=== PATIENT | female | born 1975 | race Caucasian/White ===

== ENCOUNTER 2017-05-01 07:56 | Outpatient (CLI) | payer BC ==
[2017-05-01 11:02] LABS: #Eosinphils 0.3 thou/uL (0.0-0.7); #Lymphocytes 2.2 thou/uL (1.20-3.40); #Monocytes 0.6 thou/uL (0.11-0.59); #Neutrophils 6.4 thou/uL (1.40-6.50); %Basophils 0.4 % (0.0-1.0); %Eosinophils 3.4 % (0.0-10.0); %Lymphocytes 23.2 % (21.0-51.0); %Monocytes 6.5 % (0.0-10.0); Hematocrit 43.4 % (36.0-47.0); Mean Platelet Volume 8.6 fL (7.4-10.4); Red Blood Cell (RBC) Count 4.72 mill/uL (4.20-5.40); White Blood Cell (WBC) Count 9.6 thou/uL (4.8-10.8)
[2017-05-01 11:21] LABS: ALT (SGPT) 20 U/L (8-55); AST (SGOT) 15 U/L (5-34); Alkaline Phosphatase 75 U/L (40-150); Anion Gap 9 mmol/L (10-20); BUN (Urea Nitrogen) 24 mg/dL (7.0-18.7); Bilirubin, Total 0.5 mg/dL (0.2-1.2); Calc. Creatinine Clearance 0 mL/min (70-130); Calcium 9.8 mg/dL (7.8-10.44); Carbon Dioxide 28 mmol/L (22-29); Chloride 103 mmol/L (98-107); Estimated GFR-MDRD 55; Globulin 3.5 g/dL (2.4-3.5); Protein, Total 7.6 g/dL (6.0-8.3)
== END 2017-05-01 07:57 | disposition home or self-care (01) ==
LOC: LABBT 07:56
PROVIDERS: ATTEND Surgery
DX: Z01.818 Encounter for other preprocedural examination (principal); N61.1 Abscess of the breast and nipple; Z88.1 Allergy status to other antibiotic agents; Z88.0 Allergy status to penicillin; Z88.8 Allergy status to other drugs, medicaments and biological substances
CPT/HCPCS: 80053; 85025; 93005; 93010

== ENCOUNTER 2017-05-02 07:38 | Day surgery (SDC) | payer BC ==
[2017-05-01 08:37] VITALS: BMI 79.9
[2017-05-02] MEDS ORDERED: Levofloxacin 500 mg/D5W 100 ml Premix Bag ONE (08:31)
[2017-05-02] MEDS ORDERED: Midazolam HCl 2 mg/2 ml Vial ONE (09:00)
[2017-05-02] MEDS ORDERED: Fentanyl 100 MCG/2 ML VIAL ONE ×2 (09:00→11:13)
[2017-05-02] MEDS ORDERED: Bupivacaine/Epinephrine 0.25% 30 ML VIAL ONE (09:06)
--- NOTE | 2017-05-02 10:46 | ULT ---
LEFT BREAST ULTRASOUND GUIDED NEEDLE LOCALIZATION: History: Chronic abscess and infection. Patient is status post left breast biopsy. Comparison: 08-21-16 FINDINGS: Successful needle localization of an area of architectural distortion in the left retroareolar region . A 5 cm Williams needle and wire were deployed. Technique: Consent obtained to perform an ultrasound guided left breast needle localization. Left breast was michelle luated. Breast was prepped and draped in sterile fashion. 1% Lidocaine buffered with sodium bicarbona te used for local anesthesia. A 5 Hebrew Williams needle was advanced into the area of architectural distortion. Wire was deployed. Wi re and needle were secured to the patient. Patient tolerated the procedure well. No immediate or post procedure complication. IMPRESSION: Successful ultrasound guided left breast needle localization. POS: [facility]
--- NOTE | 2017-05-02 10:50 | OP ---
PREOPERATIVE DIAGNOSIS: Recurrent left breast abscess. SURGEON: Marco Guardado M.D. PROCEDURE PERFORMED: Left needle-localization breast biopsy. INDICATIONS: This is a 42-year-old female, who has recurrent episodes of a draining sinus and inflam mation of the left breast. I could not feel anything, but on ultrasound, they showed an area that lo oked like the source. FINDINGS: I did not see any purulent fluid. The entire area was completely excised around the needl e. PROCEDURE IN DETAIL: After informed consent was obtained, the patient was taken to the operating beckie m and given general endotracheal anesthesia. She was placed in the supine position. Her chest was p repped and draped in the usual fashion. She had undergone ultrasound-guided needle-localization. A periumbilical subareolar incision was performed to include the sinus tract where it had been draining , it was closed at this time, and a core of breast tissue was excised around the needle. This was ma rked with the needle lateral, the skin anterior, and black superior, sent to pathology for further an alysis. Hemostasis was achieved with electrocautery. The wound thoroughly irrigated with saline. B ecause there was no active infection, elected to go ahead and close. Subcutaneous reapproximated wit h interrupted 3-0 Vicryl and skin closed with interrupted 4-0 Rapide. Steri-Strips applied. Sterile bandage applied. The patient tolerated the procedure well and transferred to recovery in good condi tion. Sponge and needle count verified correct x2.
[2017-05-02] MEDS ORDERED: Ondansetron HCl/PF 4 MG/2 ML Vial ONE (17:52)
[2017-05-02] MEDS ORDERED: Glycopyrrolate 0.2 MG/ML 5 ML SYRINGE ONE (17:52)
[2017-05-02] MEDS ORDERED: Dexamethasone 20 MG/5 ML VIAL ONE (17:52)
[2017-05-02] MEDS ORDERED: diphenhydrAMINE 50 MG/ML VIAL ONE (17:52)
[2017-05-02] MEDS ORDERED: ePHEDrine/0.9% NaCl/PF SYRINGE 50 mg/10 ml ONE (17:52)
[2017-05-02] MEDS ORDERED: Metoclopramide HCl 10 MG/2 ML VIAL ONE (17:52)
[2017-05-02] MEDS ORDERED: Propofol 200 MG/20 ML VIAL ONE (17:52)
[2017-05-02] MEDS ORDERED: Ketorolac Tromethamine 30 MG/ML VIAL ONE (17:52)
[2017-05-02] MEDS ORDERED: Lidocaine 1% PF 5 ML VIAL ONE (17:52)
== END 2017-05-02 12:20 | disposition home or self-care (01) ==
LOC: SDC 07:38
PROVIDERS: ATTEND Surgery
PROC: 0HBU3ZX Excision of Left Breast, Percutaneous Approach, Diagnostic (ICD-10-PCS; principal; 2017-05-02)
DX: N61.1 Abscess of the breast and nipple (principal); N60.32 Fibrosclerosis of left breast; E66.01 Morbid (severe) obesity due to excess calories; I11.0 Hypertensive heart disease with heart failure; I50.9 Heart failure, unspecified; E78.5 Hyperlipidemia, unspecified; D64.9 Anemia, unspecified; J45.909 Unspecified asthma, uncomplicated; M17.0 Bilateral primary osteoarthritis of knee; E55.9 Vitamin D deficiency, unspecified; I48.91 Unspecified atrial fibrillation; Z68.45 Body mass index [BMI] 70 or greater, adult; Z79.01 Long term (current) use of anticoagulants; Z79.82 Long term (current) use of aspirin; Z79.899 Other long term (current) drug therapy; Z88.1 Allergy status to other antibiotic agents; Z88.0 Allergy status to penicillin; Z88.2 Allergy status to sulfonamides; Z88.8 Allergy status to other drugs, medicaments and biological substances; Z97.5 Presence of (intrauterine) contraceptive device; Z98.890 Other specified postprocedural states
CPT/HCPCS: 19285; 88307; 96374; J0131; J1100; J1200; J1885; J1956; J2001; J2250; J2405; J2704; J2765; J3010

== ENCOUNTER 2017-12-26 16:30 | Inpatient (IN) | payer BC ==
[2018-01-24] MEDS ORDERED: Bupivacaine/Epinephrine 0.25% 30 ML VIAL ONE ×2 (06:41)
[2018-01-24] MEDS ORDERED: Fentanyl 100 MCG/2 ML VIAL ONE (07:26)
[2018-01-24] MEDS ORDERED: Midazolam HCl 2 mg/2 ml Vial ONE (07:26)
[2018-01-24] MEDS ORDERED: HYDROmorphone 2 MG/ML VIAL ONE (07:26)
[2018-01-24] MEDS ORDERED: Heparin 5,000 UNITS/ML VIAL ONE (08:10)
[2018-01-24] MEDS ORDERED: Meperidine HCl/PF 25 MG/ML VIAL SLOW IVP PRN (08:25)
[2018-01-24] MEDS ORDERED: Naloxone HCl 0.4 mg/ml Vial IV PRN (08:25)
[2018-01-24] MEDS ORDERED: diphenhydrAMINE 25 MG CAP PO PRN (08:25)
[2018-01-24] MEDS ORDERED: diphenhydrAMINE 50 MG/ML VIAL IVP PRN ×2 (08:25→10:48)
[2018-01-24] MEDS ORDERED: HYDROmorphone 2 MG/ML VIAL SLOW IVP PRN (08:25)
[2018-01-24] MEDS ORDERED: HYDROmorphone 10 mg/100 ml CADD IVPB PRN (08:25)
[2018-01-24] MEDS ORDERED: Promethazine HCl 25 MG/ML VIAL IM PRN ×3 (08:25→10:48)
[2018-01-24] MEDS ORDERED: diphenhydrAMINE 50 MG/ML VIAL IM PRN (08:25)
[2018-01-24] MEDS ORDERED: Promethazine HCl 25 MG/ML VIAL SLOW IVP PRN (08:25)
[2018-01-24] MEDS ORDERED: Zolpidem Tartrate 5 MG TAB PO PRN (08:25)
[2018-01-24] MEDS ORDERED: Ondansetron HCl/PF 4 MG/2 ML Vial IVP PRN ×3 (08:25→10:48)
[2018-01-24] MEDS ORDERED: Communication Order-Pharmacy FS SCH (08:30)
[2018-01-24] MEDS ORDERED: Dextrose 50% Abboject 50 ML SYRINGE SLOW IVP PRN (10:48)
[2018-01-24] MEDS ORDERED: Dextrose 5% in Water 1,000 ML IV PRN (10:48)
[2018-01-24] MEDS ORDERED: hydrALAZINE 20 MG/ML VIAL SLOW IVP PRN (10:48)
[2018-01-24] MEDS: Acetaminophen 1,000 MG in Premix Bag 1 BAG IVPB SCH ×3 (12:35→23:37)
[2018-01-24] MEDS: Ketorolac Tromethamine 30 MG/ML VIAL IVP SCH ×3 (13:51→23:37)
[2018-01-24] MEDS: D5 1/2 NS w/20 mEq KCL 1,000 ML IV SCH ×2 (14:32→23:06)
[2018-01-24] MEDS: Prevnar 13-Val Conj/PF 0.5 ML SYRINGE IM ONE (14:33)
[2018-01-24] MEDS ORDERED: Glycopyrrolate 0.2 MG/ML 5 ML SYRINGE ONE (14:37)
[2018-01-24] MEDS ORDERED: Ketorolac Tromethamine 30 MG/ML VIAL ONE (14:37)
[2018-01-24] MEDS ORDERED: Lidocaine 1% PF 5 ML VIAL ONE (14:37)
[2018-01-24] MEDS ORDERED: PROPOFOL 200 MG/20 ML VIAL ONE (14:37)
[2018-01-24] MEDS ORDERED: Dexamethasone 20 MG/5 ML VIAL ONE (14:37)
[2018-01-24] MEDS ORDERED: PHENYLEPHRINE-NS 100 MCG/ML 10 ML SYRINGE ONE (14:37)
[2018-01-24] MEDS ORDERED: Ondansetron HCl/PF 4 MG/2 ML Vial ONE (14:37)
[2018-01-24 14:44] LABS: Band 37 % (5-11); Hemoglobin 13.5 g/dL (12.0-16.0); MDiff Complete? YES; Mean Corpuscular HGB CONC 34.3 g/dL (32.0-36.0); Mean Corpuscular Hemoglobin 31.2 pg (27.0-31.0); Mean Platelet Volume 9.6 fL (7.4-10.4); Neutrophil 54 % (42-75); Platelet Count 231 thou/uL (130-400); RBC Distribution Width 15.6 % (11.5-14.5); Red Blood Cell (RBC) Count 4.31 mill/uL (4.20-5.40)
[2018-01-24 14:45] LABS: Anisocytosis SLIGHT = 6-15 cells (100X) (0-5/hpf); Lymphocytes 6 % (21-51); Monocytes 3 % (0-10); PLT Morphology Comment Appears Adequate
[2018-01-24] MEDS: Sodium Chloride 0.9% 1,000 ML IV SCH ×2 (18:18→21:09)
[2018-01-24] MEDS ORDERED: Sodium Chloride 0.9% 1,000 ML IV SCH (18:45)
[2018-01-24 19:06] LABS: Hemoglobin 11.4 g/dL (12.0-16.0)
[2018-01-24] MEDS: Vancomycin HCl 1.75 GM in Sodium Chloride 0.9% 500 ML IVPB SCH (21:02)
[2018-01-25 06:09] LABS: Anion Gap 15 mmol/L (10-20); BUN (Urea Nitrogen) 35 mg/dL (7.0-18.7); Calc. Creatinine Clearance 99 mL/min (70-130); Calcium 8.4 mg/dL (7.8-10.44); Carbon Dioxide 18 mmol/L (22-29); Chloride 108 mmol/L (98-107); Estimated GFR-MDRD 21; Glucose 146 mg/dL (70-105); Potassium 5.1 mmol/L (3.5-5.1); Sodium 136 mmol/L (136-145)
[2018-01-25] MEDS ORDERED: Sodium Chloride 0.9% 500 ML IVPB SCH (06:45)
[2018-01-25 06:58] LABS: Mean Corpuscular HGB CONC 33.4 g/dL (32.0-36.0); Mean Corpuscular Hemoglobin 30.7 pg (27.0-31.0); Mean Corpuscular Volume 91.8 fL (78.0-98.0); Mean Platelet Volume 10.3 fL (7.4-10.4); Platelet Count 199 thou/uL (130-400); RBC Distribution Width 15.6 % (11.5-14.5); Red Blood Cell (RBC) Count 3.24 mill/uL (4.20-5.40); White Blood Cell (WBC) Count 15.6 thou/uL (4.8-10.8)
[2018-01-25 07:03] LABS: Band 31 % (5-11); Lymphocytes 7 % (21-51); MDiff Complete? YES; Monocytes 3 % (0-10); Neutrophil 59 % (42-75)
[2018-01-25] MEDS ORDERED: Amiodarone HCl 450 MG, Admixture Fee 1 EACH in Dextrose 5% in Water 250 ML IVPB SCH (07:15)
[2018-01-25] MEDS ORDERED: Amiodarone HCl 150 MG, Admixture Fee 1 EACH in Dextrose 5% in Water 100 ML IVPB SCH (07:15)
[2018-01-25] MEDS: Acetaminophen 1,000 MG in Premix Bag 1 BAG IVPB SCH ×3 (07:32→11:26)
[2018-01-25] MEDS: Ketorolac Tromethamine 30 MG/ML VIAL IVP SCH ×3 (07:32→11:24)
[2018-01-25] MEDS: D5 1/2 NS w/20 mEq KCL 1,000 ML IV SCH ×5 (07:35→20:48)
[2018-01-25] MEDS: Pantoprazole 40 MG VIAL IVP SCH (08:10)
[2018-01-25] MEDS: Morphine 4 MG/ML VIAL SLOW IVP PRN ×4 (08:12→21:13)
[2018-01-25] MEDS: Enoxaparin Sodium 40 MG/0.4 ML SYRINGE SC SCH (08:16)
[2018-01-25] MEDS: Vancomycin HCl 1.75 GM in Sodium Chloride 0.9% 500 ML IVPB SCH ×2 (09:46→21:06)
--- NOTE | 2018-01-25 10:21 | PDOC.PULCN ---
Addendum entered and electronically signed by Marco Mcdowell DO 01/25/18 10:33: Addend to correct plan: Acute blood loss anemia - pt has 2U PRBC crossed and typed however has not required transfusion thus far. Most recent Hb is 10.0. Recheck at 1600 - Currently pt is not short of breath or tachycardic, suggestive of no current internal bleed. 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 Following recovery in the PACU pt has significant hypotension and a period of an afib with rvr resulting in being bolused amiodarone. Since moving to the ICU, BP has been low, but stable without pressure support. Pt has remained rate controlled. She has a known hx of afib Pulmonology Consult: ROS - Review of Systems All systems: reviewed and no additional remarkable complaints except as stated ( complains of incisional pain and shoulder/nack pain) Constitutional: negative: fever, chills Cardiovascular: negative: chest pain, palpitations, light headedness Respiratory: negative: chest tightness, short of breath, wheezing Pulmonology Consult: [facility] Source: patient Past Medical History: Morbid obesity, afib - Social History Smoking Status: negative: Current every day smoker Alcohol Use: negative: none Drug Use History: negative: none Living Situation: independent Pulmonology Consult: Meds - Medications MAR Reviewed: Yes Medications: Current Medications Hydrocodone Bitart/Acetaminophen (Hydrocodone-Apap 7.5-325/15) 15 ml PO Q4H PRN PRN Reason: Moderate Pain (4-6) Albuterol/Ipratropium (Duoneb) 3 ml NEB Q4H PRN PRN Reason: Wheezing Dextrose/Water (Dextrose 50%) 25 gm SLOW IVP PRN PRN PRN Reason: Hypoglycemia Diphenhydramine HCl (Benadryl) 25 mg IVP Q3H PRN PRN Reason: Itching Diphenhydramine HCl (Benadryl) 25 mg PO Q3H PRN PRN Reason: Itching Diphenhydramine HCl (Benadryl) 25 mg IM Q3H PRN PRN Reason: Itching Diphenhydramine HCl (Benadryl) 25 mg IVP Q6H PRN PRN Reason: Itching & Insomnia Enoxaparin Sodium (Lovenox) 40 mg SC 0900 [facility] Last Admin: 01/25/18 08:16 Dose: 40 mg Glucagon (Glucagon) 1 mg IM PRN PRN PRN Reason: Hypoglycemia Hydralazine HCl (Apresoline) 10 mg SLOW IVP Q4H PRN PRN Reason: SBP > 170 or DBP > 100 Acetaminophen 1,000 mg/ Device 100 mls @ 400 mls/hr IVPB Q6HR [facility] Stop: 01/25/18 12:01 Last Admin: 01/25/18 07:34 Dose: 100 mls Potassium Chloride/Dextrose/Sod Cl (D5 1/2 Ns W/20 Meq Kcl) 1,000 mls @ 125 mls /hr IV .Q8H [facility] Last Admin: 01/25/18 07:41 Dose: Not Given Dextrose/Water (D5w) 1,000 mls @ 0 mls/hr IV .Q0M PRN PRN Reason: Hypoglycemia Vancomycin HCl 1.75 gm/ Sodium (Chloride) 500 mls @ 250 mls/hr IVPB Q12HR [facility] Last Admin: 01/25/18 09:46 Dose: 500 mls Amiodarone HCl 450 mg/Miscellaneous Medication 1 each/ Dextrose/Water 259 mls @ 0 mls/hr IVPB INF [facility]; Protocol Last Admin: 01/25/18 07:35 Dose: 259 mls Ketorolac Tromethamine (Toradol) 15 mg IVP Q6HR [facility] Stop: 01/25/18 12:01 Last Admin: 01/25/18 08:10 Dose: 15 mg Morphine Sulfate (Morphine) 2 mg SLOW IVP Q2H PRN PRN Reason: Moderate Pain (4-6), if NPO Last Admin: 01/24/18 21:01 Dose: 2 mg Morphine Sulfate (Morphine) 4 mg SLOW IVP Q2H PRN PRN Reason: Severe Pain (7-10) Last Admin: 01/25/18 09:56 Dose: 4 mg Naloxone HCl (Narcan) 0.2 mg IV Q5MIN PRN PRN Reason: Opiate Reversal Ondansetron HCl (Zofran) 4 mg IVP Q8H PRN PRN Reason: Nausea/Vomiting Pantoprazole Sodium (Protonix) 40 mg IVP DAILY [facility] Last Admin: 01/25/18 08:10 Dose: 40 mg Promethazine HCl (Phenergan) 12.5 mg IM Q2H PRN PRN Reason: Nausea/Vomiting Sodium Chloride (Flush - Normal Saline) 10 ml IVF PRN PRN PRN Reason: Saline Flush Last Admin: 01/25/18 08:13 Dose: 10 ml Zolpidem Tartrate (Ambien) 5 mg PO HSPRN PRN PRN Reason: Insomnia - Allergies Allergies/Adverse Reactions: Allergies Allergy/AdvReac Type Severity Reaction Status Date / Time ciprofloxacin [From Cipro] Allergy Verified 01/21/18 15:38 clindamycin Allergy Rash Verified 01/21/18 15:38 levofloxacin [From Levaquin] Allergy Verified 01/21/18 15:38 lorcaserin [From Belviq] Allergy Nausea Verified 01/21/18 15:38 nitrofurantoin Allergy Hives Verified 01/21/18 15:38 [From Macrobid] Penicillins Allergy Verified 01/21/18 15:38 raspberry Allergy Verified 01/21/18 15:38 sulfamethoxazole Allergy Rash Verified 01/21/18 15:38 [From Bactrim] trimethoprim [From Bactrim] Allergy Rash Verified 01/21/18 15:38 Pulmonology Consult: PE - Physical Exam Constitutional: NAD HEENT: PERRLA, moist MMs Neck: full ROM Cardiovascular: RRR, no significant murmur Respiratory: clear to auscultation anteriorly Gastrointestinal: soft, positive bowel sounds Deviation from normal: TTP in all quadrants Musculoskeletal: no edema Neurological: non-focal, normal sensation, moves all 4 limbs Psychiatric: normal affect, A&O x 3 Skin: no rash Pulmonology Consult: Results - Labs Result Diagrams: 01/25/18 05:23 01/25/18 05:23 Pulmonology Consult: A/P - Problem (1) Acute blood loss anemia Current Visit: Yes Code(s): D62 - ACUTE POSTHEMORRHAGIC ANEMIA Status: Acute (2) Hypotension Current Visit: Yes Status: Acute (3) Afib Current Visit: Yes Code(s): I48.91 - UNSPECIFIED ATRIAL FIBRILLATION Status : Acute (4) Asplenia Current Visit: Yes Code(s): Q89.01 - ASPLENIA (CONGENITAL) Status: Acute (5) Morbid obesity Current Visit: Yes Code(s): E66.01 - MORBID (SEVERE) OBESITY DUE TO EXCESS CALORIES Status: Acute - Time Time: 50% of the time was spent in coordination of care (as documented) at patient's floor/unit and/or counseling patient. Time with Patient: greater than 50 minutes - Plan Plan: Acute blood loss anemia - s/p 2 U PRBC. Recheck 6 hours post transfusion - Pt is currently not feeling SOB. She is not tachycardic. Low concern for continued bleed at this point Hypotension secondary to blood loss - IVF and blood transfusion as above - currently stable, does not need pressure support at this time. Asplenia - pt will need prevnar, pneumovax, and meningococcal vaccination - monitor for signs of infection Afib - currently rate controlled, monitor on tele <Pk Pickett - Last Filed: 01/25/18 12:37> Pulmonology Consult: HPI - History of Present Illness HPI: YELITZA RADFORD [place] is a 42 year-old F Pulmonology Consult: Meds - Medications Medications: Current Medications Hydrocodone Bitart/Acetaminophen (Hydrocodone-Apap 7.5-325/15) 15 ml PO Q4H PRN PRN Reason: Moderate Pain (4-6) Albuterol/Ipratropium (Duoneb) 3 ml NEB Q4H PRN PRN Reason: Wheezing Dextrose/Water (Dextrose 50%) 25 gm SLOW IVP PRN PRN PRN Reason: Hypoglycemia Diphenhydramine HCl (Benadryl) 25 mg IVP Q3H PRN PRN Reason: Itching Diphenhydramine HCl (Benadryl) 25 mg PO Q3H PRN PRN Reason: Itching Diphenhydramine HCl (Benadryl) 25 mg IM Q3H PRN PRN Reason: Itching Diphenhydramine HCl (Benadryl) 25 mg IVP Q6H PRN PRN Reason: Itching & Insomnia Enoxaparin Sodium (Lovenox) 40 mg SC 0900 [facility] Last Admin: 01/25/18 08:16 Dose: 40 mg Glucagon (Glucagon) 1 mg IM PRN PRN PRN Reason: Hypoglycemia Hydralazine HCl (Apresoline) 10 mg SLOW IVP Q4H PRN PRN Reason: SBP > 170 or DBP > 100 Potassium Chloride/Dextrose/Sod Cl (D5 1/2 Ns W/20 Meq Kcl) 1,000 mls @ 125 mls /hr IV .Q8H [facility] Last Admin: 01/25/18 10:59 Dose: Not Given Dextrose/Water (D5w) 1,000 mls @ 0 mls/hr IV .Q0M PRN PRN Reason: Hypoglycemia Vancomycin HCl 1.75 gm/ Sodium (Chloride) 500 mls @ 250 mls/hr IVPB Q12HR [facility] Last Admin: 01/25/18 09:46 Dose: 500 mls Amiodarone HCl 450 mg/Miscellaneous Medication 1 each/ Dextrose/Water 259 mls @ 0 mls/hr IVPB INF [facility]; Protocol Last Admin: 01/25/18 07:35 Dose: 259 mls Morphine Sulfate (Morphine) 2 mg SLOW IVP Q2H PRN PRN Reason: Moderate Pain (4-6), if NPO Last Admin: 01/24/18 21:01 Dose: 2 mg Morphine Sulfate (Morphine) 4 mg SLOW IVP Q2H PRN PRN Reason: Severe Pain (7-10) Last Admin: 01/25/18 09:56 Dose: 4 mg Naloxone HCl (Narcan) 0.2 mg IV Q5MIN PRN PRN Reason: Opiate Reversal Ondansetron HCl (Zofran) 4 mg IVP Q8H PRN PRN Reason: Nausea/Vomiting Pantoprazole Sodium (Protonix) 40 mg IVP DAILY [facility] Last Admin: 01/25/18 08:10 Dose: 40 mg Promethazine HCl (Phenergan) 12.5 mg IM Q2H PRN PRN Reason: Nausea/Vomiting Sodium Chloride (Flush - Normal Saline) 10 ml IVF PRN PRN PRN Reason: Saline Flush Last Admin: 01/25/18 08:13 Dose: 10 ml Zolpidem Tartrate (Ambien) 5 mg PO HSPRN PRN PRN Reason: Insomnia Pulmonology Consult: Results - Labs Result Diagrams: 01/25/18 12:02 01/25/18 05:23 Pulmonology Consult: A/P - Time Time: 50% of the time was spent in coordination of care (as documented) at patient's floor/unit and/or counseling patient. Attending Addendum - Attending Addendum Date/Time: 01/25/18 1232 I personally evaluated the patient and discussed the management with Dr. Mcdowell. I agree with the History, Examination, Assessment and Plan documented above with any addition or exceptions noted below. 70 minutes have been devoted to this patient in various activities. I personally reviewed all imaging studies and laboratory data noted within this document. For fifty percent of this time, I was interacting with the patient at the bedside or coordinating care with the care team. For the remainder of the time I was immediately available to the patient in the hospital unit.
[2018-01-25] MEDS ORDERED: Sodium Chloride 0.9% 1,000 ML IV SCH (11:00)
[2018-01-25 12:11] LABS: Hemoglobin 8.4 g/dL (12.0-16.0)
[2018-01-25] MEDS ORDERED: Diltiazem 125 MG in Sodium Chloride 0.9% 100 ML IVPB SCH (12:45)
--- NOTE | 2018-01-25 12:54 | CON ---
DATE OF CONSULTATION: 01/25/2018 REASON FOR CONSULTATION: Chronic atrial fibrillation. HISTORY OF PRESENT ILLNESS: Ms. Larson is a very pleasant 42-year-old woman who has been seen and e valuated by Dr. Renae at [facility]. She recently was seen for a gastric sleeve surgery. She had an inadvertent splenic artery laceration, subsequent splenectomy. She is found to be in atrial fibrillation with RVR. She was transferred to the ICU for close observa tion. She is currently asymptomatic. From a cardiovascular standpoint, she gives a history of having congestive heart failure several year s ago. She also gives a history of chronic atrial fibrillation on anticoagulation therapy, which has subsequently been stopped. No chest pain, pressure, shortness of breath or associated symptoms. He r heart rate is currently controlled. She is currently on IV amiodarone. PAST MEDICAL HISTORY: Previous breast biopsy, morbid obesity, CHF, likely diastolic failure, hyperli pidemia, recurrent mastitis, asthma, arthritis, osteoarthritis, hernia repair, breast biopsy. FAMILY HISTORY: Positive for CAD. SOCIAL HISTORY: No current tobacco or alcohol use. ALLERGIES: BACTRIM, PENICILLIN, CLINDAMYCIN, CEPHALEXIN, MACROBID, CIPRO, KEFLEX, and RASPBERRIES. REVIEW OF SYSTEMS: Ten point review of systems is reviewed as above, otherwise negative. PHYSICAL EXAMINATION: VITAL SIGNS: Blood pressure 99/58, pulse 80, respirations 20. GENERAL: Patient is a pleasant female who is in no acute distress. The patient appears her stated ag e. She is morbidly obese. NEUROLOGIC: The patient is alert and oriented times 3 with no focal neurologic deficits. HEENT: Sclerae without icterus. Mouth has moist mucous membranes with normal pallor. NECK: No JVD. Carotid upstroke brisk. No bruits bilaterally. LUNGS: Clear to auscultation with unlabored respirations. BACK: No scoliosis or kyphosis. CARDIAC: Irregularly irregular. ABDOMEN: Soft, nontender, nondistended. No peritoneal signs present. No hepatosplenomegaly. No abn ormal striae. EXTREMITIES: 2+ femoral and 2+ dorsalis pedis pulses. No cyanosis, clubbing, or edema. SKIN: No gross abnormalities. PERTINENT LABS: White blood cell count 15, hemoglobin 8.4 down from 10.0, platelet count 199, creati nine 2.52. IMPRESSION: Chronic atrial fibrillation. RECOMMENDATIONS: Ms. Larson likely had increased heart rate due to recent surgery and recent splene ctomy. She has a decrease in her hemoglobin, but appears to be stable. She is currently asymptomati c. She is currently on amiodarone. Given that she has chronic fibrillation would likely change to I V Cardizem at 5 mg per hour with no bolus. We will also give 0.5. digoxin for better rate control. At this point, she is not taking p.o. We will supplement with p.o. Cardizem once she is taking p.o. We will review her echo.
[2018-01-25] MEDS ORDERED: Digoxin 0.5 MG/2 ML AMP SLOW IVP SCH (13:15)
--- NOTE | 2018-01-25 13:46 | EKG ---
Test Reason : Blood Pressure : / mmHG Vent. Rate : 103 BPM Atrial Rate : 468 BPM P-R Int : 000 ms QRS Dur : 096 ms QT Int : 354 ms P-R-T Axes : 000 047 056 degrees QTc Int : 463 ms Atrial fibrillation with rapid ventricular response Abnormal ECG When compared with ECG of 21-JAN-2018 16:23, Vent. rate has increased BY 39 BPM Questionable change in QRS duration Minimal criteria for Anterior infarct are no longer Present Confirmed by PAULINO ZAMORA ([id number]) on 01/25/2018 1:46:09 PM Referred By: SANDY Confirmed By:PAULINO ZAMORA
[2018-01-25] MEDS: Sodium Chloride 0.9% 1,000 ML IV SCH (14:54)
[2018-01-25 16:05] LABS: Hemoglobin 9.1 g/dL (12.0-16.0); Mean Corpuscular Volume 91.2 fL (78.0-98.0); Mean Platelet Volume 10.3 fL (7.4-10.4); Platelet Count 169 thou/uL (130-400); RBC Distribution Width 15.7 % (11.5-14.5); Red Blood Cell (RBC) Count 2.94 mill/uL (4.20-5.40); White Blood Cell (WBC) Count 19.9 thou/uL (4.8-10.8)
--- NOTE | 2018-01-25 18:58 | OP ---
DATE OF PROCEDURE: 01/25/2018 SERVICE: Pulmonary and Critical Care. PROCEDURE: Right-sided radial arterial catheter placement. CONSENT: The risks and benefits of the procedure were explained to the patient. All questions were answered and alternative options explained. STAFF PHYSICIAN: Pk Pickett M.D. MEDICATIONS USED: None. INDICATION: Need for accurate blood pressure monitoring. DESCRIPTION OF PROCEDURE: Time out was performed by the procedure team and patient. The patient was positively identified using name and date of . The procedure site was marked. Vital sign danuta toring was accomplished by noninvasive hemodynamic monitoring, pulse oximetry, and telemetry. With the patient in the supine position, the right wrist was placed in the extended position and radi al arterial pulse was palpated. The skin was prepped and draped in usual sterile fashion. The radia l artery was cannulated under direct palpation on the second attempt with return of bright red, pulsa tile blood. The arterial catheter was inserted without difficulty and generously secured with Tegade rm and tape. The catheter was attached to the monitor and appropriate arterial waveform was noted. A sterile dressing was applied and procedure was terminated. ESTIMATED BLOOD LOSS: 2 mL. COMPLICATIONS: None.
[2018-01-26] MEDS: D5 1/2 NS w/20 mEq KCL 1,000 ML IV SCH (02:30)
[2018-01-26] MEDS: Morphine 4 MG/ML VIAL SLOW IVP PRN ×2 (04:31→08:31)
[2018-01-26] MEDS: Hydrocodone-Acetamin 15 ML UDCUP PO PRN ×4 (08:13→20:29)
[2018-01-26] MEDS: Enoxaparin Sodium 40 MG/0.4 ML SYRINGE SC SCH (08:18)
[2018-01-26] MEDS: Pantoprazole 40 MG VIAL IVP SCH (08:20)
[2018-01-26] MEDS: Vancomycin HCl 1.75 GM in Sodium Chloride 0.9% 500 ML IVPB SCH (08:27)
--- NOTE | 2018-01-26 09:01 | PDOC.CTH ---
Cardiology Progress Note - Subjective Pt with CP noted from air post op. HR currently controlled on no meds. ACT has been held secondary to recent bleed. - Objective Vital Signs Temp 01/26/18 04:00 98.6 F 01/26/18 00:00 98.0 F Weight 502 lb 10.463 oz 01/25/18 01/26/18 01/27/18 06:59 06:59 06:59 Intake Total 1600 6176 Output Total 878 Balance 1600 5298 - Physical Examination General/Neuro: alert & oriented x3, NAD Neck: carotid US brisk, no JVD present Lungs: CTA, unlabored respirations Heart: other: (IRR) Abdomen: no HSM, NT/ND Extremities: + femoral B - Labs Result Diagrams: 01/26/18 09:02 01/26/18 09:02 - Assessment/Plan Chronic afib Recent splenic laceration s/p splenectomy Continue IV CCB unitl taking po No need for further digoxin at this time post op care Await ACT recommendations from surgery. Pt at risk of CVA (low) but also at risk of rebleed.
[2018-01-26 09:13] LABS: #Eosinphils 0.1 thou/uL (0.0-0.7); #Lymphocytes 1.8 thou/uL (1.20-3.40); #Monocytes 2.3 thou/uL (0.11-0.59); #Neutrophils 15.7 thou/uL (1.40-6.50); %Basophils 0.2 % (0.0-1.0); %Eosinophils 0.3 % (0.0-10.0); %Lymphocytes 9.1 % (21.0-51.0); %Monocytes 11.4 % (0.0-10.0); Mean Corpuscular HGB CONC 34.1 g/dL (32.0-36.0); Mean Corpuscular Hemoglobin 31.4 pg (27.0-31.0); Mean Corpuscular Volume 92.1 fL (78.0-98.0); Mean Platelet Volume 10.5 fL (7.4-10.4); Platelet Count 172 thou/uL (130-400); RBC Distribution Width 15.7 % (11.5-14.5); Red Blood Cell (RBC) Count 2.54 mill/uL (4.20-5.40); White Blood Cell (WBC) Count 19.9 thou/uL (4.8-10.8)
[2018-01-26 09:35] LABS: ALT (SGPT) 54 U/L (8-55); AST (SGOT) 26 U/L (5-34); Albumin 3.1 g/dL (3.5-5.0); Alkaline Phosphatase 56 U/L (40-150); Anion Gap 12 mmol/L (10-20); BUN (Urea Nitrogen) 35 mg/dL (7.0-18.7); Bilirubin, Direct 0.1 mg/dL (0.1-0.3); Bilirubin, Total 0.3 mg/dL (0.2-1.2); Calc. Creatinine Clearance 129 mL/min (70-130); Calcium 8.1 mg/dL (7.8-10.44); Carbon Dioxide 17 mmol/L (22-29); Chloride 112 mmol/L (98-107); Estimated GFR-MDRD 27; Glucose 122 mg/dL (70-105); Protein, Total 5.2 g/dL (6.0-8.3); Sodium 136 mmol/L (136-145)
[2018-01-26] MEDS: Dextrose 5 %-0.45 % NaCl 1,000 ML IV SCH ×2 (10:00→20:30)
--- NOTE | 2018-01-26 11:00 | PRG ---
DATE OF SERVICE: 01/26/2018 SERVICE: Pulmonary Medicine. INTERVAL HISTORY: The patient has complaints of chest discomfort in the upper areas, and in the bila teral scapula, consistent with her recent surgery. She denies any current nausea, vomiting, or diarr hea. She does not have any shortness of breath, lightheadedness, or dizziness Otherwise, urine outp ut overnight has improved. Her blood pressures have also stabilized to touch. PHYSICAL EXAMINATION: VITAL SIGNS: Afebrile, pulse 95, blood pressure 85/54, respirations 19, saturation 100% on 2 liters nasal cannula. GENERAL: The patient is awake, alert, in no apparent distress. LUNGS: Decent air entry. I do not appreciate a prolonged expiratory phase. HEART: Normal rate, regular. ABDOMEN: Soft, nontender, nondistended. Bowel sounds are positive. MUSCULOSKELETAL: No cyanosis or clubbing. No pitting in the bilateral lower extremities. NEUROLOGIC: Grossly nonfocal. LABORATORY DATA: WBC 19.9, hemoglobin 8.0, platelets 172,000. Creatinine 2.01 and downtrending. BU N 35. Chloride 112, sodium is stable at 136. Potassium is 5.0. Liver function studies are, otherwi se, unremarkable. ASSESSMENT: 1. Acute hypoxic respiratory failure. 2. Acute blood loss anemia. 3. Acute kidney injury, resolving. 4. Atrial fibrillation, permanent. 5. Status post Lap-Band surgery, postoperative day #2. DISCUSSION AND PLAN: We are going to keep the patient in the ICU for an additional 24 hours. I will repeat a hemoglobin at 1500 this evening. Urine output is currently excellent. We will continue wa tching this. It appears that the arterial line and the blood pressure cuff correlate very nicely. I am going to leave the arterial line in for another 24 hours, however. There are currently no signs of infectious symptoms.
--- NOTE | 2018-01-26 11:48 | RAD ---
SINGLE VIEW CHEST: Date: 01/26/18 COMPARISON: 01/21/18. HISTORY: Left-sided chest pain. FINDINGS: Single view of the chest shows a cardiomediastinal silhouette which is upper limits of normal in size . There is no evidence of consolidation, mass, or pleural effusion. Evaluation is limited secondary t o the patient's large body habitus. IMPRESSION: No evidence of acute cardiopulmonary disease. POS: [facility]
[2018-01-26 14:54] LABS: Hemoglobin 7.6 g/dL (12.0-16.0)
--- NOTE | 2018-01-26 17:22 | PRG ---
DATE OF SERVICE: 01/26/2018 SUBJECTIVE: The patient is reporting that her pain is about a 7/10. She mainly complains of pain in the left chest and under her breast and up to the shoulder. It is worse with movement. No nausea o r vomiting. She is tolerating ice chips and sips of liquids well. She denies dyspnea. She is havin g no nausea. PHYSICAL EXAMINATION: VITAL SIGNS: Temperature is 98.6, pulse is 95, blood pressure 102/50. GENERAL: She is awake and alert. There is no jaundice. LUNGS: Clear. HEART: Irregularly irregular. ABDOMEN: Obese, soft. The incisions look good. There is no evidence of infection. Urine output is 878. She did receive 1 unit of packed cells. She still has a Banks in place. LABORATORY DATA: Her white count is 19.9, H and H of 9.1 and 26.8, platelet count of 169,000. We ar e waiting for the electrolytes. ASSESSMENT: Atrial fibrillation with rapid ventricular response, hypotension due to hypovolemia. PLAN: Continue IV fluids. We will check a chest x-ray. We will allow her to have some sips of joe r liquids, try and move her as best we can and control pain.
[2018-01-26] MEDS ORDERED: VANCOMYCIN IVPB PRN (20:24)
[2018-01-26 20:33] LABS: Hemoglobin 7.6 g/dL (12.0-16.0)
[2018-01-26 20:56] LABS: Vancomycin, Trough 40.1 ug/mL
[2018-01-27 02:39] LABS: #Basophils 0.1 thou/uL (0.0-0.2); #Eosinphils 0.2 thou/uL (0.0-0.7); #Lymphocytes 1.9 thou/uL (1.20-3.40); #Monocytes 2.4 thou/uL (0.11-0.59); #Neutrophils 12.7 thou/uL (1.40-6.50); %Basophils 0.3 % (0.0-1.0); %Eosinophils 1.4 % (0.0-10.0); %Lymphocytes 10.8 % (21.0-51.0); %Neutrophils 73.5 % (42.0-75.0); Hemoglobin 7.4 g/dL (12.0-16.0); Mean Corpuscular HGB CONC 34.3 g/dL (32.0-36.0); Mean Corpuscular Hemoglobin 31.5 pg (27.0-31.0); Mean Corpuscular Volume 91.9 fL (78.0-98.0); Platelet Count 187 thou/uL (130-400); RBC Distribution Width 15.6 % (11.5-14.5); Red Blood Cell (RBC) Count 2.34 mill/uL (4.20-5.40); White Blood Cell (WBC) Count 17.3 thou/uL (4.8-10.8)
[2018-01-27] MEDS: Hydrocodone-Acetamin 15 ML UDCUP PO PRN ×3 (03:26→19:06)
[2018-01-27 03:34] LABS: Anion Gap 11 mmol/L (10-20); BUN (Urea Nitrogen) 24 mg/dL (7.0-18.7); Calc. Creatinine Clearance 194 mL/min (70-130); Calcium 8.3 mg/dL (7.8-10.44); Carbon Dioxide 18 mmol/L (22-29); Chloride 113 mmol/L (98-107); Estimated GFR-MDRD 43; Glucose 105 mg/dL (70-105); Potassium 4.3 mmol/L (3.5-5.1); Sodium 138 mmol/L (136-145)
[2018-01-27] MEDS: Dextrose 5 %-0.45 % NaCl 1,000 ML IV SCH ×3 (06:03→23:01)
--- NOTE | 2018-01-27 09:46 | PRG ---
DATE OF SERVICE: 01/27/2018 SERVICE: Pulmonary Medicine. INTERVAL HISTORY: The subcu air is improving a little bit. She continues to have chest and side dis comfort, which is respirophasic in nature. There were no overnight events. She denies any current f jh or chills. She is not having any lightheadedness, nausea, vomiting. She is tolerating some li quids. PHYSICAL EXAMINATION: VITAL SIGNS: Afebrile, pulse 83, blood pressure 119/69, respirations 23, and saturation 100% on 2 li ters nasal cannula. GENERAL: The patient is awake, alert, in no apparent distress. LUNGS: Excellent air entry. There is no prolonged expiratory phase. There is no wheezing, rhonchi, or crackles present. HEART: Normal rate, regular. ABDOMEN: Soft, nontender, nondistended. Bowel sounds are positive. MUSCULOSKELETAL: No cyanosis or clubbing. No pitting in the bilateral lower extremities. NEUROLOGIC: Grossly nonfocal. LABORATORY DATA: WBC 17.3, hemoglobin 7.4, platelets 187,000. Creatinine 1.33 and down trending, BU N 24. Basic metabolic profile is otherwise unremarkable. Random vancomycin is 40. ASSESSMENT: 1. Acute blood loss anemia, stabilizing. 2. Acute hypoxic respiratory failure, improving. 3. Acute kidney injury, resolving. 4. Atrial fibrillation, permanent. 5. Status post lap band surgery, postop day #3. DISCUSSION AND PLAN: We will repeat a hemoglobin around noon. If her hemoglobin remains stable, we can transition her to the floor if surgery is so inclined. We will start working on mobilization toesthela ay. We will see if we can help resolve some of the subcu air bike putting her on a nonrebreather for a brief period of time. Dr. Guardado is suggesting that most of her discomfort is associated with havi ng to take down the peritoneum in order to remove the spleen. As such, her postop pain is within the expected limits.
--- NOTE | 2018-01-27 10:23 | PRG ---
DATE OF SERVICE: 01/27/2018 SUBJECTIVE: The patient is still complaining of left shoulder pain. It is minimally improved. She is having no dyspnea. She has remained alert and awake. Her urine output has started to come back u p. She is tolerating bariatric clear liquids well. PHYSICAL EXAMINATION: VITAL SIGNS: Her heart rate is 82, blood pressure 118/62, 100% saturated. GENERAL: She is awake and alert. LUNGS: Clear. HEART: Regular rate and rhythm. EXTREMITIES: The incisions are healing well. There is no evidence of infection. GENITOURINARY: Her urine output has been 2000. LABORATORY DATA: Her creatinine is down to 1.3. Electrolytes are otherwise okay. Her white count i s down to 17.3, H&H is 7.4 and 21.5, platelet count of 187. X-RAY FINDINGS: Chest x-ray shows no evidence of acute cardiopulmonary disease. ASSESSMENT: Anemia, it looks like her hemoglobin is stabilizing. She started to mobilize some fluid . PLAN: Bariatric full liquids, physical therapy. We will continue to monitor her hemoglobin. If 24 more hours remains stable, we will consider anticoagulation.
[2018-01-27] MEDS: Enoxaparin Sodium 40 MG/0.4 ML SYRINGE SC SCH (10:45)
[2018-01-27] MEDS: Morphine 4 MG/ML VIAL SLOW IVP PRN ×3 (10:45→22:21)
[2018-01-27] MEDS: Pantoprazole 40 MG VIAL IVP SCH (10:56)
--- NOTE | 2018-01-27 12:04 | PDOC.CTH ---
Cardiology Progress Note - Subjective Looks and feels a little better today. CP improved. HR stable - Objective Vital Signs Temp Pulse Resp Pulse Ox 01/27/18 08:04 100 01/27/18 08:00 98.6 F 81 19 100 01/27/18 07:00 98.6 F 01/27/18 04:00 98.9 F Weight 502 lb 10.463 oz 01/26/18 01/27/18 01/28/18 06:59 06:59 06:59 Intake Total 6176 4250 240 Output Total 878 2000 0 Balance 5298 2250 240 - Physical Examination General/Neuro: alert & oriented x3, NAD Neck: no JVD present Lungs: CTA, unlabored respirations Heart: other: (irr) Abdomen: no HSM, NT/ND, soft Extremities: + edema B - Labs Result Diagrams: 01/27/18 13:00 01/27/18 03:20 - Assessment/Plan Chronic afib Recent splenic laceration s/p splenectomy HR stable Hold ACT given continued anemia. Will leave at disposition of surgery on when it can be restarted.
[2018-01-27 13:17] LABS: Hemoglobin 7.1 g/dL (12.0-16.0)
[2018-01-27] MEDS ORDERED: predniSONE 20 MG TAB PO SCH (17:30)
[2018-01-28] MEDS: Hydrocodone-Acetamin 15 ML UDCUP PO PRN ×3 (01:10→20:10)
[2018-01-28 05:45] LABS: Anion Gap 10 mmol/L (10-20); BUN (Urea Nitrogen) 16 mg/dL (7.0-18.7); Calc. Creatinine Clearance 235 mL/min (70-130); Calcium 8.8 mg/dL (7.8-10.44); Carbon Dioxide 20 mmol/L (22-29); Chloride 111 mmol/L (98-107); Estimated GFR-MDRD 54; Glucose 127 mg/dL (70-105); Potassium 4.7 mmol/L (3.5-5.1); Sodium 136 mmol/L (136-145)
[2018-01-28 06:12] LABS: Band 16 % (5-11); Hemoglobin 7.7 g/dL (12.0-16.0); Lymphocytes 3 % (21-51); MDiff Complete? YES; Mean Corpuscular HGB CONC 33.1 g/dL (32.0-36.0); Mean Corpuscular Hemoglobin 30.6 pg (27.0-31.0); Mean Corpuscular Volume 92.4 fL (78.0-98.0); Mean Platelet Volume 9.6 fL (7.4-10.4); Monocytes 5 % (0-10); Neutrophil 76 % (42-75); Nucleated RBC 1 % (0); Platelet Count 249 thou/uL (130-400); Red Blood Cell (RBC) Count 2.52 mill/uL (4.20-5.40); White Blood Cell (WBC) Count 18.9 thou/uL (4.8-10.8)
[2018-01-28] MEDS: Enoxaparin Sodium 40 MG/0.4 ML SYRINGE SC SCH (08:11)
[2018-01-28] MEDS: Pantoprazole 40 MG VIAL IVP SCH (08:11)
[2018-01-28] MEDS: Morphine 4 MG/ML VIAL SLOW IVP PRN ×2 (10:47→16:11)
--- NOTE | 2018-01-28 10:49 | PRG ---
DATE OF SERVICE: 01/28/2018 SUBJECTIVE: The patient is feeling better today, less pain. She does complain of a headache. She d enies any dyspnea. She is tolerating full liquids well. She is passing gas. PHYSICAL EXAMINATION: VITAL SIGNS: Her heart rate is 71, blood pressure 135/81, afebrile. She is 95% sat on room air. GE NERAL: She looks much better, much more comfortable. ABDOMEN: Soft, nondistended. The incisions are healing well. No evidence of infection. GENITOURINARY: Her urine output is 2300 mL. She did receive 1 unit of red cells. LABORATORY DATA: Her white count is 18.9, H&H is 7.7 and 23. Her hematocrit went from 20.7-23.3. E lectrolytes: Chloride at 111, CO2 of 20, which is better from yesterday. Creatinine is 1.1 with a B UN of 16. Her glucose is 127. ASSESSMENT: Still required some blood. PLAN: Probably start anticoagulation tomorrow, more physical therapy, out of bed in the chair.
--- NOTE | 2018-01-28 15:26 | PRG ---
DATE OF SERVICE: 01/28/2018 SERVICE: Pulmonary Medicine. INTERVAL HISTORY: The patient is breathing well today. She is actually sitting on the side of the b ed. She continues to have persistent abdominal discomfort, particularly with movement, and deep oscar thing. Otherwise, there has been no interval change to her condition. PHYSICAL EXAMINATION: VITAL SIGNS: Afebrile with a T-max overnight of 100.9, pulse 74, blood pressure 123/65, respirations 21, saturation 96% on room air. GENERAL: The patient is awake and alert, in no apparent distress. LUNGS: Decent air entry. There is no prolonged expiratory phase. HEART: Normal rate, regular. ABDOMEN: Soft, nontender, nondistended. Bowel sounds are positive. MUSCULOSKELETAL: No cyanosis or clubbing. There is no pitting in the bilateral lower extremities. NEUROLOGIC: Grossly nonfocal. LABORATORY DATA: WBC 18.9, hemoglobin 7.7 with a less than appropriate rise in hemoglobin with 1 uni t of blood, platelets 249,000. Band count has increased to 16%. Creatinine 1.10. Basic metabolic p rofile is, otherwise, unremarkable. ASSESSMENT: 1. Acute blood loss anemia. 2. Acute hypoxic respiratory failure, resolved. 3. Acute kidney injury, resolving. 4. Atrial fibrillation, permanent. 5. Status post Lap-Band surgery, postoperative day #4. DISCUSSION AND PLAN: Once again, we will repeat hemoglobin and hematocrit at roughly 1500 this after noon. We will continue our mobilization efforts. If she has increasing signs of sepsis, hardin culture will be performed. Empiric antibiotics will be considered. Pulmonary Critical Care will continue t o follow along and she will remain in this location.
[2018-01-28 16:04] LABS: Hemoglobin 8.2 g/dL (12.0-16.0)
[2018-01-28] MEDS: Sodium Chloride 0.45% 1,000 ML IV SCH (16:17)
--- NOTE | 2018-01-28 23:31 | PDOC.CTH ---
Cardiology Progress Note - Subjective No complaints today. Seen at 1430 today. Plan for resuming OAC possibly tomorrow. - Objective Vital Signs Temp Pulse Resp Pulse Ox 01/28/18 20:00 98.9 F 76 15 97 01/28/18 16:00 98.7 F 01/28/18 12:00 98.7 F Admit Weight 502 lb 10.463 oz Weight 502 lb 10.463 oz 01/27/18 01/28/18 01/29/18 06:59 06:59 06:59 Intake Total 4250 2515 792 Output Total 1999 2295 725 Balance 2250 220 67 - Physical Examination General/Neuro: alert & oriented x3 Lungs: CTA Heart: other: (IRR) Abdomen: NT/ND, soft Extremities: + edema B - Telemetry Telemetry Rhythm: IRR - Labs Result Diagrams: 01/28/18 15:45 01/28/18 05:10 - Assessment/Plan 1. Chronic AF 2. Splenic lac s/p splenectomy 3. Morbid Obesity 4. Anemia Doing well. Rate-controlled. Resume NOAC as per GS.
[2018-01-29] MEDS: Morphine 4 MG/ML VIAL SLOW IVP PRN ×2 (00:06→08:34)
[2018-01-29] MEDS: Hydrocodone-Acetamin 15 ML UDCUP PO PRN ×5 (03:06→20:18)
[2018-01-29 05:44] LABS: Anion Gap 12 mmol/L (10-20); BUN (Urea Nitrogen) 18 mg/dL (7.0-18.7); Calc. Creatinine Clearance 233 mL/min (70-130); Calcium 8.7 mg/dL (7.8-10.44); Carbon Dioxide 20 mmol/L (22-29); Chloride 110 mmol/L (98-107); Estimated GFR-MDRD 53; Glucose 95 mg/dL (70-105); Potassium 4.3 mmol/L (3.5-5.1); Sodium 138 mmol/L (136-145)
[2018-01-29 06:57] LABS: Band 9 % (5-11); Eosinophils 1 % (0-10); Lymphocytes 15 % (21-51); MDiff Complete? YES; Mean Corpuscular HGB CONC 33.7 g/dL (32.0-36.0); Mean Corpuscular Hemoglobin 31.4 pg (27.0-31.0); Mean Corpuscular Volume 93.2 fL (78.0-98.0); Mean Platelet Volume 8.9 fL (7.4-10.4); Monocytes 15 % (0-10); Neutrophil 60 % (42-75); Platelet Count 348 thou/uL (130-400); RBC Distribution Width 15.4 % (11.5-14.5); Red Blood Cell (RBC) Count 2.55 mill/uL (4.20-5.40); White Blood Cell (WBC) Count 17.5 thou/uL (4.8-10.8)
--- NOTE | 2018-01-29 08:08 | PDOC.CTH ---
Cardiology Progress Note - Subjective No complaints today. Startede mlovenox 40mg BID - Objective Vital Signs Temp Pulse Resp Pulse Ox 01/29/18 07:51 97.2 F L 76 18 96 01/29/18 07:18 76 01/29/18 07:00 97.2 F L 01/29/18 04:00 98.9 F 01/29/18 00:00 98.9 F Admit Weight 502 lb 10.463 oz Weight 502 lb 10.463 oz 01/28/18 01/29/18 01/30/18 06:59 06:59 06:59 Intake Total 2515 1323 250 Output Total 2295 1305 120 Balance 220 18 130 - Physical Examination General/Neuro: alert & oriented x3, NAD Neck: no JVD present Lungs: CTA, unlabored respirations Heart: other: (irr) Extremities: + femoral B - Labs Result Diagrams: 01/29/18 05:12 01/29/18 05:12 - Assessment/Plan afib s/p gastric sleeve splenic artery laceration s/p splenectomy CV status stable No new recommendations Restart eliquis at previous home dose when ok with general surgery Please reconsult if questions arise pt to fu with Dr. Portillo at
[2018-01-29] MEDS: Pantoprazole 40 MG VIAL IVP SCH (08:27)
[2018-01-29] MEDS: Sodium Chloride 0.45% 1,000 ML IV SCH (08:27)
[2018-01-29] MEDS ORDERED: Enoxaparin Sodium 40 MG/0.4 ML SYRINGE SC SCH (09:00)
[2018-01-29 10:15] VITALS: BMI 84.6
[2018-01-29] MEDS ORDERED: Meningococcal Vaccine 0.5ML VIAL (MENACTRA) IM ONE (11:58)
[2018-01-29] MEDS ORDERED: Haemoph B Posysac Conj-Meng 0.5 ML VIAL IM ONE (11:58)
--- NOTE | 2018-01-29 12:59 | PRG ---
DATE OF SERVICE: 01/29/2018 The patient is doing much better today. She is still having pain on the left side, but it is improvi ng. She is tolerating full liquids well. She is moving around a lot better. She has good urine out put. OBJECTIVE: VITAL SIGNS: She is afebrile, pulse is 75, blood pressure 162/82. Urine output is 1665. LABORATORY DATA: White count 17, H&H 8 and 23, platelet count of 348. Electrolytes are good. Creat inine is 1.1. ASSESSMENT: Doing well. PLAN: We will restart her Eliquis, give her Pneumovax, Meningovax and H. flu vaccine. We will disco ntinue the Banks. We are going to transfer her to the surgical floor.
[2018-01-29] MEDS: Prevnar 13-Val Conj/PF 0.5 ML SYRINGE IM ONE (13:54)
--- NOTE | 2018-01-29 16:55 | PRG ---
DATE OF SERVICE: 01/29/2018 SERVICE: Pulmonary Medicine. INTERVAL HISTORY: The patient is doing fine from a respiratory standpoint. Denies any chest pain. She is breathing okay. She is continuing to have discomfort whenever she takes deep breath or coughs . She is tolerating p.o. There were no events overnight like nausea or fever. PHYSICAL EXAMINATION: VITAL SIGNS: Afebrile. Pulse 91, blood pressure 144/80, respirations 21, saturation 95% on 2 liters nasal cannula. GENERAL: The patient is awake and alert, in no apparent distress. LUNGS: Decent air entry. There is no prolonged expiratory phase. Dependent crackles are minimal. HEART: Normal rate, regular. ABDOMEN: Soft. There is mild tenderness to palpation. No rebound or guarding is appreciated. MUSCULOSKELETAL: No cyanosis or clubbing. There is no pitting in the bilateral lower extremities. NEUROLOGIC: Grossly nonfocal. LABORATORY DATA: Hemoglobin has gone from 7.7 to 8.2 to 8.0. WBC 17.5, platelets 348,000. Band cou nts have decreased to 9%. Chloride 110, bicarb 20. Creatinine 1.11, has improved. Basic metabolic profile is otherwise unremarkable. ASSESSMENT: 1. Acute blood loss anemia. 2. Acute hypoxic respiratory failure, resolving. 3. Acute kidney injury, resolving. 4. Atrial fibrillation, permanent. 5. Status post lap band surgery, postop day 5. DISCUSSION AND PLAN: From my perspective, the patient is stable for transition to the floor. Puljaimee paige Critical Care will continue to follow along for the time being. I will continue to follow along to see if signs of systemic inflammatory response develop. If they do, empiric antibiotics will be p rovided.
[2018-01-29] MEDS: Apixaban 5 MG TAB PO SCH (20:18)
[2018-01-30] MEDS: Hydrocodone-Acetamin 15 ML UDCUP PO PRN ×6 (00:39→20:32)
[2018-01-30] MEDS: Sodium Chloride 0.45% 1,000 ML IV SCH (04:15)
[2018-01-30 05:26] LABS: Anion Gap 11 mmol/L (10-20); BUN (Urea Nitrogen) 13 mg/dL (7.0-18.7); Calc. Creatinine Clearance 287 mL/min (70-130); Calcium 8.7 mg/dL (7.8-10.44); Carbon Dioxide 21 mmol/L (22-29); Chloride 109 mmol/L (98-107); Estimated GFR-MDRD 67; Glucose 90 mg/dL (70-105); Potassium 4.1 mmol/L (3.5-5.1); Sodium 137 mmol/L (136-145)
[2018-01-30 05:57] LABS: Band 4 % (5-11); Eosinophils 6 % (0-10); Hemoglobin 8.4 g/dL (12.0-16.0); Lymphocytes 20 % (21-51); MDiff Complete? YES; Mean Corpuscular HGB CONC 32.6 g/dL (32.0-36.0); Mean Corpuscular Hemoglobin 30.8 pg (27.0-31.0); Mean Corpuscular Volume 94.5 fL (78.0-98.0); Mean Platelet Volume 8.4 fL (7.4-10.4); Monocytes 20 % (0-10); Neutrophil 50 % (42-75); Nucleated RBC 20 % (0); PLT Morphology Comment Appears Increased; Platelet Count 443 thou/uL (130-400); Polychromasia SLIGHT = 2-3 cells (100X) (0-2/hpf); RBC Distribution Width 15.5 % (11.5-14.5); Red Blood Cell (RBC) Count 2.74 mill/uL (4.20-5.40); White Blood Cell (WBC) Count 13.3 thou/uL (4.8-10.8)
[2018-01-30] MEDS: Pantoprazole 40 MG VIAL IVP SCH (08:34)
[2018-01-30] MEDS: Apixaban 5 MG TAB PO SCH ×2 (08:34→20:35)
[2018-01-30] MEDS ORDERED: Milk Of Magnesia 30 ML UDCUP PO PRN (08:55)
--- NOTE | 2018-01-30 09:12 | PRG ---
DATE OF SERVICE: 01/30/2018 HISTORY OF PRESENT ILLNESS: Ms. Larson today is complaining of worsening pain on the left side. Sh steph has been coughing a lot, which has made it worse. She has not passed gas since yesterday. No naus ea or vomiting. PHYSICAL EXAMINATION: VITAL SIGNS: Temperature is 98.6, pulse 83, blood pressure 119/82. She still has a Banks in she pu t out 1630. LABORATORY DATA: Her white count is 13, H&H 8.4 and 25, platelet count 443. Her CO2 is up to 21. E lectrolytes look good. Creatinine is 0.9, BUN of 13. IMPRESSION: Increased pain, probably due to the splenectomy and denuding of the diaphragm. PLAN: She is too large for the CT scan, the max is 450, so we will do a barium swallow just to make sure that there is no obvious leak.
[2018-01-30] MEDS: Morphine 4 MG/ML VIAL SLOW IVP PRN (11:46)
--- NOTE | 2018-01-30 12:16 | RAD ---
LIMITED BARIUM SWALLOW: HISTORY: Status post bariatric surgery. Postop day one week. Pain. COMPARISON: None. TECHNIQUE: The patient was administered a total of 60 mL of Gastrografin orally. Portable images were obtained. FINDINGS: Initial image demonstrates contrast opacifying the thoracic esophagus. Subsequent images demonstrate contrast in the residual gastric lumen. No obvious leak or extravasation. Imaging of the epigastri c region is performed at the end of the exam. Contrast is difficult to appreciate. IMPRESSION: No obvious leak or extravasation. Examination is markedly limited by technique and body habitus. POS: [facility]
[2018-01-30] MEDS ORDERED: GASTROGRAFIN 30 ML BOT ONE (12:55)
--- NOTE | 2018-01-30 17:24 | PRG ---
DATE OF SERVICE: 01/30/2018 SERVICE: Pulmonary Medicine. INTERVAL HISTORY: The patient is doing fine from a respiratory standpoint. She is breathing comfortably. She is on a little bit less pain today. She does not know wear her pain on her forehead any longer, but does still complain of fairly significant discomfort. Otherwise, there were no events overnight. There are no fevers or chills. She is coughing up a little bit of sputum. That being said, it seems to be settling down over the past 2 days. PHYSICAL EXAMINATION: VITAL SIGNS: Afebrile, pulse 83, blood pressure 119/82, respirations 18, saturation 97% on 2 liters nasal cannula. GENERAL: The patient is awake, alert, no apparent distress. LUNGS: Excellent air entry. There are some rhonchi present. They clear with cough. There is no prolonged expiratory phase or wheezing appreciated. HEART: Normal rate, regular. ABDOMEN: Soft, nontender, nondistended. Bowel sounds are positive. MUSCULOSKELETAL: No cyanosis or clubbing. There is no pitting in the bilateral lower extremities. NEUROLOGIC: Grossly nonfocal. LABORATORY DATA: WBC 13.3, hemoglobin 8.4 and up trending, platelets of 443, 000. Basic metabolic profile is essentially unremarkable with creatinine that is stable at 0.9. IMAGING DATA: Barium swallow demonstrates no obvious leak or extravasation. ASSESSMENT: 1. Acute blood loss anemia, stable. 2. Acute hypoxic respiratory failure, resolved. 3. Acute kidney injury, resolved. 4. Atrial fibrillation, permanent. 5. Status post lap band surgery, postop day #6. DISCUSSION AND PLAN: The patient is doing really quite well at this time. She has no further requirements for inpatient Pulmonary or critical care opinion, and I will sign off. She may be evolving a small acute bronchitis. If her sputum production gets worse, she may be well served by a 5-day course of low dose steroids and Levaquin. Please call with additional questions or concerns develop. TIERA
[2018-01-31] MEDS: Hydrocodone-Acetamin 15 ML UDCUP PO PRN ×4 (00:37→20:28)
[2018-01-31] MEDS: Sodium Chloride 0.45% 1,000 ML IV SCH ×2 (03:32→23:22)
[2018-01-31 05:32] LABS: Hemoglobin 8.8 g/dL (12.0-16.0)
[2018-01-31] MEDS: Apixaban 5 MG TAB PO SCH ×2 (08:43→20:28)
[2018-01-31] MEDS: Pantoprazole 40 MG VIAL IVP SCH (08:43)
[2018-01-31] MEDS: Morphine 10 MG/0.5 ML ORAL SYRINGE SL PRN ×2 (10:28→17:35)
--- NOTE | 2018-01-31 10:39 | PRG ---
DATE OF SERVICE: 01/31/2018 HISTORY OF PRESENT ILLNESS: The patient reports that her swallowing is better. The left side pain i s better, but she has now developed right flank pain that is pretty severe. She also complains of le ft breast pain that occurred when they were moving her yesterday. She is tolerating liquids well. S he had a bowel movement. No nausea or vomiting. She had a barium swallow yesterday that was not a g reat study due to her body habitus, but they did not see any evidence of leak or extravasation. PHYSICAL EXAMINATION: VITAL SIGNS: Her temperature is 98.2, pulse of 90, blood pressure 104/68. GENERAL: She is awake and alert. She does look uncomfortable. HEENT: Unremarkable. BREAST: I do not see any lesions. No erythema, no nodules, nothing cause the pain in her left breas t. On the right flank, there is evidence of previous injection sites for Lovenox, but I do not feel a definite hematoma. The trocar sites look fine. LABORATORY DATA: Hemoglobin and hematocrit is 8.8 and 27.5. ASSESSMENT: She may be having pain from like a hematoma from the Lovenox injections. I do not have a clear reason. PLAN: They tried ice, it did not work, we will try heat. I am going to try some morphine sublingual to see if that helps more with her pain. We were still aiming towards getting her to rehabilitation . Again, she is voiding well and her bowels are working.
[2018-01-31] MEDS: Ketorolac Tromethamine 30 MG/ML VIAL IVP SCH ×2 (17:39→23:17)
[2018-02-01 04:06] LABS: Hemoglobin 9.2 g/dL (12.0-16.0)
[2018-02-01] MEDS: Ketorolac Tromethamine 30 MG/ML VIAL IVP SCH ×3 (06:32→17:15)
[2018-02-01] MEDS: Pantoprazole 40 MG VIAL IVP SCH (09:03)
[2018-02-01] MEDS: Hydrocodone-Acetamin 15 ML UDCUP PO PRN ×2 (09:03→17:14)
[2018-02-01] MEDS: Apixaban 5 MG TAB PO SCH (09:03)
--- NOTE | 2018-02-01 13:27 | PRG ---
DATE OF SERVICE: 02/01/2018 The patient says she feels better today. Pain is improved, possibly from the Toradol. She is tolera ting liquids. Bowels are working, urinating well. PHYSICAL EXAMINATION: VITAL SIGNS: Temperature 97.9, pulse 77, blood pressure is 119/80. GENERAL: She is awake and alert. She is sitting upright in the bed. ABDOMEN: Her abdomen is soft. The incisions are healing well. 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 LABORATORY DATA: Her H&H is 9.2 and 28.4. ASSESSMENT: Doing well. PLAN: Awaiting rehab placement.
[2018-02-01] MEDS: Sodium Chloride 0.45% 1,000 ML IV SCH (18:30)
[2018-02-01 19:51] VITALS: BP 109/72; TEMP 98.2
== END 2018-02-01 20:16 | DRG 619 ==
LOC: SURG A 01-24 05:57 → T4-A 01-24 11:44 → SURG A 01-24 11:52 → CCU 01-25 06:37 → SJJU 01-29 16:19
PROVIDERS: ADMIT Surgery; ATTEND Surgery
PROC: 0DB64Z3 Excision of Stomach, Percutaneous Endoscopic Approach, Vertical (ICD-10-PCS; 2018-01-24)
PROC: 07TP4ZZ Resection of Spleen, Percutaneous Endoscopic Approach (ICD-10-PCS; 2018-01-24)
PROC: 03HY32Z Insertion of Monitoring Device into Upper Artery, Percutaneous Approach (ICD-10-PCS; principal; 2018-01-25)
PROC: 30233N1 Transfusion of Nonautologous Red Blood Cells into Peripheral Vein, Percutaneous Approach (ICD-10-PCS; 2018-01-27)
DX: E66.01 Morbid (severe) obesity due to excess calories (principal); J95.821 Acute postprocedural respiratory failure; I97.51 Accidental puncture and laceration of a circulatory system organ or structure during a circulatory system procedure; D62 Acute posthemorrhagic anemia; N17.9 Acute kidney failure, unspecified; I48.2 Chronic atrial fibrillation; Z71.3 Dietary counseling and surveillance; Y65.8 Other specified misadventures during surgical and medical care; Y92.234 Operating room of hospital as the place of occurrence of the external cause; I95.81 Postprocedural hypotension; Z90.81 Acquired absence of spleen; Z88.1 Allergy status to other antibiotic agents; Z88.0 Allergy status to penicillin; Z88.2 Allergy status to sulfonamides; Z88.8 Allergy status to other drugs, medicaments and biological substances; I10 Essential (primary) hypertension; J45.909 Unspecified asthma, uncomplicated; E78.5 Hyperlipidemia, unspecified; E55.9 Vitamin D deficiency, unspecified; E86.1 Hypovolemia; Z98.84 Bariatric surgery status; Z68.45 Body mass index [BMI] 70 or greater, adult
CPT/HCPCS: 36415; 36430; 71045; 74220; 80048; 80076; 80202; 85014; 85018; 85025; 86850; 86900; 86901; 88305; 88307; 88312; 90471; 90647; 90670; 90733; 93005; 93010; 94640; C9113; G0009; G8978-GP-CL; G8979-GP-CJ; J0131; J0282; J1100; J1160; J1170; J1644; J1650; J1885; J2001; J2250; J2270; J2405; J2704; J3010; J3370; J7050; J7070; J7506; J7620; P9016

== ENCOUNTER 2018-01-21 15:04 | Outpatient (CLI) | payer BC ==
[2018-01-21 17:20] LABS: #Eosinphils 0.3 thou/uL (0.0-0.7); #Lymphocytes 2.8 thou/uL (1.20-3.40); #Monocytes 0.8 thou/uL (0.11-0.59); #Neutrophils 5.9 thou/uL (1.40-6.50); %Basophils 0.4 % (0.0-1.0); %Eosinophils 3.2 % (0.0-10.0); %Monocytes 7.9 % (0.0-10.0); %Neutrophils 60.6 % (42.0-75.0); Hemoglobin 14.4 g/dL (12.0-16.0); Mean Corpuscular HGB CONC 34.1 g/dL (32.0-36.0); Mean Corpuscular Hemoglobin 30.6 pg (27.0-31.0); Mean Corpuscular Volume 89.8 fL (78.0-98.0); Mean Platelet Volume 9.9 fL (7.4-10.4); Platelet Count 221 thou/uL (130-400); RBC Distribution Width 15.7 % (11.5-14.5); Red Blood Cell (RBC) Count 4.71 mill/uL (4.20-5.40); White Blood Cell (WBC) Count 9.8 thou/uL (4.8-10.8)
--- NOTE | 2018-01-21 17:25 | RAD ---
PA AND LATERAL VIEWS CHEST: 01/21/18 HISTORY: Preoperative evaluation. FINDINGS: The heart size is normal. The lungs are expanded without focal areas of consolidation, pneumothorace s, or pleural effusions. There are degenerative changes of the spine. IMPRESSION: No acute process. POS: [facility]
[2018-01-21 17:45] LABS: Hemoglobin A1c 4.8 % (4.0-6.0)
[2018-01-21 17:48] LABS: ALT (SGPT) 24 U/L (8-55); AST (SGOT) 17 U/L (5-34); Albumin 4.6 g/dL (3.5-5.0); Alkaline Phosphatase 85 U/L (40-150); Anion Gap 14 mmol/L (10-20); BUN (Urea Nitrogen) 33 mg/dL (7.0-18.7); Bilirubin, Direct 0.2 mg/dL (0.1-0.3); Bilirubin, Total 0.7 mg/dL (0.2-1.2); Calc. Creatinine Clearance 0 mL/min (70-130); Calcium 10.3 mg/dL (7.8-10.44); Carbon Dioxide 23 mmol/L (22-29); Chloride 103 mmol/L (98-107); Estimated GFR-MDRD 44; Globulin 3.1 g/dL (2.4-3.5); Glucose 87 mg/dL (70-105); Potassium 4.1 mmol/L (3.5-5.1); Protein, Total 7.7 g/dL (6.0-8.3); Sodium 136 mmol/L (136-145)
== END 2018-01-21 15:05 | disposition home or self-care (01) ==
LOC: LABBT 15:04
PROVIDERS: ATTEND Surgery
DX: Z01.818 Encounter for other preprocedural examination (principal); E66.01 Morbid (severe) obesity due to excess calories
CPT/HCPCS: 71046; 80053; 80076; 83036; 85025; 93005; 93010

== ENCOUNTER 2018-02-04 16:25 | Inpatient (IN) | payer BC ==
[2018-02-04] MEDS ORDERED: Sodium Chloride 0.9% 1,000 ML IV SCH (18:00)
[2018-02-04] MEDS ORDERED: Sodium Chloride 0.9% 500 ML IV SCH (18:45)
[2018-02-04] MEDS ORDERED: Bisacodyl 5 MG TAB PO PRN (18:48)
[2018-02-04] MEDS ORDERED: Acetaminophen 650 MG Suppository PR PRN (18:48)
[2018-02-04] MEDS ORDERED: CCU Electrolyte Replacement 1 EACH IVPB SCH (18:48)
[2018-02-04] MEDS ORDERED: Milk Of Magnesia 30 ML UDCUP PO PRN (18:48)
[2018-02-04] MEDS ORDERED: Lacri-Lube Opth Oint 3.5 GM TUBE EA EYE PRN (18:48)
[2018-02-04] MEDS ORDERED: Mag-Al 1200 mg/1200 mg/30 ML UDCUP PO PRN (18:48)
[2018-02-04] MEDS ORDERED: Ondansetron HCl/PF 4 MG/2 ML Vial IVP PRN (18:48)
--- NOTE | 2018-02-04 18:52 | RAD ---
CHEST ONE VIEW: HISTORY: Chest pain. COMPARISON: 02/04/2018 FINDINGS: The cardiac silhouette is magnified and enlarged. The pulmonary vasculature is at the upper limits o f normal. The mediastinum is midline. No lobar consolidation or evidence of free subdiaphragmatic g as. IMPRESSION: Cardiomegaly, stable. POS: [facility]
--- NOTE | 2018-02-04 18:53 | RAD ---
ABDOMEN ONE VIEW: HISTORY: Abdominal pain. FINDINGS: The exam is very limited due to patient body habitus and positioning. There is gaseous distention of the colon. Small bowel gas pattern is nonspecific. Left abdomen and pelvis are incompletely imaged . IMPRESSION: Gaseous distention of the colon. Nonspecific pattern. POS: [facility]
[2018-02-04] MEDS ORDERED: Potassium Chloride 40 MEQ in Premix Bag 1 BAG IVPB PRN (19:18)
[2018-02-04] MEDS ORDERED: Magnesium 2 GM/NS 0.9% 100 ML 2 GM in Premix Bag 1 BAG IVPB PRN (19:18)
[2018-02-04] MEDS ORDERED: Potassium Phosphate 15 MMOL in Sodium Chloride 0.9% 250 ML 250 ML IV PRN (19:18)
[2018-02-04] MEDS ORDERED: CCU ELECTROLYTE REPLACEMENT PROTOCOL FS PRN (19:18)
[2018-02-04] MEDS ORDERED: Potassium Phosphate 12 MMOL in Sodium Chloride 0.9% 250 ML 250 ML IV PRN (19:18)
[2018-02-04] MEDS ORDERED: Potassium Phosphate 9 MMOL in Sodium Chloride 0.9% 100 ML IVPB PRN (19:18)
[2018-02-04] MEDS ORDERED: Potassium Chloride 40 MEQ in Sodium Chloride 0.9% 250 ML 250 ML IVPB PRN (19:18)
[2018-02-04] MEDS ORDERED: Magnesium Oxide 400 MG TAB PO PRN ×2 (19:18)
[2018-02-04] MEDS ORDERED: Potassium Chloride 20 MEQ TAB PO PRN (19:18)
[2018-02-04 19:25] LABS: Anisocytosis SLIGHT = 6-15 cells (100X) (0-5/hpf); Band 34 % (5-11); Hemoglobin 8.4 g/dL (12.0-16.0); Lymphocytes 6 % (21-51); MDiff Complete? YES; Mean Corpuscular HGB CONC 31.1 g/dL (32.0-36.0); Mean Corpuscular Volume 96.3 fL (78.0-98.0); Mean Platelet Volume 7.2 fL (7.4-10.4); Metamyelocyte 1 % (0-0); Monocytes 6 % (0-10); Neutrophil 53 % (42-75); Nucleated RBC 3 % (0); PLT Morphology Comment Appears Decreased; Platelet Count 652 thou/uL (130-400); Polychromasia MODERATE = 3-4 cells (100X) (0-2/hpf); RBC Distribution Width 15.5 % (11.5-14.5); Red Blood Cell (RBC) Count 2.81 mill/uL (4.20-5.40); Target Cells SLIGHT = 2-5 cells (100X) (0-1/hpf); Tear Drops SLIGHT = 2-5 cells (100X) (0-1/hpf); White Blood Cell (WBC) Count 32.3 thou/uL (4.8-10.8)
[2018-02-04 19:28] LABS: Lactic Acid 0.7 mmol/L (0.5-2.2)
[2018-02-04 19:34] LABS: ALT (SGPT) 56 U/L (8-55); AST (SGOT) 39 U/L (5-34); Albumin 2.7 g/dL (3.5-5.0); Alkaline Phosphatase 178 U/L (40-150); Anion Gap 19 mmol/L (10-20); BUN (Urea Nitrogen) 40 mg/dL (7.0-18.7); Bilirubin, Total 1.5 mg/dL (0.2-1.2); Calc. Creatinine Clearance 56 mL/min (70-130); Calcium 8.1 mg/dL (7.8-10.44); Carbon Dioxide 15 mmol/L (22-29); Chloride 106 mmol/L (98-107); Estimated GFR-MDRD 11; Globulin 2.5 g/dL (2.4-3.5); Glucose 100 mg/dL (70-105); Potassium 4.7 mmol/L (3.5-5.1); Protein, Total 5.2 g/dL (6.0-8.3); Sodium 135 mmol/L (136-145)
[2018-02-04 19:36] LABS: CKMB 1.2 ng/mL (0-6.6)
[2018-02-04 19:48] LABS: Troponin I Less than 0.010 ng/mL (< 0.028)
--- NOTE | 2018-02-04 20:02 | RAD ---
CHEST ONE VIEW: HISTORY: Central line placement. COMPARISON: Earlier exam on the same date. FINDINGS: The tip of a right internal jugular central venous catheter overlies the superior vena cava. No evidence of pneumothorax. Cardiomegaly and other findings are stable. POS: [facility]
[2018-02-04 20:06] LABS: INR-International Normal Ratio 2.8; Prothrombin Time 29.2 SEC (12.0-14.7)
[2018-02-04 20:07] LABS: PTT 49.4 SEC (22.9-36.1)
[2018-02-04] MEDS: Micafungin 100 MG in Sodium Chloride 0.9% 100 ML IVPB SCH (20:25)
[2018-02-04] MEDS: Sodium Chloride 0.9% 1,000 ML IV SCH ×3 (20:26→20:27)
--- NOTE | 2018-02-04 20:34 | CON ---
DATE OF CONSULTATION: 02/04/2018 PRIMARY CARE PHYSICIAN: Troy Garrett MD CHIEF COMPLAINT: Hypotension and possible sepsis. REQUESTING PHYSICIAN: Dr. Guardado. HISTORY OF PRESENT ILLNESS: Ms. Larson is a 42-year-old female with past medical history of chronic atrial fibrillation, possible congestive heart failure, history of dyslipidemia, recurrent mastitis as well as morbid obesity, status post gastric sleeve operation by Dr. Guardado on 01/24/2018 presented to the hospital as a direct admit for rehabilitation and was admitted under Dr. Guardado. Internal Medi cine team is called to consult as the patient is quite unstable with hypotension and tachycardia. Th ere is concern for sepsis. Electronic medical records have been reviewed extensively. The patient was admitted to our facility on 01/24/[address] Guardado and underwent a gastric sleeve operation. Her postop course was complicated by hypotension as well as rapid ventricular rate with atrial fibrillation requiring ICU transfer. She did have some drop in her hemoglobin, which recovere d spontaneously. During that operation, she had splenic artery requiring splenectomy. She was seen by Pulmonary Critical Care, Dr. Pickett as well as Cardiology, Dr. Higgins. She was eventually sta bilized and was discharged to rehab on 02/01/[address] Guardado. She did have barium swallow done nagi or to discharge, which was negative for any leak or extravasation. Since prior to the discharge, the patient reports that she had worsening abdominal pain which never really got better. Today in the rehabilitation apparently she was having worsening abdominal pains, Dr. Guardado was consul vicki and he requested that the patient be admitted. Shortly after presentation, she was noticed to be hypotensive and tachycardic, so I was called for immediate Internal Medicine consultation. At the time of my evaluation, the patient's blood pressure is systolic in the 80s over diastolic in t he 40s even with a recheck. At my request, she has been given 500 mL bolus without improvement and t hen another 500 mL bolus. It was discussed with Dr. Guardado at bedside and the decision was made to mo ve the patient to critical care unit and possibly start on IV pressors and get a central line in for stabilization. The patient continues to complain of significant abdominal pain. Her blood work was reviewed by myself that was done earlier this morning, possibly at the rehab facility. Her hemoglobi n seem to have dropped from 9.2 on 02/01/2018 to 7.9 earlier this morning. She also has significant jump in her WBC count 232,000 from 13,000 on 01/30/2018. She also has thrombocytosis and bandemia. Most significant is her jump in the BUN and creatinine. Her creatinine has went up from 0.91 to 3.81 with a recheck creatinine of 4.40. Thankfully, her potassium is normal at 4.7 and cardiac enzymes, lactic acid are unremarkable. I have discussed this with Dr. Guardado at bedside who agrees with the plan to transfer her to the [facility]. I have contacted Dr. Morgan and left a message for him to please see the patient as we ll and Dr. Reynolds and has also talked to Dr. Morgan as well. I have also discussed the case with on-critical access hospital team otr truck driver, Dr. Stock. PAST MEDICAL HISTORY: 1. Chronic atrial fibrillation. Please note that the patient was restarted Eliquis that she takes f or her chronic atrial prior to her discharge. She follows up with Dr. Renae over at [facility]. 2. History of morbid obesity, status post gastric sleeve as above. 3. History of unspecified congestive heart failure. 4. Dyslipidemia. 5. History of recurrent mastitis. 6. Asthma. 7. Arthritis. PAST SURGICAL HISTORY: 1. History of breast biopsy. 2. Hernia repair. 3. Gastric sleeve operation. FAMILY HISTORY: Positive for coronary artery disease. SOCIAL HISTORY: She is and lives with her . No history of drug, tobacco or alcohol a buse. ALLERGIES: BACTRIM, PENICILLIN, CLINDAMYCIN, CEPHALEXIN, MACROBID, CIPROFLOXACIN, KEFLEX and RASPBER JENNY. HOME MEDICATIONS: Not updated as yet. REVIEW OF SYSTEMS: A 12-point review of systems was done and is negative except for those mentioned in the history and physical. The patient's main complaint at this time is significant abdominal pain . LABORATORY DATA: CBC shows WBC 32.3, hemoglobin 8.4, hematocrit 27.1, platelet count of 652, 34% ban ds. Serum chemistries show sodium 135, bicarbonate 15, BUN 40, creatinine 4.40. Potassium is normal at 4.7, total bilirubin 1.5, AST 39, ALT 56, alkaline phosphatase 178. Cardiac enzymes normal. Lac tic acid 0.7. Chest x-ray by my review shows cardiomegaly and mild pulmonary vascular congestion. K UB is negative for any free air by my review. PHYSICAL EXAMINATION: VITAL SIGNS: At the time of examination. Temperature 98.7, pulse of 101, respirations 20, saturatin g 98% on 3 liters nasal cannula, blood pressure 89/42 with a repeat blood pressure of 88/49. GENERAL: The patient is somnolent, but easily arousable. She is awake, alert, oriented x3 when woke n up. She is complaining of significant abdominal pain and appears uncomfortable when woken up. Hus band is at bedside. HEENT: She appears significantly pale, otherwise mucous membrane is somewhat dry. No oropharyngeal exudate or erythema. Head is normocephalic, atraumatic. NECK: Supple without any lymphadenopathy, JVD or bruit. CHEST: Clear to auscultation without any wheezing, rales or rhonchi. Rhythm is regular. ABDOMEN: Morbidly obese. She does have some bruises where she has gotten Lovenox in the past, but n o obvious bruising or hematoma. Her surgical wounds seem to be healing very well. She is soft and l argely nontender on gentle palpation. EXTREMITIES: Obese without any cyanosis, clubbing, or edema. NEUROLOGIC: Nonfocal. SKIN: Free of any rashes or bruises. PSYCHIATRIC: Normal affect. IMPRESSION AND PLAN: 1. Hypotension. Suspect hypovolemic versus septic shock in a recent patient with splenectomy and ga stric sleeve operation. A stat KUB and chest x-ray was ordered by myself, which did not show any acu te changes. Unfortunately, the patient's obesity hamper any CT scan of her belly to identify any ble ed. I will defer this to the primary team, Dr. Guardado. As of now, I will transfer her to critical ca re unit and continue the IV fluids with careful monitoring of fluid status and start her on pressors as needed to keep map above 65. We will consult Pulmonary Critical Care Medicine as above. Blood cu lture and urine cultures as well as repeat labs were ordered by myself and her hemoglobin actually is 8.4 on the repeat labs, but other than that is pretty much the same as that was done earlier this mo rning. 2. Acute renal insufficiency. This is likely a combination of hypotensive renal injury as well as r ecent use of Toradol and antibiotics. I will consult Nephrology and continue the patient on IV fluid s and avoid any nephrotoxic medications for now. We will recheck labs on a daily basis. 3. Leukocytosis. The patient was reported to have a low grade fever at the rehab facility and I carlee pect sepsis. We will cover her for any intra-abdominal infection with meropenem and add vancomycin f or MRSA coverage with renally dosed daily dosing. IV fluids as above. We will follow the results of the UA, blood culture and urine culture. She will be in the CCU. 4. Recent gastric sleeve operation management per primary team. 5. Elevated liver enzymes. This is likely secondary to shock liver from hypotension. We will repea t labs in the morning. 6. Morbid obesity, status post gastric sleeve operation. 7. Deep venous thrombosis and gastrointestinal prophylaxis. We would use sequential compression dev ices for now and avoid any heparin or Lovenox given the possibility that she might be having some ble eding. 8. Supportive care and add p.r.n. medications. DISPOSITION: Ms. Larson was seen for acute hypotension, likely sepsis versus acute blood loss. Int [facility] Medicine team will continue to follow. Thank you for letting us participate in the care of this patient. The patient is currently criticall y ill.
[2018-02-04] MEDS ORDERED: Vancomycin HCl 500 MG in Sodium Chloride 0.9% 100 ML IVPB SCH (20:45)
[2018-02-04 20:54] LABS: Bilirubin Moderate (Negative); Blood, Urine Small (Negative); Clarity TURBID (Clear); Glucose, Urine (Dipstick) Negative (Negative); Leukocyte Large (Negative); Nitrite Positive (Negative); Protein, Urine (Dipstick) 30 mg/dL (Neg-Trace); Specific Gravity, Urine 1.023 (1.002-1.036)
[2018-02-04 20:55] LABS: Bacteria/HPF 2+ HPF (None Seen); Squamous Epithelial 0-3 HPF (0-3)
[2018-02-04 20:57] LABS: Pathc Cast-AUWi Flag 7.85 (0-2.49)
[2018-02-04] MEDS ORDERED: Sodium Bicarb 50 MEQ/50 ML Abboject 8.4% SYRINGE IVP SCH (21:00)
[2018-02-04] MEDS ORDERED: Vancomycin HCl 1 GM in Premix Bag 1 BAG IVPB SCH (21:00)
[2018-02-04] MEDS ORDERED: Famotidine/PF 20 mg/2ml Vial SLOW IVP SCH ×2 (21:00)
[2018-02-04 21:07] LABS: RBC/HPF 0-3 HPF (0-3)
[2018-02-04 21:08] LABS: Hyaline Casts/LPF 4-6 HYALINE CAST LPF (0-3 Hyaline)
[2018-02-04] MEDS: Morphine 4 MG/ML VIAL SLOW IVP PRN (21:17)
[2018-02-04] MEDS: Norepinephrine 8 MG/0.9% NS 250 ML IVPB PRN (21:51)
[2018-02-04] MEDS: MEROPENEM 1 GM/50 ML 1 GM in Premix Bag 1 BAG IVPB SCH (21:52)
[2018-02-04] MEDS ORDERED: MEROPENEM 1 GM/50 ML 1 GM in Premix Bag 1 BAG IVPB SCH (22:00)
--- NOTE | 2018-02-04 22:22 | DIS ---
DISCHARGE DIAGNOSES: Extreme morbid obesity, splenic vein injury. PROCEDURES DURING ADMISSION: Laparoscopic sleeve gastrectomy. HOSPITAL COURSE: The patient was admitted, given IV fluids, IV antibiotics, taken to the operating r oom where she underwent sleeve gastrectomy. Due to her size and anatomy distortion during the sleeve portion. The splenic vein was injured. This required removal of the spleen during the surgery. Po stoperatively, she was observed in the Intensive Care Unit. She was not very ambulatory. She had at rial fibrillation. Cardiology and Pulmonary was consulted. She did well. She was transferred to e floor. She needs further physical therapy, so she is being transferred to the rehabilitation on he r usual medications with hydrocodone, Zofran. She will follow up with me in 2 weeks.
--- NOTE | 2018-02-05 00:16 | HP ---
CHIEF COMPLAINT: Abdominal pain. HISTORY OF PRESENT ILLNESS: The patient is a 42-year-old female, who underwent a laparoscopic sleeve gastrectomy on 01/24/2018. This was complicated by an injury to the splenic vein, necessitating a s plenectomy at the time of surgery. Postoperatively, she was observed in the Intensive Care Unit, and eventually, transferred to the floor and was transferred to rehab on Sunday. Over the weekend, she has had progressive abdominal pain, has left upper quadrant pain, as well as right-sided pain. She d enies nausea or vomiting. She has been tolerating liquids well. She has not had any fever. PAST MEDICAL HISTORY: Significant for extreme morbid obesity, hypertension, congestive heart failure , hyperlipidemia, asthma, degenerative joint disease, and atrial fibrillation. PAST SURGICAL HISTORY: She had a hernia repair in 1972, bilateral breast biopsies, I and D of breast , and the recent sleeve gastrectomy. MEDICATIONS: Include albuterol, meropenem, vancomycin, as well as she has been on Eliquis. ALLERGIES: She has allergies to BACTRIM, PENICILLIN, CLEOCIN, CEPHALEXIN, BELVIQ, CIPRO. SOCIAL HISTORY: She is . No tobacco or alcohol. FAMILY HISTORY: Noncontributory. PHYSICAL EXAMINATION: VITAL SIGNS: Her last weight was 486 with a body mass index of 81, but she has not been weighed in s . Her blood pressure is 88/40, pulse 105, temperature 98.8. GENERAL: She is awake, alert, lying still. HEENT: Otherwise, unremarkable. LUNGS: Clear. HEART: Regular rate and rhythm. ABDOMEN: Super morbidly obese. She is diffusely tender. The incisions are without evidence of eryt gabriella. There is no drainage. EXTREMITIES: There are no hernias. LABORATORY DATA AND X-RAY FINDINGS: She had a barium swallow on 01/30/2018 that was fine. Chest x-r ay today shows clear lung greene. No obvious infiltrates or free air. Abdominal x-ray just shows a nonspecific bowel gas pattern. Her white count is 32.8. Her H and H is 7.9 and 25. Her platelet co unt is 612. She has 34% bands. Electrolytes show an elevated glucose at 117. Her creatinine is 3.8 , BUN of 36. Her CO2 is 16. ASSESSMENT: Septic picture. PLAN: Move to ICU, fluid resuscitation, central line, may require laparoscopy too as a diagnostic me asure, as her weight exceeds the limit of the CT scanner.
--- NOTE | 2018-02-05 01:22 | CON ---
DATE OF CONSULTATION: 02/04/2018 Ms. Larson is a female who has undergone a complicated gastric sleeve procedure recently. She was readmitted with abdominal discomfort. She has an elevated white count. Dr. Guardado is contemplating a laparoscopy versus CT scanning, but her weight is such that she may not fill in the CAT scanner. BMI is over 80. I was asked to see her when she was moved into the Critical Care Unit. PAST MEDICAL HISTORY: 1. Remarkable for atrial fibrillation, off anticoagulants for surgery, but back on them afterwards. 2. History of blood loss anemia. 3. Lipid disorder. 4. History of mastitis. 5. 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 6. History of a lipid disorder. 7. Reported history of asthma. 8. History of breast biopsy. 9. History of a herniorrhaphy. FAMILY HISTORY: Positive for vascular disease. She is . SOCIAL HISTORY: She is a nonsmoker, nondrinker, nondrug user. REVIEW OF SYSTEMS: Remarkable only for abdominal pain, especially when she takes a deep breath. PHYSICAL EXAMINATION: VITAL SIGNS: Her blood pressure was 115 systolic when I was in the room. Heart rate was 101. She is afebrile, respiratory rate was 20, oximetry is 98 on 3 liters. HEENT: Pupils reactive. Sclerae is anicteric. NECK: Supple. LUNGS: Clear. HEART: Regular rhythm. ABDOMEN: Soft and mildly tender. EXTREMITIES: Without clubbing, cyanosis. She has stasis changes of her lower extremities as expected. LABORATORY DATA: White count is 32.3, hemoglobin 8.4, platelets 652,000. Sodium 135, potassium 4.7, chloride 106, bicarbonate 15, BUN 40, creatinine 4.4. Liver enzymes are mildly elevated. Dr. Guardado informed me that she had a massive liver. She has significant fatty infiltration of her liver. IMPRESSION: Rule out abdominal sepsis versus intravascular volume depletion. Her p.o. intake since her surgery has been quite poor. She will be aggressively hydrated. She will be given pressors if needed, meropenem and micafungin will be started and she will proceed with further workup once her volume resuscitation has led to stability. [facility] INSANERadha
[2018-02-05] MEDS: Sodium Chloride 0.9% 1,000 ML IV SCH ×3 (02:24→18:03)
[2018-02-05] MEDS ORDERED: Vancomycin HCl 1 GM in Premix Bag 1 BAG IVPB SCH (02:30)
[2018-02-05] MEDS: Morphine 4 MG/ML VIAL SLOW IVP PRN (03:37)
[2018-02-05 05:47] LABS: Hemoglobin 8.2 g/dL (12.0-16.0); Mean Corpuscular Hemoglobin 27.9 pg (27.0-31.0); Mean Corpuscular Volume 96.3 fL (78.0-98.0); Mean Platelet Volume 7.4 fL (7.4-10.4); Platelet Count 689 thou/uL (130-400); RBC Distribution Width 15.5 % (11.5-14.5); Red Blood Cell (RBC) Count 2.93 mill/uL (4.20-5.40); White Blood Cell (WBC) Count 27.6 thou/uL (4.8-10.8)
[2018-02-05 05:48] LABS: Band 42 % (5-11); Eosinophils 2 % (0-10); Hypochromia SLIGHT = 6-15 cells (100X) (0-5/hpf); Lymphocytes 2 % (21-51); MDiff Complete? YES; Metamyelocyte 1 % (0-0); Monocytes 6 % (0-10); Neutrophil 46 % (42-75); Nucleated RBC 3 % (0); PLT Morphology Comment Appears Increased
[2018-02-05 05:50] LABS: ALT (SGPT) 46 U/L (8-55); AST (SGOT) 25 U/L (5-34); Albumin 2.5 g/dL (3.5-5.0); Alkaline Phosphatase 149 U/L (40-150); Anion Gap 15 mmol/L (10-20); BUN (Urea Nitrogen) 43 mg/dL (7.0-18.7); Bilirubin, Total 1.2 mg/dL (0.2-1.2); Calc. Creatinine Clearance 66 mL/min (70-130); Calcium 8.7 mg/dL (7.8-10.44); Carbon Dioxide 17 mmol/L (22-29); Chloride 107 mmol/L (98-107); Estimated GFR-MDRD 12; Globulin 3.5 g/dL (2.4-3.5); Glucose 98 mg/dL (70-105); Potassium 4.4 mmol/L (3.5-5.1); Sodium 135 mmol/L (136-145)
[2018-02-05 06:30] LABS: Band 37 % (5-11); Hemoglobin 8.3 g/dL (12.0-16.0); MDiff Complete? YES; Mean Corpuscular HGB CONC 29.2 g/dL (32.0-36.0); Mean Corpuscular Hemoglobin 28.2 pg (27.0-31.0); Mean Corpuscular Volume 96.4 fL (78.0-98.0); Mean Platelet Volume 7.3 fL (7.4-10.4); Metamyelocyte 1 % (0-0); Monocytes 10 % (0-10); Neutrophil 52 % (42-75); Nucleated RBC 5 % (0); PLT Morphology Comment Appears Increased; Platelet Count 699 thou/uL (130-400); RBC Distribution Width 15.4 % (11.5-14.5); Red Blood Cell (RBC) Count 2.93 mill/uL (4.20-5.40); White Blood Cell (WBC) Count 26.7 thou/uL (4.8-10.8)
[2018-02-05] MEDS ORDERED: Sodium Chloride 0.9% 1,000 ML IV SCH ×2 (07:30→10:45)
[2018-02-05] MEDS ORDERED: Fentanyl 100 MCG/2 ML VIAL ONE (07:48)
[2018-02-05] MEDS ORDERED: HYDROmorphone 2 MG/ML VIAL ONE (07:48)
[2018-02-05] MEDS ORDERED: Bupivacaine HCl 0.5%/Epinephrine 1:200,000/PF 30 ml Vial ONE (08:05)
[2018-02-05] MEDS ORDERED: Norepinephrine 8 MG/0.9% NS 0 ML ONE (08:16)
[2018-02-05] MEDS ORDERED: Heparin 1,000 UNITS/ML VIAL ONE (09:00)
[2018-02-05] MEDS ORDERED: Midazolam HCl 5 mg/5 ml Vial ONE (09:33)
[2018-02-05] MEDS: MEROPENEM 1 GM/50 ML 1 GM in Premix Bag 1 BAG IVPB SCH ×3 (10:12→21:45)
[2018-02-05] MEDS ORDERED: Succinylcholine Chloride 20 MG/ML 10 ml SYRINGE FS ONE (10:36)
[2018-02-05] MEDS ORDERED: PHENYLEPHRINE-NS 100 MCG/ML 10 ML SYRINGE ONE (10:36)
[2018-02-05] MEDS ORDERED: Ventilator Sedation Protocol 1 EACH FS ONE (10:38)
[2018-02-05] MEDS ORDERED: Fentanyl BOLUS 250 ML IVPB PRN (10:40)
[2018-02-05] MEDS ORDERED: Propofol BOLUS 1,000 MG/100 ML VIAL IV PRN (10:40)
--- NOTE | 2018-02-05 10:49 | CON ---
DATE OF CONSULTATION: 02/04/2018 at 2200 p.m. REASON FOR CONSULTATION: Anuria. HISTORY OF PRESENT ILLNESS: This is a very pleasant 42-year-old female who was admitted for hypotens ion and sepsis. The patient has a history of mastitis as well as congestive heart failure and atrial fibrillation. The patient's baseline creatinine was less than 1 on 01/30/2018, which increased to 3 .8 on 02/04/2018 in the morning and in the evening, increased to 4.4. The patient had low blood pres sure. PAST MEDICAL AND SURGICAL HISTORY: Chronic atrial fibrillation, morbid obesity, congestive heart [place] lure, hyperlipidemia, mastitis, asthma, breast biopsies, gastric sleeve, hernia repair. FAMILY HISTORY: Negative for end-stage renal disease. SOCIAL AND ECONOMIC HISTORY: No alcohol or drug use. ALLERGIES: Reviewed. HOME MEDICATIONS: List reviewed. REVIEW OF SYSTEMS: A 15-point review of systems was performed and negative except positives noted ab ove. GENERAL: Weakness-. HEAD: Headache-. NECK: No swelling or lumps. NOSE: No epistaxis or discharge. EYES: No diplopia or pain. RESPIRATORY: Dyspnea-. CARDIOVASCULAR: Chest pain-. GASTROINTESTINAL: Nausea-. /SOCIAL WORKER P[employer]IATIVE CARE: Hematuria-. MUSCULOSKELETAL: No joint pain. NEUROPSYCHIATIC SYSTEMS: No suicidal ideation. No ideation. SKIN: Denies any rash or ulcer. CONSTITUTIONAL: No fever or chills. PHYSICAL EXAMINATION: GENERAL: Patient is resting. VITAL SIGNS: Afebrile, pulse 101, breathing at 16, blood pressure 88/49. GENERAL APPEARANCE AND MENTAL STATUS: Fair. HEAD/NECK: Normocephalic. Atraumatic. EYES: EOMI. No deformity. EARS: Clear. No ulcers. NOSE: Intact. No lesions. MOUTH: Clear. No discharge. THROAT: Clear. No exudate. LUNGS: Clear. No crackles. CARDIAC: S1, S2. No rub. ABDOMEN: Benign. BS+. GENITALIA/RECTUM: Banks absent. BACK/EXTREMITIES: Edema 0+ Ulcer-. NEUROLOGICAL: Alert and motor intact. SKIN: Rash- Bruise- LYMPHATICS: Edema- Ulcer-. LABORATORY DATA: Creatinine is 4.4, potassium 4.7, bicarbonate 15. ASSESSMENT AND RECOMMENDATIONS: 1. Acute kidney injury with chronic kidney disease due to sepsis and hypotension. Continue aggressi ve hydration as doing. 2. Hypotension. Agree with plan. 3. Metabolic acidosis, can replace bicarbonate. Management per primary team. 4. Hyponatremia, stable. 5. Medications based on glomerular filtration rate are appropriate. No indication for dialysis.
[2018-02-05] MEDS ORDERED: Propofol 1,000 MG/100 ML VIAL IV ONE (11:05)
[2018-02-05 11:06] LABS: Mean Corpuscular HGB CONC 31.7 g/dL (32.0-36.0); Mean Corpuscular Hemoglobin 30.3 pg (27.0-31.0); Mean Corpuscular Volume 95.7 fL (78.0-98.0); Mean Platelet Volume 7.2 fL (7.4-10.4); Platelet Count 661 thou/uL (130-400); RBC Distribution Width 15.8 % (11.5-14.5)
[2018-02-05 11:14] LABS: CO2 Tension 61.9 mmHg (35.0-45.0); O2 Tension (PaO2) 85.9 mmHg (80.0-100.0); pH, Arterial 7.09 (7.35-7.45)
[2018-02-05 11:15] LABS: Actual Bicarbonate (HCO3a) 18.5 mEq/L (22-28); Base Excess (BEa) -11.4 mEq/L (-2.0 to +3.0); Carboxyhemoglobin (COHb) 1.3 gm% (0.0-3.0); Hemoglobin (Hb) 11.2 g/dL (12.0-16.0)
[2018-02-05 11:16] LABS: ALV-art Gradient 549.725 (0-20); Calcium, Ionized 1.1 mmol/L (1.12-1.30); Puncture Site A-LINE
[2018-02-05] MEDS ORDERED: Amiodarone HCl 150 MG, Admixture Fee 1 EACH in Dextrose 5% in Water 100 ML IVPB SCH (11:30)
[2018-02-05 11:49] LABS: Band 38 % (5-11); Lymphocytes 6 % (21-51); MDiff Complete? YES; Metamyelocyte 2 % (0-0); Monocytes 7 % (0-10); Neutrophil 47 % (42-75); Nucleated RBC 9 % (0); PLT Morphology Comment Appears Increased; Polychromasia MODERATE = 3-4 cells (100X) (0-2/hpf)
[2018-02-05] MEDS: Amiodarone HCl 450 MG, Admixture Fee 1 EACH in Dextrose 5% in Water 250 ML IVPB SCH ×3 (12:06→20:19)
--- NOTE | 2018-02-05 12:10 | PRG ---
DATE OF SERVICE: 02/05/2018 SUBJECTIVE: This is a 42-year-old female being seen for acute kidney disease. The patient denies any nausea, vomiting, or chest pain. The patient is resting. OBJECTIVE: VITAL SIGNS: Afebrile, pulse 80, breathing 16, blood pressure 90/60. GENERAL APPEARANCE AND MENTAL STATUS: Fair. HEAD/NECK: Normocephalic. Atraumatic. EYES: EOMI. No deformity. EARS: Clear. No ulcers. NOSE: Intact. No lesions. MOUTH: Clear. No discharge. THROAT: Clear. No exudate. LUNGS: Clear. No crackles. CARDIAC: S1, S2. No rub. ABDOMEN: Benign. BS+. GENITALIA/RECTUM: Banks absent. BACK/EXTREMITIES: Edema 0+ Ulcer- NEUROLOGICAL: Alert and motor intact. SKIN: Rash- Bruise- LABORATORY DATA: Show creatinine 3.9. ASSESSMENT AND RECOMMENDATION: 1. Chronic kidney disease stage 5 with acute kidney injury, stable. No indication for dialysis. 2. Hypertension, stable. 3. Anemia, stable. 4. Medication based on glomerular filtration rate are appropriate. 5. Sepsis management per primary team. MTDD
--- NOTE | 2018-02-05 12:15 | OP ---
DATE OF PROCEDURE: 03/08/2018 PREOPERATIVE DIAGNOSIS: Sepsis. SURGEON: Marco Guardado M.D. PROCEDURE: Diagnostic laparoscopy with drainage of left subphrenic abscess. INDICATIONS: This is a 42-year-old female, extreme morbid obese, who had had a sleeve about 2 weeks ago complicated by postoperative hemorrhage and a splenectomy who started having increasing white blo od cell count and hypotension. Unable to scan due to size. FINDINGS: Large left subphrenic abscess containing over 1500 mL of dark red foul smelling fluid. PROCEDURE IN DETAIL: After informed consent was obtained, the patient was taken to the operating beckie m. She was given general endotracheal anesthesia. She was placed in the supine position. The abdom en was prepped and draped in usual fashion. Local anesthesia infiltrated subcutaneously and deep and a 12 mm incision was performed just to the left of the midline mid abdomen. Veress needle inserted. Drop test performed. Pneumoperitoneum was created to a volume of 2 liters of carbon dioxide. A bl adeless 12 mm trocar inserted. Pneumoperitoneum was created to a pressure of 15 mmHg. The patient p laced in the reverse Trendelenburg position. Two other 5-mm ports were placed. An inflammatory area was found in the left upper quadrant. This was retracted and was able to get into it, contained eugene lly dark blood. This was sent for culture. Approximately 1500 mL of this fluid removed, very foul s melling. The area was irrigated and irrigation fluid removed. She has also been complaining on the right lower quadrant, so in the pelvis there was some fluid as well as in the right lower quadrant, b ut not as much. This was all irrigated. Two drains were placed, one on the left that went up into t he pocket and 1 on the right that went down into the pelvis and along the right gutter. Hemostasis w as assured. Trocars and retractors removed. The skin closed with interrupted 4-0 Rapide. Steri-Str ips applied. Sterile bandage applied. The patient tolerated the procedure well and was transferred to ICU in serious condition.
--- NOTE | 2018-02-05 13:00 | PQF ---
DATE: 02-05-18 ATTN: DR. MARK ANTHONY RENO Please exercise your independent, professional judgment in responding to the clarification form. Clinical indicators are provided on the bottom of this form for your review Please check appropriate box(s) to clarify if the following diagnosis has been ruled in or ruled out: SEPSIS [ ] Ruled in diagnosis [X ] Continue to treat [ ] Resolved [ ] Ruled out diagnosis [ ] Other diagnosis [ ] Unable to determine In addition, please specify: Present on Admission (POA): [ X] Yes [ ] No [ ] Unable to determine For continuity of documentation, please document condition throughout progress notes and discharge summary. Thank You. CLINICAL INDICATORS - SIGNS / SYMPTOMS / LABS H&P: SEPTIC PICTURE H&P: PT UNDERWENT A LAPAROSCOPIC SLEEVE GASTRECTOMY ON 01-24-18. THIS WAS COMPLICATED BY AN INJURY TO THE SPLENIC VEIN, NECESSITATING A SPLENECTOMY AT THE TIME OF SURGERY CONSULT NOTE DR. RENO 02-04-18: SUSPECT SEPSIS, SUSPECT HYPOVOLEMIC VS SEPTIC SHOCK, LIKELY SEPSIS VS ACUTE BLOOD LOSS CONSULT NOTE DR. WAYNE 02-05-18: TUCKER WITH CKD DUE TO SEPSIS AND HYPOTENSION WBC: 02-04-18: 32.3 02-05-18: 27.6, 26.7, 23.0 BANDS: 02-04-18: 34% 02-05-18: 42%, 37%, 38% BP: 02-04-18: 89/42 02-04-18: 88/49 02-05-18: 74/40, 84/41 TEMP: 02-05-18: 99.4, 02-05-18: 99.5 PULSE: 02-04-18: 101, 108 02-05-18: 107, 120, 142 RISK FACTORS: H&P:SEPTIC PICTURE H&P: PT UNDERWENT A LAPAROSCOPIC SLEEVE GASTRECTOMY ON 01-24-18. THIS WAS COMPLICATED BY AN INJURY TO THE SPLENIC VEIN , NECESSITATING A SPLENECTOMY AT THE TIME OF SURGERY, HX OF EXTREME MORBID OBESITY, HTN, CHF, HYPERLIPIDEMIA, A FIB, DJD AND ASTHMA TREATMENTS: MAR: IVF NS, MICAFUNGIN, MEROPENEM, VANCOMYCIN (This form is maintained as a part of the permanent medical record) 2014 [employer]. All Rights Reserved TAMAR [email or web address] Office: [phone] [facility]IDE HOSPITALRadha
[2018-02-05 13:09] LABS: Anion Gap 17 mmol/L (10-20); BUN (Urea Nitrogen) 45 mg/dL (7.0-18.7); Calc. Creatinine Clearance 70 mL/min (70-130); Calcium 8.4 mg/dL (7.8-10.44); Carbon Dioxide 13 mmol/L (22-29); Chloride 109 mmol/L (98-107); Estimated GFR-MDRD 13; Glucose 133 mg/dL (70-105); Potassium 5.1 mmol/L (3.5-5.1); Sodium 134 mmol/L (136-145)
--- NOTE | 2018-02-05 13:15 | PQF ---
DATE: 02-05-18 ATTN: DR. MARK ANTHONY RENO Please exercise your independent, professional judgment in responding to the clarification form. Clinical indicators are provided on the bottom of this form for your review Please check appropriate box(s): [X ] UTI [ ] Contaminated urine specimen without UTI [ ] Other diagnosis [ ] Unable to determine In addition, please specify: Present on Admission (POA): [ X ] Yes [ ] No [ ] Unable to determine For continuity of documentation, please document condition throughout progress notes and discharge summary. Thank You. CLINICAL INDICATORS - SIGNS / SYMPTOMS / LABS URINE: 02-04-18: URINE PROTEIN: 30 H URINE KETONES: TRACE H URINE BLOOD: SMALL H URINE NITRITE: POSITIVE H UR LEUKOCYTE ESTERASE: LARGE H URINE WBC: GREATER THAN 50- TNTC H URINE BACTERIA: 2+ H HYALINE CASTS: 4-6 HYALINE CAST H RISK FACTORS: H&P: S/P LAPAROSCOPIC SLEEVE GASTRECTOMY ON 01-24-2018. THIS WAS COMPLICATED BY AN INJURY TO THE SPLENIC VEIN, NECESSITATING A SPLENECTOMY AT THE TIME OF SURGERY, HX OF EXTREME MORBID OBESITY, HTN, CHF, HYPERLIPIDEMIA, ASTHMA, DJD, A FIBRILLATION TREATMENT: MAR: IVF NS, MEROPENEM, VANCOMYCIN (This form is maintained as a part of the permanent medical record) 2014 [employer]. All Rights Reserved TAMAR [email or web address] Office: [phone] TIERA
[2018-02-05] MEDS: Norepinephrine 8 MG/0.9% NS 250 ML IVPB PRN ×3 (13:19→23:11)
[2018-02-05] MEDS: Lorazepam 2 MG/ML VIAL SLOW IVP PRN (13:19)
--- NOTE | 2018-02-05 13:47 | OP ---
ADDENDUM good backflow of venous blood. J-wire threaded easily. The skin was incised with an 11 blade. Dilator used to pre-flush, triple lumen catheter inserted over the wire. The wire was removed. Ea ch of the ports were aspirated. Good backflow of venous blood, . The catheter was sutured in p lace with 3-0 silk suture. Sterile bandage applied. Chest x-ray was fine. Patient tolerated the pr ocedure well.
--- NOTE | 2018-02-05 13:47 | OP ---
PREOPERATIVE DIAGNOSIS: Sepsis. SURGEON: Marco Guardado MD PROCEDURE PERFORMED: Central line placement. INDICATIONS: The patient is a 42-year-old female who was status post sleeve who now is having increa sing abdominal pain, leukocytosis, hypertension, needs control access finding, unable to get good madonna kflow of venous blood subclavian, wound up putting it in her right internal jugular vein. FINDINGS: Attempted a subclavian at first, but only got very, very slow trickle of blood, had to mov e to the neck with good backflow of venous blood. J-wire threaded easily. PROCEDURE: After informed consent was obtained, the patient was placed in the Trendelenburg position . Her neck and chest were prepped and draped in usual fashion. Local anesthesia was placed subcutan eously. An attempt made in the right subclavian approach with little trickle of venous blood, howeve r, good backflow of venous blood. J-wire threaded easily. The skin was incised with an 11 bl jayesh. Dilator used to pre-flush, triple lumen catheter inserted over the wire. The wire was removed. Each of the ports were aspirated. Good backflow of venous blood, . The catheter was sutured in place with 3-0 silk suture. Sterile bandage applied. Chest x-ray was fine. Patient tolerated th e procedure well.
[2018-02-05] MEDS ORDERED: Lactated Ringer's 1,000 ML IV SCH (14:00)
[2018-02-05] MEDS: Hydrocortisone Sod Succ/PF 100 mg/2 ml Vial IVP SCH ×2 (14:02→20:18)
[2018-02-05] MEDS: Vasopressin 40 UNIT, Admixture Fee 1 EACH in Sodium Chloride 0.9% 100 ML IV SCH ×2 (14:09→21:52)
--- NOTE | 2018-02-05 14:18 | PDOC.PN ---
- Subjective Encounter Start Date: 02/05/18 Encounter Start Time: 14:16 Subjective: Taken to OR this am & found to have large subphrenic Abscess -: currently intubated post -op in CCU -: received FFP & PRBC today - Objective MAR Reviewed: Yes Vital Signs & Weight: Vital Signs (12 hours) Temp Pulse Resp BP Pulse Ox 02/05/18 13:58 89 95/58 L 02/05/18 12:09 142 H 20 99 02/05/18 11:00 99.5 F 02/05/18 10:49 120 H 153/77 H 02/05/18 08:00 98.9 F 107 H 19 02/05/18 07:00 98.9 F 02/05/18 06:33 98 18 99 02/05/18 04:00 99.4 F 02/05/18 03:23 100 Weight Admit Weight 506 lb Weight 506 lb 6.429 oz Most Recent Monitor Data Heart Rate from ECG 80 NIBP 95/58 NIBP BP-Mean 76 Respiration from ECG 18 SpO2 98 I&O: 02/04/18 02/05/18 02/06/18 06:59 06:59 06:59 Intake Total 3369 386.8 Output Total 250 230 Balance 3119 156.8 Result Diagrams: 02/05/18 10:50 02/05/18 12:26 Additional Labs: Microbiology 02/04/18 18:50 Venous blood - Right Hand Blood Culture - Preliminary Specimen has been received and culture in progress. No Growth to date. 02/04/18 18:33 Venous blood - Right Arm Blood Culture - Preliminary Specimen has been received and culture in progress. No Growth to date. Laboratory Tests 01/30/18 02/04/18 02/04/18 04:20 05:15 18:50 Creatinine 0.91 3.81 H 4.40 H Total Bilirubin 1.5 H AST 39 H ALT 56 H Alkaline Phosphatase 178 H CK-MB (CK-2) Troponin I B-Natriuretic Peptide TSH 3rd Generation Urine Bacteria 02/04/18 02/04/18 02/04/18 18:50 18:50 20:16 Creatinine Total Bilirubin AST ALT Alkaline Phosphatase CK-MB (CK-2) 1.2 Troponin I Less than 0.010 B-Natriuretic Peptide 317.3 H TSH 3rd Generation Urine Bacteria 2+ H 02/05/18 02/05/18 05:10 05:10 Creatinine 3.97 H Total Bilirubin 1.2 AST 25 ALT 46 Alkaline Phosphatase 149 CK-MB (CK-2) Troponin I B-Natriuretic Peptide TSH 3rd Generation 2.4011 Urine Bacteria EKG Reviewed by me: Yes (Tachycardia on monitor) Phys Exam - Physical Examination intubated ETT Neck: no JVD Respiratory: no wheezing, no rales Cardiovascular: RRR, no significant murmur Gastrointestinal: soft post-op Musculoskeletal: pulses present sedated Dx/Plan (1) Septic shock Code(s): A41.9 - SEPSIS, UNSPECIFIED ORGANISM; R65.21 - SEVERE SEPSIS WITH SEPTIC SHOCK Status: Acute (2) TUCKER (acute kidney injury) Code(s): N17.9 - ACUTE KIDNEY FAILURE, UNSPECIFIED Status: Acute (3) UTI (urinary tract infection) Status: Acute (4) Subphrenic abscess Code(s): K65.1 - PERITONEAL ABSCESS Status: Acute (5) Sepsis Code(s): A41.9 - SEPSIS, UNSPECIFIED ORGANISM Status: Acute (6) Chronic atrial fibrillation Code(s): I48.2 - CHRONIC ATRIAL FIBRILLATION Status: Chronic (7) Acute blood loss anemia Code(s): D62 - ACUTE POSTHEMORRHAGIC ANEMIA Status: Acute Comment: s/p FFP & PRBC.anticoagulation on hold (8) Asplenia Code(s): Q89.01 - ASPLENIA (CONGENITAL) Status: Acute Comment: Splenectomy post gastric sleeve Sx due to [place] of Splenic artery (9) Hypotension Status: Acute Comment: Likley septic shock with or without hypovolemic shock. (10) Morbid obesity Code(s): E66.01 - MORBID (SEVERE) OBESITY DUE TO EXCESS CALORIES Status: Chronic - Plan continue antibiotics, respiratory therapy, DVT proph w/SCDs remians critically ill but stable. -: cont ABx. s/p abscess evacuation.follow Cx results.cont broad spectrum cove -: Renal Fx stable.nazialey hypotensive injust -: LFt normailzed-nazialey shock liver -: cont IVF. Levophed prn. * . Monitor HR as h/o a-fib. AC on hold in immediate post op period. am labs IM team will follow. Review of Systems - Review of Systems Other: can not be obatined due to intubated state - Medications/Allergies Allergies/Adverse Reactions: Allergies Allergy/AdvReac Type Severity Reaction Status Date / Time ciprofloxacin [From Cipro] Allergy Verified 01/21/18 15:38 clindamycin Allergy Rash Verified 01/21/18 15:38 levofloxacin [From Levaquin] Allergy Verified 01/21/18 15:38 lorcaserin [From Belviq] Allergy Nausea Verified 01/21/18 15:38 nitrofurantoin Allergy Hives Verified 01/21/18 15:38 [From Macrobid] Penicillins Allergy Verified 01/21/18 15:38 raspberry Allergy Verified 01/21/18 15:38 sulfamethoxazole Allergy Rash Verified 01/21/18 15:38 [From Bactrim] trimethoprim [From Bactrim] Allergy Rash Verified 01/21/18 15:38 Medications: Current Medications Acetaminophen (Tylenol Elixir) 650 mg PO Q6H PRN PRN Reason: Fever > 101 or Mild Pain Acetaminophen (Tylenol) 650 mg TN Q6H PRN PRN Reason: Fever > 101 or Mild Pain Al Hydroxide/Mg Hydroxide (Maalox) 30 ml PO Q8H PRN PRN Reason: Indigestion Albuterol/Ipratropium (Duoneb) 3 ml NEB G9IL-OD PRN PRN Reason: SOB &/or Wheezing Albuterol/Ipratropium (Duoneb) 3 ml NEB V6TI-IN COUNT INCLUDES THE [facility] Last Admin: 02/05/18 12:09 Dose: 3 ml Bisacodyl (Dulcolax) 10 mg PO DAILYPRN PRN PRN Reason: Constipation Hydrocortisone Sodium Succinate (Solu-Cortef) 50 mg IVP 0200,0800,1400,2000 COUNT INCLUDES THE [facility] Last Admin: 02/05/18 14:02 Dose: 50 mg Sodium Chloride (Normal Saline 0.9%) 1,000 mls @ 125 mls/hr IV .Q8H COUNT INCLUDES THE [facility] Last Admin: 02/05/18 11:40 Dose: 1,000 mls Norepinephrine Bitartrate (Levophed) 250 mls @ 0 mls/hr IVPB INF PRN; Protocol PRN Reason: MAP>65 Last Admin: 02/05/18 13:19 Dose: 250 mls Micafungin Sodium 100 mg/ (Sodium Chloride) 100 mls @ 100 mls/hr IVPB Q24HR COUNT INCLUDES THE [facility] Last Admin: 02/04/18 20:25 Dose: 100 mls Meropenem 1 gm/ Device 50 mls @ 100 mls/hr IVPB 1000,2200 DINORA Last Admin: 02/05/18 11:41 Dose: 50 mls Vancomycin HCl 1.25 gm/ Sodium (Chloride) 250 mls @ 166.667 mls/hr IVPB Q24HR IDNORA Sodium Chloride (Normal Saline 0.9%) 1,000 mls @ 0 mls/hr IV .Q0M DINORA Fentanyl Citrate 2,000 mcg/ (Sodium Chloride) 100 mls @ 0 mls/hr IV INF DINORA; Protocol Stop: 03/07/18 10:40 Fentanyl Citrate (Fentanyl Bolus) 250 mls @ 0 mls/hr IVPB PRN PRN PRN Reason: Breakthrough pain/agitation Stop: 03/07/18 10:40 Amiodarone HCl 450 mg/Miscellaneous Medication 1 each/ Dextrose/Water 259 mls @ 0 mls/hr IVPB INF DINORA; Protocol Last Admin: 02/05/18 12:07 Dose: 259 mls Vasopressin 40 unit/Miscellaneous Medication 1 each/ Sodium Chloride 102 mls @ 0 mls/hr IV INF DINORA; Protocol Last Admin: 02/05/18 14:09 Dose: 102 mls Lactated Ringer's (Lactated Ringer's) 1,000 mls @ 0 mls/hr IV .Q0M DINORA Stop: 02/05/18 15:00 Last Admin: 02/05/18 14:00 Dose: 1,000 mls Lorazepam (Ativan) 2 mg SLOW IVP Q1H PRN PRN Reason: Breakthrough agitation Stop: 03/07/18 10:40 Last Admin: 02/05/18 13:19 Dose: 2 mg Magnesium Hydroxide (Milk Of Magnesium) 30 ml PO Q8H PRN PRN Reason: Constipation Mineral Oil/White Petrolatum (Lacri-Lube Ointment) 0 gm EA EYE PRN PRN PRN Reason: Dry Eyes Morphine Sulfate (Morphine) 2 mg SLOW IVP Q1H PRN PRN Reason: BREAKTHROUGH PAIN/AGITATION Stop: 03/07/18 10:40 Last Admin: 02/05/18 12:52 Dose: 2 mg Ondansetron HCl (Zofran) 4 mg IVP Q6H PRN PRN Reason: Nausea/Vomiting Pantoprazole Sodium (Protonix) 40 mg IVP 2100 DINORA Propofol (Diprivan) 1,000 mg IV INF PRN; Protocol PRN Reason: TO ACHIEVE GOAL RASS Stop: 03/07/18 10:40 Propofol (Diprivan Bolus) 20 mg IV Q5MIN PRN PRN Reason: BREAKTHROUGH AGITATION Stop: 03/07/18 10:40 Sodium Chloride (Flush - Normal Saline) 10 ml IVF Q12HR DINORA Last Admin: 02/05/18 09:17 Dose: Not Given Sodium Chloride (Flush - Normal Saline) 10 ml IVF PRN PRN PRN Reason: Saline Flush
[2018-02-05] MEDS: Sodium Bicarbonate 150 MEQ in Dextrose 5% in Water 1,000 ML IV SCH (20:18)
[2018-02-05] MEDS: Micafungin 100 MG in Sodium Chloride 0.9% 100 ML IVPB SCH (20:19)
[2018-02-05] MEDS: Pantoprazole 40 MG VIAL IVP SCH (20:19)
[2018-02-05] MEDS: metroNIDAZOLE 500 MG in Premix Bag 1 BAG IVPB SCH (21:46)
[2018-02-05] MEDS: Propofol 1,000 MG/100 ML VIAL IV PRN (21:52)
[2018-02-06 00:55] LABS: Vancomycin, Trough 9.8 ug/mL
[2018-02-06] MEDS ORDERED: Vancomycin HCl 1.25 GM in Sodium Chloride 0.9% 250 ML 250 ML IVPB SCH (02:00)
[2018-02-06] MEDS: Hydrocortisone Sod Succ/PF 100 mg/2 ml Vial IVP SCH ×4 (02:45→20:34)
[2018-02-06] MEDS: Sodium Chloride 0.9% 1,000 ML IV SCH (03:03)
[2018-02-06] MEDS: Sodium Bicarbonate 150 MEQ in Dextrose 5% in Water 1,000 ML IV SCH ×2 (04:57→14:22)
[2018-02-06] MEDS: Propofol 1,000 MG/100 ML VIAL IV PRN ×3 (04:58→23:36)
[2018-02-06] MEDS: metroNIDAZOLE 500 MG in Premix Bag 1 BAG IVPB SCH (05:00)
[2018-02-06 05:27] LABS: Band 24 % (5-11); Hemoglobin 9.9 g/dL (12.0-16.0); Hypochromia SLIGHT = 6-15 cells (100X) (0-5/hpf); Lymphocytes 3 % (21-51); MDiff Complete? YES; Mean Corpuscular HGB CONC 32.3 g/dL (32.0-36.0); Mean Corpuscular Hemoglobin 30.5 pg (27.0-31.0); Mean Corpuscular Volume 94.4 fL (78.0-98.0); Mean Platelet Volume 7.9 fL (7.4-10.4); Monocytes 2 % (0-10); Neutrophil 71 % (42-75); Nucleated RBC 3 % (0); PLT Morphology Comment Appears Increased; Platelet Count 636 thou/uL (130-400); RBC Distribution Width 15.9 % (11.5-14.5); Red Blood Cell (RBC) Count 3.24 mill/uL (4.20-5.40); White Blood Cell (WBC) Count 22.6 thou/uL (4.8-10.8)
[2018-02-06 05:36] LABS: ALT (SGPT) 36 U/L (8-55); AST (SGOT) 38 U/L (5-34); Albumin 2.3 g/dL (3.5-5.0); Alkaline Phosphatase 130 U/L (40-150); Anion Gap 16 mmol/L (10-20); BUN (Urea Nitrogen) 47 mg/dL (7.0-18.7); Bilirubin, Total 2.1 mg/dL (0.2-1.2); Calc. Creatinine Clearance 86 mL/min (70-130); Calcium 8.4 mg/dL (7.8-10.44); Carbon Dioxide 16 mmol/L (22-29); Chloride 109 mmol/L (98-107); Estimated GFR-MDRD 17; Globulin 3.6 g/dL (2.4-3.5); Glucose 182 mg/dL (70-105); Potassium 4.8 mmol/L (3.5-5.1); Protein, Total 5.9 g/dL (6.0-8.3); Sodium 136 mmol/L (136-145)
[2018-02-06] MEDS: Norepinephrine 8 MG/0.9% NS 250 ML IVPB PRN (05:38)
--- NOTE | 2018-02-06 07:16 | PRG ---
DATE F SERVICE: 02/06/2018 SUBJECTIVE: This is a 42-year-old female being seen for acute kidney injury. The patient is intubat ed. PHYSICAL EXAMINATION: GENERAL: Patient is resting. VITAL SIGNS: Afebrile, pulse 69, breathing at 16, blood pressure 112/60. OBJECTIVE: See above. Awake, alert, in no acute distress. GENERAL APPEARANCE AND MENTAL STATUS: Fair. HEAD/NECK: Normocephalic. Atraumatic. EYES: EOMI. No deformity. EARS: Clear. No ulcers. NOSE: Intact. No lesions. MOUTH: Clear. No discharge. THROAT: Clear. No exudate. LUNGS: Clear. No crackles. CARDIAC: S1, S2. No rub. ABDOMEN: Benign. BS+. GENITALIA/RECTUM: Banks absent. BACK/EXTREMITIES: Edema 0+ Ulcer- NEUROLOGICAL: Alert and motor intact. SKIN: Rash- Bruise- LYMPHATICS: Edema- Ulcer- LABORATORY: Hemoglobin 9.9, sodium 135, potassium 4.8, bicarbonate 16, creatinine 3.0. ASSESSMENT AND RECOMMENDATIONS: 1. Acute kidney injury, improved. 2. Hypertension, stable. 3. Sepsis, management per primary team. 4. Metabolic acidosis. Continue bicarbonate replacement. 5. Hyperkalemia, improved. No indication for dialysis. Overall, prognosis is extremely poor.
[2018-02-06 07:40] LABS: Base Excess (BEa) -9.4 mEq/L (-2.0 to +3.0); CO2 Tension 33.2 mmHg (35.0-45.0); Calcium, Ionized 1.1 mmol/L (1.12-1.30); Carboxyhemoglobin (COHb) 0.5 gm% (0.0-3.0); Hemoglobin (Hb) 9.1 g/dL (12.0-16.0); O2 Tension (PaO2) 88.7 mmHg (80.0-100.0); Potassium - ABG Lab 4.2 mmol/L (3.70-5.30)
[2018-02-06 07:41] LABS: Puncture Site ALINE
[2018-02-06] MEDS: MEROPENEM 1 GM/50 ML 1 GM in Premix Bag 1 BAG IVPB SCH ×2 (09:48→21:55)
[2018-02-06] MEDS: fentaNYL Citrate/PF 2,000 MCG in Sodium Chloride 0.9% 60 ML IV SCH (10:43)
[2018-02-06] MEDS: Lorazepam 2 MG/ML VIAL SLOW IVP PRN (12:15)
[2018-02-06] MEDS: Amiodarone HCl 450 MG, Admixture Fee 1 EACH in Dextrose 5% in Water 250 ML IVPB SCH (12:32)
[2018-02-06 12:49] LABS: INR-International Normal Ratio 1.9; PTT 41.5 SEC (22.9-36.1); Prothrombin Time 22.1 SEC (12.0-14.7)
[2018-02-06 13:02] LABS: ALT (SGPT) 31 U/L (8-55); AST (SGOT) 28 U/L (5-34); Albumin 2.2 g/dL (3.5-5.0); Alkaline Phosphatase 112 U/L (40-150); Anion Gap 14 mmol/L (10-20); BUN (Urea Nitrogen) 47 mg/dL (7.0-18.7); Bilirubin, Total 1.9 mg/dL (0.2-1.2); Calc. Creatinine Clearance 99 mL/min (70-130); Calcium 8.3 mg/dL (7.8-10.44); Carbon Dioxide 19 mmol/L (22-29); Chloride 107 mmol/L (98-107); Cholesterol 82 mg/dl (< 200 Desired); Estimated GFR-MDRD 19; Globulin 3.1 g/dL (2.4-3.5); Glucose 168 mg/dL (70-105); HDL Cholesterol Less than 8 mg/dL (>60 Neg Risk); Magnesium 1.5 mg/dL (1.6-2.6); Phosphorus 4.7 mg/dL (2.3-4.7); Potassium 4.3 mmol/L (3.5-5.1); Protein, Total 5.3 g/dL (6.0-8.3); Sodium 136 mmol/L (136-145); Triglycerides 162 mg/dL (Less than 150)
--- NOTE | 2018-02-06 13:07 | PRG ---
DATE OF SERVICE: 02/05/2018 SERVICE: Pulmonary Medicine. INTERVAL HISTORY: After her operation, she returned hemodynamically stable, but then started develop ing increasing instability. She got multiple liters of fluid, we initiated stress dose of steroids, Levophed, and vasopressin. Ultimately, she stabilized. She cannot provide any additional elements o f the history because of global encephalopathy. Otherwise, there have been no significant events ove rnight other than her surgical procedure. LABORATORY DATA: WBC 23.0, hemoglobin 10.0, platelets 661,000. INR 1.6, pH 7.09, pCO2 62 and pO2 85 . Creatinine 3.72, BUN 4.5, chloride 109, sodium 134. Basic metabolic profile is otherwise unremark able. TSH and liver function studies were unremarkable. Nitrites are positive. White blood cells a re significant in the urine. Urine culture is growing E. coli which is pansensitive, subdiaphragmati c abscess is growing gram negative rods. Blood cultures remain negative to date. ASSESSMENT: 1. Acute hypoxic and hypercapnic respiratory failure. 2. Morbid obesity. 3. Gross peritonitis, status post diagnostic laparoscopy. 4. Septic shock. 5. Acute kidney injury. DISCUSSION AND PLAN: As previously noted, we put her on two separate pressors, increase her ventilat or support, put her on stress doses of steroids. Multiple liters of fluid were bolused. This seemed to temporize her for the time being. Supportive measures will be continued. We added an antifungal coverage. Gram negative coverage and anaerobic coverage will be continued. Pulmonary or Critical C are will continue to follow along. CRITICAL CARE TIME: 30 minutes.
--- NOTE | 2018-02-06 13:17 | PRG ---
DATE OF SERVICE: 02/06/2018 SERVICE: Pulmonary Medicine. INTERVAL HISTORY: The patient is doing outstanding from a respiratory standpoint. Her oxygen requirements improved dramatically. Pressors have been weaned down overnight including Levophed and vasopressin. She is now on very small doses of both of those things. Her breathing is less erratic and her acidosis is clearing. Otherwise, nursing reports no overnight events. PHYSICAL EXAMINATION: VITAL SIGNS: Afebrile, pulse 84, blood pressure 105/57, respirations 18, saturation 93% on 40% FIO2 and PEEP of 5. GENERAL: The patient is intubated and sedated. HEENT: Normocephalic, atraumatic. Sclerae are white. Conjunctivae are pink. Oral mucosa is moist without lesions. LUNGS: Decent air entry. There is no prolonged expiratory phase, wheezing, rhonchi or crackles at this time. That being said, body habitus precludes accurate evaluation. HEART: Normal rate, regular. ABDOMEN: Soft, nontender, nondistended. Bowel sounds are positive. MUSCULOSKELETAL: No cyanosis or clubbing. There is diffuse 1 to 2+ pitting throughout. GENITOURINARY: Banks catheter in place. NEUROLOGIC: Grossly nonfocal. LABORATORY DATA: WBC 22.6. Band count is actually clearing very nicely to 24% . Hemoglobin 9.9 and stable, platelets 363,000, gently down trending. PH 7.30 , pCO2 of 33, pO2 88. Bicarbonate is 16 and improving, chloride 109 and stable , creatinine 3.02. Urine culture is growing pansensitive E. coli. Gram negative rods are growing in the subdiaphragmatic abscess. ASSESSMENT: 1. Acute hypoxic and hypercapnic respiratory failure. 2. Morbid obesity. 3. Septic shock, secondary to gross peritonitis. 4. Acute kidney injury, improving. DISCUSSION AND PLAN: The patient is doing absolutely wonderful. We are going to put her on a sedation holiday. If she looks fantastic, we will do a CPAP trial, but I would like to give her one more day to clear the inflammatory profile. Multiple adjustments have been made to the ventilator. We will repeat laboratories first thing in the morning. Hopefully, in 24 hours, she will be in a place where we can consider extubation. Critical care time: 30 minutes. [facility]
[2018-02-06 13:19] LABS: Anisocytosis SLIGHT = 6-15 cells (100X) (0-5/hpf); Band 51 % (5-11); Hemoglobin 8.8 g/dL (12.0-16.0); Hypochromia SLIGHT = 6-15 cells (100X) (0-5/hpf); Lymphocytes 2 % (21-51); MDiff Complete? YES; Mean Corpuscular HGB CONC 32.2 g/dL (32.0-36.0); Mean Corpuscular Hemoglobin 30.5 pg (27.0-31.0); Mean Corpuscular Volume 94.6 fL (78.0-98.0); Mean Platelet Volume 7.4 fL (7.4-10.4); Monocytes 2 % (0-10); Neutrophil 45 % (42-75); Nucleated RBC 2 % (0); PLT Morphology Comment Appears Increased; Platelet Count 631 thou/uL (130-400); RBC Distribution Width 15.8 % (11.5-14.5); Red Blood Cell (RBC) Count 2.89 mill/uL (4.20-5.40); White Blood Cell (WBC) Count 22.7 thou/uL (4.8-10.8)
--- NOTE | 2018-02-06 15:03 | PDOC.PN ---
- Subjective Encounter Start Date: 02/06/18 Encounter Start Time: 15:01 Subjective: clinically better. remains intubated and sedated -: Off of pressors.care discussed w at bedside -: RN reports that pt responds to via IPad - Objective MAR Reviewed: Yes Vital Signs & Weight: Vital Signs (12 hours) Temp Pulse Resp BP Pulse Ox 02/06/18 14:41 76 102/46 L 02/06/18 14:00 18 02/06/18 13:53 17 02/06/18 13:04 80 104/47 L 02/06/18 13:01 82 18 96 02/06/18 12:00 98.7 F 20 02/06/18 10:16 77 124/66 02/06/18 10:00 20 02/06/18 09:53 19 02/06/18 08:00 98.8 F 59 L 28 H 100 02/06/18 07:00 98.8 F 02/06/18 06:39 69 112/60 02/06/18 06:37 72 23 H 99 02/06/18 06:00 24 H 02/06/18 04:00 23 H Weight Admit Weight 506 lb Weight 514 lb 15.997 oz Most Recent Monitor Data Heart Rate from ECG 75 NIBP 96/53 NIBP BP-Mean 63 Respiration from ECG 15 SpO2 96 I&O: 02/05/18 02/06/18 02/07/18 06:59 06:59 06:59 Intake Total 3369 5924.2 1276.1 Output Total 250 1130 580 Balance 3119 4794.2 696.1 Result Diagrams: 02/06/18 12:20 02/06/18 12:20 Additional Labs: Microbiology 02/05/18 09:50 Subdiaphragmatic - Abscess Bacterial Culture - Preliminary 02/05/18 09:50 Subdiaphragmatic - Abscess Gram Negative Bernard 02/04/18 20:16 Urine voided Urine Culture - Preliminary Escherichia coli 02/04/18 18:50 Venous blood - Right Hand Blood Culture - Preliminary Specimen has been received and culture in progress. No Growth to date. 02/04/18 18:33 Venous blood - Right Arm Blood Culture - Preliminary Specimen has been received and culture in progress. No Growth to date. Laboratory Tests 02/06/18 12:20 Triglycerides 162 H Phys Exam - Physical Examination Constitutional: NAD HEENT: moist MMs ETT Neck: no nodes, no JVD, supple, full ROM Respiratory: no wheezing, no rales, no rhonchi, clear to auscultation bilateral Cardiovascular: no significant murmur, irregular Gastrointestinal: soft, non-tender Musculoskeletal: no edema, pulses present sedated Deviation from normal: sedated Skin: no rash Dx/Plan (1) Septic shock Code(s): A41.9 - SEPSIS, UNSPECIFIED ORGANISM; R65.21 - SEVERE SEPSIS WITH SEPTIC SHOCK Status: Acute Comment: Due to UTI & subdiaphragmatic abscess/ peritonitis (2) TUCKER (acute kidney injury) Code(s): N17.9 - ACUTE KIDNEY FAILURE, UNSPECIFIED Status: Acute (3) UTI (urinary tract infection) Status: Acute Comment: E.Coli (4) Subphrenic abscess Code(s): K65.1 - PERITONEAL ABSCESS Status: Acute (5) Sepsis Code(s): A41.9 - SEPSIS, UNSPECIFIED ORGANISM Status: Acute (6) Chronic atrial fibrillation Code(s): I48.2 - CHRONIC ATRIAL FIBRILLATION Status: Chronic Comment: with RVR.On amiodarone drip (7) Acute blood loss anemia Code(s): D62 - ACUTE POSTHEMORRHAGIC ANEMIA Status: Acute Comment: s/p FFP & PRBC.anticoagulation on hold.H/H stable/monitor (8) Asplenia Code(s): Q89.01 - ASPLENIA (CONGENITAL) Status: Acute Comment: Splenectomy post gastric sleeve Sx due to [place] of Splenic artery (9) Hypotension Status: Resolved Comment: Likley septic shock with or without hypovolemic shock. (10) Morbid obesity Code(s): E66.01 - MORBID (SEVERE) OBESITY DUE TO EXCESS CALORIES Status: Chronic - Plan plan discussed w/ family, continue antibiotics, respiratory therapy, DVT proph w /SCDs Cont vent support.PCM following -: Hemodynamically better.cont IVF.off of pressors -: cont empiric ABx. follow Cx results. -: Eliquis on hold d/t intra-abd bleed. monitor neurlogically for stroke -: am labs. renal Fx improving. * . Review of Systems - Medications/Allergies Allergies/Adverse Reactions: Allergies Allergy/AdvReac Type Severity Reaction Status Date / Time ciprofloxacin [From Cipro] Allergy Verified 01/21/18 15:38 clindamycin Allergy Rash Verified 01/21/18 15:38 levofloxacin [From Levaquin] Allergy Verified 01/21/18 15:38 lorcaserin [From Belviq] Allergy Nausea Verified 01/21/18 15:38 nitrofurantoin Allergy Hives Verified 01/21/18 15:38 [From Macrobid] Penicillins Allergy Verified 01/21/18 15:38 raspberry Allergy Verified 01/21/18 15:38 sulfamethoxazole Allergy Rash Verified 01/21/18 15:38 [From Bactrim] trimethoprim [From Bactrim] Allergy Rash Verified 01/21/18 15:38 Medications: Current Medications Acetaminophen (Tylenol Elixir) 650 mg PO Q6H PRN PRN Reason: Fever > 101 or Mild Pain Acetaminophen (Tylenol) 650 mg ID Q6H PRN PRN Reason: Fever > 101 or Mild Pain Al Hydroxide/Mg Hydroxide (Maalox) 30 ml PO Q8H PRN PRN Reason: Indigestion Albuterol/Ipratropium (Duoneb) 3 ml NEB [id number] PRN PRN Reason: SOB &/or Wheezing Albuterol/Ipratropium (Duoneb) 3 ml NEB [id number] [facility] Last Admin: 02/06/18 13:01 Dose: 3 ml Bisacodyl (Dulcolax) 10 mg PO DAILYPRN PRN PRN Reason: Constipation Hydrocortisone Sodium Succinate (Solu-Cortef) 50 mg IVP 0200,0800,1400,2000 [facility] Last Admin: 02/06/18 13:22 Dose: 50 mg Norepinephrine Bitartrate (Levophed) 250 mls @ 0 mls/hr IVPB INF PRN; Protocol PRN Reason: MAP>65 Last Admin: 02/06/18 05:38 Dose: 250 mls Micafungin Sodium 100 mg/ (Sodium Chloride) 100 mls @ 100 mls/hr IVPB Q24HR [facility] Last Admin: 02/05/18 20:19 Dose: 100 mls Meropenem 1 gm/ Device 50 mls @ 100 mls/hr IVPB 1000,2200 [facility] Last Admin: 02/06/18 09:48 Dose: 50 mls Sodium Chloride (Normal Saline 0.9%) 1,000 mls @ 0 mls/hr IV .Q0M [facility] Fentanyl Citrate 2,000 mcg/ (Sodium Chloride) 100 mls @ 0 mls/hr IV INF [facility]; Protocol Stop: 03/07/18 10:40 Last Admin: 02/06/18 10:43 Dose: 100 mls Fentanyl Citrate (Fentanyl Bolus) 250 mls @ 0 mls/hr IVPB PRN PRN PRN Reason: Breakthrough pain/agitation Stop: 03/07/18 10:40 Amiodarone HCl 450 mg/Miscellaneous Medication 1 each/ Dextrose/Water 259 mls @ 0 mls/hr IVPB INF [facility]; Protocol Last Admin: 02/06/18 12:32 Dose: 259 mls Vasopressin 40 unit/Miscellaneous Medication 1 each/ Sodium Chloride 102 mls @ 0 mls/hr IV INF [facility]; Protocol Last Admin: 02/05/18 21:52 Dose: 102 mls Multivitamins 10 ml/ Chromium/Copper/Manganese/Seleni/Zn 5 ml/ Amino Acids/ Electrolytes/Fat Emulsion Intravenous 2,265 mls @ 94.375 mls/hr IV 2200 [facility] Sodium Bicarbonate 150 meq/ (Dextrose/Water) 1,150 mls @ 75 mls/hr IV .[id number] [facility] Last Admin: 02/06/18 14:22 Dose: 1,150 mls Magnesium Hydroxide (Milk Of Magnesium) 30 ml PO Q8H PRN PRN Reason: Constipation Mineral Oil/White Petrolatum (Lacri-Lube Ointment) 0 gm EA EYE PRN PRN PRN Reason: Dry Eyes Ondansetron HCl (Zofran) 4 mg IVP Q6H PRN PRN Reason: Nausea/Vomiting Last Admin: 02/05/18 15:56 Dose: 4 mg Pantoprazole Sodium (Protonix) 40 mg IVP 2100 [facility] Last Admin: 02/05/18 20:19 Dose: 40 mg Propofol (Diprivan) 1,000 mg IV INF PRN; Protocol PRN Reason: TO ACHIEVE GOAL RASS Stop: 03/07/18 10:40 Last Admin: 02/06/18 13:22 Dose: 1,000 mg Propofol (Diprivan Bolus) 20 mg IV Q5MIN PRN PRN Reason: BREAKTHROUGH AGITATION Stop: 03/07/18 10:40 Sodium Chloride (Flush - Normal Saline) 10 ml IVF Q12HR [facility] Last Admin: 02/06/18 07:56 Dose: Not Given Sodium Chloride (Flush - Normal Saline) 10 ml IVF PRN PRN PRN Reason: Saline Flush
[2018-02-06] MEDS ORDERED: Activase 2 MG VIAL CATH SCH (16:14)
[2018-02-06] MEDS ORDERED: Sterile Water 10 ML VIAL IVP SCH (16:14)
[2018-02-06] MEDS: Micafungin 100 MG in Sodium Chloride 0.9% 100 ML IVPB SCH (20:34)
[2018-02-06] MEDS: Pantoprazole 40 MG VIAL IVP SCH (20:34)
[2018-02-06] MEDS: Multivitamins, Adult 10 ML, Multitrace-5 5 ML in D15W-AA 5% with Lytes 2,000 ML, Fat Em... IV SCH (21:54)
[2018-02-06] MEDS ORDERED: MULTIVITAMINS IV SCH (22:00)
[2018-02-06] MEDS ORDERED: MULTITRACE IV SCH (22:00)
[2018-02-06] MEDS ORDERED: [UNRECOGNIZED DRUG - OTHER] IV SCH (22:00)
[2018-02-06] MEDS ORDERED: LYTES IV SCH (22:00)
[2018-02-07] MEDS: Hydrocortisone Sod Succ/PF 100 mg/2 ml Vial IVP SCH ×2 (02:03→08:13)
[2018-02-07] MEDS: Sodium Bicarbonate 150 MEQ in Dextrose 5% in Water 1,000 ML IV SCH (04:14)
[2018-02-07] MEDS: Amiodarone HCl 450 MG, Admixture Fee 1 EACH in Dextrose 5% in Water 250 ML IVPB SCH ×2 (04:14→20:02)
[2018-02-07 04:38] LABS: Band 40 % (5-11); Eosinophils 1 % (0-10); Hemoglobin 8.2 g/dL (12.0-16.0); Lymphocytes 7 % (21-51); MDiff Complete? YES; Mean Corpuscular HGB CONC 32.3 g/dL (32.0-36.0); Mean Corpuscular Hemoglobin 30.4 pg (27.0-31.0); Mean Platelet Volume 7.5 fL (7.4-10.4); Monocytes 4 % (0-10); Neutrophil 48 % (42-75); Nucleated RBC 5 % (0); Platelet Count 639 thou/uL (130-400); RBC Distribution Width 15.7 % (11.5-14.5); White Blood Cell (WBC) Count 23.6 thou/uL (4.8-10.8)
[2018-02-07 05:30] LABS: ALT (SGPT) 25 U/L (8-55); AST (SGOT) 27 U/L (5-34); Albumin 2.2 g/dL (3.5-5.0); Alkaline Phosphatase 111 U/L (40-150); Anion Gap 8 mmol/L (10-20); BUN (Urea Nitrogen) 47 mg/dL (7.0-18.7); Calc. Creatinine Clearance 133 mL/min (70-130); Calcium 8.4 mg/dL (7.8-10.44); Carbon Dioxide 24 mmol/L (22-29); Chloride 107 mmol/L (98-107); Estimated GFR-MDRD 26; Globulin 3.2 g/dL (2.4-3.5); Glucose 184 mg/dL (70-105); Magnesium 1.8 mg/dL (1.6-2.6); Phosphorus 3.9 mg/dL (2.3-4.7); Protein, Total 5.4 g/dL (6.0-8.3); Sodium 135 mmol/L (136-145)
[2018-02-07] MEDS: Propofol 1,000 MG/100 ML VIAL IV PRN ×2 (06:53→14:38)
[2018-02-07] MEDS: fentaNYL Citrate/PF 2,000 MCG in Sodium Chloride 0.9% 60 ML IV SCH (07:18)
[2018-02-07] MEDS ORDERED: Furosemide 40 MG/4 ML VIAL SLOW IVP SCH ×2 (09:30→16:00)
--- NOTE | 2018-02-07 09:49 | PRG ---
DATE OF SERVICE: 02/07/2018 SERVICE: Pulmonary Medicine INTERVAL HISTORY: The patient is actually making a very robust recovery. Urine output has improved dramatically. She denies any current shortness of breath or chest discomfort. She is anxious. We m inimized sedation and she is wide awake and appropriate. She is answering questions, but really tryi ng to speak. She is getting agitated, so we are going to provide her with a touch more sedation. Ot herwise, there has been no interval change to her condition. Nursing reports no overnight events. S he has been weaned off both the Levophed and the vasopressin. PHYSICAL EXAMINATION: VITAL SIGNS: Afebrile, pulse 69, blood pressure 152/78, respirations 25, saturation 95% on 37% FiO2 and a PEEP of 5. HEENT: Normocephalic, atraumatic. Sclerae are white, conjunctivae pink. Oral mucosa is moist witho ut lesions. LUNGS: Excellent air entry. Crackles are present. No prolonged expiratory phase or wheezing apprec iated. HEART: Normal rate, regular. ABDOMEN: Soft, nontender, nondistended. Bowel sounds are positive. MUSCULOSKELETAL: No cyanosis or clubbing. There is diffuse 1-2+ pitting throughout. GENITOURINARY: Banks catheter in place. NEUROLOGIC: Grossly nonfocal. LABORATORY DATA: WBC 23.6, hemoglobin 8.2, platelets 639,000. Band count is improved to 40%. INR 1 .9. Creatinine 2.07 and beautifully improving, basic metabolic profile is otherwise unremarkable/sta ble. Bicarbonate is actually improved to 24. Urinalysis has positive. white blood cells. Culture is growing E. coli which is pansensitive. Subdiaphragmatic abscess is also growing E. coli. ASSESSMENT: 1. Acute hypoxic respiratory failure. 2. Septic shock secondary to subdiaphragmatic abscess and/or urinary tract infection. 3. Acute kidney injury, improving. 4. Acute blood loss anemia, stable. 5. Morbid obesity. DISCUSSION AND PLAN: We will continue to minimize sedation as tolerated by the patient. I will disc ontinue her bicarbonate drip and start a couple of doses of Lasix to see if we can reclaim the 10 lit ers of fluid that she has accumulated over the last 3 days. Once I have control of her volume status , we are going to be doing intermittent spontaneous breathing trials. When she meets criteria, extub ation will be performed. She will remain in the ICU for the next 24 hours at a minimum. CRITICAL CARE TIME: 30 minutes.
[2018-02-07] MEDS: MEROPENEM 1 GM/50 ML 1 GM in Premix Bag 1 BAG IVPB SCH ×2 (10:09→23:10)
--- NOTE | 2018-02-07 10:32 | PRG ---
DATE OF SERVICE: 02/07/2018 SUBJECTIVE: Patient is more awake today, still on the ventilator. States her pain is a little jerzy r. PHYSICAL EXAMINATION: VITAL SIGNS: Blood pressure is 152/78, pulse is 69, temperature 97.8. She is intubated. Incisions look okay. Drain output on the right 300, on the left 160. Urine output 1565. LABORATORY DATA: Her white count 23.6, hemoglobin and hematocrit 8.2 and 25, platelet count 639. He r CO2 is up to 24. Her sodium is 135. Creatinine is 2.07, glucose 184. She is on TPN. Per critical care, they would like to continue the diuresis prior to extubation, so t sergioy are going to be giving her some Lasix. We will continue IV antibiotics. Cultures are growing E. coli. We are still waiting on the anaerobes, so continue the antibiotics.
--- NOTE | 2018-02-07 15:30 | PDOC.PN ---
- Subjective Encounter Start Date: 02/07/18 Encounter Start Time: 15:28 Subjective: remains intubated but awake when off of sedation -: no acute events. - Objective MAR Reviewed: Yes Vital Signs & Weight: Vital Signs (12 hours) Temp Pulse Resp BP Pulse Ox 02/07/18 14:20 72 162/88 H 02/07/18 14:00 14 02/07/18 13:14 61 153/84 H 02/07/18 13:11 60 17 99 02/07/18 12:00 98.9 F 14 02/07/18 11:04 54 L 139/70 02/07/18 10:00 18 02/07/18 08:00 97.8 F 69 18 02/07/18 07:00 97.8 F 02/07/18 06:29 70 135/70 02/07/18 06:27 60 16 95 02/07/18 06:00 14 02/07/18 04:00 98.3 F 15 Weight Admit Weight 506 lb Weight 533 lb 11.826 oz Most Recent Monitor Data Heart Rate from ECG 68 NIBP 167/96 NIBP BP-Mean 119 Respiration from ECG 17 SpO2 94 I&O: 02/06/18 02/07/18 02/08/18 06:59 06:59 06:59 Intake Total 5924.2 3826.1 293 Output Total 1130 5 2070 Balance 4794.2 1801.1 -1777 Result Diagrams: 02/07/18 04:10 02/07/18 04:10 Additional Labs: Accuchecks 02/07/18 12:05 POC Glucose 157 H Microbiology 02/04/18 20:16 Urine voided Urine Culture - Final Escherichia coli 02/05/18 09:50 Subdiaphragmatic - Abscess Bacterial Culture - Preliminary 02/05/18 09:50 Subdiaphragmatic - Abscess Escherichia coli 02/04/18 18:50 Venous blood - Right Hand Blood Culture - Preliminary NO GROWTH AT 48 HOURS 02/04/18 18:33 Venous blood - Right Arm Blood Culture - Preliminary NO GROWTH AT 48 HOURS Laboratory Tests 02/04/18 02/05/18 02/05/18 18:50 05:10 12:26 Creatinine 4.40 H 3.97 H 3.72 H 02/06/18 02/06/18 02/07/18 04:52 12:20 04:10 Creatinine 3.02 H 2.67 H 2.07 H Phys Exam - Physical Examination Constitutional: NAD (ETT) HEENT: moist MMs, sclera anicteric, oral pharynx no lesions ETT Neck: no nodes, no JVD Respiratory: no wheezing, no rales, no rhonchi, clear to auscultation bilateral Cardiovascular: no significant murmur, irregular Gastrointestinal: soft, non-tender, no distention, positive bowel sounds Musculoskeletal: pulses present, edema present Neurological: moves all 4 limbs Skin: no rash Dx/Plan (1) Septic shock Code(s): A41.9 - SEPSIS, UNSPECIFIED ORGANISM; R65.21 - SEVERE SEPSIS WITH SEPTIC SHOCK Status: Acute Comment: Due to UTI & subdiaphragmatic abscess/ peritonitis (2) TUCKER (acute kidney injury) Code(s): N17.9 - ACUTE KIDNEY FAILURE, UNSPECIFIED Status: Acute (3) UTI (urinary tract infection) Status: Acute Comment: E.Coli (4) Subphrenic abscess Code(s): K65.1 - PERITONEAL ABSCESS Status: Acute (5) Sepsis Code(s): A41.9 - SEPSIS, UNSPECIFIED ORGANISM Status: Acute (6) Chronic atrial fibrillation Code(s): I48.2 - CHRONIC ATRIAL FIBRILLATION Status: Chronic Comment: with RVR.On amiodarone drip (7) Acute blood loss anemia Code(s): D62 - ACUTE POSTHEMORRHAGIC ANEMIA Status: Acute Comment: s/p FFP & PRBC.anticoagulation on hold.H/H stable/monitor (8) Asplenia Code(s): Q89.01 - ASPLENIA (CONGENITAL) Status: Acute Comment: Splenectomy post gastric sleeve Sx due to [place] of Splenic artery (9) Hypotension Status: Resolved Comment: Likley septic shock with or without hypovolemic shock. (10) Morbid obesity Code(s): E66.01 - MORBID (SEVERE) OBESITY DUE TO EXCESS CALORIES Status: Chronic - Plan continue antibiotics, PT/OT, respiratory therapy, DVT proph w/SCDs cont ABx .follow final Cx. E.coli in urine & abscess Cx so far -: Vent support -: Lasix for diureis. -: renal Fx much improved. -: BP improved .off of pressors.am labs.will follow * . Review of Systems - Review of Systems Other: can not be obtained due to Sedation/intubation - Medications/Allergies Allergies/Adverse Reactions: Allergies Allergy/AdvReac Type Severity Reaction Status Date / Time ciprofloxacin [From Cipro] Allergy Verified 01/21/18 15:38 clindamycin Allergy Rash Verified 01/21/18 15:38 levofloxacin [From Levaquin] Allergy Verified 01/21/18 15:38 lorcaserin [From Belviq] Allergy Nausea Verified 01/21/18 15:38 nitrofurantoin Allergy Hives Verified 01/21/18 15:38 [From Macrobid] Penicillins Allergy Verified 01/21/18 15:38 raspberry Allergy Verified 01/21/18 15:38 sulfamethoxazole Allergy Rash Verified 01/21/18 15:38 [From Bactrim] trimethoprim [From Bactrim] Allergy Rash Verified 01/21/18 15:38 Medications: Current Medications Acetaminophen (Tylenol Elixir) 650 mg PO Q6H PRN PRN Reason: Fever > 101 or Mild Pain Acetaminophen (Tylenol) 650 mg NC Q6H PRN PRN Reason: Fever > 101 or Mild Pain Al Hydroxide/Mg Hydroxide (Maalox) 30 ml PO Q8H PRN PRN Reason: Indigestion Albuterol/Ipratropium (Duoneb) 3 ml NEB [id number] PRN PRN Reason: SOB &/or Wheezing Albuterol/Ipratropium (Duoneb) 3 ml NEB [id number] [facility] Last Admin: 02/07/18 13:11 Dose: 3 ml Bisacodyl (Dulcolax) 10 mg PO DAILYPRN PRN PRN Reason: Constipation Furosemide (Lasix) 40 mg SLOW IVP 0600 [facility] Furosemide (Lasix) 40 mg SLOW IVP 1600 [facility] Stop: 02/07/18 18:00 Hydralazine HCl (Apresoline) 20 mg SLOW IVP Q1H PRN PRN Reason: SBP>180 Norepinephrine Bitartrate (Levophed) 250 mls @ 0 mls/hr IVPB INF PRN; Protocol PRN Reason: MAP>65 Last Admin: 02/06/18 05:38 Dose: 250 mls Micafungin Sodium 100 mg/ (Sodium Chloride) 100 mls @ 100 mls/hr IVPB Q24HR [facility] Last Admin: 02/06/18 20:34 Dose: 100 mls Meropenem 1 gm/ Device 50 mls @ 100 mls/hr IVPB 1000,2200 [facility] Last Admin: 02/07/18 10:09 Dose: 50 mls Fentanyl Citrate 2,000 mcg/ (Sodium Chloride) 100 mls @ 0 mls/hr IV INF [facility]; Protocol Stop: 03/07/18 10:40 Last Admin: 02/07/18 07:18 Dose: 100 mls Fentanyl Citrate (Fentanyl Bolus) 250 mls @ 0 mls/hr IVPB PRN PRN PRN Reason: Breakthrough pain/agitation Stop: 03/07/18 10:40 Amiodarone HCl 450 mg/Miscellaneous Medication 1 each/ Dextrose/Water 259 mls @ 0 mls/hr IVPB INF [facility]; Protocol Last Admin: 02/07/18 04:14 Dose: 259 mls Multivitamins 10 ml/ Chromium/Copper/Manganese/Seleni/Zn 5 ml/ Amino Acids/ Electrolytes/Fat Emulsion Intravenous 2,265 mls @ 94.375 mls/hr IV 2200 [facility] Last Admin: 02/06/18 21:54 Dose: 2,265 mls Magnesium Hydroxide (Milk Of Magnesium) 30 ml PO Q8H PRN PRN Reason: Constipation Mineral Oil/White Petrolatum (Lacri-Lube Ointment) 0 gm EA EYE PRN PRN PRN Reason: Dry Eyes Ondansetron HCl (Zofran) 4 mg IVP Q6H PRN PRN Reason: Nausea/Vomiting Last Admin: 02/05/18 15:56 Dose: 4 mg Pantoprazole Sodium (Protonix) 40 mg IVP 2100 [facility] Last Admin: 02/06/18 20:34 Dose: 40 mg Propofol (Diprivan) 1,000 mg IV INF PRN; Protocol PRN Reason: TO ACHIEVE GOAL RASS Stop: 03/07/18 10:40 Last Admin: 02/07/18 14:38 Dose: 1,000 mg Propofol (Diprivan Bolus) 20 mg IV Q5MIN PRN PRN Reason: BREAKTHROUGH AGITATION Stop: 03/07/18 10:40 Sodium Chloride (Flush - Normal Saline) 10 ml IVF Q12HR [facility] Last Admin: 02/07/18 08:12 Dose: Not Given Sodium Chloride (Flush - Normal Saline) 10 ml IVF PRN PRN PRN Reason: Saline Flush Sodium Chloride (Flush - Normal Saline) 10 ml IVF PRN PRN PRN Reason: Saline Flush
[2018-02-07] MEDS: hydrALAZINE 20 MG/ML VIAL SLOW IVP PRN (19:45)
[2018-02-07] MEDS: Pantoprazole 40 MG VIAL IVP SCH (20:02)
--- NOTE | 2018-02-07 22:52 | PRG ---
DATE OF SERVICE: 02/07/2018 SUBJECTIVE: This 42-year-old female is being seen for acute kidney injury. The patient remains intu bated. PHYSICAL EXAMINATION: GENERAL: The patient is resting. VITAL SIGNS: Afebrile, pulse 67, breathing at 16, blood pressure 116/86. GENERAL APPEARANCE AND MENTAL STATUS: Fair. HEAD/NECK: Normocephalic. Atraumatic. EYES: EOMI. No deformity. EARS: Clear. No ulcers. NOSE: Intact. No lesions. MOUTH: Clear. No discharge. THROAT: Clear. No exudate. LUNGS: Clear. No crackles. CARDIAC: S1, S2. No rub. ABDOMEN: Benign. BS+. GENITALIA/RECTUM: Banks absent. BACK/EXTREMITIES: Edema 0+. Ulcer-. NEUROLOGICAL: Alert and motor intact. SKIN: Rash-. Bruise-. LYMPHATICS: Edema-. Ulcer-. LABORATORY DATA: Hemoglobin 8.2, creatinine is 2, potassium 4, bicarbonate 24. ASSESSMENT AND RECOMMENDATIONS: 1. Acute kidney injury, improving, nonoliguric. 2. Hypertension, stable. 3. Anemia, stable. I will sign off on this patient. Please reconsult as needed.
[2018-02-07] MEDS: Micafungin 100 MG in Sodium Chloride 0.9% 100 ML IVPB SCH (23:08)
[2018-02-07] MEDS: Multivitamins, Adult 10 ML, Multitrace-5 5 ML in D15W-AA 5% with Lytes 2,000 ML, Fat Em... IV SCH (23:11)
[2018-02-08] MEDS: Propofol 1,000 MG/100 ML VIAL IV PRN ×2 (02:50→08:10)
[2018-02-08] MEDS: fentaNYL Citrate/PF 2,000 MCG in Sodium Chloride 0.9% 60 ML IV SCH (03:40)
[2018-02-08 05:49] LABS: ALT (SGPT) 27 U/L (8-55); AST (SGOT) 31 U/L (5-34); Albumin 2.3 g/dL (3.5-5.0); Alkaline Phosphatase 108 U/L (40-150); Anion Gap 12 mmol/L (10-20); BUN (Urea Nitrogen) 54 mg/dL (7.0-18.7); Bilirubin, Total 0.8 mg/dL (0.2-1.2); Calc. Creatinine Clearance 168 mL/min (70-130); Calcium 8.4 mg/dL (7.8-10.44); Carbon Dioxide 24 mmol/L (22-29); Chloride 106 mmol/L (98-107); Estimated GFR-MDRD 34; Globulin 3.6 g/dL (2.4-3.5); Glucose 135 mg/dL (70-105); Magnesium 1.9 mg/dL (1.6-2.6); Phosphorus 3.5 mg/dL (2.3-4.7); Potassium 3.9 mmol/L (3.5-5.1); Protein, Total 5.9 g/dL (6.0-8.3); Sodium 138 mmol/L (136-145)
[2018-02-08] MEDS: Furosemide 40 MG/4 ML VIAL SLOW IVP SCH (06:10)
[2018-02-08 06:25] LABS: Band 16 % (5-11); Eosinophils 1 % (0-10); Hemoglobin 10.3 g/dL (12.0-16.0); Lymphocytes 11 % (21-51); MDiff Complete? YES; Mean Corpuscular HGB CONC 32.5 g/dL (32.0-36.0); Mean Corpuscular Hemoglobin 30.6 pg (27.0-31.0); Mean Corpuscular Volume 94.1 fL (78.0-98.0); Mean Platelet Volume 8.2 fL (7.4-10.4); Metamyelocyte 1 % (0-0); Monocytes 4 % (0-10); Myelocyte 5 % (0-0); Neutrophil 62 % (42-75); Nucleated RBC 19 % (0); PLT Morphology Comment Appears Increased; Platelet Count 815 thou/uL (130-400); Polychromasia SLIGHT = 2-3 cells (100X) (0-2/hpf); RBC Distribution Width 15.6 % (11.5-14.5); Red Blood Cell (RBC) Count 3.36 mill/uL (4.20-5.40); White Blood Cell (WBC) Count 19.4 thou/uL (4.8-10.8)
--- NOTE | 2018-02-08 10:39 | PRG ---
DATE OF SERVICE: 02/08/2018 SERVICE: Pulmonary Medicine INTERVAL HISTORY: The patient is doing great from a respiratory standpoint. We have control over he r volume status. She has been able to diurese significantly over the last 24 hours. She does not keenan ve any complaints. There were no overnight events. Late in the evening, a CPAP trial was repeated. She actually did quite well on it. PHYSICAL EXAMINATION: VITAL SIGNS: Afebrile, pulse 67, blood pressure 144/72, respirations 16, saturation 99% on at 37% Fi O2 and a PEEP of 5. GENERAL: The patient is awake and alert, in no apparent distress. LUNGS: Decent air entry. Crackles are present. There is no prolonged expiratory phase or wheezing appreciated. HEART: Normal rate, regular. ABDOMEN: Soft, nontender, nondistended. Bowel sounds are positive. MUSCULOSKELETAL: No cyanosis or clubbing. There is 2+ pitting throughout. GENITOURINARY: Banks catheter in place. NEUROLOGIC: Grossly nonfocal. LABORATORY DATA: WBC 19.4, hemoglobin 10.3, platelets 815,000. Band count is beautifully improving. Creatinine 1.63 and down trending. BUN 54. Basic metabolic profile and liver function studies are otherwise unremarkable. E. coli and Klebsiella, both growing in the abscess of the belly. E. coli is growing in the urine. All of these organisms are pansensitive. ASSESSMENT: 1. Acute hypoxic respiratory failure. 2. Septic shock secondary to subdiaphragmatic abscess. 3. Urinary tract infection, complicated. 4. Acute kidney injury, resolving. 5. Acute blood loss anemia, stable. 6. Morbid obesity. DISCUSSION AND PLAN: I will put the patient on spontaneous breathing trial after a sedation holiday. If she wakes up appropriately, and does well with her breathing trial, extubation will be considere d. I will be checking on her multiple times throughout the day to make certain that she does well ov er the next several hours. We will continue to diurese her until she returns to euvolemia. CRITICAL CARE TIME: 30 minutes.
[2018-02-08] MEDS: MEROPENEM 1 GM/50 ML 1 GM in Premix Bag 1 BAG IVPB SCH ×2 (11:15→21:02)
[2018-02-08] MEDS: ALPRAZolam 0.25 MG TAB PO PRN (11:22)
[2018-02-08] MEDS: Amiodarone HCl 450 MG, Admixture Fee 1 EACH in Dextrose 5% in Water 250 ML IVPB SCH (13:12)
[2018-02-08] MEDS: hydrALAZINE 20 MG/ML VIAL SLOW IVP PRN ×2 (13:31→18:12)
--- NOTE | 2018-02-08 14:30 | PDOC.PN ---
- Subjective Encounter Start Date: 02/08/18 Encounter Start Time: 14:29 Subjective: extubated an hour ago & denies any SOB. at bedside -: AAOX3. denies any pain in abdomen.no CP -: care discussed w - Objective MAR Reviewed: Yes Vital Signs & Weight: Vital Signs (12 hours) Temp Pulse Resp BP Pulse Ox 02/08/18 13:39 77 24 H 96 02/08/18 13:31 81 179/90 H 02/08/18 12:00 97.7 F 02/08/18 10:20 75 19 98 02/08/18 09:00 98.2 F 02/08/18 08:00 98.2 F 67 14 99 02/08/18 07:05 70 148/73 H 02/08/18 07:04 66 14 98 02/08/18 06:00 24 H 02/08/18 04:00 98.0 F 24 H Weight Admit Weight 506 lb Weight 533 lb 4.771 oz Most Recent Monitor Data Heart Rate from ECG 79 NIBP 188/96 NIBP BP-Mean 144 Respiration from ECG 24 SpO2 96 I&O: 02/07/18 02/08/18 02/09/18 06:59 06:59 06:59 Intake Total 3826.1 3735.9 202 Output Total 2025 5265 2890 Balance 1801.1 -1529.1 -2688 Result Diagrams: 02/08/18 04:46 02/08/18 04:46 Additional Labs: Accuchecks 02/08/18 02/08/18 02/07/18 12:20 04:51 17:28 POC Glucose 118 H 135 H 156 H Microbiology 02/04/18 20:16 Urine voided Urine Culture - Final Escherichia coli 02/05/18 09:50 Subdiaphragmatic - Abscess Bacterial Culture - Preliminary 02/05/18 09:50 Subdiaphragmatic - Abscess Anaerobic Culture - Preliminary Escherichia coli Klebsiella pneumoniae ssp pneu 02/04/18 18:50 Venous blood - Right Hand Blood Culture - Preliminary NO GROWTH AT 48 HOURS 02/04/18 18:33 Venous blood - Right Arm Blood Culture - Preliminary NO GROWTH AT 48 HOURS Phys Exam - Physical Examination Constitutional: NAD pale HEENT: PERRLA, moist MMs, sclera anicteric, oral pharynx no lesions Neck: no nodes, no JVD, supple, full ROM Respiratory: no wheezing, no rales, no rhonchi Cardiovascular: no significant murmur, irregular Gastrointestinal: soft, no distention, positive bowel sounds Drains in place Musculoskeletal: pulses present, edema present Neurological: moves all 4 limbs Psychiatric: normal affect, A&O x 3 Skin: no rash Dx/Plan (1) TUCKER (acute kidney injury) Code(s): N17.9 - ACUTE KIDNEY FAILURE, UNSPECIFIED Status: Acute (2) UTI (urinary tract infection) Status: Acute Comment: E.Coli (3) Subphrenic abscess Code(s): K65.1 - PERITONEAL ABSCESS Status: Acute Comment: Cx showing E.Coli & klebsiella.Both pansensitive (4) Sepsis Code(s): A41.9 - SEPSIS, UNSPECIFIED ORGANISM Status: Acute (5) Septic shock Code(s): A41.9 - SEPSIS, UNSPECIFIED ORGANISM; R65.21 - SEVERE SEPSIS WITH SEPTIC SHOCK Status: Resolved Comment: Due to UTI & subdiaphragmatic abscess /peritonitis.improved (6) Chronic atrial fibrillation Code(s): I48.2 - CHRONIC ATRIAL FIBRILLATION Status: Chronic Comment: with RVR.On amiodarone drip (7) Acute blood loss anemia Code(s): D62 - ACUTE POSTHEMORRHAGIC ANEMIA Status: Acute Comment: s/p FFP & PRBC.anticoagulation on hold.H/H stable/monitor (8) Asplenia Code(s): Q89.01 - ASPLENIA (CONGENITAL) Status: Acute Comment: Splenectomy post gastric sleeve Sx due to [place] of Splenic artery (9) Hypotension Status: Resolved Comment: Likley septic shock with or without hypovolemic shock. (10) Morbid obesity Code(s): E66.01 - MORBID (SEVERE) OBESITY DUE TO EXCESS CALORIES Status: Chronic - Plan plan discussed w/ family, richardson catheter, continue antibiotics, PT/OT, respiratory therapy, incentive spirometry, out of bed/ambulate, DVT proph w/SCDs clinically improved.Eliquis on hold -: renal Fx much improved. suspect hypoperfusion injury/ATN. -: cont Abx . -: start Enteral feeds when OK w GS . -: daily labs. * . Review of Systems - Review of Systems Constitutional: weakness, malaise ENT: Throat Pain Respiratory: Dry. negative: Cough, Shortness of Breath, Hemoptysis, SOB with Excertion, Pleuritic Pain, Sputum, Wheezing Cardiovascular: negative: chest pain, palpitations, orthopnea, paroxysmal nocturnal dyspnea, edema, light headedness, other Gastrointestinal: negative: Nausea, Vomiting, Abdominal Pain, Diarrhea, Constipation, Melena, Hematochezia, Other Genitourinary: negative: Dysuria, Frequency, Incontinence, Hematuria, Retention , Other Other: limited ROS as pt still very weak and only nods or yes or no - Medications/Allergies Allergies/Adverse Reactions: Allergies Allergy/AdvReac Type Severity Reaction Status Date / Time ciprofloxacin [From Cipro] Allergy Verified 01/21/18 15:38 clindamycin Allergy Rash Verified 01/21/18 15:38 levofloxacin [From Levaquin] Allergy Verified 01/21/18 15:38 lorcaserin [From Belviq] Allergy Nausea Verified 01/21/18 15:38 nitrofurantoin Allergy Hives Verified 01/21/18 15:38 [From Macrobid] Penicillins Allergy Verified 01/21/18 15:38 raspberry Allergy Verified 01/21/18 15:38 sulfamethoxazole Allergy Rash Verified 01/21/18 15:38 [From Bactrim] trimethoprim [From Bactrim] Allergy Rash Verified 01/21/18 15:38 Medications: Current Medications Acetaminophen (Tylenol Elixir) 650 mg PO Q6H PRN PRN Reason: Fever > 101 or Mild Pain Acetaminophen (Tylenol) 650 mg MD Q6H PRN PRN Reason: Fever > 101 or Mild Pain Al Hydroxide/Mg Hydroxide (Maalox) 30 ml PO Q8H PRN PRN Reason: Indigestion Albuterol/Ipratropium (Duoneb) 3 ml NEB [id number] PRN PRN Reason: SOB &/or Wheezing Albuterol/Ipratropium (Duoneb) 3 ml NEB [id number] DINORA Last Admin: 02/08/18 13:39 Dose: 3 ml Alprazolam (Xanax) 0.25 mg PO Q6H PRN PRN Reason: Anxiety Last Admin: 02/08/18 11:22 Dose: 0.25 mg Bisacodyl (Dulcolax) 10 mg PO DAILYPRN PRN PRN Reason: Constipation Furosemide (Lasix) 40 mg SLOW IVP 0600 [facility] Last Admin: 02/08/18 06:10 Dose: 40 mg Hydralazine HCl (Apresoline) 20 mg SLOW IVP Q1H PRN PRN Reason: SBP>180 Last Admin: 02/08/18 13:31 Dose: 20 mg Micafungin Sodium 100 mg/ (Sodium Chloride) 100 mls @ 100 mls/hr IVPB Q24HR [facility] Last Admin: 02/07/18 23:08 Dose: 100 mls Meropenem 1 gm/ Device 50 mls @ 100 mls/hr IVPB 1000,2200 [facility] Last Admin: 02/08/18 11:15 Dose: 50 mls Amiodarone HCl 450 mg/Miscellaneous Medication 1 each/ Dextrose/Water 259 mls @ 0 mls/hr IVPB INF DINORA; Protocol Last Admin: 02/08/18 13:12 Dose: 259 mls Multivitamins 10 ml/ Chromium/Copper/Manganese/Seleni/Zn 5 ml/ Amino Acids/ Electrolytes/Fat Emulsion Intravenous 2,265 mls @ 94.375 mls/hr IV 2200 [facility] Last Admin: 02/07/18 23:11 Dose: 2,265 mls Magnesium Hydroxide (Milk Of Magnesium) 30 ml PO Q8H PRN PRN Reason: Constipation Mineral Oil/White Petrolatum (Lacri-Lube Ointment) 0 gm EA EYE PRN PRN PRN Reason: Dry Eyes Ondansetron HCl (Zofran) 4 mg IVP Q6H PRN PRN Reason: Nausea/Vomiting Last Admin: 02/05/18 15:56 Dose: 4 mg Pantoprazole Sodium (Protonix) 40 mg IVP 2100 [facility] Last Admin: 02/07/18 20:02 Dose: 40 mg Sodium Chloride (Flush - Normal Saline) 10 ml IVF Q12HR [facility] Last Admin: 02/08/18 09:39 Dose: 10 ml Sodium Chloride (Flush - Normal Saline) 10 ml IVF PRN PRN PRN Reason: Saline Flush Sodium Chloride (Flush - Normal Saline) 10 ml IVF PRN PRN PRN Reason: Saline Flush
[2018-02-08] MEDS ORDERED: Haloperidol Lactate 5 MG/ML VIAL IM PRN (14:46)
[2018-02-08] MEDS: Lorazepam 2 MG/ML VIAL SLOW IVP PRN ×2 (15:22→20:05)
[2018-02-08] MEDS: Pantoprazole 40 MG VIAL IVP SCH (20:04)
[2018-02-08] MEDS: Micafungin 100 MG in Sodium Chloride 0.9% 100 ML IVPB SCH (20:04)
[2018-02-08] MEDS: Multivitamins, Adult 10 ML, Multitrace-5 5 ML in D15W-AA 5% with Lytes 2,000 ML, Fat Em... IV SCH (22:26)
--- NOTE | 2018-02-08 22:28 | PRG ---
DATE OF SERVICE: 02/08/2018 HISTORY OF PRESENT ILLNESS: Patient has been extubated this morning, but she is really anxious and s he is hyperventilating. She has got a deep fear that of disaster. She normally takes antidepressant s, but she has been off since surgery. She says she has really no pain, no nausea. PHYSICAL EXAMINATION: VITAL SIGNS: Temperature is 97.7, pulse 77, blood pressure 179/90. GENERAL: She is awake, but is breathing rapidly and hyperventilating, respiratory rate about 26. HEENT: Otherwise, unremarkable. LUNGS: Clear. HEART: Regular rate and rhythm. ABDOMEN: Obese, soft, no significant tenderness. She had 1700 mL out the right YOU and 140 out the l eft YOU. LABORATORY DATA: Her white count is down to 19, H&H 10 and 31, platelet count of 815,000. Her elect rolytes show BUN 54, creatinine 1.6, glucose 135. The cultures grew out E. coli and Klebsiella pneum oniae. ASSESSMENT: Clinically doing well, having anxiety. PLAN: We will try some Ativan IV, possible Haldol IV. Continue physical therapy TPN. We will await the weekend before we try let her drink anything, just in case she does have a leak which at this po int is looking less as the left-sided drain is putting out less unless.
[2018-02-09] MEDS: Lorazepam 2 MG/ML VIAL SLOW IVP PRN ×3 (01:10→09:52)
[2018-02-09 05:17] LABS: Anion Gap 13 mmol/L (10-20); BUN (Urea Nitrogen) 49 mg/dL (7.0-18.7); Calc. Creatinine Clearance 216 mL/min (70-130); Calcium 8.5 mg/dL (7.8-10.44); Carbon Dioxide 22 mmol/L (22-29); Chloride 107 mmol/L (98-107); Estimated GFR-MDRD 47; Glucose 119 mg/dL (70-105); Sodium 138 mmol/L (136-145)
[2018-02-09] MEDS: Furosemide 40 MG/4 ML VIAL SLOW IVP SCH (05:44)
[2018-02-09] MEDS: Amiodarone HCl 450 MG, Admixture Fee 1 EACH in Dextrose 5% in Water 250 ML IVPB SCH ×2 (05:45→23:07)
[2018-02-09 06:23] LABS: Band 25 % (5-11); Lymphocytes 13 % (21-51); MDiff Complete? YES; Mean Corpuscular HGB CONC 33.3 g/dL (32.0-36.0); Mean Corpuscular Hemoglobin 30.6 pg (27.0-31.0); Mean Corpuscular Volume 91.7 fL (78.0-98.0); Mean Platelet Volume 7.6 fL (7.4-10.4); Metamyelocyte 1 % (0-0); Monocytes 12 % (0-10); Myelocyte 4 % (0-0); Neutrophil 45 % (42-75); Nucleated RBC 26 % (0); PLT Morphology Comment Appears Increased; Platelet Count 899 thou/uL (130-400); RBC Distribution Width 15.8 % (11.5-14.5); Red Blood Cell (RBC) Count 3.59 mill/uL (4.20-5.40); White Blood Cell (WBC) Count 16.2 thou/uL (4.8-10.8)
--- NOTE | 2018-02-09 09:31 | PDOC.PN ---
- Subjective Encounter Start Date: 02/09/18 (f/u a fib) Encounter Start Time: 09:29 Subjective: Pt reports she is scared - scared of dying, of the decisions she has made -: and that she wont recover - Objective Vital Signs & Weight: Vital Signs (12 hours) Temp Pulse Resp Pulse Ox 02/09/18 08:00 98.3 F 02/09/18 06:14 98 02/09/18 06:12 100 22 H 98 02/09/18 03:00 98.8 F 02/09/18 00:25 97 02/08/18 23:00 98.6 F Weight Admit Weight 506 lb Weight 516 lb 5.161 oz Most Recent Monitor Data Heart Rate from ECG 105 NIBP 132/75 NIBP BP-Mean 90 Respiration from ECG 28 SpO2 95 I&O: 02/08/18 02/09/18 02/10/18 06:59 06:59 06:59 Intake Total 3735.9 3962 Output Total 5265 5895 1959 Balance -1529.1 -193 Result Diagrams: 02/09/18 04:11 02/09/18 04:11 Additional Labs: Accuchecks 02/08/18 02/08/18 02/08/18 23:17 18:21 12:20 POC Glucose 115 H 98 118 H EKG Reviewed by me: Yes (a fib 100-110's) Phys Exam - Physical Examination Constitutional: NAD Respiratory: no wheezing, no rales, no rhonchi tachypneic Cardiovascular: RRR, no significant murmur Gastrointestinal: soft Non pitting edema of LE Deviation from normal: anxious appearing, uncomfortable with sitting up Dx/Plan (1) TUCKER (acute kidney injury) Code(s): N17.9 - ACUTE KIDNEY FAILURE, UNSPECIFIED Status: Acute (2) Sepsis Code(s): A41.9 - SEPSIS, UNSPECIFIED ORGANISM Status: Acute (3) Subphrenic abscess Code(s): K65.1 - PERITONEAL ABSCESS Status: Acute Comment: Cx showing E.Coli & klebsiella.Both pansensitive (4) Chronic atrial fibrillation Code(s): I48.2 - CHRONIC ATRIAL FIBRILLATION Status: Chronic Comment: with RVR.On amiodarone drip (5) Acute blood loss anemia Code(s): D62 - ACUTE POSTHEMORRHAGIC ANEMIA Status: Acute - Plan * Appreciate multiple specialists involved * Gen Surg - YOU drains, on tpn with and broad spectrum abx and anti-fungals * Nephrology - renal function improved * Pulm/CC - extubated yesterday. * Anxiety - has prn ativan IV. Discussed with patient the improvement in the infection/inflammation - wbc count lower, renal function improved. Will d/c haldol due to patient on amiodarone * Chronic a fib - on amiodarone gtt * * GI prophy - IV protonix * DVT prophy - scd's - to ask Gen Surg when safer to resume Lovenox for DVT prophy. Home eliquis on hold for * code status full * * No changes to plan of care - discussed this with patient and her , no questions or needs at end of eval.
[2018-02-09] MEDS: MEROPENEM 1 GM/50 ML 1 GM in Premix Bag 1 BAG IVPB SCH ×2 (09:51→23:04)
[2018-02-09] MEDS: Apixaban 5 MG TAB PO SCH (20:40)
[2018-02-09] MEDS: Pantoprazole 40 MG VIAL IVP SCH (20:41)
[2018-02-09] MEDS: Micafungin 100 MG in Sodium Chloride 0.9% 100 ML IVPB SCH (20:48)
--- NOTE | 2018-02-09 21:00 | PDOC.GSPN ---
Surgery Progress Note: Subj - Subjective Narrative: Patient is extubated but minimally communicative. She does arouse to answer brief questions but then falls back asleep. She has very sonorous respirations but has repeatedly refused BiPAP. Her urine output is high and she has a large amount of serous drainage from her right YOU. The left YOU has murky brown drainage which has gone up slightly in volume compared to yesterday with 410 mL' s out. She is afebrile and saturating well. Her heart rate is slightly up. White count is down to 16,000 and platelets are climbing. Her incisions are clean and she does not exhibit any significant tenderness. Assessment/plan: Slowly improving clinically. Continue current management of subphrenic abscess with antibiotics and drains. Her hemoglobin has been stable and she is at high risk for DVT and PE as well as having chronic atrial fibrillation so we are restarting her eliquis today. Surgery Progress Note: Obj - Vital signs Vital signs: Vital Signs - Most Recent Temp Pulse Resp BP Pulse Ox 98.2 F 110 H 14 132/75 98 02/09/18 20:00 02/09/18 13:59 02/09/18 13:59 02/09/18 09:05 02/09/18 18:56 Surgery Progress Note: Results - Labs Result Diagrams: 02/09/18 04:11 02/09/18 04:11 Lab results: Laboratory Results - last 24 hr 02/09/18 02/09/18 11:33 18:19 POC Glucose 124 H 129 H
--- NOTE | 2018-02-09 21:43 | PRG ---
DATE OF SERVICE: 02/09/2018 SUBJECTIVE: Loly Larson was evaluated. She is on the side of the bed, sitting and working with p hysical therapy, crying because she is weak and in some discomfort. OBJECTIVE: VITAL SIGNS: She is afebrile, blood pressure 159/85 this evening, heart rate 68, respiratory rate is 18, oximetry is 98. LUNGS: Clear. HEART: Regular rhythm. ABDOMEN: Soft. LABORATORY DATA: White count 16.2 down from 19.4, hemoglobin 11, platelets 899,000. Electrolytes ar e normal. BUN 49, creatinine 1.23. IMPRESSION: 1. Status post drainage of subphrenic abscess with Escherichia coli and Klebsiella isolated, pansens itive. 2. Extremely morbid obesity, status post vertical gastric sleeve. 3. Deconditioning. 4. Acute renal insufficiency that is mild. PLAN: Continue physical therapy, wound care, antimicrobial therapy.
[2018-02-09] MEDS: Multivitamins, Adult 10 ML, Multitrace-5 5 ML in D15W-AA 5% with Lytes 2,000 ML, Fat Em... IV SCH (23:03)
[2018-02-10] MEDS: Lorazepam 2 MG/ML VIAL SLOW IVP PRN ×3 (00:15→13:10)
[2018-02-10 04:54] LABS: Anion Gap 8 mmol/L (10-20); BUN (Urea Nitrogen) 42 mg/dL (7.0-18.7); Calc. Creatinine Clearance 250 mL/min (70-130); Calcium 8.2 mg/dL (7.8-10.44); Carbon Dioxide 30 mmol/L (22-29); Chloride 108 mmol/L (98-107); Estimated GFR-MDRD 56; Glucose 118 mg/dL (70-105); Sodium 142 mmol/L (136-145)
[2018-02-10 06:22] LABS: Band 29 % (5-11); Eosinophils 2 % (0-10); Hemoglobin 9.4 g/dL (12.0-16.0); Lymphocytes 14 % (21-51); MDiff Complete? YES; Mean Corpuscular HGB CONC 32.2 g/dL (32.0-36.0); Mean Corpuscular Hemoglobin 30.5 pg (27.0-31.0); Mean Corpuscular Volume 94.7 fL (78.0-98.0); Monocytes 12 % (0-10); Myelocyte 3 % (0-0); Neutrophil 40 % (42-75); Nucleated RBC 8 % (0); PLT Morphology Comment Appears Increased; Platelet Count 788 thou/uL (130-400); Polychromasia SLIGHT = 2-3 cells (100X) (0-2/hpf); RBC Distribution Width 15.8 % (11.5-14.5); Red Blood Cell (RBC) Count 3.09 mill/uL (4.20-5.40); White Blood Cell (WBC) Count 18.5 thou/uL (4.8-10.8)
[2018-02-10] MEDS: Furosemide 40 MG/4 ML VIAL SLOW IVP SCH (06:25)
--- NOTE | 2018-02-10 08:33 | PDOC.PN ---
- Subjective Encounter Start Date: 02/10/18 (f/u DM) Encounter Start Time: 08:29 Subjective: Pt thinks today is a little better, denies any pain currently -: denies n/v. Feels anxious in general and notes her breathing -: is a little harder - Objective Vital Signs & Weight: Vital Signs (12 hours) Temp Pulse Resp Pulse Ox 02/10/18 07:05 97 02/10/18 07:03 97 29 H 97 02/10/18 04:00 97.9 F 02/10/18 00:00 98 F 02/09/18 23:57 98 Weight Admit Weight 506 lb Weight 516 lb 12.216 oz Most Recent Monitor Data Heart Rate from ECG 93 NIBP 150/79 NIBP BP-Mean 95 Respiration from ECG 21 SpO2 97 I&O: 02/09/18 02/10/18 02/11/18 06:59 06:59 06:59 Intake Total 3962 3220.4 Output Total 5895 4830 Balance -1933 -1609.6 Result Diagrams: 02/10/18 04:11 02/10/18 04:11 Additional Labs: Accuchecks 02/10/18 02/10/18 02/09/18 06:30 00:17 18:19 POC Glucose 123 H 116 H 129 H 02/09/18 02/05/18 11:33 09:22 POC Glucose 124 H 110 EKG Reviewed by me: Yes (a fib rates 100's) Phys Exam - Physical Examination Constitutional: NAD Respiratory: no wheezing, no rales, no rhonchi Cardiovascular: RRR, no significant murmur Gastrointestinal: soft, positive bowel sounds Musculoskeletal: pulses present Neurological: moves all 4 limbs Psychiatric: normal affect Dx/Plan (1) TUCKER (acute kidney injury) Code(s): N17.9 - ACUTE KIDNEY FAILURE, UNSPECIFIED Status: Resolved (2) Sepsis Code(s): A41.9 - SEPSIS, UNSPECIFIED ORGANISM Status: Acute Qualifiers: Sepsis type: Escherichia coli Qualified Code(s): A41.51 - Sepsis due to Escherichia coli [E. coli] (3) Subphrenic abscess Code(s): K65.1 - PERITONEAL ABSCESS Status: Acute Comment: Cx showing E.Coli & klebsiella.Both pansensitive (4) Chronic atrial fibrillation Code(s): I48.2 - CHRONIC ATRIAL FIBRILLATION Status: Chronic (5) Acute blood loss anemia Code(s): D62 - ACUTE POSTHEMORRHAGIC ANEMIA Status: Acute - Plan * * Appreciate multiple specialists involved * Gen Surg - YOU drains, on tpn with and broad spectrum abx and anti-fungals, and Eliquis resumed * Nephrology - renal function now normal * Pulm/CC - extubated 2 days ago. * Pt is diuresing well - renal function back to normal, BUN stable in 40's and slight contraction alkalosis which may be more from tachypnea rather than volume status. Continue to monitor, consider lowering dose in the next few days. * * Anxiety - has prn ativan IV. Discussed with patient that she may really benefit from trial of cpap/bipap when she is sleeping to help with energy, relaxing her breathing. Ann/RN will check in with patient about this. * * Chronic a fib - on amiodarone gtt * * GI prophy - IV protonix * DVT prophy - now back on Eliquis for stroke risk reduction * code status full * * PT order placed for twice daily PT .
[2018-02-10] MEDS: Apixaban 5 MG TAB PO SCH ×2 (10:34→20:15)
[2018-02-10] MEDS: MEROPENEM 1 GM/50 ML 1 GM in Premix Bag 1 BAG IVPB SCH ×2 (10:34→21:49)
--- NOTE | 2018-02-10 16:40 | PDOC.GSPN ---
Surgery Progress Note: Subj - Subjective Narrative: Patient is feeling a little better today. She did sit on the side of the bed with physical therapy but this was quite painful for her. Her right YOU is still putting out a large amount of serous fluid that her left YOU has slowed down quite a bit since yesterday. It only put out 20 mL's yesterday whereas the day before it put out 410. She has not had any fevers and her breathing is good. Hematocrit is 29 white count 18. Urine output is brisk at 4200. I'm going to start her on some bariatric clears, and closely monitor the output of her drains. Surgery Progress Note: Obj - Vital signs Vital signs: Vital Signs - Most Recent Temp Pulse Resp BP Pulse Ox 99.4 F 91 23 H 161/80 H 99 02/10/18 07:00 02/10/18 13:53 02/10/18 13:53 02/10/18 09:50 02/10/18 13:53 Surgery Progress Note: Results - Labs Result Diagrams: 02/10/18 04:11 02/10/18 04:11 Lab results: Laboratory Results - last 24 hr 02/05/18 02/10/18 02/10/18 09:22 04:11 04:11 WBC 18.5 H RBC 3.09 L Hgb 9.4 L Hct 29.2 L MCV 94.7 MCH 30.5 MCHC 32.2 RDW 15.8 H Plt Count 788 H MPV 8.0 Neutrophils % (Manual) 40 L Band Neuts % (Manual) 29 H Lymphocytes % (Manual) 14 L Monocytes % (Manual) 12 H Eosinophils % (Manual) 2 Myelocytes % 3 H Nucleated RBCs # (Man) 8 H Plt Morphology Comment Appears Increased H Polychromasia SLIGHT = 2-3 cells Sodium 142 Potassium 4.0 Chloride 108 H Carbon Dioxide 30 H Anion Gap 8 L BUN 42 H Creatinine 1.06 Estimated GFR (MDRD) 56 Glucose 118 H POC Glucose 110 Calcium 8.2 02/10/18 02/10/18 06:30 13:13 WBC RBC Hgb Hct MCV MCH MCHC RDW Plt Count MPV Neutrophils % (Manual) Band Neuts % (Manual) Lymphocytes % (Manual) Monocytes % (Manual) Eosinophils % (Manual) Myelocytes % Nucleated RBCs # (Man) Plt Morphology Comment Polychromasia Sodium Potassium Chloride Carbon Dioxide Anion Gap BUN Creatinine Estimated GFR (MDRD) Glucose POC Glucose 123 H 132 H Calcium
[2018-02-10] MEDS: Amiodarone HCl 450 MG, Admixture Fee 1 EACH in Dextrose 5% in Water 250 ML IVPB SCH (17:40)
[2018-02-10] MEDS: Micafungin 100 MG in Sodium Chloride 0.9% 100 ML IVPB SCH (20:15)
[2018-02-10] MEDS: Acetaminophen 650 MG/20.3 ML UDCUP PO PRN (20:16)
[2018-02-10] MEDS: Pantoprazole 40 MG VIAL IVP SCH (20:16)
[2018-02-10] MEDS: ALPRAZolam 0.25 MG TAB PO PRN (20:16)
--- NOTE | 2018-02-10 21:18 | PRG ---
1DATE OF SERVICE: 02/10/2018 SUBJECTIVE: Loly Larson today. She is in no distress. She is comfortable in bed. She had done her physical therapy. OBJECTIVE: LUNGS: Clear. HEART: Regular rhythm. ABDOMEN: Soft. LABORATORY DATA: White count 18.5, hemoglobin 9.4, platelets 788. Sodium 142, potassium 4, chloride 108, bicarbonate 30, BUN 42, creatinine 1.06. IMPRESSION: 1. Status post drainage of a subdiaphragmatic abscess. 2. Status post vertical banded gastroplasty. 3. Morbid obesity. 4. Deconditioning. 5. Acute renal dysfunction This is stable. 6. Deconditioning. Her motivation to move is a big issue facing her as she tries to recover from th is complication of surgery. Hopefully we can keep her moving forward.
[2018-02-10] MEDS: Sodium Acetate 2 mEq/ml 40 MEQ, Sodium Chloride 30 MEQ, Potassium Chloride 20 MEQ, Pota... IV SCH (22:19)
[2018-02-11] MEDS: Lorazepam 2 MG/ML VIAL SLOW IVP PRN (01:13)
[2018-02-11 04:56] LABS: Anion Gap 11 mmol/L (10-20); BUN (Urea Nitrogen) 34 mg/dL (7.0-18.7); Calc. Creatinine Clearance 263 mL/min (70-130); Calcium 8.2 mg/dL (7.8-10.44); Carbon Dioxide 28 mmol/L (22-29); Chloride 104 mmol/L (98-107); Estimated GFR-MDRD 60; Glucose 128 mg/dL (70-105); Sodium 139 mmol/L (136-145)
[2018-02-11] MEDS: Furosemide 40 MG/4 ML VIAL SLOW IVP SCH (05:13)
[2018-02-11 05:57] LABS: Band 24 % (5-11); Eosinophils 4 % (0-10); Hemoglobin 9.2 g/dL (12.0-16.0); Lymphocytes 14 % (21-51); MDiff Complete? YES; Mean Corpuscular HGB CONC 32.6 g/dL (32.0-36.0); Mean Corpuscular Hemoglobin 30.6 pg (27.0-31.0); Mean Corpuscular Volume 93.8 fL (78.0-98.0); Mean Platelet Volume 7.3 fL (7.4-10.4); Metamyelocyte 2 % (0-0); Monocytes 10 % (0-10); Myelocyte 3 % (0-0); Neutrophil 43 % (42-75); Nucleated RBC 1 % (0); Platelet Count 809 thou/uL (130-400); RBC Distribution Width 15.7 % (11.5-14.5); Red Blood Cell (RBC) Count 3.01 mill/uL (4.20-5.40); White Blood Cell (WBC) Count 15.6 thou/uL (4.8-10.8)
--- NOTE | 2018-02-11 09:45 | PRG ---
DATE OF SERVICE: 02/11/2018 SUBJECTIVE: The patient appears to be doing reasonably well. She is dyspneic at rest. PHYSICAL EXAMINATION: VITAL SIGNS: Temperature is 98.9, pulse 94, blood pressure 157/85, O2 sat 94%. She is currently on an amiodarone drip. HEENT: Unremarkable. NECK: No JVD. LUNGS: Distant but clear breath sounds. CARDIOVASCULAR: S1, S2 regular. ABDOMEN: Obese, soft. Multiple drains in place. EXTREMITIES: No clubbing, cyanosis. She has generalized edema throughout. LABORATORY DATA: White blood cell count 15.6, hematocrit 28.3, platelet count 809. Sodium 139, pota ssium 4, chloride 104, CO2 28, BUN 34, creatinine 1.0, glucose 128. ASSESSMENT: 1. Status post drainage of a subdiaphragmatic abscess. 2. Status post vertical banded gastroplasty. 3. Obesity. 4. Acute renal dysfunction, which is improved. 5. Severe deconditioning. PLAN: She remains in the ICU primarily for a nursing care and continuation of the amiodarone drip. She continues on antibiotics and antifungals. She is currently anticoagulated on Eliquis. Cardiolog y is following for the atrial fibrillation. I do not see any changes that need to be made at this ti me.
--- NOTE | 2018-02-11 09:59 | PDOC.PN ---
- Subjective Encounter Start Date: 02/11/18 Encounter Start Time: 09:57 Subjective: alert, no fever or sob - Objective MAR Reviewed: Yes Vital Signs & Weight: Vital Signs (12 hours) Temp Pulse Resp Pulse Ox 02/11/18 06:28 99 19 97 02/11/18 03:00 98.9 F 02/11/18 02:00 96 02/10/18 23:00 98.3 F Weight Admit Weight 506 lb Weight 515 lb 10.579 oz Most Recent Monitor Data Heart Rate from ECG 94 NIBP 157/85 NIBP BP-Mean 104 Respiration from ECG 25 SpO2 94 I&O: 02/10/18 02/11/18 02/12/18 06:59 06:59 06:59 Intake Total 3220.4 3017 Output Total 4830 6680 Balance -1609.6 -0783 Result Diagrams: 02/11/18 04:22 02/11/18 04:22 Additional Labs: Accuchecks 02/10/18 02/10/18 02/10/18 23:11 18:09 13:13 POC Glucose 140 H 115 H 132 H Phys Exam - Physical Examination Neck: no JVD Respiratory: clear to auscultation bilateral Cardiovascular: no significant murmur, irregular Gastrointestinal: soft, non-tender, positive bowel sounds Musculoskeletal: edema present Dx/Plan (1) Sepsis Code(s): A41.9 - SEPSIS, UNSPECIFIED ORGANISM Status: Acute Qualifiers: Sepsis type: Escherichia coli Qualified Code(s): A41.51 - Sepsis due to Escherichia coli [E. coli] (2) Subphrenic abscess Code(s): K65.1 - PERITONEAL ABSCESS Status: Acute Comment: Cx showing E.Coli & klebsiella.Both pansensitive (3) Chronic atrial fibrillation Code(s): I48.2 - CHRONIC ATRIAL FIBRILLATION Status: Chronic (4) TUCKER (acute kidney injury) Code(s): N17.9 - ACUTE KIDNEY FAILURE, UNSPECIFIED Status: Resolved (5) Asplenia Code(s): Q89.01 - ASPLENIA (CONGENITAL) Status: Acute Comment: Splenectomy post gastric sleeve Sx due to [place] of Splenic artery (6) Morbid obesity Code(s): E66.01 - MORBID (SEVERE) OBESITY DUE TO EXCESS CALORIES Status: Chronic - Plan steady improvement -: on iv amiodarone -: cont anticoag -: cont iv antibx * .
[2018-02-11] MEDS: Saccharomyces boulardii 250 MG CAP PO SCH (10:34)
[2018-02-11] MEDS: Apixaban 5 MG TAB PO SCH ×2 (10:34→20:39)
[2018-02-11] MEDS: MEROPENEM 1 GM/50 ML 1 GM in Premix Bag 1 BAG IVPB SCH ×2 (10:34→21:35)
[2018-02-11] MEDS: Acetaminophen 650 MG/20.3 ML UDCUP PO PRN (13:29)
[2018-02-11] MEDS: Micafungin 100 MG in Sodium Chloride 0.9% 100 ML IVPB SCH (20:40)
[2018-02-11] MEDS: Pantoprazole 40 MG VIAL IVP SCH (20:41)
[2018-02-11] MEDS: Sodium Acetate 2 mEq/ml 40 MEQ, Sodium Chloride 30 MEQ, Potassium Chloride 20 MEQ, Pota... IV SCH (22:03)
[2018-02-11] MEDS: ALPRAZolam 0.25 MG TAB PO PRN (22:04)
[2018-02-12] MEDS: Amiodarone HCl 450 MG, Admixture Fee 1 EACH in Dextrose 5% in Water 250 ML IVPB SCH (00:26)
[2018-02-12] MEDS: Acetaminophen 650 MG/20.3 ML UDCUP PO PRN ×2 (05:31→22:00)
[2018-02-12] MEDS: Furosemide 40 MG/4 ML VIAL SLOW IVP SCH (05:31)
[2018-02-12 08:29] LABS: ALT (SGPT) 39 U/L (8-55); AST (SGOT) 48 U/L (5-34); Albumin 2.5 g/dL (3.5-5.0); Alkaline Phosphatase 117 U/L (40-150); Anion Gap 14 mmol/L (10-20); BUN (Urea Nitrogen) 34 mg/dL (7.0-18.7); Bilirubin, Total 1.1 mg/dL (0.2-1.2); Calc. Creatinine Clearance 248 mL/min (70-130); Calcium 8.5 mg/dL (7.8-10.44); Carbon Dioxide 28 mmol/L (22-29); Chloride 99 mmol/L (98-107); Estimated GFR-MDRD 57; Globulin 3.9 g/dL (2.4-3.5); Glucose 145 mg/dL (70-105); Magnesium 1.7 mg/dL (1.6-2.6); Phosphorus 3.3 mg/dL (2.3-4.7); Protein, Total 6.4 g/dL (6.0-8.3); Sodium 137 mmol/L (136-145)
[2018-02-12] MEDS ORDERED: Sodium Acetate 2 mEq/ml 40 MEQ, Sodium Chloride 30 MEQ, Potassium Chloride 20 MEQ, Pota... IV SCH (08:45)
[2018-02-12] MEDS ORDERED: Lisinopril 20 MG TAB PO SCH (09:30)
[2018-02-12] MEDS ORDERED: Carvedilol 25 MG TAB PO SCH (09:30)
[2018-02-12] MEDS: MEROPENEM 1 GM/50 ML 1 GM in Premix Bag 1 BAG IVPB SCH ×3 (09:37→17:24)
--- NOTE | 2018-02-12 09:38 | PRG ---
DATE OF SERVICE: 02/12/2018 SERVICE: Pulmonary Medicine INTERVAL HISTORY: The patient had her YOU drain removed this morning. She denies any chest pain, bel ly pain, nausea, vomiting, fevers or chills. Otherwise, she is having significant anxiety. She isela cates that she may be developing posttraumatic stress disorder associated with recent events. Either way, it is preventing her from getting consolidated rest in the evening. PHYSICAL EXAMINATION: VITAL SIGNS: Afebrile, pulse 93, blood pressure 157/73, respirations 23, saturation 99% on 3 liters nasal cannula. HEENT: Normocephalic, atraumatic. Sclerae are white, conjunctivae pink. Oral mucosa is moist witho ut lesions. LUNGS: Excellent air entry. There is no prolonged expiratory phase or wheezing. HEART: Normal rate, regular. ABDOMEN: Soft, nontender, nondistended. Bowel sounds are positive. MUSCULOSKELETAL: No cyanosis or clubbing. There is trace pitting edema in the sacral region. Lower extremity edema is much improved. GENITOURINARY: Banks catheter in place. NEUROLOGIC: Grossly nonfocal. LABORATORY DATA: WBC 15.6. Basic metabolic profile is essentially unremarkable. Liver function aleksandr dies were also unremarkable except for an AST that is minimally elevated today. Multiple organisms a re growing in the subdiaphragmatic abscess, these are pansensitive. E. coli is growing in the urine. Blood cultures x2 are negative and finalized. ASSESSMENT: 1. Acute hypoxic respiratory failure, resolving. 2. Septic shock secondary to subdiaphragmatic abscess. 3. Urinary tract infection, complicated. 4. Acute kidney injury, resolved. 5. Acute blood loss anemia, stable. 6. Morbid obesity. DISCUSSION AND PLAN: I will resume the patient's lisinopril, Coreg, and atorvastatin. We will make certain that she is on good medications for possible asthma. Amiodarone drip will be discontinued as she was not on this in the outpatient setting and has a known diagnosis of permanent atrial fibrilla tion. Rate control strategy is the only thing that is being used here. She will remain in the ICU f or an additional 24 hours. We will work on mobilization through the day and hopefully we will be abl e to get her out of the ICU by tomorrow.
[2018-02-12] MEDS: Apixaban 5 MG TAB PO SCH ×2 (09:40→20:37)
[2018-02-12] MEDS: Saccharomyces boulardii 250 MG CAP PO SCH (09:40)
--- NOTE | 2018-02-12 10:03 | TCOM ---
DATE OF SERVICE: 02/12/2018 SUBJECTIVE: The patient is feeling better, less pain, mainly complains of her neck and this drain on the right. She is tolerating bariatric clears well. She is still not very active, still on amiodar one. OBJECTIVE: VITAL SIGNS: She is afebrile, pulse 93, blood pressure 157/73. GENERAL: She is awake and alert. HEENT: Unremarkable. LUNGS: Clear. HEART: Regular rate and rhythm. ABDOMEN: Obese. The drain on the right side was removed. Urine output 6000. ASSESSMENT: Doing well. PLAN: A bariatric full liquids, wean TPN.
--- NOTE | 2018-02-12 10:40 | PDOC.PN ---
- Subjective Encounter Start Date: 02/12/18 Encounter Start Time: 10:39 Subjective: alert without complaints - Objective MAR Reviewed: Yes Vital Signs & Weight: Vital Signs (12 hours) Temp Pulse Resp BP Pulse Ox 02/12/18 09:40 135/69 02/12/18 07:09 99 02/12/18 07:06 93 23 H 99 02/12/18 07:00 97.8 F 02/12/18 03:00 98.4 F 02/12/18 00:38 97 02/11/18 23:00 98.6 F 02/11/18 22:45 96 Weight Admit Weight 506 lb Weight 507 lb 1.011 oz Most Recent Monitor Data Heart Rate from ECG 78 NIBP 140/72 NIBP BP-Mean 105 Respiration from ECG 23 SpO2 99 I&O: 02/11/18 02/12/18 02/13/18 06:59 06:59 06:59 Intake Total 3017 3648 240 Output Total 6684 2624 3595 [facility] -[id number] [phone] Result Diagrams: 02/11/18 04:22 02/12/18 07:57 Additional Labs: Accuchecks 02/12/18 02/11/18 02/11/18 05:36 23:25 16:51 POC Glucose 144 H 131 H 129 H Phys Exam - Physical Examination Neck: no JVD Respiratory: clear to auscultation bilateral Cardiovascular: RRR, no significant murmur Gastrointestinal: soft, non-tender, positive bowel sounds Musculoskeletal: edema present Dx/Plan (1) Sepsis Code(s): A41.9 - SEPSIS, UNSPECIFIED ORGANISM Status: Acute Qualifiers: Sepsis type: Escherichia coli Qualified Code(s): A41.51 - Sepsis due to Escherichia coli [E. coli] (2) Subphrenic abscess Code(s): K65.1 - PERITONEAL ABSCESS Status: Acute Comment: Cx showing E.Coli & klebsiella.Both pansensitive (3) Chronic atrial fibrillation Code(s): I48.2 - CHRONIC ATRIAL FIBRILLATION Status: Chronic (4) TUCKER (acute kidney injury) Code(s): N17.9 - ACUTE KIDNEY FAILURE, UNSPECIFIED Status: Resolved (5) Asplenia Code(s): Q89.01 - ASPLENIA (CONGENITAL) Status: Acute Comment: Splenectomy post gastric sleeve Sx due to [place] of Splenic artery (6) Morbid obesity Code(s): E66.01 - MORBID (SEVERE) OBESITY DUE TO EXCESS CALORIES Status: Chronic - Plan progressive improvement -: cont iv antibx -: cont coreg, eliquis , etc * .
[2018-02-12] MEDS: ALPRAZolam 0.25 MG TAB PO PRN ×2 (14:16→20:37)
[2018-02-12] MEDS: Carvedilol 6.25 MG TAB PO SCH (17:25)
[2018-02-12] MEDS: Mometasone/Formoterol 120 PUFF INHALER INH SCH (18:23)
[2018-02-12] MEDS: Atorvastatin Calcium 10 MG TAB PO SCH (20:37)
[2018-02-12] MEDS: Micafungin 100 MG in Sodium Chloride 0.9% 100 ML IVPB SCH (20:37)
[2018-02-13] MEDS: MEROPENEM 1 GM/50 ML 1 GM in Premix Bag 1 BAG IVPB SCH ×3 (02:00→18:09)
[2018-02-13] MEDS: Mometasone/Formoterol 120 PUFF INHALER INH SCH ×2 (07:21→18:58)
[2018-02-13] MEDS: Furosemide 40 MG TAB PO SCH (07:49)
[2018-02-13] MEDS: Saccharomyces boulardii 250 MG CAP PO SCH (07:49)
[2018-02-13] MEDS: Lisinopril 20 MG TAB PO SCH (07:49)
[2018-02-13] MEDS: Carvedilol 6.25 MG TAB PO SCH ×2 (07:50→17:11)
[2018-02-13] MEDS: Apixaban 5 MG TAB PO SCH ×2 (07:50→21:40)
[2018-02-13] MEDS: ALPRAZolam 0.25 MG TAB PO PRN ×2 (09:05→22:36)
--- NOTE | 2018-02-13 10:48 | PDOC.PN ---
- Subjective Encounter Start Date: 02/13/18 Encounter Start Time: 10:46 Subjective: doing well, some abd discomfort - Objective MAR Reviewed: Yes Vital Signs & Weight: Vital Signs (12 hours) Temp Pulse Resp Pulse Ox 02/13/18 08:00 98.6 F 02/13/18 07:22 97 02/13/18 07:17 74 15 97 02/13/18 04:00 98.0 F 02/13/18 00:00 97.9 F Weight Admit Weight 506 lb Weight 504 lb 13.737 oz Most Recent Monitor Data Heart Rate from ECG 75 NIBP 99/51 NIBP BP-Mean 77 Respiration from ECG 27 SpO2 96 I&O: 02/12/18 02/13/18 02/14/18 06:59 06:59 06:59 Intake Total 3648 2100 Output Total 6940 4265 350 Balance -3292 -2165 -350 Result Diagrams: 02/11/18 04:22 02/12/18 07:57 Additional Labs: Accuchecks 02/12/18 11:48 POC Glucose 106 Phys Exam - Physical Examination Neck: no JVD Respiratory: clear to auscultation bilateral Cardiovascular: no significant murmur, irregular Gastrointestinal: soft, positive bowel sounds Musculoskeletal: edema present Dx/Plan (1) Sepsis Code(s): A41.9 - SEPSIS, UNSPECIFIED ORGANISM Status: Acute Qualifiers: Sepsis type: Escherichia coli Qualified Code(s): A41.51 - Sepsis due to Escherichia coli [E. 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
--- NOTE | 2018-02-13 14:20 | PRG ---
DATE OF SERVICE: 02/13/2018 SUBJECTIVE: The patient reports she is feeling a little better today. Still having some left-sided pain in the left upper quadrant and some mild right lower quadrant pain, no nausea or vomiting. She is tolerating full liquids well. PHYSICAL EXAMINATION: Temperature is 98.1, pulse 64, blood pressure 124/65. She has had a bowel mov ement. Good urine output. She had 95 out of her YOU. The incisions all looked fine. There is no ev idence of infection. ASSESSMENT: Doing well. PLAN: We will transfer her to the floor for further physical therapy.
[2018-02-13] MEDS: Acetaminophen 650 MG/20.3 ML UDCUP PO PRN (15:00)
[2018-02-13] MEDS ORDERED: Magnesium Sulfate 2 GM in Sodium Chloride 0.9% 100 ML IVPB SCH (16:00)
--- NOTE | 2018-02-13 16:12 | PRG ---
DATE OF SERVICE: 02/13/2018 SERVICE: Pulmonary Medicine. INTERVAL HISTORY: The patient is doing great from a respiratory standpoint. Denies any current ches t pain, nausea, vomiting or shortness of breath. She was able to stand up twice with physical therap y yesterday. Outside of that, she has not been too terribly mobile. There were no events overnight, no fevers. Her white blood cell count started trending down nicely. PHYSICAL EXAMINATION: VITAL SIGNS: Afebrile, pulse 83, blood pressure 148/77, respirations 19, saturation 94% on 2 liters nasal cannula. GENERAL: The patient is awake, alert, in no apparent distress. LUNGS: Decent air entry. There is no prolonged expiratory phase. I cannot appreciate any adventiti ous sounds. HEART: Normal rate, regular. ABDOMEN: Soft. Mild tenderness to palpation. There is no rebound or guarding present. MUSCULOSKELETAL: No cyanosis or clubbing. There is no pitting in the bilateral lower extremities. NEUROLOGIC: Grossly nonfocal. LABORATORY DATA: Basic metabolic profile and liver function studies are essentially unremarkable. U rinalysis is positive for E. coli. Multiple organisms are growing in the subdiaphragmatic abscess. Blood cultures x2 are unremarkable. ASSESSMENT: 1. Acute hypoxic respiratory failure, resolving. 2. Septic shock secondary to subdiaphragmatic abscess, resolving. 3. Urinary tract infection, complicated. 4. Acute kidney injury, resolved. 5. Morbid obesity. DISCUSSION AND PLAN: We will repeat a CBC and a basic metabolic profile tomorrow morning. Magnesium and phosphorus fell within the normal limits and will not be rechecked. At this point, she is stabl e for transition to the surgical unit while we continue efforts in mobilizing her. Pulmonary will co ntinue to follow for the time being.
[2018-02-13] MEDS ORDERED: Magnesium 2 GM/NS 0.9% 100 ML 2 GM in Premix Bag 1 BAG IVPB SCH (16:15)
[2018-02-13] MEDS: Atorvastatin Calcium 10 MG TAB PO SCH (21:40)
[2018-02-13] MEDS: Micafungin 100 MG in Sodium Chloride 0.9% 100 ML IVPB SCH (22:36)
[2018-02-14] MEDS: MEROPENEM 1 GM/50 ML 1 GM in Premix Bag 1 BAG IVPB SCH ×3 (02:20→17:52)
[2018-02-14 05:47] LABS: #Eosinphils 0.3 thou/uL (0.0-0.7); #Lymphocytes 1.6 thou/uL (1.20-3.40); #Monocytes 2.1 thou/uL (0.11-0.59); #Neutrophils 10.3 thou/uL (1.40-6.50); %Basophils 0.3 % (0.0-1.0); %Eosinophils 2.2 % (0.0-10.0); %Lymphocytes 11.2 % (21.0-51.0); %Monocytes 14.5 % (0.0-10.0); %Neutrophils 71.8 % (42.0-75.0); Anion Gap 13 mmol/L (10-20); BUN (Urea Nitrogen) 26 mg/dL (7.0-18.7); Calc. Creatinine Clearance 240 mL/min (70-130); Calcium 8.3 mg/dL (7.8-10.44); Carbon Dioxide 29 mmol/L (22-29); Chloride 99 mmol/L (98-107); Estimated GFR-MDRD 55; Glucose 87 mg/dL (70-105); Hemoglobin 9.2 g/dL (12.0-16.0); Mean Corpuscular HGB CONC 31.4 g/dL (32.0-36.0); Mean Corpuscular Hemoglobin 29.5 pg (27.0-31.0); Mean Platelet Volume 8.2 fL (7.4-10.4); Platelet Count 928 thou/uL (130-400); Potassium 4.1 mmol/L (3.5-5.1); RBC Distribution Width 15.4 % (11.5-14.5); Sodium 137 mmol/L (136-145); White Blood Cell (WBC) Count 14.4 thou/uL (4.8-10.8)
[2018-02-14] MEDS: Mometasone/Formoterol 120 PUFF INHALER INH SCH ×2 (06:45→18:56)
[2018-02-14] MEDS: Saccharomyces boulardii 250 MG CAP PO SCH (08:43)
[2018-02-14] MEDS: Apixaban 5 MG TAB PO SCH ×2 (08:43→22:13)
[2018-02-14] MEDS: Carvedilol 6.25 MG TAB PO SCH ×2 (08:44→17:22)
[2018-02-14] MEDS: Lisinopril 20 MG TAB PO SCH (08:44)
[2018-02-14] MEDS: Furosemide 40 MG TAB PO SCH (08:44)
[2018-02-14] MEDS: ALPRAZolam 0.25 MG TAB PO PRN ×2 (12:36→22:13)
[2018-02-14] MEDS: Acetaminophen 650 MG/20.3 ML UDCUP PO PRN ×2 (12:36→19:44)
--- NOTE | 2018-02-14 12:45 | PDOC.PN ---
- Subjective Encounter Start Date: 02/14/18 Encounter Start Time: 12:44 Subjective: left pleuritic pain - Objective Vital Signs & Weight: Vital Signs (12 hours) Temp Pulse Resp BP BP Pulse Ox 02/14/18 11:11 98.9 F 79 20 134/72 97 02/14/18 08:44 119/59 L 02/14/18 08:00 97.0 F L 75 22 H 02/14/18 07:27 97.0 F L 75 22 H 122/66 97 02/14/18 06:45 94 16 98 02/14/18 06:34 97 02/14/18 06:30 85 16 97 02/14/18 04:00 98.6 F 77 18 103/62 95 Weight Admit Weight 506 lb Weight 498 lb 1.28 oz Most Recent Monitor Data Heart Rate from ECG 67 NIBP 133/62 NIBP BP-Mean 99 Respiration from ECG 24 SpO2 99 I&O: 02/13/18 02/14/18 02/15/18 06:59 06:59 06:59 Intake Total 2100 1418 240 Output Total 4298 2185 Balance -2165 -767 240 Result Diagrams: 02/14/18 05:15 02/14/18 05:15 Phys Exam - Physical Examination Neck: no JVD Respiratory: clear to auscultation bilateral Cardiovascular: no significant murmur, irregular Gastrointestinal: soft, non-tender, positive bowel sounds Musculoskeletal: edema present Dx/Plan (1) Sepsis Code(s): A41.9 - SEPSIS, UNSPECIFIED ORGANISM Status: Acute Qualifiers: Sepsis type: Escherichia coli Qualified Code(s): A41.51 - Sepsis due to Escherichia coli [E. 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
--- NOTE | 2018-02-14 18:01 | PRG ---
DATE OF SERVICE: 02/14/2018 SUBJECTIVE: The patient's main complaint is depression. She just feels blue. She has been off her antidepressants for many weeks now. She normally takes Cymbalta 30 daily. She is tolerating full li quids well. Pain is minimal. PHYSICAL EXAMINATION: VITAL SIGNS: Temperature 97, pulse 75, blood pressure 119/59. GENERAL: She is awake, alert. HEENT: Unremarkable. LUNGS: Clear. ABDOMEN: Obese, soft, really no significant tenderness. The incisions have healed well. She has on e YOU drain, put out 115. LABORATORY DATA: Her white count is 14, H&H of 9.2 and 29, platelet count of 928. Her electrolytes are fine. BUN is 26, creatinine 1.08. ASSESSMENT: Slowly improving subphrenic abscess drainage. PLAN: Continue PT. They are going to try a different bed to see if they can get her out of bed. Be cause she is really not mobile, we have maintained her Banks catheter, because she is so large, it is difficult to put her on a bed hardin or to even put her in an adult diaper. She understands there is a n increased risk of urinary tract infection, but we will keep the Banks in for now. We will try to giovanna saucedoemily to do physical therapy as well as restart her Cymbalta.
--- NOTE | 2018-02-14 18:04 | CON ---
DATE OF CONSULTATION: 02/14/2018 REASON FOR CONSULTATION: Subphrenic abscess after sleeve gastrectomy. HISTORY OF PRESENT ILLNESS: A 42-year-old with history of morbid obesity, hypertension, CHF, asthma, atrial fibrillation, who underwent sleeve gastrectomy in 01/2016, and during the procedure, there wa s requirements for splenectomy following splenic vein injury, eventually transferred to the floor and gone to rehab, then developed worsening abdominal pain in the left upper quadrant pain and right low er quadrant pain. Because of the weight and inability to image the abdomen, she underwent laparoscop ic evaluation, which showed a large subphrenic abscess about 1500 mL, which was irrigated, aspirated and a drain left in place. She had a little bit of fluid in the right lower quadrant, which is also irrigated. The patient had this procedure on 02/10/2018. She has been progressing well on meropenem with decrease in the white cell count, resolution of the temperature elevation. She still has drain age of 280 mL two days ago and 80 mL and 115 mL yesterday and today respectively on the right side an d in the left side, she has 30, 30, and 115 mL in the past 3 days respectively. She is awake, still diffusely weak. Denies headaches, no sore throat, odynophagia, or dysphagia. Mild dyspnea, no chest pain, mild to moderate abdominal pain in left upper quadrant, right lower quadrant pain is less. No joint symptoms. PAST MEDICAL HISTORY: Hypertension, atrial fibrillation, morbid obesity, CHF, and degenerative joint disease. PAST SURGICAL HISTORY: Includes hernia repair in 1972, breast biopsies, sleeve gastrectomy two weeks ago. ALLERGY HISTORY: Includes BACTRIM, PENICILLIN, CLEOCIN, CEPHALEXIN, CIPROFLOXACIN. Regarding cephal exin, She said she had been able to tolerate cephalexin more recently. SOCIAL HISTORY: , lives in [place]. Never a smoker. FAMILY HISTORY: Noncontributory. CURRENT MEDICATIONS: Tylenol, Maalox, DuoNeb, Xanax, Eliquis, Lipitor, Dulcolax, Coreg, Cymbalta, La six, Zestril, meropenem, micafungin, Dulera. PHYSICAL EXAMINATION: VITAL SIGNS: T-max 98.6-99.1, BP 130/72, pulse 79, respirations 16-20, O2 sat 97%. SKIN: Shows the left upper quadrant drain with cloudy fluid in small amounts. Banks catheter in martha ce and now right IJ central line. HEENT: Ocular movements conjugate. Oral cavity moist. NECK: Supple. LUNGS: Symmetric air entry, a few basilar crackles. HEART: S1, S2, regular rate. ABDOMEN: With a very prominent panniculus surinder to examine. Mild to moderate tenderness in left uppe r quadrant and right lower quadrant. EXTREMITIES: No joint inflammatory activity noted. Pulses 1+ in dorsalis pedis. Plantar responses are flexure. NEUROLOGIC: Cognitive function appears to be intact. LABORATORY DATA: White cell count down from 23,000 to 14,000, hemoglobin 9.2, and platelets are up t o 928. Sodium 137, creatinine 1.08. Liver profile with AST 48, ALT 39, albumin 2.5. Urinalysis gre ater than 50 wbc's. Microbiology with E. coli and Klebsiella with a broad susceptibility profile to 3 different anaerobes. IMAGING STUDIES: Limited because of her weight. She has a chest x-ray from a few days ago with card iomegaly and a right IJ central line. ASSESSMENT: Morbid obesity, hypertension, sleeve gastrectomy with a subphrenic abscess identified 2 weeks after the procedure with the usual polymicrobial adeline detected. DISCUSSION: The main concern here would be with staple line leak with subphrenic abscess formation. For the time being, continue meropenem. The duration of therapy would probably around 2 weeks, but this will depend on progress of inflammatory markers since no followup imaging studies will be possib le. May consider reevaluation of the gastrectomy and staple line via endoscopy depending on clinical progress.
--- NOTE | 2018-02-14 19:51 | PRG ---
DATE OF SERVICE: 02/14/2018 SERVICE: Pulmonary Medicine. INTERVAL HISTORY: The patient is doing fine from a respiratory standpoint. She is breathing comfortably. There has been no interval change to her condition otherwise. She denies any current fevers or chills. She is breathing comfortably. She has a little bit of side discomfort. This has been present for a couple of days and has been slowly improving. PHYSICAL EXAMINATION: VITAL SIGNS: Afebrile, pulse 84, blood pressure 91/79, respirations 20, saturation 97% on 2 liters nasal cannula. GENERAL: The patient is awake and alert, in no apparent distress. LUNGS: Decent air entry. No prolonged expiratory phase. HEART: Normal rate and regular. ABDOMEN: Soft, nontender, nondistended. Bowel sounds are positive. MUSCULOSKELETAL: No cyanosis or clubbing. There is no pitting in the bilateral lower extremities. NEUROLOGIC: Grossly nonfocal. LABORATORY DATA: WBC 14.4 and gently down trending, hemoglobin 9.2, platelets 928,000. INR 1.9. Basic metabolic profile is essentially unremarkable. BUN is 26. Urinalysis is growing E. coli. Subdiaphragmatic abscess is growing multiple organisms, which are pansensitive. ASSESSMENT: 1. Acute hypoxic respiratory failure, resolving. 2. Septic shock secondary to subdiaphragmatic abscess, resolving. 3. Urinary tract infection, complicated. 4. Acute kidney injury, resolved. 5. Morbid obesity. DISCUSSION AND PLAN: We will change the patient out of her Larry bed into a regular bed. She understands that she will need to be more mobile in this bed. She feels that she cannot move around in the Phillips bed, because it makes her slide. We will watch closely for any type of skin breakdown through time. I will repeat a lab holiday tomorrow morning. We will continue her mobilization efforts as tolerated. TIERA
[2018-02-14] MEDS: Atorvastatin Calcium 10 MG TAB PO SCH (22:14)
[2018-02-14] MEDS: Micafungin 100 MG in Sodium Chloride 0.9% 100 ML IVPB SCH (22:52)
[2018-02-15] MEDS: MEROPENEM 1 GM/50 ML 1 GM in Premix Bag 1 BAG IVPB SCH ×3 (02:30→17:18)
[2018-02-15] MEDS: Mometasone/Formoterol 120 PUFF INHALER INH SCH ×2 (06:54→19:35)
[2018-02-15] MEDS: Carvedilol 6.25 MG TAB PO SCH ×2 (09:19→17:16)
[2018-02-15] MEDS: Furosemide 40 MG TAB PO SCH (09:19)
[2018-02-15] MEDS: Apixaban 5 MG TAB PO SCH ×2 (09:19→21:38)
[2018-02-15] MEDS: DULoxetine 30 MG CAP PO SCH (09:20)
[2018-02-15] MEDS: Saccharomyces boulardii 250 MG CAP PO SCH (09:20)
[2018-02-15] MEDS: Lisinopril 20 MG TAB PO SCH (09:20)
[2018-02-15] MEDS: Acetaminophen 650 MG/20.3 ML UDCUP PO PRN (12:54)
[2018-02-15] MEDS: ALPRAZolam 0.25 MG TAB PO PRN (12:54)
--- NOTE | 2018-02-15 17:48 | PRG ---
DATE OF SERVICE: 02/15/2018 SERVICE: Pulmonary Medicine. INTERVAL HISTORY: The patient is doing great from a respiratory standpoint. She denies any current chest pain, nausea, vomiting, fevers or chills. Everytime she stands up, she has an inability to control her bowels. She is only stood 4 times in the last 3 days. She is able to sit up on the side of the bed. Her strength is improving, but she is a little bit depressed. At this point, I think that she may never recover. I have helped to realize that she is quite some distance over the last 11 days and that she is making progress in the right direction. It is unfortunate that this progress is slower than Ms. Larson's expectations. PHYSICAL EXAMINATION: VITAL SIGNS: Afebrile, pulse 82, blood pressure 118/76, respirations 18, saturation 100% on 2 liters nasal cannula. GENERAL: The patient is awake, alert, no apparent distress. LUNGS: Good air entry. There is no prolonged expiratory phase. I cannot appreciate any adventitious sounds. HEART: Normal rate, regular. ABDOMEN: Soft, nontender, nondistended. Bowel sounds are positive. MUSCULOSKELETAL: No cyanosis or clubbing. There is no pitting in the bilateral lower extremities. NEUROLOGIC: Grossly nonfocal. ASSESSMENT: 1. Acute hypoxic respiratory failure, resolved. 2. Septic shock secondary to subdiaphragmatic abscess, resolving. 3. Urinary tract infection, complicated. 4. Acute kidney injury, resolved. 5. Morbid obesity. DISCUSSION AND PLAN: The patient will continue aggressive mobilization efforts. Pulmonary/Critical Care will continue to follow along for the time being. CBC will be removed and the PICC line will be placed. Pulmonary will continue to follow along while patient remains inhouse for the time being. From my perspective, she is stable for transition to the surgical unit. TIERA
[2018-02-15] MEDS: Atorvastatin Calcium 10 MG TAB PO SCH (21:38)
[2018-02-15] MEDS: Micafungin 100 MG in Sodium Chloride 0.9% 100 ML IVPB SCH (21:39)
[2018-02-16] MEDS: MEROPENEM 1 GM/50 ML 1 GM in Premix Bag 1 BAG IVPB SCH ×3 (02:17→18:09)
[2018-02-16] MEDS: Mometasone/Formoterol 120 PUFF INHALER INH SCH ×2 (06:22→19:05)
--- NOTE | 2018-02-16 08:03 | PDOC.PN ---
- Subjective Encounter Start Date: 02/15/18 Encounter Start Time: 09:00 Patient seen today, alert and oriented. No other concern noted. - Objective MAR Reviewed: Yes Vital Signs & Weight: Vital Signs (12 hours) Temp Pulse Resp BP Pulse Ox 02/16/18 06:25 99 02/16/18 06:24 72 16 99 02/16/18 06:22 72 16 99 02/16/18 03:27 97.7 F 63 16 109/55 L 100 02/15/18 23:26 98 Weight Admit Weight 506 lb Weight 501 lb 15.881 oz Most Recent Monitor Data Heart Rate from ECG 67 NIBP 133/62 NIBP BP-Mean 99 Respiration from ECG 24 SpO2 99 I&O: 02/15/18 02/16/18 02/17/18 06:59 06:59 06:59 Intake Total 2286 1520 Output Total 2575 1895 Balance -289 -375 Result Diagrams: 02/14/18 05:15 02/14/18 05:15 Phys Exam - Physical Examination HEENT: PERRLA, moist MMs Neck: no nodes, no JVD Respiratory: no wheezing, no rales, clear to auscultation bilateral Cardiovascular: RRR, no significant murmur Gastrointestinal: soft, non-tender Musculoskeletal: no edema, pulses present Neurological: non-focal, normal sensation Dx/Plan (1) Sepsis Code(s): A41.9 - SEPSIS, UNSPECIFIED ORGANISM Status: Acute Qualifiers: Sepsis type: Escherichia coli Qualified Code(s): A41.51 - Sepsis due to Escherichia coli [E. coli] Comment: Improving. Continue to Monitor out of IMC. (2) Subphrenic abscess Code(s): K65.1 - PERITONEAL ABSCESS Status: Acute Comment: Cx showing E.Coli & klebsiella.Both pansensitive (3) UTI (urinary tract infection) Status: Acute Comment: E.Coli (4) Chronic atrial fibrillation Code(s): I48.2 - CHRONIC ATRIAL FIBRILLATION Status: Chronic Comment: rate controlled. (5) TUCKER (acute kidney injury) Code(s): N17.9 - ACUTE KIDNEY FAILURE, UNSPECIFIED Status: Resolved Comment : Improving, Will follow nephrology.Avoid nephrotoxic meds. (6) Septic shock Code(s): A41.9 - SEPSIS, UNSPECIFIED ORGANISM; R65.21 - SEVERE SEPSIS WITH SEPTIC SHOCK Status: Resolved Comment: Due to UTI & subdiaphragmatic abscess /peritonitis.improved (7) Acute blood loss anemia Code(s): D62 - ACUTE POSTHEMORRHAGIC ANEMIA Status: Acute Comment: Stable. HB. - Plan cont current plan of care, plan discussed w/ family, continue antibiotics, PT/OT , social media content manager, respiratory therapy, incentive spirometry * . Review of Systems - Review of Systems Constitutional: negative: fever, chills, sweats, weakness, malaise, other Eyes: negative: Pain, Vision Change, Conjunctivae Inflammation, Eyelid Inflammation, Redness, Other ENT: negative: Ear Pain, Ear Discharge, Nose Pain, Nose Discharge, Nose Congestion, Mouth Pain, Mouth Swelling, Throat Pain, Throat Swelling, Other Respiratory: negative: Cough, Dry, Shortness of Breath, Hemoptysis, SOB with Excertion, Pleuritic Pain, Sputum, Wheezing Cardiovascular: negative: chest pain, palpitations, orthopnea, paroxysmal nocturnal dyspnea, edema, light headedness, other Gastrointestinal: negative: Nausea, Vomiting, Abdominal Pain, Diarrhea, Constipation, Melena, Hematochezia, Other Musculoskeletal: negative: Neck Pain, Shoulder Pain, Arm Pain, Back Pain, Hand Pain, Leg Pain, Foot Pain, Other - Medications/Allergies Allergies/Adverse Reactions: Allergies Allergy/AdvReac Type Severity Reaction Status Date / Time ciprofloxacin [From Cipro] Allergy Verified 01/21/18 15:38 clindamycin Allergy Rash Verified 01/21/18 15:38 levofloxacin [From Levaquin] Allergy Verified 01/21/18 15:38 lorcaserin [From Belviq] Allergy Nausea Verified 01/21/18 15:38 nitrofurantoin Allergy Hives Verified 01/21/18 15:38 [From Macrobid] Penicillins Allergy Verified 01/21/18 15:38 raspberry Allergy Verified 01/21/18 15:38 sulfamethoxazole Allergy Rash Verified 01/21/18 15:38 [From Bactrim] trimethoprim [From Bactrim] Allergy Rash Verified 01/21/18 15:38 Medications: Current Medications Acetaminophen (Tylenol Elixir) 650 mg PO Q6H PRN PRN Reason: Fever > 101 or Mild Pain Last Admin: 02/15/18 12:54 Dose: 650 mg Acetaminophen (Tylenol) 650 mg [place] Q6H PRN PRN Reason: Fever > 101 or Mild Pain Al Hydroxide/Mg Hydroxide (Maalox) 30 ml PO Q8H PRN PRN Reason: Indigestion Albuterol/Ipratropium (Duoneb) 3 ml NEB [id number] PRN PRN Reason: SOB &/or Wheezing Albuterol/Ipratropium (Duoneb) 3 ml NEB [id number] [facility] Last Admin: 02/16/18 06:24 Dose: 3 ml Alprazolam (Xanax) 0.25 mg PO Q6H PRN PRN Reason: Anxiety Last Admin: 02/15/18 12:54 Dose: 0.25 mg Apixaban (Eliquis) 5 mg PO BID [facility] Last Admin: 02/15/18 21:38 Dose: 5 mg Aspirin (Aspirin Chewable) 81 mg PO DAILY [facility] Last Admin: 02/15/18 09:19 Dose: 81 mg Atorvastatin Calcium (Lipitor) 10 mg PO HS [facility] Last Admin: 02/15/18 21:38 Dose: 10 mg Bisacodyl (Dulcolax) 10 mg PO DAILYPRN PRN PRN Reason: Constipation Carvedilol (Coreg) 12.5 mg PO BID-[facility] Last Admin: 02/15/18 17:16 Dose: 12.5 mg Duloxetine HCl (Cymbalta) 30 mg PO DAILY [facility] Last Admin: 02/15/18 09:20 Dose: 30 mg Hydralazine HCl (Apresoline) 20 mg SLOW IVP Q1H PRN PRN Reason: SBP>180 Last Admin: 02/08/18 18:12 Dose: 20 mg Micafungin Sodium 100 mg/ (Sodium Chloride) 100 mls @ 100 mls/hr IVPB Q24HR [facility] Last Admin: 02/15/18 21:39 Dose: 100 mls Meropenem 1 gm/ Device 50 mls @ 100 mls/hr IVPB 0200,1000,1800 [facility] Last Admin: 02/16/18 02:17 Dose: 50 mls Lisinopril (Zestril) 20 mg PO DAILY [facility] Last Admin: 02/15/18 09:20 Dose: 20 mg Magnesium Hydroxide (Milk Of Magnesium) 30 ml PO Q8H PRN PRN Reason: Constipation Mineral Oil/White Petrolatum (Lacri-Lube Ointment) 0 gm EA EYE PRN PRN PRN Reason: Dry Eyes Mometasone Furoate/Formoterol Fumar (Dulera 100 Mcg/5 Mcg Inhaler) 2 puff INH BID-RT [facility] Last Admin: 02/16/18 06:22 Dose: 2 puff Ondansetron HCl (Zofran) 4 mg IVP Q6H PRN PRN Reason: Nausea/Vomiting Last Admin: 02/05/18 15:56 Dose: 4 mg Pantoprazole Sodium (Protonix) 40 mg PO DAILY [facility] Last Admin: 02/15/18 09:20 Dose: 40 mg Saccharomyces Boulardii (Florastor) 250 mg PO DAILY [facility] Last Admin: 02/15/18 09:20 Dose: 250 mg Sodium Chloride (Flush - Normal Saline) 10 ml IVF Q12HR [facility] Last Admin: 02/15/18 21:39 Dose: 10 ml Sodium Chloride (Flush - Normal Saline) 10 ml IVF PRN PRN PRN Reason: Saline Flush Sodium Chloride (Flush - Normal Saline) 10 ml IVF PRN PRN PRN Reason: Saline Flush
[2018-02-16 08:37] LABS: #Eosinphils 0.4 thou/uL (0.0-0.7); #Lymphocytes 1.6 thou/uL (1.20-3.40); #Monocytes 1.8 thou/uL (0.11-0.59); #Neutrophils 8.3 thou/uL (1.40-6.50); %Basophils 0.2 % (0.0-1.0); %Eosinophils 3.4 % (0.0-10.0); %Lymphocytes 13.3 % (21.0-51.0); %Monocytes 14.6 % (0.0-10.0); %Neutrophils 68.5 % (42.0-75.0); Hemoglobin 8.9 g/dL (12.0-16.0); Mean Corpuscular HGB CONC 30.9 g/dL (32.0-36.0); Mean Corpuscular Hemoglobin 29.6 pg (27.0-31.0); Mean Corpuscular Volume 95.6 fL (78.0-98.0); Mean Platelet Volume 8.2 fL (7.4-10.4); Platelet Count 924 thou/uL (130-400); RBC Distribution Width 15.2 % (11.5-14.5); Red Blood Cell (RBC) Count 3.03 mill/uL (4.20-5.40); White Blood Cell (WBC) Count 12.1 thou/uL (4.8-10.8)
[2018-02-16] MEDS: Carvedilol 6.25 MG TAB PO SCH ×2 (08:50→17:38)
[2018-02-16] MEDS: Apixaban 5 MG TAB PO SCH ×2 (08:51→22:36)
[2018-02-16] MEDS: Lisinopril 20 MG TAB PO SCH (08:51)
[2018-02-16] MEDS: Saccharomyces boulardii 250 MG CAP PO SCH (08:51)
[2018-02-16] MEDS: DULoxetine 30 MG CAP PO SCH (08:51)
[2018-02-16 08:57] LABS: Anion Gap 12 mmol/L (10-20); BUN (Urea Nitrogen) 21 mg/dL (7.0-18.7); Calc. Creatinine Clearance 246 mL/min (70-130); Calcium 8.6 mg/dL (7.8-10.44); Carbon Dioxide 29 mmol/L (22-29); Chloride 98 mmol/L (98-107); Estimated GFR-MDRD 57; Glucose 89 mg/dL (70-105); Potassium 4.2 mmol/L (3.5-5.1); Sodium 135 mmol/L (136-145)
--- NOTE | 2018-02-16 14:17 | PRG ---
DATE OF SERVICE: 02/16/2018 SUBJECTIVE: The patient is sitting in bed, does not appear in any distress. PHYSICAL EXAMINATION: VITAL SIGNS: Temperature 98.3, pulse 70, respiration 16, O2 sat 99% on 2 liters. HEENT: Unremarkable. NECK: No JVD. LUNGS: Clear. ABDOMEN: Soft, obese, nontender. EXTREMITIES: Edematous. LABORATORY DATA: White blood cell count 12.8, hematocrit , platelet count 924. Sodium 135, pot assium 4.2, chloride 98, CO2 29, BUN 21, creatinine 1.0, glucose 89. ASSESSMENT: 1. Acute hypoxic respiratory failure, which is improved. 2. Status post septic shock from a subdiaphragmatic abscess. 3. Urinary tract infection, complicated. 4. Acute kidney injury, which is better. 5. Morbid obesity. PLAN: This is mainly a rehabilitation issue. The patient is continuing antibiotics and antifungals until it is felt they are no longer necessary. Her pulmonary status is stable.
--- NOTE | 2018-02-16 14:51 | PDOC.PN ---
- Subjective Encounter Start Date: 02/16/18 Encounter Start Time: 13:00 Patient is seen today, working with PT/OT,. no chest pain, no abdominal pain. No nausea or vomting, tolerating diet. - Objective MAR Reviewed: Yes Vital Signs & Weight: Vital Signs (12 hours) Temp Pulse Pulse Pulse Resp BP BP 02/16/18 12:23 70 16 02/16/18 11:45 97.8 F 71 16 02/16/18 10:41 77 71 114/59 L 125/65 02/16/18 08:15 98.3 F 72 16 02/16/18 06:25 02/16/18 06:24 72 16 02/16/18 06:22 72 16 02/16/18 03:27 97.7 F 63 16 BP Pulse Ox Pulse Ox Pulse Ox 02/16/18 12:23 99 02/16/18 11:45 114/59 L 98 02/16/18 10:41 98 99 02/16/18 08:15 98 02/16/18 06:25 99 02/16/18 06:24 99 02/16/18 06:22 99 02/16/18 03:27 109/55 L 100 Weight Admit Weight 506 lb Weight 501 lb 15.881 oz Most Recent Monitor Data Heart Rate from ECG 67 NIBP 133/62 NIBP BP-Mean 99 Respiration from ECG 24 SpO2 99 I&O: 02/15/18 02/16/18 02/17/18 06:59 06:59 06:59 Intake Total 2286 1520 Output Total 2575 1895 Balance -289 -375 Result Diagrams: 02/16/18 08:19 02/16/18 08:19 Radiology Reviewed by me: Yes Phys Exam - Physical Examination HEENT: PERRLA, moist MMs Neck: no nodes, no JVD Respiratory: no wheezing, no rales Cardiovascular: RRR, no significant murmur Gastrointestinal: soft, non-tender Musculoskeletal: no edema, pulses present Neurological: non-focal, normal sensation Lymphatic: no nodes Psychiatric: normal affect, A&O x 3 Dx/Plan (1) Sepsis Code(s): A41.9 - SEPSIS, UNSPECIFIED ORGANISM Status: Acute Qualifiers: Sepsis type: Escherichia coli Qualified Code(s): A41.51 - Sepsis due to Escherichia coli [E. coli] Comment: Improving. persistant WBC, will cotninue IV Abx. (2) Subphrenic abscess Code(s): K65.1 - PERITONEAL ABSCESS Status: Acute Comment: Cx showing E.Coli & klebsiella.Both pansensitive, repeat Blood Cultures today. (3) UTI (urinary tract infection) Status: Acute Comment: E.Coli (4) Chronic atrial fibrillation Code(s): I48.2 - CHRONIC ATRIAL FIBRILLATION Status: Chronic Comment: rate controlled. (5) TUCKER (acute kidney injury) Code(s): N17.9 - ACUTE KIDNEY FAILURE, UNSPECIFIED Status: Resolved Comment : Improving, Will follow nephrology.Avoid nephrotoxic meds. (6) Septic shock Code(s): A41.9 - SEPSIS, UNSPECIFIED ORGANISM; R65.21 - SEVERE SEPSIS WITH SEPTIC SHOCK Status: Resolved Comment: Due to UTI & subdiaphragmatic abscess /peritonitis.improved (7) Acute blood loss anemia Code(s): D62 - ACUTE POSTHEMORRHAGIC ANEMIA Status: Acute Comment: Stable. HB. (8) Thrombocytosis after splenectomy Code(s): R79.89 - OTHER SPECIFIED ABNORMAL FINDINGS OF BLOOD CHEMISTRY; Z90.81 - ACQUIRED ABSENCE OF SPLEEN Status: Acute Comment: Persistant Elevation, which is physiologic after recent spleenctomy, will consult Oncology/ hematology if worseing. - Plan cont current plan of care, plan discussed w/ family, richardson catheter, PT/OT, older adult social work specialist, speech therapy, respiratory therapy, incentive spirometry, out of bed/ambulate, DVT proph w/SCDs * .
[2018-02-16] MEDS: Acetaminophen 650 MG/20.3 ML UDCUP PO PRN (15:46)
[2018-02-16] MEDS: Atorvastatin Calcium 10 MG TAB PO SCH (22:00)
[2018-02-16] MEDS: Micafungin 100 MG in Sodium Chloride 0.9% 100 ML IVPB SCH (22:00)
[2018-02-16] MEDS: ALPRAZolam 0.25 MG TAB PO PRN (22:06)
[2018-02-17] MEDS: MEROPENEM 1 GM/50 ML 1 GM in Premix Bag 1 BAG IVPB SCH ×3 (02:28→17:32)
[2018-02-17] MEDS: Mometasone/Formoterol 120 PUFF INHALER INH SCH ×2 (09:15→19:36)
[2018-02-17] MEDS: Carvedilol 6.25 MG TAB PO SCH ×2 (09:47→17:29)
[2018-02-17] MEDS: DULoxetine 30 MG CAP PO SCH (09:47)
[2018-02-17] MEDS: Saccharomyces boulardii 250 MG CAP PO SCH (09:47)
[2018-02-17] MEDS: Lisinopril 20 MG TAB PO SCH (09:47)
[2018-02-17] MEDS: ALPRAZolam 0.25 MG TAB PO PRN ×2 (09:47→22:08)
[2018-02-17] MEDS: Acetaminophen 650 MG/20.3 ML UDCUP PO PRN ×2 (10:23→20:12)
--- NOTE | 2018-02-17 10:43 | PDOC.PN ---
- Subjective Encounter Start Date: 02/17/18 Encounter Start Time: 08:00 -: old records requested/rev Patient seen and examined. No new complaints. No overnight events has rash over abdominal skin fold - Objective MAR Reviewed: Yes Vital Signs & Weight: Vital Signs (12 hours) Temp Pulse Resp BP BP Pulse Ox 02/17/18 09:47 103/70 02/17/18 09:15 80 20 98 02/17/18 09:04 80 20 98 02/17/18 07:49 97.6 F 79 20 162/93 H 99 02/17/18 06:00 98 02/17/18 04:42 98.2 F 83 18 120/76 99 02/17/18 00:24 75 20 97 02/17/18 00:01 97.6 F 68 18 109/71 98 Weight Admit Weight 506 lb Weight 501 lb 15.881 oz Most Recent Monitor Data Heart Rate from ECG 67 NIBP 133/62 NIBP BP-Mean 99 Respiration from ECG 24 SpO2 99 I&O: 02/16/18 02/17/18 02/18/18 06:59 06:59 06:59 Intake Total 1520 Output Total 1895 Balance -375 Result Diagrams: 02/16/18 08:19 02/16/18 08:19 Phys Exam - Physical Examination Constitutional: NAD HEENT: PERRLA, moist MMs, sclera anicteric Neck: no JVD, supple Respiratory: no wheezing, no rales, no rhonchi Cardiovascular: RRR, no significant murmur, no rub Gastrointestinal: soft, non-tender, no distention, positive bowel sounds drain+, morbid obesity limiting examination Musculoskeletal: no edema, pulses present Neurological: non-focal Lymphatic: no nodes Psychiatric: normal affect, A&O x 3 Skin: no rash, normal turgor Dx/Plan (1) Subphrenic abscess Code(s): K65.1 - PERITONEAL ABSCESS Status: Acute Comment: Cx showing E.Coli & klebsiella.Both pansensitive (2) Thrombocytosis after splenectomy Code(s): R79.89 - OTHER SPECIFIED ABNORMAL FINDINGS OF BLOOD CHEMISTRY; Z90.81 - ACQUIRED ABSENCE OF SPLEEN Status: Acute Comment: Persistant Elevation, which is physiologic after recent spleenctomy (3) UTI (urinary tract infection) Status: Acute Comment: E.Coli (4) Chronic atrial fibrillation Code(s): I48.2 - CHRONIC ATRIAL FIBRILLATION Status: Chronic Comment: rate controlled. (5) Morbid obesity with BMI of 70 and over, adult Code(s): E66.01 - MORBID (SEVERE) OBESITY DUE TO EXCESS CALORIES; Z68.45 - BODY MASS INDEX (BMI) 70 OR GREATER, ADULT Status: Chronic (6) TUCKER (acute kidney injury) Code(s): N17.9 - ACUTE KIDNEY FAILURE, UNSPECIFIED Status: Resolved Comment : (7) Septic shock Code(s): A41.9 - SEPSIS, UNSPECIFIED ORGANISM; R65.21 - SEVERE SEPSIS WITH SEPTIC SHOCK Status: Resolved Comment: Due to UTI & subdiaphragmatic abscess /peritonitis.improved - Plan cont current plan of care, plan discussed w/ family, continue antibiotics * nystatin powder for tinea infection * continue meropenam and micafungin * drain care as per surgeon * antibiotic duration as per dr thomas * discharge planning * medication reviewed as below * symptomatic treatment. Review of Systems - Review of Systems Eyes: negative: Pain, Vision Change, Conjunctivae Inflammation, Eyelid Inflammation, Redness, Other ENT: negative: Ear Pain, Ear Discharge, Nose Pain, Nose Discharge, Nose Congestion, Mouth Pain, Mouth Swelling, Throat Pain, Throat Swelling, Other Respiratory: negative: Cough, Dry, Shortness of Breath, Hemoptysis, SOB with Excertion, Pleuritic Pain, Sputum, Wheezing Cardiovascular: negative: chest pain, palpitations, orthopnea, paroxysmal nocturnal dyspnea, edema, light headedness, other Gastrointestinal: negative: Nausea, Vomiting, Abdominal Pain, Diarrhea, Constipation, Melena, Hematochezia, Other Genitourinary: negative: Dysuria, Frequency, Incontinence, Hematuria, Retention , Other Musculoskeletal: negative: Neck Pain, Shoulder Pain, Arm Pain, Back Pain, Hand Pain, Leg Pain, Foot Pain, Other Skin: Rash. negative: Lesions, Malvin, Bruising, Other - Medications/Allergies Allergies/Adverse Reactions: Allergies Allergy/AdvReac Type Severity Reaction Status Date / Time ciprofloxacin [From Cipro] Allergy Verified 01/21/18 15:38 clindamycin Allergy Rash Verified 01/21/18 15:38 levofloxacin [From Levaquin] Allergy Verified 01/21/18 15:38 lorcaserin [From Belviq] Allergy Nausea Verified 01/21/18 15:38 nitrofurantoin Allergy Hives Verified 01/21/18 15:38 [From Macrobid] Penicillins Allergy Verified 01/21/18 15:38 raspberry Allergy Verified 01/21/18 15:38 sulfamethoxazole Allergy Rash Verified 01/21/18 15:38 [From Bactrim] trimethoprim [From Bactrim] Allergy Rash Verified 01/21/18 15:38 Medications: Current Medications Acetaminophen (Tylenol Elixir) 650 mg PO Q6H PRN PRN Reason: Fever > 101 or Mild Pain Last Admin: 02/17/18 10:23 Dose: 650 mg Acetaminophen (Tylenol) 650 mg [place] Q6H PRN PRN Reason: Fever > 101 or Mild Pain Al Hydroxide/Mg Hydroxide (Maalox) 30 ml PO Q8H PRN PRN Reason: Indigestion Albuterol/Ipratropium (Duoneb) 3 ml NEB [id number] PRN PRN Reason: SOB &/or Wheezing Albuterol/Ipratropium (Duoneb) 3 ml NEB [id number] [facility] Last Admin: 02/17/18 09:04 Dose: 3 ml Alprazolam (Xanax) 0.25 mg PO Q6H PRN PRN Reason: Anxiety Last Admin: 02/17/18 09:47 Dose: 0.25 mg Apixaban (Eliquis) 5 mg PO BID [facility] Last Admin: 02/16/18 22:36 Dose: Not Given Aspirin (Aspirin Chewable) 81 mg PO DAILY [facility] Last Admin: 02/17/18 09:47 Dose: 81 mg Atorvastatin Calcium (Lipitor) 10 mg PO HS [facility] Last Admin: 02/16/18 22:00 Dose: 10 mg Bisacodyl (Dulcolax) 10 mg PO DAILYPRN PRN PRN Reason: Constipation Carvedilol (Coreg) 12.5 mg PO BID-[facility] Last Admin: 02/17/18 09:47 Dose: 12.5 mg Duloxetine HCl (Cymbalta) 30 mg PO DAILY [facility] Last Admin: 02/17/18 09:47 Dose: 30 mg Hydralazine HCl (Apresoline) 20 mg SLOW IVP Q1H PRN PRN Reason: SBP>180 Last Admin: 02/08/18 18:12 Dose: 20 mg Micafungin Sodium 100 mg/ (Sodium Chloride) 100 mls @ 100 mls/hr IVPB Q24HR [facility] Last Admin: 02/16/18 22:00 Dose: 100 mls Meropenem 1 gm/ Device 50 mls @ 100 mls/hr IVPB 0200,1000,1800 [facility] Last Admin: 02/17/18 09:48 Dose: 50 mls Lisinopril (Zestril) 20 mg PO DAILY [facility] Last Admin: 02/17/18 09:47 Dose: 20 mg Magnesium Hydroxide (Milk Of Magnesium) 30 ml PO Q8H PRN PRN Reason: Constipation Mineral Oil/White Petrolatum (Lacri-Lube Ointment) 0 gm EA EYE PRN PRN PRN Reason: Dry Eyes Mometasone Furoate/Formoterol Fumar (Dulera 100 Mcg/5 Mcg Inhaler) 2 puff INH BID-RT [facility] Last Admin: 02/17/18 09:15 Dose: 2 puff Ondansetron HCl (Zofran) 4 mg IVP Q6H PRN PRN Reason: Nausea/Vomiting Last Admin: 02/05/18 15:56 Dose: 4 mg Pantoprazole Sodium (Protonix) 40 mg PO DAILY [facility] Last Admin: 02/17/18 09:47 Dose: 40 mg Saccharomyces Boulardii (Florastor) 250 mg PO DAILY [facility] Last Admin: 02/17/18 09:47 Dose: 250 mg Sodium Chloride (Flush - Normal Saline) 10 ml IVF Q12HR [facility] Last Admin: 02/17/18 09:48 Dose: Not Given Sodium Chloride (Flush - Normal Saline) 10 ml IVF PRN PRN PRN Reason: Saline Flush Sodium Chloride (Flush - Normal Saline) 10 ml IVF PRN PRN PRN Reason: Saline Flush
--- NOTE | 2018-02-17 11:41 | PRG ---
DATE OF SERVICE: 02/17/2018 SUBJECTIVE: The patient is doing reasonably well. She had no acute complaints. OBJECTIVE: VITAL SIGNS: Temperature is 97.6, pulse 80, blood pressure 103/70, O2 sat 90% on 3 liters. HEENT: Unremarkable. NECK: No JVD. CHEST: Clear. CARDIAC: S1 and S2 regular. ABDOMEN: Soft. ASSESSMENT: 1. Stable pulmonary status after acute respiratory failure, which required mechanical ventilation. 2. Status post septic shock from subdiaphragmatic abscess. 3. Complicated urinary tract infection. 4. Acute kidney injury. 5. Morbid obesity. PLAN: Continue current treatment. No changes today.
--- NOTE | 2018-02-17 14:09 | PRG ---
DATE OF SERVICE: 02/17/2018 SUBJECTIVE: Has been transferred to the floor. She is feeling better, little bit of drainage from t he left upper quadrant drain. No dyspnea, no vomiting, and has an indwelling Banks catheter. Periph eral IV access. HEENT: Ocular movements conjugate. LUNGS: With symmetric air entry. HEART: S1, S2, regular rate. ABDOMEN: Soft with mild tenderness left side. EXTREMITIES: Moves extremities equally. LABORATORY DATA: White cell count down to 12,000, hemoglobin 8.9, platelets 924. Sodium 135, creati nine 1.05. Microbiology with E. coli, Klebsiella. Three different anaerobes. The gram-negative otf s have a broad susceptibility profile. ASSESSMENT AND DISCUSSION: Obesity, hypertension, sleeve gastrectomy with subphrenic abscess, on bro ad spectrum coverage. The possibility of a staple line leak has been considered, but the drainage se ems to be decreasing that still by itself does not rule out a staple line leak. We will have to cont inue monitoring. In view of the susceptibility of the organisms, could eventually envision transitio n to oral quinolone plus Flagyl for continuation of therapy in the outpatient setting whenever patien t becomes eligible.
--- NOTE | 2018-02-17 15:38 | PRG ---
DATE OF SERVICE: 02/17/2018 SUBJECTIVE: She is feeling better today. She did a little better with PT. She is able to stand on her own. She still have in the left upper pain, but it is slightly better. OBJECTIVE: She is afebrile. Temperature 97.6, pulse 80, blood pressure 103/70. The nurse said that she had almost zero out of her drain last night, 10 mL in it this morning. It is thinner, but it st ill kind of a brownish color. She really did not have any lab today. ASSESSMENT: Doing well. PLAN: To order a PICC line and to get the central line out of her neck. Continue PT. She would yessy efit from rehabilitation.
[2018-02-17] MEDS: Apixaban 5 MG TAB PO SCH ×2 (17:30→20:14)
[2018-02-17] MEDS: Micafungin 100 MG in Sodium Chloride 0.9% 100 ML IVPB SCH (20:12)
[2018-02-17] MEDS: Atorvastatin Calcium 10 MG TAB PO SCH (20:12)
[2018-02-17] MEDS: Nystatin Powder 15 GM BOT TOP SCH (21:34)
[2018-02-18] MEDS: MEROPENEM 1 GM/50 ML 1 GM in Premix Bag 1 BAG IVPB SCH ×3 (01:26→17:49)
[2018-02-18] MEDS: Mometasone/Formoterol 120 PUFF INHALER INH SCH ×2 (07:15→19:41)
[2018-02-18 08:26] LABS: #Eosinphils 0.5 thou/uL (0.0-0.7); #Lymphocytes 1.9 thou/uL (1.20-3.40); #Monocytes 1.2 thou/uL (0.11-0.59); #Neutrophils 6.4 thou/uL (1.40-6.50); %Basophils 0.3 % (0.0-1.0); %Eosinophils 5.1 % (0.0-10.0); %Monocytes 11.7 % (0.0-10.0); %Neutrophils 63.9 % (42.0-75.0); Mean Corpuscular HGB CONC 29.6 g/dL (32.0-36.0); Mean Corpuscular Hemoglobin 28.4 pg (27.0-31.0); Mean Corpuscular Volume 95.9 fL (78.0-98.0); Mean Platelet Volume 7.9 fL (7.4-10.4); Platelet Count 929 thou/uL (130-400); RBC Distribution Width 15.1 % (11.5-14.5); Red Blood Cell (RBC) Count 3.17 mill/uL (4.20-5.40)
[2018-02-18 08:40] LABS: ALT (SGPT) 47 U/L (8-55); AST (SGOT) 42 U/L (5-34); Albumin 2.7 g/dL (3.5-5.0); Alkaline Phosphatase 106 U/L (40-150); Anion Gap 14 mmol/L (10-20); BUN (Urea Nitrogen) 18 mg/dL (7.0-18.7); Bilirubin, Total 0.4 mg/dL (0.2-1.2); CRP (Inflammatory) 9.67 mg/dL (= or < 0.5); Calc. Creatinine Clearance 261 mL/min (70-130); Carbon Dioxide 27 mmol/L (22-29); Chloride 102 mmol/L (98-107); Estimated GFR-MDRD 61; Globulin 3.9 g/dL (2.4-3.5); Glucose 94 mg/dL (70-105); Potassium 4.9 mmol/L (3.5-5.1); Protein, Total 6.6 g/dL (6.0-8.3); Sodium 138 mmol/L (136-145)
[2018-02-18] MEDS: Lisinopril 20 MG TAB PO SCH (09:29)
[2018-02-18] MEDS: DULoxetine 30 MG CAP PO SCH (09:29)
[2018-02-18] MEDS: Carvedilol 6.25 MG TAB PO SCH ×2 (09:29→17:49)
[2018-02-18] MEDS: Saccharomyces boulardii 250 MG CAP PO SCH (09:29)
[2018-02-18] MEDS: Apixaban 5 MG TAB PO SCH ×2 (09:32→21:32)
--- NOTE | 2018-02-18 09:43 | PRG ---
DATE OF SERVICE: 02/18/2018 SUBJECTIVE: The patient feels a lot better today. She is tolerating soft foods well. Her pain is l ess. No nausea or vomiting. Bowels are working. She is due to have a PICC line today so we can get that triple lumen out of her neck. She says she is hoping to go to rehab, but wants to go to one th at is more used to taking care of morbidly obese people, so we are trying to get that set up in [place] on. PHYSICAL EXAMINATION: GENERAL: Again, she looks good. VITAL SIGNS: She is afebrile, pulse 72, blood pressure 112/74. ABDOMEN: Soft, nondistended and nontender. PLAN: PICC line today, we will keep working on getting a transfer to rehab.
--- NOTE | 2018-02-18 11:01 | PRG ---
DATE OF SERVICE: 02/18/2018 SERVICE: Pulmonary Medicine. INTERVAL HISTORY: The patient is doing fine from a respiratory standpoint. She is breathing comfort ably. Her belly pain is minimal. She has no specific complaints otherwise. She remains extraordina rily weak, but was able to stand up on 4 occasions yesterday. PHYSICAL EXAMINATION: VITAL SIGNS: Afebrile, pulse 75, blood pressure 138/84, respirations 18, saturation 98% on 3 liters nasal cannula. GENERAL: The patient is awake and alert, in no apparent distress. LUNGS: Excellent air entry. There is no prolonged expiratory phase, wheezing, rhonchi, or crackles present. HEART: Normal rate, regular. ABDOMEN: Soft, nontender, nondistended. Bowel sounds are positive. MUSCULOSKELETAL: No cyanosis or clubbing. There is no pitting in the bilateral lower extremities. NEUROLOGIC: Grossly nonfocal. LABORATORY DATA: WBC 10.0, hemoglobin 9.0, platelets 929,000 and roughly stable. Basic metabolic pr ofile and liver function studies are essentially unremarkable. AST is down trending to 42, CRP remai antonio slightly elevated. ASSESSMENT: 1. Acute hypoxic respiratory failure, resolved. 2. Septic shock secondary to subdiaphragmatic abscess, resolved. 3. Urinary tract infection, complicated, status post full course of therapy. 4. Acute kidney injury, resolved. 5. Morbid obesity. 6. Deconditioning. DISCUSSION AND PLAN: We will continue our mobilization efforts. From a purely respiratory standpoin t, the patient is stable for transition out of the hospital. Pulmonary and Critical Care will contin lawrence to follow along for the time being. She is going to go down for PICC line placement today. Steven pizano will continue to follow along for the time being.
--- NOTE | 2018-02-18 11:58 | PDOC.PN ---
- Subjective Encounter Start Date: 02/18/18 Encounter Start Time: 08:10 Patient seen and examined. No new complaints. No overnight events - Objective MAR Reviewed: Yes Vital Signs & Weight: Vital Signs (12 hours) Temp Pulse Resp BP BP Pulse Ox 02/18/18 09:29 138/84 02/18/18 07:15 75 18 98 02/18/18 07:14 98 F 82 18 138/84 98 02/18/18 04:39 97.8 F 72 16 112/74 98 02/18/18 01:44 98 F 70 18 116/76 97 Weight Admit Weight 506 lb Weight 501 lb 15.881 oz Most Recent Monitor Data Heart Rate from ECG 67 NIBP 133/62 NIBP BP-Mean 99 Respiration from ECG 24 SpO2 99 I&O: 02/17/18 02/18/18 02/19/18 06:59 06:59 06:59 Intake Total 1020 Output Total 1725 Balance -705 Result Diagrams: 02/18/18 08:12 02/18/18 08:12 Phys Exam - Physical Examination Constitutional: NAD HEENT: PERRLA, moist MMs, sclera anicteric Neck: no JVD, supple Respiratory: no wheezing, no rales, no rhonchi Cardiovascular: RRR, no significant murmur, no rub Gastrointestinal: soft, non-tender, no distention, positive bowel sounds YOU drain+ Musculoskeletal: no edema, pulses present Neurological: non-focal, normal sensation Lymphatic: no nodes Psychiatric: normal affect, A&O x 3 Skin: no rash, normal turgor Dx/Plan (1) Subphrenic abscess Code(s): K65.1 - PERITONEAL ABSCESS Status: Acute Comment: Cx showing E.Coli & klebsiella.Both pansensitive (2) Thrombocytosis after splenectomy Code(s): R79.89 - OTHER SPECIFIED ABNORMAL FINDINGS OF BLOOD CHEMISTRY; Z90.81 - ACQUIRED ABSENCE OF SPLEEN Status: Acute Comment: Persistant Elevation, which is physiologic after recent spleenctomy (3) UTI (urinary tract infection) Status: Acute Comment: E.Coli (4) Chronic atrial fibrillation Code(s): I48.2 - CHRONIC ATRIAL FIBRILLATION Status: Chronic Comment: rate controlled. (5) Morbid obesity with BMI of 70 and over, adult Code(s): E66.01 - MORBID (SEVERE) OBESITY DUE TO EXCESS CALORIES; Z68.45 - BODY MASS INDEX (BMI) 70 OR GREATER, ADULT Status: Chronic (6) TUCKER (acute kidney injury) Code(s): N17.9 - ACUTE KIDNEY FAILURE, UNSPECIFIED Status: Resolved Comment : (7) Septic shock Code(s): A41.9 - SEPSIS, UNSPECIFIED ORGANISM; R65.21 - SEVERE SEPSIS WITH SEPTIC SHOCK Status: Resolved Comment: Due to UTI & subdiaphragmatic abscess /peritonitis.improved - Plan cont current plan of care, continue antibiotics * medication reviewed as below * symptomatic treatment * continue micafungin and meropenam. * start discharge planning Review of Systems - Review of Systems Eyes: negative: Pain, Vision Change, Conjunctivae Inflammation, Eyelid Inflammation, Redness, Other ENT: negative: Ear Pain, Ear Discharge, Nose Pain, Nose Discharge, Nose Congestion, Mouth Pain, Mouth Swelling, Throat Pain, Throat Swelling, Other Respiratory: negative: Cough, Dry, Shortness of Breath, Hemoptysis, SOB with Excertion, Pleuritic Pain, Sputum, Wheezing Cardiovascular: negative: chest pain, palpitations, orthopnea, paroxysmal nocturnal dyspnea, edema, light headedness, other Gastrointestinal: negative: Nausea, Vomiting, Abdominal Pain, Diarrhea, Constipation, Melena, Hematochezia, Other Genitourinary: negative: Dysuria, Frequency, Incontinence, Hematuria, Retention , Other Musculoskeletal: negative: Neck Pain, Shoulder Pain, Arm Pain, Back Pain, Hand Pain, Leg Pain, Foot Pain, Other - Medications/Allergies Allergies/Adverse Reactions: Allergies Allergy/AdvReac Type Severity Reaction Status Date / Time ciprofloxacin [From Cipro] Allergy Verified 01/21/18 15:38 clindamycin Allergy Rash Verified 01/21/18 15:38 levofloxacin [From Levaquin] Allergy Verified 01/21/18 15:38 lorcaserin [From Belviq] Allergy Nausea Verified 01/21/18 15:38 nitrofurantoin Allergy Hives Verified 01/21/18 15:38 [From Macrobid] Penicillins Allergy Verified 01/21/18 15:38 raspberry Allergy Verified 01/21/18 15:38 sulfamethoxazole Allergy Rash Verified 01/21/18 15:38 [From Bactrim] trimethoprim [From Bactrim] Allergy Rash Verified 01/21/18 15:38 Medications: Current Medications Acetaminophen (Tylenol Elixir) 650 mg PO Q6H PRN PRN Reason: Fever > 101 or Mild Pain Last Admin: 02/17/18 20:12 Dose: 650 mg Acetaminophen (Tylenol) 650 mg AR Q6H PRN PRN Reason: Fever > 101 or Mild Pain Al Hydroxide/Mg Hydroxide (Maalox) 30 ml PO Q8H PRN PRN Reason: Indigestion Albuterol/Ipratropium (Duoneb) 3 ml NEB [id number] PRN PRN Reason: SOB &/or Wheezing Albuterol/Ipratropium (Duoneb) 3 ml NEB [id number] [facility] Last Admin: 02/18/18 07:14 Dose: 3 ml Alprazolam (Xanax) 0.25 mg PO Q6H PRN PRN Reason: Anxiety Last Admin: 02/17/18 22:08 Dose: 0.25 mg Apixaban (Eliquis) 5 mg PO BID [facility] Last Admin: 02/18/18 09:32 Dose: Not Given Aspirin (Aspirin Chewable) 81 mg PO DAILY [facility] Last Admin: 02/18/18 09:28 Dose: 81 mg Atorvastatin Calcium (Lipitor) 10 mg PO HS [facility] Last Admin: 02/17/18 20:12 Dose: 10 mg Bisacodyl (Dulcolax) 10 mg PO DAILYPRN PRN PRN Reason: Constipation Carvedilol (Coreg) 12.5 mg [facility] Last Admin: 02/18/18 09:29 Dose: 12.5 mg Duloxetine HCl (Cymbalta) 30 mg PO DAILY [facility] Last Admin: 02/18/18 09:29 Dose: 30 mg Hydralazine HCl (Apresoline) 20 mg SLOW IVP Q1H PRN PRN Reason: SBP>180 Last Admin: 02/08/18 18:12 Dose: 20 mg Micafungin Sodium 100 mg/ (Sodium Chloride) 100 mls @ 100 mls/hr IVPB Q24HR [facility] Last Admin: 02/17/18 20:12 Dose: 100 mls Meropenem 1 gm/ Device 50 mls @ 100 mls/hr IVPB 0200,1000,1800 [facility] Last Admin: 02/18/18 01:26 Dose: 50 mls Lisinopril (Zestril) 20 mg PO DAILY [facility] Last Admin: 02/18/18 09:29 Dose: 20 mg Magnesium Hydroxide (Milk Of Magnesium) 30 ml PO Q8H PRN PRN Reason: Constipation Mineral Oil/White Petrolatum (Lacri-Lube Ointment) 0 gm EA EYE PRN PRN PRN Reason: Dry Eyes Mometasone Furoate/Formoterol Fumar (Dulera 100 Mcg/5 Mcg Inhaler) 2 puff INH BID-RT [facility] Last Admin: 02/18/18 07:15 Dose: 2 puff Nystatin (Mycostatin Powder) 1 gm TOP BID [facility] Last Admin: 02/17/18 21:34 Dose: Not Given Ondansetron HCl (Zofran) 4 mg IVP Q6H PRN PRN Reason: Nausea/Vomiting Last Admin: 02/05/18 15:56 Dose: 4 mg Pantoprazole Sodium (Protonix) 40 mg PO DAILY [facility] Last Admin: 02/18/18 09:28 Dose: 40 mg Saccharomyces Boulardii (Florastor) 250 mg PO DAILY [facility] Last Admin: 02/18/18 09:29 Dose: 250 mg Sodium Chloride (Flush - Normal Saline) 10 ml IVF Q12HR [facility] Last Admin: 02/18/18 09:33 Dose: Not Given Sodium Chloride (Flush - Normal Saline) 10 ml IVF PRN PRN PRN Reason: Saline Flush Sodium Chloride (Flush - Normal Saline) 10 ml IVF PRN PRN PRN Reason: Saline Flush
[2018-02-18] MEDS: Nystatin Powder 15 GM BOT TOP SCH ×2 (13:03→22:03)
--- NOTE | 2018-02-18 14:29 | SPC ---
SONOGRAPHIC GUIDED LEFT UPPER EXTREMITY PICC: HISTORY: Diaphragmatic infection. Need for long-term antibiotics. FINDINGS: After explaining the procedure and answering all questions, the left upper extremity was prepped and draped in the usual sterile fashion. Sterile technique, buffered local anesthesia, sonographic alana nce, and a 22-gauge needle were used to carefully access the left cephalic vein. Standard technique was then used to place the tip of a 5 [place]ian dual-lumen PICC so that the tip lies at the level of the superior vena cava. The catheter was flushed and secured externally. The patient tolerated the pro cedure well and was returned in unchanged condition. IMPRESSION: Left upper extremity PICC is ready for use. POS: BARBARA
[2018-02-18] MEDS: Acetaminophen 650 MG/20.3 ML UDCUP PO PRN (15:10)
[2018-02-18] MEDS: Atorvastatin Calcium 10 MG TAB PO SCH (20:53)
[2018-02-18] MEDS: Micafungin 100 MG in Sodium Chloride 0.9% 100 ML IVPB SCH (21:01)
[2018-02-18] MEDS: ALPRAZolam 0.25 MG TAB PO PRN (22:03)
[2018-02-19] MEDS: MEROPENEM 1 GM/50 ML 1 GM in Premix Bag 1 BAG IVPB SCH ×3 (02:21→17:45)
[2018-02-19] MEDS: Mometasone/Formoterol 120 PUFF INHALER INH SCH ×3 (06:30→20:21)
[2018-02-19] MEDS: Saccharomyces boulardii 250 MG CAP PO SCH (09:40)
[2018-02-19] MEDS: Carvedilol 6.25 MG TAB PO SCH ×2 (09:40→17:44)
[2018-02-19] MEDS: DULoxetine 30 MG CAP PO SCH (09:40)
[2018-02-19] MEDS: Lisinopril 20 MG TAB PO SCH (09:40)
[2018-02-19] MEDS: Nystatin Powder 15 GM BOT TOP SCH ×2 (11:21→20:47)
[2018-02-19] MEDS: Apixaban 5 MG TAB PO SCH ×2 (11:21→20:41)
[2018-02-19] MEDS: ALPRAZolam 0.25 MG TAB PO PRN ×2 (11:21→19:38)
--- NOTE | 2018-02-19 11:23 | PRG ---
DATE OF SERVICE: 02/19/2018 SERVICE: Pulmonary Medicine. INTERVAL HISTORY: Because of downtime air, I am not able to review laboratories , or imaging studies. That being said, patient had an uneventful evening. She feels that she is getting a little bit stronger working with physical therapy day by day. That being said, she is still discouraged by slow progress she is making. She denies any overnight events, fevers, chills, cough, sputum production, or belly pain. Otherwise, she is in her usual state of health. PHYSICAL EXAMINATION: VITAL SIGNS: Afebrile, pulse 87, respirations 15, saturation 98% on room air, blood pressure 114/78. GENERAL: The patient is awake, alert, no apparent distress. LUNGS: Excellent air entry with no prolonged expiratory phase, wheezing, rhonchi or crackles. HEART: Normal rate, regular. ABDOMEN: Soft, nontender, nondistended. Bowel sounds are positive. MUSCULOSKELETAL: No cyanosis or clubbing. There is no pitting in the bilateral lower extremities. NEUROLOGIC: Grossly nonfocal. LABORATORY DATA: Lab data was reviewed after the note was generated secondary to computer downtime. ASSESSMENT: 1. Acute hypoxic respiratory failure. 2. Septic shock, resolved. 3. Gross peritonitis secondary to subdiaphragmatic abscess, status post laparoscopy. 4. Obstructive sleep apnea, suspected DISCUSSION AND PLAN: The patient is doing absolutely wonderful from a respiratory standpoint. She is clearing her inflammatory profile very nicely. Duration of antibiotics will be determined by Dr. Barroso. At this point, she has no further requirements for inpatient Pulmonary or Critical Care opinion and I will sign off. Please call with additional questions or concerns moving forward. I will have her return to clinic to see me in a couple of months in the outpatient setting to consider sending her for a polysomnogram. TIERA
--- NOTE | 2018-02-19 12:32 | PDOC.PN ---
- Subjective Encounter Start Date: 02/19/18 Encounter Start Time: 08:00 Patient seen and examined. No new complaints. No overnight events - Objective MAR Reviewed: Yes Vital Signs & Weight: Vital Signs (12 hours) Temp Pulse Resp BP BP Pulse Ox 02/19/18 12:15 95 02/19/18 10:30 97.6 F 88 18 136/82 95 02/19/18 09:40 144/86 H 02/19/18 08:50 97.6 F 88 18 98 02/19/18 06:07 98 02/19/18 02:15 84 18 98 Weight Admit Weight 506 lb Weight 501 lb 15.881 oz Most Recent Monitor Data Heart Rate from ECG 67 NIBP 133/62 NIBP BP-Mean 99 Respiration from ECG 24 SpO2 99 I&O: 02/18/18 02/19/18 02/20/18 06:59 06:59 06:59 Intake Total 1020 800 Output Total 1725 450 150 Balance -705 350 -150 Result Diagrams: 02/18/18 08:12 02/18/18 08:12 Phys Exam - Physical Examination Constitutional: NAD HEENT: PERRLA, moist MMs, sclera anicteric Neck: no JVD, supple Respiratory: no wheezing, no rales, no rhonchi Cardiovascular: RRR, no significant murmur, no rub Gastrointestinal: soft, non-tender, no distention, positive bowel sounds YOU drain in place Musculoskeletal: no edema, pulses present Neurological: non-focal Psychiatric: normal affect Skin: no rash, normal turgor Dx/Plan (1) Subphrenic abscess Code(s): K65.1 - PERITONEAL ABSCESS Status: Acute Comment: Cx showing E.Coli & klebsiella.Both pansensitive (2) Thrombocytosis after splenectomy Code(s): R79.89 - OTHER SPECIFIED ABNORMAL FINDINGS OF BLOOD CHEMISTRY; Z90.81 - ACQUIRED ABSENCE OF SPLEEN Status: Acute Comment: Persistant Elevation, which is physiologic after recent spleenctomy (3) UTI (urinary tract infection) Status: Acute Comment: E.Coli (4) Chronic atrial fibrillation Code(s): I48.2 - CHRONIC ATRIAL FIBRILLATION Status: Chronic Comment: rate controlled. (5) Morbid obesity with BMI of 70 and over, adult Code(s): E66.01 - MORBID (SEVERE) OBESITY DUE TO EXCESS CALORIES; Z68.45 - BODY MASS INDEX (BMI) 70 OR GREATER, ADULT Status: Chronic (6) TUCKER (acute kidney injury) Code(s): N17.9 - ACUTE KIDNEY FAILURE, UNSPECIFIED Status: Resolved Comment : (7) Septic shock Code(s): A41.9 - SEPSIS, UNSPECIFIED ORGANISM; R65.21 - SEVERE SEPSIS WITH SEPTIC SHOCK Status: Resolved Comment: Due to UTI & subdiaphragmatic abscess /peritonitis.improved - Plan cont current plan of care, continue antibiotics, PT/OT, social media director * PICC line placed * drain as per surgeon * continue meropenam and micafungin * medication reviewed as below * symptomatic treatment * discharge planning. Review of Systems - Review of Systems Constitutional: weakness. negative: fever, chills, sweats, malaise, other ENT: negative: Ear Pain, Ear Discharge, Nose Pain, Nose Discharge, Nose Congestion, Mouth Pain, Mouth Swelling, Throat Pain, Throat Swelling, Other Respiratory: negative: Cough, Dry, Shortness of Breath, Hemoptysis, SOB with Excertion, Pleuritic Pain, Sputum, Wheezing Cardiovascular: negative: chest pain, palpitations, orthopnea, paroxysmal nocturnal dyspnea, edema, light headedness, other Gastrointestinal: negative: Nausea, Vomiting, Abdominal Pain, Diarrhea, Constipation, Melena, Hematochezia, Other Genitourinary: negative: Dysuria, Frequency, Incontinence, Hematuria, Retention , Other Musculoskeletal: negative: Neck Pain, Shoulder Pain, Arm Pain, Back Pain, Hand Pain, Leg Pain, Foot Pain, Other Skin: negative: Rash, Lesions, Malvin, Bruising, Other - Medications/Allergies Allergies/Adverse Reactions: Allergies Allergy/AdvReac Type Severity Reaction Status Date / Time ciprofloxacin [From Cipro] Allergy Verified 01/21/18 15:38 clindamycin Allergy Rash Verified 01/21/18 15:38 levofloxacin [From Levaquin] Allergy Verified 01/21/18 15:38 lorcaserin [From Belviq] Allergy Nausea Verified 01/21/18 15:38 nitrofurantoin Allergy Hives Verified 01/21/18 15:38 [From Macrobid] Penicillins Allergy Verified 01/21/18 15:38 raspberry Allergy Verified 01/21/18 15:38 sulfamethoxazole Allergy Rash Verified 01/21/18 15:38 [From Bactrim] trimethoprim [From Bactrim] Allergy Rash Verified 01/21/18 15:38 Medications: Current Medications Acetaminophen (Tylenol Elixir) 650 mg PO Q6H PRN PRN Reason: Fever > 101 or Mild Pain Last Admin: 02/18/18 15:10 Dose: 650 mg Acetaminophen (Tylenol) 650 mg [place] Q6H PRN PRN Reason: Fever > 101 or Mild Pain Al Hydroxide/Mg Hydroxide (Maalox) 30 ml PO Q8H PRN PRN Reason: Indigestion Albuterol/Ipratropium (Duoneb) 3 ml NEB [id number] PRN PRN Reason: SOB &/or Wheezing Albuterol/Ipratropium (Duoneb) 3 ml NEB [id number] [facility] Last Admin: 02/19/18 07:00 Dose: Not Given Alprazolam (Xanax) 0.25 mg PO Q6H PRN PRN Reason: Anxiety Last Admin: 02/19/18 11:21 Dose: 0.25 mg Apixaban (Eliquis) 5 mg PO BID [facility] Last Admin: 02/19/18 11:21 Dose: 5 mg Aspirin (Aspirin Chewable) 81 mg PO DAILY [facility] Last Admin: 02/19/18 09:40 Dose: 81 mg Atorvastatin Calcium (Lipitor) 10 mg PO HS [facility] Last Admin: 02/18/18 20:53 Dose: 10 mg Bisacodyl (Dulcolax) 10 mg PO DAILYPRN PRN PRN Reason: Constipation Carvedilol (Coreg) 12.5 mg PO BID-WM [facility] Last Admin: 02/19/18 09:40 Dose: 12.5 mg Duloxetine HCl (Cymbalta) 30 mg PO DAILY [facility] Last Admin: 02/19/18 09:40 Dose: 30 mg Hydralazine HCl (Apresoline) 20 mg SLOW IVP Q1H PRN PRN Reason: SBP>180 Last Admin: 02/08/18 18:12 Dose: 20 mg Micafungin Sodium 100 mg/ (Sodium Chloride) 100 mls @ 100 mls/hr IVPB Q24HR [facility] Last Admin: 02/18/18 21:01 Dose: 100 mls Meropenem 1 gm/ Device 50 mls @ 100 mls/hr IVPB 0200,1000,1800 [facility] Last Admin: 02/19/18 10:42 Dose: 50 mls Lisinopril (Zestril) 20 mg PO DAILY [facility] Last Admin: 02/19/18 09:40 Dose: 20 mg Magnesium Hydroxide (Milk Of Magnesium) 30 ml PO Q8H PRN PRN Reason: Constipation Mineral Oil/White Petrolatum (Lacri-Lube Ointment) 0 gm EA EYE PRN PRN PRN Reason: Dry Eyes Mometasone Furoate/Formoterol Fumar (Dulera 100 Mcg/5 Mcg Inhaler) 2 puff INH BID-RT [facility] Last Admin: 02/19/18 06:30 Dose: Not Given Nystatin (Mycostatin Powder) 1 gm TOP BID [facility] Last Admin: 02/19/18 11:21 Dose: 1 applic Ondansetron HCl (Zofran) 4 mg IVP Q6H PRN PRN Reason: Nausea/Vomiting Last Admin: 02/05/18 15:56 Dose: 4 mg Pantoprazole Sodium (Protonix) 40 mg PO DAILY [facility] Last Admin: 02/19/18 09:40 Dose: 40 mg Saccharomyces Boulardii (Florastor) 250 mg PO DAILY [facility] Last Admin: 02/19/18 09:40 Dose: 250 mg Sodium Chloride (Flush - Normal Saline) 10 ml IVF Q12HR [facility] Last Admin: 02/19/18 09:40 Dose: 10 ml Sodium Chloride (Flush - Normal Saline) 10 ml IVF PRN PRN PRN Reason: Saline Flush
[2018-02-19 13:33] VITALS: BMI 83.5
--- NOTE | 2018-02-19 14:10 | PRG ---
DATE OF SERVICE: 02/19/2018 SUBJECTIVE: The patient is feeling better today, less pain. She is tolerating bariatric soft diet. She is doing more with her physical therapy. PHYSICAL EXAMINATION: VITAL SIGNS: Temperature 97.6, pulse 84, blood pressure 126/78. GENERAL: She looks to be in good spirits, still has a central line in, but they were able to get the PICC line yesterday. ABDOMEN: Soft, nondistended, nontender. Her output 25 mL clear. ASSESSMENT: Doing well. PLAN: Discontinue central line. We are waiting to transfer her to a rehab facility. Her is going to look at one in [place] tomorrow and as soon as we get exception and acceptance will s end her there.
[2018-02-19] MEDS ORDERED: Ketorolac Tromethamine 60 MG/2 ML VIAL ONE (19:37)
[2018-02-19] MEDS: Micafungin 100 MG in Sodium Chloride 0.9% 100 ML IVPB SCH (20:41)
[2018-02-19] MEDS: Atorvastatin Calcium 10 MG TAB PO SCH (20:41)
[2018-02-20] MEDS: MEROPENEM 1 GM/50 ML 1 GM in Premix Bag 1 BAG IVPB SCH ×3 (01:26→17:30)
[2018-02-20] MEDS: Mometasone/Formoterol 120 PUFF INHALER INH SCH ×2 (06:46→18:55)
[2018-02-20] MEDS: Saccharomyces boulardii 250 MG CAP PO SCH (08:26)
[2018-02-20] MEDS: Apixaban 5 MG TAB PO SCH ×2 (08:26→20:25)
[2018-02-20] MEDS: Lisinopril 20 MG TAB PO SCH (08:26)
[2018-02-20] MEDS: DULoxetine 30 MG CAP PO SCH (08:27)
[2018-02-20] MEDS: Carvedilol 6.25 MG TAB PO SCH ×2 (08:27→17:29)
[2018-02-20] MEDS: Nystatin Powder 15 GM BOT TOP SCH ×2 (08:28→20:26)
--- NOTE | 2018-02-20 11:34 | PDOC.PN ---
- Subjective Encounter Start Date: 02/20/18 Encounter Start Time: 08:00 Patient seen and examined. No new complaints. No overnight events she has no BM since sunday - Objective AUG Reviewed: Yes Vital Signs & Weight: Vital Signs (12 hours) Temp Pulse Resp BP Pulse Ox 02/20/18 10:16 82 136/86 02/20/18 08:21 98.0 F 82 15 186/100 H 93 L 02/20/18 06:47 97 02/20/18 06:46 71 16 97 02/20/18 06:44 71 16 97 02/20/18 04:26 97.8 F 82 16 134/88 97 02/20/18 03:45 95 02/20/18 03:31 92 18 95 02/20/18 03:24 98.1 F 85 16 124/75 95 02/20/18 00:00 97.5 F L 81 16 138/90 96 Weight Admit Weight 506 lb Weight 501 lb 15.881 oz Most Recent Monitor Data Heart Rate from ECG 67 NIBP 133/62 NIBP BP-Mean 99 Respiration from ECG 24 SpO2 99 I&O: 02/19/18 02/20/18 02/21/18 06:59 06:59 06:59 Intake Total 800 2334 Output Total 450 1100 Balance 350 1234 Result Diagrams: 02/18/18 08:12 02/18/18 08:12 Phys Exam - Physical Examination Constitutional: NAD HEENT: PERRLA, moist MMs, sclera anicteric Neck: no JVD, supple Respiratory: no wheezing, no rales, no rhonchi Cardiovascular: RRR, no significant murmur, no rub Gastrointestinal: soft, non-tender, no distention, positive bowel sounds drain+ Musculoskeletal: no edema, pulses present Neurological: non-focal, normal sensation Psychiatric: normal affect, A&O x 3 Skin: no rash, normal turgor Dx/Plan (1) Subphrenic abscess Code(s): K65.1 - PERITONEAL ABSCESS Status: Acute Comment: Cx showing E.Coli & klebsiella.Both pansensitive (2) Thrombocytosis after splenectomy Code(s): R79.89 - OTHER SPECIFIED ABNORMAL FINDINGS OF BLOOD CHEMISTRY; Z90.81 - ACQUIRED ABSENCE OF SPLEEN Status: Acute Comment: Persistant Elevation, which is physiologic after recent spleenctomy (3) UTI (urinary tract infection) Status: Acute Comment: E.Coli (4) Chronic atrial fibrillation Code(s): I48.2 - CHRONIC ATRIAL FIBRILLATION Status: Chronic Comment: rate controlled. (5) Morbid obesity with BMI of 70 and over, adult Code(s): E66.01 - MORBID (SEVERE) OBESITY DUE TO EXCESS CALORIES; Z68.45 - BODY MASS INDEX (BMI) 70 OR GREATER, ADULT Status: Chronic (6) TUCKER (acute kidney injury) Code(s): N17.9 - ACUTE KIDNEY FAILURE, UNSPECIFIED Status: Resolved Comment : (7) Septic shock Code(s): A41.9 - SEPSIS, UNSPECIFIED ORGANISM; R65.21 - SEVERE SEPSIS WITH SEPTIC SHOCK Status: Resolved Comment: Due to UTI & subdiaphragmatic abscess /peritonitis.improved - Plan cont current plan of care, continue antibiotics, PT/OT, secondary social studies teacher * continue meropenam and micafungin for now * discharge planning in process * will need more laxative for her constipation * medication reviewed as below * symptomatic treatment. Review of Systems - Review of Systems Eyes: negative: Pain, Vision Change, Conjunctivae Inflammation, Eyelid Inflammation, Redness, Other ENT: negative: Ear Pain, Ear Discharge, Nose Pain, Nose Discharge, Nose Congestion, Mouth Pain, Mouth Swelling, Throat Pain, Throat Swelling, Other Respiratory: negative: Cough, Dry, Shortness of Breath, Hemoptysis, SOB with Excertion, Pleuritic Pain, Sputum, Wheezing Cardiovascular: negative: chest pain, palpitations, orthopnea, paroxysmal nocturnal dyspnea, edema, light headedness, other Gastrointestinal: Constipation. negative: Nausea, Vomiting, Abdominal Pain, Diarrhea, Melena, Hematochezia, Other Genitourinary: negative: Dysuria, Frequency, Incontinence, Hematuria, Retention , Other Musculoskeletal: negative: Neck Pain, Shoulder Pain, Arm Pain, Back Pain, Hand Pain, Leg Pain, Foot Pain, Other Skin: negative: Rash, Lesions, Malvin, Bruising, Other - Medications/Allergies Allergies/Adverse Reactions: Allergies Allergy/AdvReac Type Severity Reaction Status Date / Time ciprofloxacin [From Cipro] Allergy Verified 01/21/18 15:38 clindamycin Allergy Rash Verified 01/21/18 15:38 levofloxacin [From Levaquin] Allergy Verified 01/21/18 15:38 lorcaserin [From Belviq] Allergy Nausea Verified 01/21/18 15:38 nitrofurantoin Allergy Hives Verified 01/21/18 15:38 [From Macrobid] Penicillins Allergy Verified 01/21/18 15:38 raspberry Allergy Verified 01/21/18 15:38 sulfamethoxazole Allergy Rash Verified 01/21/18 15:38 [From Bactrim] trimethoprim [From Bactrim] Allergy Rash Verified 01/21/18 15:38 Medications: Current Medications Acetaminophen (Tylenol Elixir) 650 mg PO Q6H PRN PRN Reason: Fever > 101 or Mild Pain Last Admin: 02/18/18 15:10 Dose: 650 mg Acetaminophen (Tylenol) 650 mg [place] Q6H PRN PRN Reason: Fever > 101 or Mild Pain Al Hydroxide/Mg Hydroxide (Maalox) 30 ml PO Q8H PRN PRN Reason: Indigestion Albuterol/Ipratropium (Duoneb) 3 ml NEB [id number] PRN PRN Reason: SOB &/or Wheezing Albuterol/Ipratropium (Duoneb) 3 ml NEB [id number] [facility] Last Admin: 02/20/18 06:44 Dose: 3 ml Alprazolam (Xanax) 0.25 mg PO Q6H PRN PRN Reason: Anxiety Last Admin: 02/19/18 19:38 Dose: 0.25 mg Apixaban (Eliquis) 5 mg PO BID [facility] Last Admin: 02/20/18 08:26 Dose: 5 mg Aspirin (Aspirin Chewable) 81 mg PO DAILY [facility] Last Admin: 02/20/18 08:27 Dose: 81 mg Atorvastatin Calcium (Lipitor) 10 mg PO HS [facility] Last Admin: 02/19/18 20:41 Dose: 10 mg Bisacodyl (Dulcolax) 10 mg PO DAILYPRN PRN PRN Reason: Constipation Carvedilol (Coreg) 12.5 mg PO BID-[facility] Last Admin: 02/20/18 08:27 Dose: 12.5 mg Duloxetine HCl (Cymbalta) 30 mg PO DAILY [facility] Last Admin: 02/20/18 08:27 Dose: 30 mg Hydralazine HCl (Apresoline) 20 mg SLOW IVP Q1H PRN PRN Reason: SBP>180 Last Admin: 02/08/18 18:12 Dose: 20 mg Micafungin Sodium 100 mg/ (Sodium Chloride) 100 mls @ 100 mls/hr IVPB Q24HR [facility] Last Admin: 02/19/18 20:41 Dose: 100 mls Meropenem 1 gm/ Device 50 mls @ 100 mls/hr IVPB 0200,1000,1800 [facility] Last Admin: 02/20/18 10:10 Dose: 50 mls Lisinopril (Zestril) 20 mg PO DAILY [facility] Last Admin: 02/20/18 08:26 Dose: 20 mg Magnesium Hydroxide (Milk Of Magnesium) 30 ml PO Q8H PRN PRN Reason: Constipation Mineral Oil/White Petrolatum (Lacri-Lube Ointment) 0 gm EA EYE PRN PRN PRN Reason: Dry Eyes Mometasone Furoate/Formoterol Fumar (Dulera 100 Mcg/5 Mcg Inhaler) 2 puff INH BID-RT [facility] Last Admin: 02/20/18 06:46 Dose: 2 puff Nystatin (Mycostatin Powder) 1 gm TOP BID [facility] Last Admin: 02/20/18 08:28 Dose: 1 applic Ondansetron HCl (Zofran) 4 mg IVP Q6H PRN PRN Reason: Nausea/Vomiting Last Admin: 02/05/18 15:56 Dose: 4 mg Pantoprazole Sodium (Protonix) 40 mg PO DAILY [facility] Last Admin: 02/20/18 08:27 Dose: 40 mg Saccharomyces Boulardii (Florastor) 250 mg PO DAILY [facility] Last Admin: 02/20/18 08:26 Dose: 250 mg Sodium Chloride (Flush - Normal Saline) 10 ml IVF Q12HR [facility] Last Admin: 02/20/18 08:28 Dose: 10 ml Sodium Chloride (Flush - Normal Saline) 10 ml IVF PRN PRN PRN Reason: Saline Flush
--- NOTE | 2018-02-20 14:45 | DIS ---
DATE OF ADMISSION: 02/04/2018 DATE OF DISCHARGE: 02/20/2018 DISCHARGE DIAGNOSES: Super morbid obesity with body mass index of 81, left subphrenic abscess, sepsi s, renal insufficiency, deconditioning. PROCEDURES DURING ADMISSION: Laparoscopic drainage of left subphrenic abscess, central line placemen t, IV antibiotics, mechanical ventilation. HOSPITAL COURSE: The patient was admitted. She was initially taken to the ICU, given IV antibiotics and IV fluids, taken to surgery where she underwent a laparoscopic drainage of left subphrenic absce ss. This grew out polymicrobial cultures including E. coli, Klebsiella pneumonia, and 3 anaerobes. She was treated with IV antibiotics and mechanically ventilated for a couple of days. Critical care was consulted and helped with her care. She also had renal insufficiency and Nephrology was consulte d. She was given fluids and her renal function returned. She was able to be extubated. The drain o utput diminished significantly. She was started on a bariatric clear liquid diet. She tolerated and advanced to full liquids. She tolerated it for several days. Then [facility], she was started on a soft bariatric diet which she is tolerating well. She is currently afebri le, temperature 98, pulse 82, blood pressure 186/100. She has been working with PT, but still having quite a bit of deconditioning and due to her size, we will need an extensive rehabilitation and phys ical therapy. Pain is minimal. Drain output has diminished significantly. She is now only put out about 25 mL a day and is much more serous. Infectious Disease was consulted. They recommended an ex tended course of IV antibiotics, so she will remain on antibiotics for at least another 2 weeks. She will be transferred to a rehabilitation center for further physical therapy. She will follow up [facility] after discharged from there.
[2018-02-20] MEDS: Atorvastatin Calcium 10 MG TAB PO SCH (20:25)
[2018-02-20] MEDS: Docusate 100 MG CAP PO SCH (20:26)
[2018-02-20] MEDS: Micafungin 100 MG in Sodium Chloride 0.9% 100 ML IVPB SCH (20:26)
[2018-02-20] MEDS: ALPRAZolam 0.25 MG TAB PO PRN (22:27)
[2018-02-21] MEDS: MEROPENEM 1 GM/50 ML 1 GM in Premix Bag 1 BAG IVPB SCH ×3 (02:35→18:35)
[2018-02-21] MEDS: Mometasone/Formoterol 120 PUFF INHALER INH SCH ×2 (06:39→19:48)
[2018-02-21] MEDS: Polyethylene Glycol 3350 17 GM Packet PO SCH (08:58)
[2018-02-21] MEDS: Docusate 100 MG CAP PO SCH ×2 (08:58→20:54)
[2018-02-21] MEDS: Carvedilol 6.25 MG TAB PO SCH ×2 (08:58→16:51)
[2018-02-21] MEDS: Nystatin Powder 15 GM BOT TOP SCH ×2 (08:59→20:54)
[2018-02-21] MEDS: Lisinopril 20 MG TAB PO SCH (08:59)
[2018-02-21] MEDS: DULoxetine 30 MG CAP PO SCH (08:59)
[2018-02-21] MEDS: Apixaban 5 MG TAB PO SCH ×2 (08:59→20:54)
[2018-02-21] MEDS: Saccharomyces boulardii 250 MG CAP PO SCH (08:59)
--- NOTE | 2018-02-21 10:10 | PDOC.PN ---
- Subjective Encounter Start Date: 02/21/18 Encounter Start Time: 08:10 Patient seen and examined. c/o constipation. No overnight events - Objective MAR Reviewed: Yes Vital Signs & Weight: Vital Signs (12 hours) Temp Pulse Resp BP Pulse Ox 02/21/18 07:21 97.7 F 83 18 160/99 H 95 02/21/18 06:39 87 16 94 L 02/21/18 06:38 87 16 94 L 02/21/18 04:00 98.1 F 91 16 148/90 H 95 02/21/18 01:50 84 16 93 L 02/21/18 00:00 97.8 F 81 16 140/90 95 Weight Admit Weight 506 lb Weight 501 lb 15.881 oz Most Recent Monitor Data Heart Rate from ECG 67 NIBP 133/62 NIBP BP-Mean 99 Respiration from ECG 24 SpO2 99 I&O: 02/20/18 02/21/18 02/22/18 06:59 06:59 06:59 Intake Total 2334 1050 Output Total 1100 670 Balance 1234 380 Result Diagrams: 02/18/18 08:12 02/18/18 08:12 Phys Exam - Physical Examination Constitutional: NAD HEENT: PERRLA, moist MMs, sclera anicteric Neck: no JVD, supple Respiratory: no wheezing, no rales, no rhonchi Cardiovascular: RRR, no significant murmur, no rub Gastrointestinal: soft, non-tender, no distention, positive bowel sounds morbid obesity limiting exam, YOU drain+ richardson+ Musculoskeletal: no edema, pulses present Neurological: non-focal, normal sensation, moves all 4 limbs Lymphatic: no nodes Psychiatric: normal affect, A&O x 3 Skin: no rash, normal turgor Dx/Plan (1) Subphrenic abscess Code(s): K65.1 - PERITONEAL ABSCESS Status: Acute Comment: Cx showing E.Coli & klebsiella.Both pansensitive (2) Thrombocytosis after splenectomy Code(s): R79.89 - OTHER SPECIFIED ABNORMAL FINDINGS OF BLOOD CHEMISTRY; Z90.81 - ACQUIRED ABSENCE OF SPLEEN Status: Acute Comment: Persistant Elevation, which is physiologic after recent spleenctomy (3) UTI (urinary tract infection) Status: Acute Comment: E.Coli (4) Chronic atrial fibrillation Code(s): I48.2 - CHRONIC ATRIAL FIBRILLATION Status: Chronic Comment: rate controlled. (5) Morbid obesity with BMI of 70 and over, adult Code(s): E66.01 - MORBID (SEVERE) OBESITY DUE TO EXCESS CALORIES; Z68.45 - BODY MASS INDEX (BMI) 70 OR GREATER, ADULT Status: Chronic (6) TUCKER (acute kidney injury) Code(s): N17.9 - ACUTE KIDNEY FAILURE, UNSPECIFIED Status: Resolved Comment : (7) Septic shock Code(s): A41.9 - SEPSIS, UNSPECIFIED ORGANISM; R65.21 - SEVERE SEPSIS WITH SEPTIC SHOCK Status: Resolved Comment: Due to UTI & subdiaphragmatic abscess /peritonitis.improved - Plan cont current plan of care, continue antibiotics, PT/OT, aids social worker * continue micafingin and meropenam as ordered * duration of iv therapy per ID team and surgeon * will need rehab placement, await arrangement * medication reviewed as below * symptomatic treatment * treat constipation. Review of Systems - Review of Systems Constitutional: negative: fever, chills, sweats, weakness, malaise, other Eyes: negative: Pain, Vision Change, Conjunctivae Inflammation, Eyelid Inflammation, Redness, Other ENT: negative: Ear Pain, Ear Discharge, Nose Pain, Nose Discharge, Nose Congestion, Mouth Pain, Mouth Swelling, Throat Pain, Throat Swelling, Other Respiratory: negative: Cough, Dry, Shortness of Breath, Hemoptysis, SOB with Excertion, Pleuritic Pain, Sputum, Wheezing Cardiovascular: negative: chest pain, palpitations, orthopnea, paroxysmal nocturnal dyspnea, edema, light headedness, other Gastrointestinal: Constipation. negative: Nausea, Vomiting, Abdominal Pain, Diarrhea, Melena, Hematochezia, Other Genitourinary: negative: Dysuria, Frequency, Incontinence, Hematuria, Retention , Other - Medications/Allergies Allergies/Adverse Reactions: Allergies Allergy/AdvReac Type Severity Reaction Status Date / Time ciprofloxacin [From Cipro] Allergy Verified 01/21/18 15:38 clindamycin Allergy Rash Verified 01/21/18 15:38 levofloxacin [From Levaquin] Allergy Verified 01/21/18 15:38 lorcaserin [From Belviq] Allergy Nausea Verified 01/21/18 15:38 nitrofurantoin Allergy Hives Verified 01/21/18 15:38 [From Macrobid] Penicillins Allergy Verified 01/21/18 15:38 raspberry Allergy Verified 01/21/18 15:38 sulfamethoxazole Allergy Rash Verified 01/21/18 15:38 [From Bactrim] trimethoprim [From Bactrim] Allergy Rash Verified 01/21/18 15:38 Medications: Current Medications Acetaminophen (Tylenol Elixir) 650 mg PO Q6H PRN PRN Reason: Fever > 101 or Mild Pain Last Admin: 02/18/18 15:10 Dose: 650 mg Acetaminophen (Tylenol) 650 mg [place] Q6H PRN PRN Reason: Fever > 101 or Mild Pain Al Hydroxide/Mg Hydroxide (Maalox) 30 ml PO Q8H PRN PRN Reason: Indigestion Albuterol/Ipratropium (Duoneb) 3 ml NEB [id number] PRN PRN Reason: SOB &/or Wheezing Albuterol/Ipratropium (Duoneb) 3 ml NEB [id number] [facility] Last Admin: 02/21/18 06:38 Dose: 3 ml Alprazolam (Xanax) 0.25 mg PO Q6H PRN PRN Reason: Anxiety Last Admin: 02/20/18 22:27 Dose: 0.25 mg Apixaban (Eliquis) 5 mg PO BID [facility] Last Admin: 02/21/18 08:59 Dose: 5 mg Aspirin (Aspirin Chewable) 81 mg PO DAILY [facility] Last Admin: 02/21/18 08:59 Dose: 81 mg Atorvastatin Calcium (Lipitor) 10 mg PO HS [facility] Last Admin: 02/20/18 20:25 Dose: 10 mg Bisacodyl (Dulcolax) 10 mg PO DAILYPRN PRN PRN Reason: Constipation Carvedilol (Coreg) 12.5 mg PO BID-[facility] Last Admin: 02/21/18 08:58 Dose: 12.5 mg Docusate Sodium (Colace) 100 mg PO BID [facility] Last Admin: 02/21/18 08:58 Dose: 100 mg Duloxetine HCl (Cymbalta) 30 mg PO DAILY [facility] Last Admin: 02/21/18 08:59 Dose: 30 mg Hydralazine HCl (Apresoline) 20 mg SLOW IVP Q1H PRN PRN Reason: SBP>180 Last Admin: 02/08/18 18:12 Dose: 20 mg Micafungin Sodium 100 mg/ (Sodium Chloride) 100 mls @ 100 mls/hr IVPB Q24HR [facility] Last Admin: 02/20/18 20:26 Dose: 100 mls Meropenem 1 gm/ Device 50 mls @ 100 mls/hr IVPB 0200,1000,1800 [facility] Last Admin: 02/21/18 02:35 Dose: 50 mls Lisinopril (Zestril) 20 mg PO DAILY [facility] Last Admin: 02/21/18 08:59 Dose: 20 mg Magnesium Hydroxide (Milk Of Magnesium) 30 ml PO Q8H PRN PRN Reason: Constipation Mineral Oil/White Petrolatum (Lacri-Lube Ointment) 0 gm EA EYE PRN PRN PRN Reason: Dry Eyes Mometasone Furoate/Formoterol Fumar (Dulera 100 Mcg/5 Mcg Inhaler) 2 puff INH BID-RT [facility] Last Admin: 02/21/18 06:39 Dose: 2 puff Nystatin (Mycostatin Powder) 1 gm TOP BID [facility] Last Admin: 02/21/18 08:59 Dose: 1 applic Ondansetron HCl (Zofran) 4 mg IVP Q6H PRN PRN Reason: Nausea/Vomiting Last Admin: 02/05/18 15:56 Dose: 4 mg Pantoprazole Sodium (Protonix) 40 mg PO DAILY [facility] Last Admin: 02/21/18 08:59 Dose: 40 mg Polyethylene Glycol (Miralax) 17 gm PO DAILY [facility] Last Admin: 02/21/18 08:58 Dose: 17 gm Saccharomyces Boulardii (Florastor) 250 mg PO DAILY [facility] Last Admin: 02/21/18 08:59 Dose: 250 mg Sodium Chloride (Flush - Normal Saline) 10 ml IVF Q12HR [facility] Last Admin: 02/21/18 09:00 Dose: 10 ml Sodium Chloride (Flush - Normal Saline) 10 ml IVF PRN PRN PRN Reason: Saline Flush
--- NOTE | 2018-02-21 13:29 | TCOM ---
DATE OF SERVICE: 02/21/2018 The patient reports feeling depressed today because she is not progressing as fast that she wants, bu t she is doing better, I mean each day she does little more with physical therapy. She is tolerating a soft diet well. She denies any pain today. PHYSICAL EXAMINATION: VITAL SIGNS: Temperature 97.7, pulse 83, blood pressure 160/99. The YOU drain put out 20 mL, 0 yeste rday, 20 today. The drain was removed. ABDOMEN: Soft, nondistended, nontender. ASSESSMENT: Doing well. PLAN: She was accepted to the rehab unit in [place]. We are awaiting approval by the [facility], then we will transfer her.
[2018-02-21] MEDS: Acetaminophen 650 MG/20.3 ML UDCUP PO PRN ×2 (13:52→20:54)
[2018-02-21] MEDS: Atorvastatin Calcium 10 MG TAB PO SCH (20:54)
[2018-02-21] MEDS: ALPRAZolam 0.25 MG TAB PO PRN (22:14)
[2018-02-22] MEDS: MEROPENEM 1 GM/50 ML 1 GM in Premix Bag 1 BAG IVPB SCH ×3 (02:22→18:57)
[2018-02-22] MEDS: Mometasone/Formoterol 120 PUFF INHALER INH SCH ×2 (06:36→19:34)
[2018-02-22] MEDS: Polyethylene Glycol 3350 17 GM Packet PO SCH (09:03)
[2018-02-22] MEDS: DULoxetine 30 MG CAP PO SCH (09:03)
[2018-02-22] MEDS: Lisinopril 20 MG TAB PO SCH (09:04)
[2018-02-22] MEDS: Carvedilol 6.25 MG TAB PO SCH ×2 (09:04→18:57)
[2018-02-22] MEDS: Saccharomyces boulardii 250 MG CAP PO SCH (09:05)
[2018-02-22] MEDS: Docusate 100 MG CAP PO SCH ×2 (09:05→20:56)
[2018-02-22] MEDS: Apixaban 5 MG TAB PO SCH ×2 (09:10→20:56)
[2018-02-22] MEDS: Nystatin Powder 15 GM BOT TOP SCH ×2 (09:10→20:55)
[2018-02-22] MEDS: ALPRAZolam 0.25 MG TAB PO PRN ×2 (09:13→22:26)
--- NOTE | 2018-02-22 09:32 | PDOC.PN ---
- Subjective Encounter Start Date: 02/22/18 Encounter Start Time: 08:40 Patient seen and examined. No new complaints. No overnight events - Objective MAR Reviewed: Yes Vital Signs & Weight: Vital Signs (12 hours) Temp Pulse Resp BP Pulse Ox 02/22/18 06:36 85 16 94 L 02/22/18 06:35 85 16 94 L 02/22/18 05:02 97.8 F 81 17 154/95 H 94 L 02/22/18 00:05 98 F 73 22 H 138/72 95 02/21/18 23:46 70 16 94 L Weight Admit Weight 506 lb Weight 501 lb 15.881 oz Most Recent Monitor Data Heart Rate from ECG 67 NIBP 133/62 NIBP BP-Mean 99 Respiration from ECG 24 SpO2 99 I&O: 02/21/18 02/22/18 02/23/18 06:59 06:59 06:59 Intake Total 1050 1380 Output Total 670 1100 Balance 380 280 Result Diagrams: 02/18/18 08:12 02/18/18 08:12 Phys Exam - Physical Examination Constitutional: NAD HEENT: PERRLA, moist MMs, sclera anicteric Neck: no JVD, supple Respiratory: no wheezing, no rales, no rhonchi Cardiovascular: RRR, no significant murmur, no rub Gastrointestinal: soft, non-tender, no distention, positive bowel sounds morbid obesity+ Musculoskeletal: no edema, pulses present Neurological: non-focal, normal sensation Lymphatic: no nodes Psychiatric: normal affect, A&O x 3 Skin: no rash, normal turgor Dx/Plan (1) Subphrenic abscess Code(s): K65.1 - PERITONEAL ABSCESS Status: Acute Comment: Cx showing E.Coli & klebsiella.Both pansensitive (2) Thrombocytosis after splenectomy Code(s): R79.89 - OTHER SPECIFIED ABNORMAL FINDINGS OF BLOOD CHEMISTRY; Z90.81 - ACQUIRED ABSENCE OF SPLEEN Status: Acute Comment: Persistant Elevation, which is physiologic after recent spleenctomy (3) UTI (urinary tract infection) Status: Acute Comment: E.Coli (4) Chronic atrial fibrillation Code(s): I48.2 - CHRONIC ATRIAL FIBRILLATION Status: Chronic Comment: rate controlled. (5) Morbid obesity with BMI of 70 and over, adult Code(s): E66.01 - MORBID (SEVERE) OBESITY DUE TO EXCESS CALORIES; Z68.45 - BODY MASS INDEX (BMI) 70 OR GREATER, ADULT Status: Chronic (6) TUCKER (acute kidney injury) Code(s): N17.9 - ACUTE KIDNEY FAILURE, UNSPECIFIED Status: Resolved Comment : (7) Septic shock Code(s): A41.9 - SEPSIS, UNSPECIFIED ORGANISM; R65.21 - SEVERE SEPSIS WITH SEPTIC SHOCK Status: Resolved Comment: Due to UTI & subdiaphragmatic abscess /peritonitis.improved - Plan cont current plan of care * continue meropenam * medication reviewed as below * symptomatic treatment * await insurance approval for rehab. * drain removed Review of Systems - Review of Systems Eyes: negative: Pain, Vision Change, Conjunctivae Inflammation, Eyelid Inflammation, Redness, Other ENT: negative: Ear Pain, Ear Discharge, Nose Pain, Nose Discharge, Nose Congestion, Mouth Pain, Mouth Swelling, Throat Pain, Throat Swelling, Other Respiratory: negative: Cough, Dry, Shortness of Breath, Hemoptysis, SOB with Excertion, Pleuritic Pain, Sputum, Wheezing Cardiovascular: negative: chest pain, palpitations, orthopnea, paroxysmal nocturnal dyspnea, edema, light headedness, other Gastrointestinal: negative: Nausea, Vomiting, Abdominal Pain, Diarrhea, Constipation, Melena, Hematochezia, Other Genitourinary: negative: Dysuria, Frequency, Incontinence, Hematuria, Retention , Other Musculoskeletal: negative: Neck Pain, Shoulder Pain, Arm Pain, Back Pain, Hand Pain, Leg Pain, Foot Pain, Other Skin: negative: Rash, Lesions, Malvin, Bruising, Other - Medications/Allergies Allergies/Adverse Reactions: Allergies Allergy/AdvReac Type Severity Reaction Status Date / Time ciprofloxacin [From Cipro] Allergy Verified 01/21/18 15:38 clindamycin Allergy Rash Verified 01/21/18 15:38 levofloxacin [From Levaquin] Allergy Verified 01/21/18 15:38 lorcaserin [From Belviq] Allergy Nausea Verified 01/21/18 15:38 nitrofurantoin Allergy Hives Verified 01/21/18 15:38 [From Macrobid] Penicillins Allergy Verified 01/21/18 15:38 raspberry Allergy Verified 01/21/18 15:38 sulfamethoxazole Allergy Rash Verified 01/21/18 15:38 [From Bactrim] trimethoprim [From Bactrim] Allergy Rash Verified 01/21/18 15:38 Medications: Current Medications Acetaminophen (Tylenol Elixir) 650 mg PO Q6H PRN PRN Reason: Fever > 101 or Mild Pain Last Admin: 02/21/18 20:54 Dose: 650 mg Acetaminophen (Tylenol) 650 mg [place] Q6H PRN PRN Reason: Fever > 101 or Mild Pain Al Hydroxide/Mg Hydroxide (Maalox) 30 ml PO Q8H PRN PRN Reason: Indigestion Albuterol/Ipratropium (Duoneb) 3 ml NEB [id number] PRN PRN Reason: SOB &/or Wheezing Albuterol/Ipratropium (Duoneb) 3 ml NEB [id number] [facility] Last Admin: 02/22/18 06:35 Dose: 3 ml Alprazolam (Xanax) 0.25 mg PO Q6H PRN PRN Reason: Anxiety Last Admin: 02/22/18 09:13 Dose: 0.25 mg Apixaban (Eliquis) 5 mg PO BID [facility] Last Admin: 02/22/18 09:10 Dose: 5 mg Aspirin (Aspirin Chewable) 81 mg PO DAILY [facility] Last Admin: 02/22/18 09:05 Dose: 81 mg Atorvastatin Calcium (Lipitor) 10 mg PO HS [facility] Last Admin: 02/21/18 20:54 Dose: 10 mg Bisacodyl (Dulcolax) 10 mg PO DAILYPRN PRN PRN Reason: Constipation Carvedilol (Coreg) 12.5 mg PO BID-[facility] Last Admin: 02/22/18 09:04 Dose: 12.5 mg Docusate Sodium (Colace) 100 mg PO BID [facility] Last Admin: 02/22/18 09:05 Dose: 100 mg Duloxetine HCl (Cymbalta) 30 mg PO DAILY [facility] Last Admin: 02/22/18 09:03 Dose: 30 mg Hydralazine HCl (Apresoline) 20 mg SLOW IVP Q1H PRN PRN Reason: SBP>180 Last Admin: 02/08/18 18:12 Dose: 20 mg Meropenem 1 gm/ Device 50 mls @ 100 mls/hr IVPB 0200,1000,1800 [facility] Last Admin: 02/22/18 09:16 Dose: 50 mls Lisinopril (Zestril) 20 mg PO DAILY [facility] Last Admin: 02/22/18 09:04 Dose: 20 mg Magnesium Hydroxide (Milk Of Magnesium) 30 ml PO Q8H PRN PRN Reason: Constipation Mineral Oil/White Petrolatum (Lacri-Lube Ointment) 0 gm EA EYE PRN PRN PRN Reason: Dry Eyes Mometasone Furoate/Formoterol Fumar (Dulera 100 Mcg/5 Mcg Inhaler) 2 puff INH BID-RT [facility] Last Admin: 02/22/18 06:36 Dose: 2 puff Nystatin (Mycostatin Powder) 1 gm TOP BID [facility] Last Admin: 02/22/18 09:10 Dose: 1 applic Ondansetron HCl (Zofran) 4 mg IVP Q6H PRN PRN Reason: Nausea/Vomiting Last Admin: 02/05/18 15:56 Dose: 4 mg Pantoprazole Sodium (Protonix) 40 mg PO DAILY [facility] Last Admin: 02/22/18 09:03 Dose: 40 mg Polyethylene Glycol (Miralax) 17 gm PO DAILY [facility] Last Admin: 02/22/18 09:03 Dose: 17 gm Saccharomyces Boulardii (Florastor) 250 mg PO DAILY [facility] Last Admin: 02/22/18 09:05 Dose: 250 mg Sodium Chloride (Flush - Normal Saline) 10 ml IVF Q12HR [facility] Last Admin: 02/22/18 09:14 Dose: 10 ml Sodium Chloride (Flush - Normal Saline) 10 ml IVF PRN PRN PRN Reason: Saline Flush
[2018-02-22] MEDS ORDERED: Mineral Oil PER 1 ML PO SCH (13:15)
[2018-02-22] MEDS ORDERED: Magnesium Citrate 300 ML BOT PO SCH (13:45)
--- NOTE | 2018-02-22 15:28 | PRG ---
DATE OF SERVICE: 02/22/2018 SUBJECTIVE: The patient says she is feeling pretty well except that she has rectal pain or pressure. She feels like she needs to have a bowel movement. PHYSICAL EXAMINATION: VITAL SIGNS: Her temperature is 97.8, pulse 78, blood pressure 160/110. GENERAL: She looks fine. She is awake, alert, in no apparent distress. Urine output is 1100. ASSESSMENT: Constipation. PLAN: We will try mineral oil and magnesium citrate. We are still waiting for insurance approval an d when we get that she will be transferred to the rehabilitation center.
[2018-02-22] MEDS: Acetaminophen 650 MG/20.3 ML UDCUP PO PRN (19:02)
[2018-02-22] MEDS: Atorvastatin Calcium 10 MG TAB PO SCH (20:56)
[2018-02-23] MEDS: MEROPENEM 1 GM/50 ML 1 GM in Premix Bag 1 BAG IVPB SCH ×2 (02:13→11:02)
[2018-02-23 05:18] LABS: Hemoglobin 10.3 g/dL (12.0-16.0); Platelet Count 723 thou/uL (130-400)
[2018-02-23] MEDS: Mometasone/Formoterol 120 PUFF INHALER INH SCH (07:34)
[2018-02-23] MEDS: Lisinopril 20 MG TAB PO SCH (07:40)
[2018-02-23] MEDS: Saccharomyces boulardii 250 MG CAP PO SCH (07:41)
[2018-02-23] MEDS: DULoxetine 30 MG CAP PO SCH (07:41)
[2018-02-23] MEDS: Carvedilol 6.25 MG TAB PO SCH (07:41)
[2018-02-23] MEDS: Docusate 100 MG CAP PO SCH (07:41)
[2018-02-23] MEDS: Apixaban 5 MG TAB PO SCH (07:41)
[2018-02-23] MEDS: Polyethylene Glycol 3350 17 GM Packet PO SCH ×2 (07:42→08:11)
[2018-02-23] MEDS: Nystatin Powder 15 GM BOT TOP SCH (07:42)
[2018-02-23 08:37] VITALS: BP 151/59; TEMP 97.7
--- NOTE | 2018-02-23 09:40 | PRG ---
DATE OF ADMISSION: 02/04/2018 DATE OF DISCHARGE: 02/23/2018 PRIMARY CARE PHYSICIAN: Dr. Troy Garrett. PRIMARY ATTENDING PHYSICIAN: Dr. Guardado. DISCHARGE DISPOSITION: Rehabilitation at [facility]. PRIMARY DISCHARGE DIAGNOSES: 1. Subdiaphragmatic abscess. 2. Urinary tract infection. 3. Acute kidney failure, improved. 4. Septic shock, resolved. SECONDARY DISCHARGE DIAGNOSES: Morbid obesity with body mass index greater than 70, chronic atrial f ibrillation. PRIMARY PROCEDURES/OPERATIONS: Diagnostic laparoscopy and drainage of left subphrenic abscess by Dr. Guardado on 02/05/2018. PICC line was placed. RADIOLOGICAL INVESTIGATION: Chest x-rays. SIGNIFICANT LABORATORY DATA: Most recent laboratory data; WBC 10.0, hemoglobin 10.3, platelets 723, INR 1.9. Sodium 138, potassium 4.9, BUN 18, creatinine 0.99, AST 42, ALT 47, CRP 9.67, albumin 2.7. Urinalysis suggestive of UTI. Urine culture grew E. coli subdiaphragmatic abscess culture grew E. c abeba and Klebsiella anaerobic gram negative otf. Blood culture was negative. DISCHARGE MEDICATIONS: The patient will continue meropenem IV as per primary team. Following are sc heduled medications: Eliquis 5 mg p.o. b.i.d., Lipitor 10 mg p.o. at bedtime, Coreg 12.5 mg twice da inna, Cymbalta 30 mg p.o. daily, Ellipta 1 inhalation daily, Lasix 40 mg p.o. daily, lisinopril 20 mg p.o. b.i.d., multivitamin 1 tablet p.o. daily, fish oil 1 capsule daily, Protonix 40 mg p.o. daily, M iraLax 17 grams p.o. daily, trazodone 50 mg p.o. at bedtime. CONTRAINDICATIONS: None. CODE STATUS: FULL CODE. INPATIENT CONSULTANTS: Dr. Guardado was primary while in hospital. Sound Team was consulted for medica l management. Dr. Stock was following for kidney failure. Dr. Pickett was following for septic shock while in ICU. TEST RESULTS PENDING ON DISCHARGE: None. ALLERGIES: CIPRO, LEVOFLOXACIN, and CLINDAMYCIN. DISCHARGE PLAN: Post hospital, patient is discharged to rehab in [facility]. Subsequently, bobby ent will follow up with Dr. Guardado as instructed. HOSPITAL COURSE: A 42-year-old female who was admitted by Dr. Guardado on 02/04/2018. She was diagnose d with subdiaphragmatic abscess. She was having septic shock. She required admission in ICU. She h ad surgical procedure with subdiaphragmatic abscess drainage via laparoscopy. Culture from abscess g rew E. coli, Klebsiella, and anaerobic gram negative otf. The patient was treated with meropenem whi le in hospital. Micafungin was added later on, which was discontinued after culture report came back negative for fungus. Patient also had septic shock that was resolved and subsequently patient was t ransferred to surgical floor. She also had acute kidney failure on admission which was improved with IV fluid and treatment of septic shock. Initial creatinine was 4.4 and then on discharge 0.96. Patient was doing very well at surgical floor. She was hemodynamically stable. She was waiting for rehab placement. Finally, her insurance approved for rehab and she has bed available at rehab as wel l and today patient is planned for transfer. She had drain in her abdomen, which was removed when drain input was significantly lowered down. The patient is seen and examined at bedside today. All review of system reviewed with her and negati ve. PHYSICAL EXAMINATION: VITAL SIGNS: Currently, temperature 97.7, pulse 90, respiratory rate 27, saturation 99% on room air, blood pressure 151/95, weight 501 pounds. GENERAL: The patient is currently alert, awake, no obvious acute distress. HEAD: Normocephalic, atraumatic. EYES: Pupils round, reactive to light. Extraocular muscle intact. ENT: Oropharynx within normal limits. Moist mucous membranes, no oral lesions. No pharyngeal eryth ray, no exudate. NECK: Supple, no JVD, no thyromegaly, no carotid bruit. LUNGS: Clear to auscultation without any rhonchi or rales. CARDIAC: S1 and S2 regular without any murmur. ABDOMEN: Morbid obesity limiting examination. EXTREMITIES: No edema. NEUROLOGIC: Nonfocal examination. Patient is medically stable for discharge and transfer to rehab facility. We will sign off.
--- NOTE | 2018-02-23 10:38 | PDOC.PN ---
- Subjective Encounter Start Date: 02/23/18 Encounter Start Time: 09:50 Patient seen and examined. No new complaints. No overnight events - Objective MAR Reviewed: Yes Vital Signs & Weight: Vital Signs (12 hours) Temp Pulse Resp BP BP Pulse Ox 02/23/18 08:00 99 02/23/18 07:41 151/95 H 02/23/18 07:40 151/95 H 02/23/18 07:34 90 20 94 L 02/23/18 07:15 97.7 F 90 18 151/59 H 99 02/23/18 07:13 94 L 02/23/18 07:09 90 20 94 L 02/23/18 04:00 97.9 F 90 16 148/99 H 94 L 02/23/18 00:22 85 145/97 H 02/22/18 23:51 98.2 F 86 16 158/115 H 94 L 02/22/18 23:16 78 16 92 L Weight Admit Weight 506 lb Weight 501 lb 15.881 oz Most Recent Monitor Data Heart Rate from ECG 67 NIBP 133/62 NIBP BP-Mean 99 Respiration from ECG 24 SpO2 99 I&O: 02/22/18 02/23/18 02/24/18 06:59 06:59 06:59 Intake Total 1380 380 Output Total 1100 425 Balance 280 -45 Result Diagrams: 02/23/18 04:41 02/23/18 04:41 Phys Exam - Physical Examination Constitutional: NAD HEENT: PERRLA, moist MMs, sclera anicteric Neck: no JVD, supple Respiratory: no wheezing, no rales, no rhonchi Cardiovascular: RRR, no significant murmur, no rub Gastrointestinal: soft, non-tender, no distention, positive bowel sounds Musculoskeletal: no edema, pulses present Neurological: non-focal, normal sensation Psychiatric: normal affect, A&O x 3 Skin: no rash, normal turgor Dx/Plan (1) Subphrenic abscess Code(s): K65.1 - PERITONEAL ABSCESS Status: Acute Comment: Cx showing E.Coli & klebsiella.Both pansensitive (2) Thrombocytosis after splenectomy Code(s): R79.89 - OTHER SPECIFIED ABNORMAL FINDINGS OF BLOOD CHEMISTRY; Z90.81 - ACQUIRED ABSENCE OF SPLEEN Status: Acute Comment: Persistant Elevation, which is physiologic after recent spleenctomy (3) UTI (urinary tract infection) Status: Acute Comment: E.Coli (4) Chronic atrial fibrillation Code(s): I48.2 - CHRONIC ATRIAL FIBRILLATION Status: Chronic Comment: rate controlled. (5) Morbid obesity with BMI of 70 and over, adult Code(s): E66.01 - MORBID (SEVERE) OBESITY DUE TO EXCESS CALORIES; Z68.45 - BODY MASS INDEX (BMI) 70 OR GREATER, ADULT Status: Chronic (6) TUCKER (acute kidney injury) Code(s): N17.9 - ACUTE KIDNEY FAILURE, UNSPECIFIED Status: Resolved Comment : (7) Septic shock Code(s): A41.9 - SEPSIS, UNSPECIFIED ORGANISM; R65.21 - SEVERE SEPSIS WITH SEPTIC SHOCK Status: Resolved Comment: Due to UTI & subdiaphragmatic abscess /peritonitis.improved - Plan cont current plan of care, continue antibiotics, social work job titles * medication reviewed as below * symptomatic treatment * today plan for discharge * will sign off * see my discharge summery. Review of Systems - Review of Systems ENT: negative: Ear Pain, Ear Discharge, Nose Pain, Nose Discharge, Nose Congestion, Mouth Pain, Mouth Swelling, Throat Pain, Throat Swelling, Other Respiratory: negative: Cough, Dry, Shortness of Breath, Hemoptysis, SOB with Excertion, Pleuritic Pain, Sputum, Wheezing Cardiovascular: negative: chest pain, palpitations, orthopnea, paroxysmal nocturnal dyspnea, edema, light headedness, other Gastrointestinal: negative: Nausea, Vomiting, Abdominal Pain, Diarrhea, Constipation, Melena, Hematochezia, Other Genitourinary: negative: Dysuria, Frequency, Incontinence, Hematuria, Retention , Other Musculoskeletal: negative: Neck Pain, Shoulder Pain, Arm Pain, Back Pain, Hand Pain, Leg Pain, Foot Pain, Other Skin: negative: Rash, Lesions, Malvin, Bruising, Other - Medications/Allergies Allergies/Adverse Reactions: Allergies Allergy/AdvReac Type Severity Reaction Status Date / Time ciprofloxacin [From Cipro] Allergy Verified 01/21/18 15:38 clindamycin Allergy Rash Verified 01/21/18 15:38 levofloxacin [From Levaquin] Allergy Verified 01/21/18 15:38 lorcaserin [From Belviq] Allergy Nausea Verified 01/21/18 15:38 nitrofurantoin Allergy Hives Verified 01/21/18 15:38 [From Macrobid] Penicillins Allergy Verified 01/21/18 15:38 raspberry Allergy Verified 01/21/18 15:38 sulfamethoxazole Allergy Rash Verified 01/21/18 15:38 [From Bactrim] trimethoprim [From Bactrim] Allergy Rash Verified 01/21/18 15:38 Medications: Current Medications Acetaminophen (Tylenol Elixir) 650 mg PO Q6H PRN PRN Reason: Fever > 101 or Mild Pain Last Admin: 02/22/18 19:02 Dose: 650 mg Acetaminophen (Tylenol) 650 mg IA Q6H PRN PRN Reason: Fever > 101 or Mild Pain Al Hydroxide/Mg Hydroxide (Maalox) 30 ml PO Q8H PRN PRN Reason: Indigestion Albuterol/Ipratropium (Duoneb) 3 ml NEB [id number] PRN PRN Reason: SOB &/or Wheezing Albuterol/Ipratropium (Duoneb) 3 ml NEB [id number] [facility] Last Admin: 02/23/18 07:09 Dose: 3 ml Alprazolam (Xanax) 0.25 mg PO Q6H PRN PRN Reason: Anxiety Last Admin: 02/22/18 22:26 Dose: 0.25 mg Apixaban (Eliquis) 5 mg PO BID [facility] Last Admin: 02/23/18 07:41 Dose: 5 mg Aspirin (Aspirin Chewable) 81 mg PO DAILY [facility] Last Admin: 02/23/18 07:41 Dose: 81 mg Atorvastatin Calcium (Lipitor) 10 mg PO HS [facility] Last Admin: 02/22/18 20:56 Dose: 10 mg Bisacodyl (Dulcolax) 10 mg PO DAILYPRN PRN PRN Reason: Constipation Carvedilol (Coreg) 12.5 [facility] Last Admin: 02/23/18 07:41 Dose: 12.5 mg Docusate Sodium (Colace) 100 mg PO BID [facility] Last Admin: 02/23/18 07:41 Dose: 100 mg Duloxetine HCl (Cymbalta) 30 mg PO DAILY [facility] Last Admin: 02/23/18 07:41 Dose: 30 mg Hydralazine HCl (Apresoline) 20 mg SLOW IVP Q1H PRN PRN Reason: SBP>180 Last Admin: 02/08/18 18:12 Dose: 20 mg Meropenem 1 gm/ Device 50 mls @ 100 mls/hr IVPB 0200,1000,1800 [facility] Last Admin: 02/23/18 02:13 Dose: 50 mls Lisinopril (Zestril) 20 mg PO DAILY [facility] Last Admin: 02/23/18 07:40 Dose: 20 mg Magnesium Hydroxide (Milk Of Magnesium) 30 ml PO Q8H PRN PRN Reason: Constipation Mineral Oil/White Petrolatum (Lacri-Lube Ointment) 0 gm EA EYE PRN PRN PRN Reason: Dry Eyes Mometasone Furoate/Formoterol Fumar (Dulera 100 Mcg/5 Mcg Inhaler) 2 puff INH BID-RT [facility] Last Admin: 02/23/18 07:34 Dose: 2 puff Nystatin (Mycostatin Powder) 1 gm TOP BID [facility] Last Admin: 02/23/18 07:42 Dose: 1 applic Ondansetron HCl (Zofran) 4 mg IVP Q6H PRN PRN Reason: Nausea/Vomiting Last Admin: 02/05/18 15:56 Dose: 4 mg Pantoprazole Sodium (Protonix) 40 mg PO DAILY [facility] Last Admin: 02/23/18 07:41 Dose: 40 mg Polyethylene Glycol (Miralax) 17 gm PO DAILY [facility] Last Admin: 02/23/18 08:11 Dose: Not Given Saccharomyces Boulardii (Florastor) 250 mg PO DAILY [facility] Last Admin: 02/23/18 07:41 Dose: 250 mg Sodium Chloride (Flush - Normal Saline) 10 ml IVF Q12HR [facility] Last Admin: 02/22/18 20:56 Dose: 10 ml Sodium Chloride (Flush - Normal Saline) 10 ml IVF PRN PRN PRN Reason: Saline Flush
[2018-02-23] MEDS: Acetaminophen 650 MG/20.3 ML UDCUP PO PRN (11:01)
[2018-02-23] MEDS: ALPRAZolam 0.25 MG TAB PO PRN (14:07)
--- NOTE | 2018-03-05 09:21 | OP ---
ADDENDUM Regarding a splenic vein injury. This is to document that the patient's body habitus contributed to the event. During the surgery it was noted that she had an extremely large left lobe of the liver. This did necessitate replacement o f trocar sites, it also made it much more difficult to perform the actual sleeve. Also, because of h er large body habitus, the pneumoperitoneum was more difficult to establish making the space for plac ement of the stapling device much more difficult. This contributed to the division of the splenic ve in, also her spleen was large and had additional traction on that vein which contributed to the divis ion of the vein. This note was done today on 03/05/2018.
== END 2018-02-23 14:53 | DRG 871 ==
LOC: OBSVTOIN 16:25 → SURG B 16:25 → CCU 18:56 → IMCU/EMU 02-13 21:33 → 2NO 02-14 21:24 → SURG A 02-16 14:42 → SURG B 02-16 20:35
PROVIDERS: ADMIT Surgery; ATTEND Surgery
PROC: 05H533Z Insertion of Infusion Device into Right Subclavian Vein, Percutaneous Approach (ICD-10-PCS; principal; 2018-02-04)
PROC: 0J9C3ZZ Drainage of Pelvic Region Subcutaneous Tissue and Fascia, Percutaneous Approach (ICD-10-PCS; 2018-02-05)
PROC: 5A1945Z Respiratory Ventilation, 24-96 Consecutive Hours (ICD-10-PCS; 2018-02-05)
PROC: 0BH17EZ Insertion of Endotracheal Airway into Trachea, Via Natural or Artificial Opening (ICD-10-PCS; 2018-02-05)
PROC: 02HV33Z Insertion of Infusion Device into Superior Vena Cava, Percutaneous Approach (ICD-10-PCS; 2018-02-18)
DX: A41.51 Sepsis due to Escherichia coli [E. coli] (principal); R65.21 Severe sepsis with septic shock; J96.02 Acute respiratory failure with hypercapnia; J96.01 Acute respiratory failure with hypoxia; K65.1 Peritoneal abscess; K65.8 Other peritonitis; N39.0 Urinary tract infection, site not specified; N17.9 Acute kidney failure, unspecified; I13.2 Hypertensive heart and chronic kidney disease with heart failure and with stage 5 chronic kidney disease, or end stage renal disease; N18.5 Chronic kidney disease, stage 5; Z68.45 Body mass index [BMI] 70 or greater, adult; D62 Acute posthemorrhagic anemia; E87.2 Acidosis; A41.59 Other Gram-negative sepsis; Z98.84 Bariatric surgery status; I50.9 Heart failure, unspecified; E66.01 Morbid (severe) obesity due to excess calories; E78.5 Hyperlipidemia, unspecified; J45.909 Unspecified asthma, uncomplicated; M19.90 Unspecified osteoarthritis, unspecified site; I48.2 Chronic atrial fibrillation; K59.00 Constipation, unspecified; G47.33 Obstructive sleep apnea (adult) (pediatric); F41.9 Anxiety disorder, unspecified; E87.5 Hyperkalemia; F32.9 Major depressive disorder, single episode, unspecified; D47.3 Essential (hemorrhagic) thrombocythemia
CPT/HCPCS: 36415; 36416; 36430; 36569; 71045; 74018; 80048; 80053; 80061; 80202; 81003; 81015; 82553; 82565; 82805; 83605; 83735; 83880; 84100; 84134; 84443; 84484; 85007; 85014; 85018; 85025; 85027; 85049; 85610; 85730; 86140; 86850; 86900; 86901; 87040; 87070; 87077; 87086; 87186; 87205; 94002; 94003; 94640; 94660; 94664; A4216; A4217; C1751; C9113; G8978-GP-CL; G8978-GP-CM; G8979-GP-CJ; G8979-GP-CL; J0282; J0360; J0670; J1170; J1630; J1644; J1720; J1885; J1940; J2060; J2185; J2248; J2250; J2270; J2405; J2704; J2997; J3010; J3370; J3475; J3480; J7050; J7070; J7620; P9016; P9059; S0028

== ENCOUNTER 2018-03-18 18:10 | Inpatient (IN) | payer BC ==
[2018-03-18] MEDS ORDERED: Morphine 4 MG/ML VIAL SLOW IVP PRN (19:21)
[2018-03-18] MEDS: Meropenem 2 GM in Sodium Chloride 0.9% 100 ML IVPB SCH (20:51)
[2018-03-18] MEDS: D5 1/2 NS w/20 mEq KCL 1,000 ML IV SCH (20:51)
[2018-03-18 21:08] LABS: INR-International Normal Ratio 1.3; PTT 40.7 SEC (22.9-36.1); Prothrombin Time 16.3 SEC (12.0-14.7)
[2018-03-18 21:22] LABS: ALT (SGPT) 7 U/L (8-55); AST (SGOT) 14 U/L (5-34); Alkaline Phosphatase 52 U/L (40-150); Anion Gap 13 mmol/L (10-20); BUN (Urea Nitrogen) 9 mg/dL (7.0-18.7); Bilirubin, Total 0.2 mg/dL (0.2-1.2); Calc. Creatinine Clearance 0 mL/min (70-130); Calcium 9.8 mg/dL (7.8-10.44); Carbon Dioxide 30 mmol/L (22-29); Cardiac Risk 5.6 (Less than 4.5); Chloride 103 mmol/L (98-107); Cholesterol 112 mg/dl (< 200 Desired); Estimated GFR-MDRD 58; Globulin 3.9 g/dL (2.4-3.5); Glucose 93 mg/dL (70-105); HDL Cholesterol 20 mg/dL (>60 Neg Risk); LDL Cholesterol, Calculated 65 mg/dL; Magnesium 1.9 mg/dL (1.6-2.6); Phosphorus 3.8 mg/dL (2.3-4.7); Potassium 4.2 mmol/L (3.5-5.1); Protein, Total 6.9 g/dL (6.0-8.3); Sodium 142 mmol/L (136-145); Triglycerides 135 mg/dL (Less than 150)
[2018-03-18] MEDS: Ondansetron HCl/PF 4 MG in Sodium Chloride 0.9% 50 ML IVPB PRN (21:34)
[2018-03-18] MEDS: metroNIDAZOLE 500 MG in Premix Bag 1 BAG IVPB SCH (22:19)
[2018-03-18] MEDS: Multivitamins, Adult 10 ML, Multitrace-5 5 ML in D15W-AA 5% with Lytes 2,000 ML, Fat Em... IV SCH (22:19)
[2018-03-18] MEDS: Lorazepam 2 MG/ML VIAL SLOW IVP PRN (23:29)
[2018-03-19 01:43] VITALS: BMI 81.8
--- NOTE | 2018-03-19 02:27 | HP ---
CHIEF COMPLAINT: Gastric leak. HISTORY OF PRESENT ILLNESS: The patient is a 42-year-old female who underwent a sleeve gastrectomy o n 01/24/2018. This was complicated by a splenic vein injury requiring a splenectomy. Postoperativel y, she required treatment in the intensive care unit and then went to rehabilitation. Then, she had progressive abdominal pain and was found to have an abscess. She underwent a laparoscopic drainage o f that abscess at that time. She got better and was eventually transferred to a rehab unit in [facility] on 02/23/2018. She was then undergoing intensive rehabilitation. She was on a regular diet. She said that she about 10 days ago developed severe nausea and vomiting which appeared to be relat ed to antibiotics. Every time they gave her the antibiotics, she got nausea and vomiting and was ret sara. She also said that she was having some pain with eating real food. A CT scan was obtained sh owing a fluid collection adjacent to the staple line. She seemed to get better and a repeat CT scan about 1 week ago showed that the cavities were getting smaller, so they were trying to have her come back here then, but then because they were smaller, the patient decided she did not want to come back here, she wanted to stay down there. Then, she developed a fever and a leukocytosis, so they repeat ed the CT scan on Sunday. At this time, they saw extravasation of contrast from the lateral margin o f the gastric sleeve and into the previously air filled fluid collection. The fluid collection was m easured at 4.8 x 4.3 cm. Over the weekend, she was treated with antibiotics and transferred here for further treatment. She states that currently she feels fine. She does have occasional pain in the left upper quadrant, but it has not changed in the last few weeks, she has occasional nausea that is intermittent. She had some shoulder pain about 3-4 days ago, that is gone. She is voiding well and bowels are functioning well. PAST MEDICAL HISTORY: Significant for extreme morbid obesity, hypertension, history of congestive he art failure, hyperlipidemia, asthma, degenerative joint disease, and atrial fibrillation. PAST SURGICAL HISTORY: She had a ventral hernia repair in 1972, bilateral breast biopsies, I&D of br east abscess, sleeve gastrectomy and drainage of abscess. MEDICATIONS: Include she is on TPN, she is on Zofran, morphine, lorazepam, albuterol, pantoprazole, nystatin topical, metronidazole, Lovenox, ceftriaxone. ALLERGIES: She is allergic to BACTRIM, PENICILLIN, CLEOCIN, CEPHALEXIN, BELVIQ, and CIPRO. SOCIAL HISTORY: She is . No tobacco or alcohol. FAMILY HISTORY: Noncontributory. PHYSICAL EXAMINATION: VITAL SIGNS: On 03/08/2018, her weight was 450, temperature is 98.4, pulse 99, blood pressure 135/90 . GENERAL: She is awake, alert, does not appear to be in any distress. HEENT: Unremarkable. LUNGS: Clear. HEART: Regular rate and rhythm. ABDOMEN: Very obese. She has no significant tenderness. Incisions have healed. There is no erythe ma. There are no hernias. There is no flank tenderness. No back tenderness. LABORATORY DATA: White count was 11.9, H&H 9.8 and 30, platelet count 539. ASSESSMENT: Gastric leak. PLAN: Well tolerated plan is bowel rest. Repeat CT scan of abdomen and pelvis, possible laparoscopi c drainage.
[2018-03-19 04:27] LABS: Anion Gap 12 mmol/L (10-20); BUN (Urea Nitrogen) 9 mg/dL (7.0-18.7); Calc. Creatinine Clearance 263 mL/min (70-130); Calcium 9.4 mg/dL (7.8-10.44); Carbon Dioxide 29 mmol/L (22-29); Chloride 104 mmol/L (98-107); Estimated GFR-MDRD 64; Glucose 126 mg/dL (70-105); Potassium 4.3 mmol/L (3.5-5.1); Sodium 141 mmol/L (136-145)
[2018-03-19 04:31] LABS: Hemoglobin 10.4 g/dL (12.0-16.0); Hypochromia SLIGHT = 6-15 cells (100X) (0-5/hpf); Lymphocytes 19 % (21-51); MDiff Complete? YES; Mean Corpuscular HGB CONC 29.3 g/dL (32.0-36.0); Mean Corpuscular Hemoglobin 27.5 pg (27.0-31.0); Mean Platelet Volume 8.9 fL (7.4-10.4); Monocytes 1 % (0-10); Neutrophil 80 % (42-75); PLT Morphology Comment Appears Increased; Platelet Count 658 thou/uL (130-400); RBC Distribution Width 16.2 % (11.5-14.5); Red Blood Cell (RBC) Count 3.76 mill/uL (4.20-5.40); White Blood Cell (WBC) Count 10.5 thou/uL (4.8-10.8)
[2018-03-19] MEDS: Ondansetron HCl/PF 4 MG in Sodium Chloride 0.9% 50 ML IVPB PRN ×3 (05:00→20:56)
[2018-03-19] MEDS: Meropenem 2 GM in Sodium Chloride 0.9% 100 ML IVPB SCH ×3 (05:00→20:56)
[2018-03-19] MEDS: D5 1/2 NS w/20 mEq KCL 1,000 ML IV SCH ×4 (05:00→18:15)
[2018-03-19] MEDS: metroNIDAZOLE 500 MG in Premix Bag 1 BAG IVPB SCH ×3 (06:03→22:07)
[2018-03-19] MEDS ORDERED: Labetalol HCl 100 MG/20 ML VIAL SLOW IVP PRN ×2 (07:53→16:20)
[2018-03-19] MEDS: Enoxaparin Sodium 30 MG/0.3 ML SYRINGE SC SCH (08:11)
[2018-03-19] MEDS: Lorazepam 2 MG/ML VIAL SLOW IVP PRN (08:11)
[2018-03-19] MEDS: Pantoprazole 40 MG VIAL IVP SCH (08:11)
--- NOTE | 2018-03-19 15:44 | PRG ---
DATE OF SERVICE: 03/19/2018 SUBJECTIVE: The patient reports absolutely no pain. She feels fine. No nausea, no vomiting. OBJECTIVE: VITAL SIGNS: Temperature 97.6, pulse 87, blood pressure 126/85. GENERAL: She looks good. She is wide awake, alert. ABDOMEN: Soft, nontender. LABORATORY DATA: White count is 10.5, H&H 10 and 35, platelet count 658. Unfortunately, the CT people would not perform the CAT scan today because they said she exceeded the weight limit. The weights that the nurses were using for her from her last admission, which was abou t 30 pounds more than they are currently. They are going to try and weight her to get an accur ate weight, but she is doing well. This abscess cavity is only 4.5 cm and is very small. It will be very difficult to approach. She is not appearing to be septic. She is not appearing to be sick, tr claribel to locate a 4 cm fluid collection in an inflammatory field would be not only difficult, but yeboah erous, and for that reason, I am electing to just treat it with antibiotics and bowel rest. We will try and get Dr. Barroso to see her as well from Infectious Disease.
[2018-03-19] MEDS ORDERED: Loratadine 10 MG TAB PO PRN (16:20)
[2018-03-19] MEDS ORDERED: Senokot 8.6 MG TAB PO PRN (16:20)
[2018-03-19] MEDS ORDERED: Acetaminophen 650 MG Suppository PR PRN (16:20)
[2018-03-19] MEDS ORDERED: Bisacodyl 5 MG TAB PO PRN (16:20)
[2018-03-19] MEDS ORDERED: Mag-Al 1200 mg/1200 mg/30 ML UDCUP PO PRN (16:20)
[2018-03-19] MEDS ORDERED: Calcium Carbonate 500 MG ChewTAB PO PRN (16:20)
[2018-03-19] MEDS ORDERED: Docusate 100 MG CAP PO PRN (16:20)
[2018-03-19] MEDS ORDERED: traMADol HCl 50 MG TAB PO PRN (16:20)
[2018-03-19] MEDS ORDERED: Bisacodyl 10 MG SUPP PR PRN (16:20)
[2018-03-19] MEDS ORDERED: Benzonatate 100 MG CAP PO PRN (16:20)
[2018-03-19] MEDS ORDERED: Acetaminophen 325 MG TAB PO PRN (16:20)
[2018-03-19] MEDS ORDERED: Nitroglycerin 0.4 MG TAB (25 Tab Bottle) SL PRN (16:20)
[2018-03-19] MEDS ORDERED: Diabetic Tussin 200 MG/10 ML UDCUP PO PRN (16:20)
[2018-03-19] MEDS ORDERED: hydrALAZINE 20 MG/ML VIAL SLOW IVP PRN (16:21)
--- NOTE | 2018-03-19 17:10 | PDOC.PN ---
- Subjective Encounter Start Date: 03/19/18 Encounter Start Time: 17:10 Subjective: Seen & examined at bedside. Chart reviewed.care discussed w -: Transfered back to hospital from rehab for Fever/leucocytosis -: denies any significant Abd pain.ne fever.mild SOB - Objective MAR Reviewed: Yes Vital Signs & Weight: Vital Signs (12 hours) Temp Pulse Resp BP Pulse Ox 03/19/18 13:00 97.6 F 87 20 126/85 100 03/19/18 12:27 92 18 93 L 03/19/18 07:41 96 03/19/18 07:40 97.9 F 92 18 146/99 H 96 03/19/18 06:07 142/92 H Weight Admit Weight 491 lb 10.08 oz Weight 491 lb 10.08 oz I&O: 03/18/18 03/19/18 03/20/18 06:59 06:59 06:59 Intake Total 2320 Output Total 200 Balance 2120 Result Diagrams: 03/19/18 03:50 03/19/18 03:50 Additional Labs: Accuchecks 03/19/18 03/19/18 13:02 06:14 POC Glucose 122 H 137 H Phys Exam - Physical Examination Constitutional: NAD easily winded HEENT: PERRLA, moist MMs, sclera anicteric, oral pharynx no lesions Neck: no nodes, no JVD, supple, full ROM Respiratory: no wheezing, no rales, no rhonchi difficult to auscultate due to body habitus Cardiovascular: RRR, no significant murmur Gastrointestinal: soft, non-tender, no distention, positive bowel sounds Musculoskeletal: no edema, pulses present Neurological: non-focal, normal sensation, moves all 4 limbs Psychiatric: normal affect, A&O x 3 Skin: no rash Dx/Plan (1) Abdominal abscess Code(s): RQJ3393 - Status: Acute Comment: recent Rx for subdiaphragmatic abscess 02/26.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 reports stable for years on daily lasix (3) Chronic atrial fibrillation Code(s): I48.2 - CHRONIC ATRIAL FIBRILLATION Status: Chronic Comment: rate controlled.Eliquis on hold due to NPO status. (4) Morbid obesity with BMI of 70 and over, adult Code(s): E66.01 - MORBID (SEVERE) OBESITY DUE TO EXCESS CALORIES; Z68.45 - BODY MASS INDEX (BMI) 70 OR GREATER, ADULT Status: Chronic (5) H/O extrinsic asthma Code(s): Z87.09 - PERSONAL HISTORY OF OTHER DISEASES OF THE RESPIRATORY SYSTEM Status: Chronic - Plan continue antibiotics, PT/OT, respiratory therapy, incentive spirometry, out of bed/ambulate, DVT proph w/SCDs Agree w IV ABx. ID consulted. no fever/leucocytosi but pt immunosuppressed -: Suspect mild fluid Ol on exam. reduce IVf as also on TPN -: restart lasix daily by IV -: Lovenox for DVT prophyalxis.Recommend restart eliquis when possible -: Daily labs. IM team will follow. Hemodynamically stable * . Review of Systems - Medications/Allergies Allergies/Adverse Reactions: Allergies Allergy/AdvReac Type Severity Reaction Status Date / Time ciprofloxacin [From Cipro] Allergy Verified 03/19/18 01:06 clindamycin Allergy Rash Verified 03/19/18 01:06 levofloxacin [From Levaquin] Allergy Verified 03/19/18 01:06 lorcaserin [From Belviq] Allergy Nausea Verified 03/19/18 01:06 nitrofurantoin Allergy Hives Verified 03/19/18 01:06 [From Macrobid] Penicillins Allergy Verified 03/19/18 01:06 raspberry Allergy Verified 03/19/18 01:06 sulfamethoxazole Allergy Rash Verified 03/19/18 01:06 [From Bactrim] trimethoprim [From Bactrim] Allergy Rash Verified 03/19/18 01:06 Medications: Current Medications Acetaminophen (Tylenol) 650 mg PO Q4H PRN PRN Reason: Headache/Fever or Mild Pain Acetaminophen (Tylenol) 650 mg DC Q4H PRN PRN Reason: Headache/Fever or Mild Pain Al Hydroxide/Mg Hydroxide (Maalox) 15 ml PO Q4H PRN PRN Reason: Heartburn or Indigestion Albuterol/Ipratropium (Duoneb) 3 ml NEB [id number] PRN PRN Reason: SOB &/or Wheezing Last Admin: 03/19/18 12:27 Dose: 3 ml Benzonatate (Tessalon) 100 mg PO Q4H PRN PRN Reason: Cough Bisacodyl (Dulcolax) 10 mg DC DAILYPRN PRN PRN Reason: Constipation Bisacodyl (Dulcolax) 10 mg PO DAILYPRN PRN PRN Reason: Constipation Calcium Carbonate (Tums) 1,000 mg PO Q4H PRN PRN Reason: Heartburn or Indigestion Docusate Sodium (Colace) 100 mg PO BIDPRN PRN PRN Reason: Constipation Enoxaparin Sodium (Lovenox) 30 mg SC 0900 [facility] Last Admin: 03/19/18 08:11 Dose: 30 mg Guaifenesin (Robitussin Sf) 200 mg PO Q4H PRN PRN Reason: Cough Hydralazine HCl (Apresoline) 10 mg SLOW IVP Q4H PRN PRN Reason: SBP>160 Potassium Chloride/Dextrose/Sod Cl (D5 1/2 Ns W/20 Meq Kcl) 1,000 mls @ 125 mls /hr IV .Q8H [facility] Last Admin: 03/19/18 13:40 Dose: 1,000 mls Meropenem 2 gm/ Sodium (Chloride) 100 mls @ 200 mls/hr IVPB 0500,1300,2100 [facility] Last Admin: 03/19/18 13:39 Dose: 100 mls Metronidazole 500 mg/ Device 100 mls @ 100 mls/hr IVPB Q8HR [facility] Last Admin: 03/19/18 13:39 Dose: 100 mls Ondansetron HCl 4 mg/ Sodium (Chloride) 52 mls @ 200 mls/hr IVPB Q4H PRN PRN Reason: Nausea Last Admin: 03/19/18 13:39 Dose: 52 mls Multivitamins 10 ml/ Chromium/Copper/Manganese/Seleni/Zn 5 ml/ Amino Acids/ Electrolytes/Fat Emulsion Intravenous 2,515 mls @ 104.792 mls/hr IV 2200 [facility] Last Admin: 03/18/18 22:19 Dose: 2,515 mls Labetalol HCl (Normodyne) 10 mg SLOW IVP Q4H PRN PRN Reason: SBP Greater Than 170 Loratadine (Claritin) 10 mg PO DAILYPRN PRN PRN Reason: Sinus Symptoms Lorazepam (Ativan) 2 mg SLOW IVP Q6H PRN PRN Reason: Anxiety/Agitation Last Admin: 03/19/18 08:11 Dose: 2 mg Morphine Sulfate (Morphine) 2 mg SLOW IVP Q4H PRN PRN Reason: Mild-Moderate Pain (1-5) Morphine Sulfate (Morphine) 4 mg SLOW IVP Q4H PRN PRN Reason: Moderate to Severe Pain (6-10) Nitroglycerin (Nitrostat) 0.4 mg SL Q5MIN PRN PRN Reason: Chest Pain Pantoprazole Sodium (Protonix) 40 mg IVP DAILY [facility] Last Admin: 03/19/18 08:11 Dose: 40 mg Senna (Senokot) 2 tab PO HSPRN PRN PRN Reason: Constipation Sodium Chloride (Flush - Normal Saline) 10 ml IVF Q12HR [facility] Last Admin: 03/19/18 09:35 Dose: Not Given Sodium Chloride (Flush - Normal Saline) 10 ml IVF PRN PRN PRN Reason: Saline Flush Tramadol HCl (Ultram) 50 mg PO Q4H PRN PRN Reason: Moderate Pain (4-6)
[2018-03-19] MEDS ORDERED: Furosemide 20 MG/2 ML VIAL SLOW IVP SCH (17:30)
--- NOTE | 2018-03-19 18:18 | CT ---
CT ABDOMEN AND PELVIS WITH IV CONTRAST: 03/19/18 HISTORY: Sleeve leak/abscess. Patient is post gastric sleeve procedure on 01/24/18. COMPARISON: None available. FINDINGS: There is incomplete visualization of a moderately large left pleural effusion with small right pleura l effusion and consolidation present at each lung base, and the areas of consolidation may be attribu table to atelectasis, although pneumonia cannot be entirely excluded. There is limited evaluation of the abdomen due to artifact secondary to patient's body wall against t he gantry resulting in artifact. There are postsurgical changes of the stomach. There are several extraluminal gas densities adjacent to postsurgical changes involving the stomach suggesting a leak. There is no fluid collection seen to suggest an abscess collection, but there are inflammatory changes seen in the left upper quadrant. N o definite extravasation of contrast is seen. There are linear areas of increased density which may b e related to contrast but this is thought to be within the lumen of the bowel with additional areas o f increased density probably related to suture material related to postsurgical changes. There is onl y a minimal amount of free fluid in the left upper quadrant. Liver is not well evaluated on this exam, but no gross abnormalities are present. Spleen is not visualized likely related to splenectomy. The tail of the pancreas is also not well see on this exam. The visualized portions of the pancreas d emonstrate a grossly normal appearance. The bilateral adrenal glands have a normal appearance. There are low density lesions seen within the superior pole as well as inferior pole of the right kidney wh ich cannot be adequately characterized due to prominent artifact. There is also limited evaluation of the left kidney. Abdominal aorta is normal in caliber. T-shaped intrauterine contraceptive device is noted in place. Urinary bladder is incompletely distend ed due to artifact is not well evaluated but grossly normal in appearance. Opacified bowel is normal in appearance. No dilated loops of small bowel are seen. Prominent calcifications are seen within the lower aspect of the subcutaneous soft tissue adipose lay er of the lower pelvis region which could be related to areas of fat necrosis or injection granulomat a. IMPRESSION: 1. Limited examination due to patient's body wall closely adjacent to the gantry of the CT scan. However, there are postsurgical changes involving the stomach with extraluminal gas and irregularity of the lateral wall of the stomach with extraluminal gas densities contiguous with the lumen of the stomach compatible with a leak. No significant fluid is seen in the upper abdomen. 2. No fluid collection is seen to suggest an abscess. 3. Moderately large left pleural effusion with small right pleural effusion and consolidation at each lung bases probably related to passive atelectasis, although pneumonia cannot be entirely exclu ded. 4. Limited examination due to artifact as described above. There are difficult to characterize h ypodense lesions in the right kidney. 5. Above findings discussed with Dr. Guardado on 03/19/18 at 1631 hours. POS: [facility]
[2018-03-19] MEDS: Multivitamins, Adult 10 ML, Multitrace-5 5 ML in D15W-AA 5% with Lytes 2,000 ML, Fat Em... IV SCH (22:07)
[2018-03-20] MEDS: Ondansetron HCl/PF 4 MG in Sodium Chloride 0.9% 50 ML IVPB PRN ×3 (04:19→21:14)
[2018-03-20] MEDS: Meropenem 2 GM in Sodium Chloride 0.9% 100 ML IVPB SCH ×3 (04:19→21:14)
[2018-03-20] MEDS: metroNIDAZOLE 500 MG in Premix Bag 1 BAG IVPB SCH ×3 (05:34→22:18)
[2018-03-20 06:34] LABS: ALT (SGPT) 7 U/L (8-55); AST (SGOT) 11 U/L (5-34); Albumin 2.9 g/dL (3.5-5.0); Alkaline Phosphatase 48 U/L (40-150); Anion Gap 11 mmol/L (10-20); BUN (Urea Nitrogen) 14 mg/dL (7.0-18.7); Bilirubin, Total Less than 0.2 mg/dL (0.2-1.2); Calc. Creatinine Clearance 291 mL/min (70-130); Calcium 9.4 mg/dL (7.8-10.44); Carbon Dioxide 28 mmol/L (22-29); Chloride 102 mmol/L (98-107); Estimated GFR-MDRD 71; Globulin 3.6 g/dL (2.4-3.5); Glucose 116 mg/dL (70-105); Magnesium 1.9 mg/dL (1.6-2.6); Phosphorus 4.4 mg/dL (2.3-4.7); Potassium 4.4 mmol/L (3.5-5.1); Protein, Total 6.5 g/dL (6.0-8.3); Sodium 137 mmol/L (136-145)
[2018-03-20 06:42] LABS: Band 20 % (5-11); Eosinophils 5 % (0-10); Hemoglobin 10.6 g/dL (12.0-16.0); Lymphocytes 17 % (21-51); MDiff Complete? YES; Mean Corpuscular HGB CONC 30.1 g/dL (32.0-36.0); Mean Corpuscular Hemoglobin 28.1 pg (27.0-31.0); Mean Corpuscular Volume 93.6 fL (78.0-98.0); Mean Platelet Volume 8.7 fL (7.4-10.4); Metamyelocyte 2 % (0-0); Monocytes 6 % (0-10); Neutrophil 50 % (42-75); PLT Morphology Comment Appears Increased; Platelet Count 633 thou/uL (130-400); RBC Distribution Width 16.6 % (11.5-14.5); Red Blood Cell (RBC) Count 3.76 mill/uL (4.20-5.40); White Blood Cell (WBC) Count 9.8 thou/uL (4.8-10.8)
[2018-03-20] MEDS: Enoxaparin Sodium 30 MG/0.3 ML SYRINGE SC SCH (08:55)
[2018-03-20] MEDS: Furosemide 20 MG/2 ML VIAL SLOW IVP SCH (08:55)
[2018-03-20] MEDS: Pantoprazole 40 MG VIAL IVP SCH (08:55)
[2018-03-20] MEDS: Morphine 4 MG/ML VIAL SLOW IVP PRN (08:56)
[2018-03-20] MEDS: D5 1/2 NS w/20 mEq KCL 1,000 ML IV SCH (09:00)
--- NOTE | 2018-03-20 09:41 | PRG ---
DATE OF SERVICE: 03/20/2018 SUBJECTIVE: The patient says she feels pretty good. Really has no pain, no nausea. OBJECTIVE: VITAL SIGNS: Temperature 97.9, pulse 93, blood pressure 120/85. GENERAL: She looks good. Does not appear to be in any distress. ABDOMEN: Soft, nondistended, nontender. IMAGING: The CT scan yesterday showed no evidence of extravasation and no significant fluid collecti ons, although there was some tiny bubbles of extraluminal air. LABORATORY DATA: Her white count is 9.8, H&H is 10 and 35, platelet count 633. ASSESSMENT: Gastric leak without any abscess. PLAN: Continue bowel rest. Continue antibiotics. I think she is going to be here for a couple of w eeks. Maybe in about 10 days, we can start in trying some liquids and repeat the scan. My goal is t o get her to the point where she can provide nutrition by mouth. Then we can get her back to rehabil itation.
--- NOTE | 2018-03-20 13:49 | CON ---
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 She then developed worsening abdom inal pain, was readmitted and had a laparoscopic evaluation of the area which showed a large subphren ic abscess about 1500 mL with polymicrobial adeline including 2 gram negative rods fairly broadly sensi tive to antimicrobials and 3 different anaerobes. The patient postoperatively was given broad spectr um antimicrobial coverage, eventually transitioned to rehabilitation or senior care acute care facility in [place]. I believe there, she developed recrudescence of nausea and vomiting. Some pain in the abdominal area, the repeat CT at that time which was feasible to do because of weight loss showed a f luid collection adjacent to the staple line and then repeat CT showed smaller cavities. The patient remained in the rehab and then she developed fever, leukocytosis. At this time, her follow up imagin g study showed extravasation of contrast from the lateral margin of the gastric sleeve into the previ ously noted fluid collection. The fluid collection at this time measured 4 x 4 cm, approximately and she was transferred for further management. Right now she is actually doing quite well. She is n.p .o. and has TPN, gone through the PICC line in the left upper extremity. Some headaches intermittent ly. No visual symptoms, sore throat, dysphagia, no cough or dyspnea, no chest pain, maybe mild abdom inal pain in thw left upper quadrant. Voiding without difficulty. PAST MEDICAL HISTORY: Morbid obesity, hypertension, CHF, COPD/asthma, and degenerative joint disease . Sleeve gastrectomy with leak subphrenic abscess splenectomy during the procedure because of injury to the splenic vein. ALLERGY HISTORY: BACTRIM, PENICILLIN, CLEOCIN, CEPHALEXIN, CIPROFLOXACIN. The cephalexin allergy keenan s not been confirmed, then she is able to tolerate Keflex lately. SOCIAL HISTORY: , lives in [place]. Never a smoker. FAMILY HISTORY: Noncontributory. CURRENT MEDICATIONS: Tylenol, Maalox, DuoNeb, Tessalon, Dulcolax, Colace, Lovenox, Lasix, Normodyne, Claritin, Ativan, meropenem, metronidazole, morphine, multivitamins, senna, tramadol. PHYSICAL EXAMINATION: VITAL SIGNS: T-max 97.9, blood pressure 130/90, pulse 88, respirations 16, O2 sat 95%. GENERAL: Appears in no distress. SKIN: Shows left upper extremity PICC line with normal appearing exit site. No drains in place at t his time, does not have a Banks catheter. No lymphadenopathy. HEENT: Ocular movements are conjugate. Pupils are equal and reactive. Conjunctivae normal. Nasal passages patent. Oral cavity normal. Numerous teeth in place in good shape. NECK: Supple, no jugular venous distention. LUNGS: With symmetric clear breath sounds. HEART: S1, S2, regular rate. No S3 or S4. ABDOMEN: Soft, not distended or tender. Mild tenderness left upper quadrant. Bowel sounds are dimi nished. EXTREMITIES: No joint inflammatory activity noted. Pulses 1+ in dorsalis pedis. Trace edema in low er extremities. Plantar responses are flexure, moves extremities equally. NEUROLOGIC: Cognitive function appears to be intact. LABORATORY DATA: White cell count 10.5 and 9.8, hemoglobin 10.6, platelets down from 658 to 633, 50% neutrophils, 20% bands, 17% lymphocytes. INR 1.3. Sodium 137, creatinine 0.86. Magnesium 1.9. Tr ansaminases normal, albumin 2.9, globulin 3.6. Prealbumin 15. Microbiology noted from prior visits. I have two sets of blood cultures from 02/16/2018 which were negative. Repeat abdomen and pelvis C T done on 03/19/2018 with limited exam due to patient's body size and tightness or fit in the entry o f the CT scan. With post-surgical changes in the stomach and extraluminal gas and irregularity later al wall of the stomach with extraluminal gas densities contiguous the lumen of the stomach, large lef t pleural effusion, small right pleural effusion, some consolidation of each lung base. ASSESSMENT: Obesity, status post sleeve gastrectomy with the complications noted above with a staple line leak. We will continue IV antimicrobials. We will discontinue Flagyl since meropenem has perf ect anaerobic coverage, we will need to monitor for fungal complications particularly Kami bactere shawn. No evidence of such at this time. If she does not seal the area of leakage, then we will need a stent placement and will have to be transferred to [place] if that happens.
--- NOTE | 2018-03-20 14:40 | PDOC.PN ---
- Subjective Encounter Start Date: 03/20/18 Encounter Start Time: 14:38 Subjective: feels better. no significant abd pain/N/V -: weakness - Objective MAR Reviewed: Yes Vital Signs & Weight: Vital Signs (12 hours) Temp Pulse Resp BP Pulse Ox 03/20/18 12:10 88 16 95 03/20/18 11:20 97.8 F 97 18 133/90 97 03/20/18 07:16 95 03/20/18 07:13 97.9 F 93 18 120/85 95 03/20/18 04:00 97.9 F 93 16 131/94 H 97 Weight Admit Weight 491 lb 10.08 oz Weight 491 lb 10.08 oz I&O: 03/19/18 03/20/18 03/21/18 06:59 06:59 06:59 Intake Total 2320 1500 Output Total 200 Balance 2120 1500 Result Diagrams: 03/20/18 05:47 03/20/18 05:56 Additional Labs: Accuchecks 03/20/18 03/20/18 03/19/18 11:28 05:48 23:35 POC Glucose 139 H 104 122 H 03/19/18 18:20 POC Glucose 118 H Radiology Reviewed by me: Yes (CT -mod left pleural effusion,possible gastric sleeve leak) Phys Exam - Physical Examination Constitutional: NAD HEENT: PERRLA, moist MMs, sclera anicteric, oral pharynx no lesions Neck: no nodes, no JVD, supple, full ROM Respiratory: no wheezing, no rales, no rhonchi, clear to auscultation bilateral Cardiovascular: RRR, no significant murmur Gastrointestinal: soft, non-tender, no distention, positive bowel sounds Musculoskeletal: no edema, pulses present Neurological: non-focal, normal sensation, moves all 4 limbs Psychiatric: normal affect, A&O x 3 Dx/Plan (1) Abdominal abscess Code(s): [id number] - Status: Acute Comment: recent Rx for subdiaphragmatic abscess 02/26.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 reports stable for years on daily lasix (3) Chronic atrial fibrillation Code(s): I48.2 - CHRONIC ATRIAL FIBRILLATION Status: Chronic Comment: rate controlled.Eliquis on hold due to NPO status. (4) Morbid obesity with BMI of 70 and over, adult Code(s): E66.01 - MORBID (SEVERE) OBESITY DUE TO EXCESS CALORIES; Z68.45 - BODY MASS INDEX (BMI) 70 OR GREATER, ADULT Status: Chronic (5) H/O extrinsic asthma Code(s): Z87.09 - PERSONAL HISTORY OF OTHER DISEASES OF THE RESPIRATORY SYSTEM Status: Chronic (6) Pleural effusion Code(s): J90 - PLEURAL EFFUSION, NOT ELSEWHERE CLASSIFIED Status: Chronic - Plan continue antibiotics, PT/OT, respiratory therapy, incentive spirometry, DVT proph w/SCDs cont diuresis. pulm toilet,Duoneb,IS.if worsen,consult PULMONARY team -: cont ABx. -: hemodynamically stable. encourged to work w PT -: TPN. Bowel rest.Recommend Stop IVF. -: restart eliquis as soon as cleared by Surgical team/primary team * . Review of Systems - Review of Systems Constitutional: weakness, malaise. negative: fever, chills, sweats, other ENT: negative: Ear Pain, Ear Discharge, Nose Pain, Nose Discharge, Nose Congestion, Mouth Pain, Mouth Swelling, Throat Pain, Throat Swelling, Other Respiratory: negative: Cough, Dry, Shortness of Breath, Hemoptysis, SOB with Excertion, Pleuritic Pain, Sputum, Wheezing Cardiovascular: negative: chest pain, palpitations, orthopnea, paroxysmal nocturnal dyspnea, edema, light headedness, other Gastrointestinal: negative: Nausea, Vomiting, Abdominal Pain, Diarrhea, Constipation, Melena, Hematochezia, Other Genitourinary: negative: Dysuria, Frequency, Incontinence, Hematuria, Retention , Other Skin: negative: Rash, Lesions, Malvin, Bruising, Other Neurological: negative: Weakness, Numbness, Incoordination, Change in Speech, Confusion, Seizures, Other - Medications/Allergies Allergies/Adverse Reactions: Allergies Allergy/AdvReac Type Severity Reaction Status Date / Time ciprofloxacin [From Cipro] Allergy Verified 03/19/18 01:06 clindamycin Allergy Rash Verified 03/19/18 01:06 levofloxacin [From Levaquin] Allergy Verified 03/19/18 01:06 lorcaserin [From Belviq] Allergy Nausea Verified 03/19/18 01:06 nitrofurantoin Allergy Hives Verified 03/19/18 01:06 [From Macrobid] Penicillins Allergy Verified 03/19/18 01:06 raspberry Allergy Verified 03/19/18 01:06 sulfamethoxazole Allergy Rash Verified 03/19/18 01:06 [From Bactrim] trimethoprim [From Bactrim] Allergy Rash Verified 03/19/18 01:06 Medications: Current Medications Acetaminophen (Tylenol) 650 mg PO Q4H PRN PRN Reason: Headache/Fever or Mild Pain Acetaminophen (Tylenol) 650 mg NJ Q4H PRN PRN Reason: Headache/Fever or Mild Pain Al Hydroxide/Mg Hydroxide (Maalox) 15 ml PO Q4H PRN PRN Reason: Heartburn or Indigestion Albuterol/Ipratropium (Duoneb) 3 ml NEB [id number] PRN PRN Reason: SOB &/or Wheezing Last Admin: 03/20/18 12:10 Dose: 3 ml Benzonatate (Tessalon) 100 mg PO Q4H PRN PRN Reason: Cough Bisacodyl (Dulcolax) 10 mg [place] DAILYPRN PRN PRN Reason: Constipation Bisacodyl (Dulcolax) 10 mg PO DAILYPRN PRN PRN Reason: Constipation Calcium Carbonate (Tums) 1,000 mg PO Q4H PRN PRN Reason: Heartburn or Indigestion Docusate Sodium (Colace) 100 mg PO BIDPRN PRN PRN Reason: Constipation Enoxaparin Sodium (Lovenox) 30 mg SC 0900 [facility] Last Admin: 03/20/18 08:55 Dose: 30 mg Furosemide (Lasix) 20 mg SLOW IVP DAILY [facility] Last Admin: 03/20/18 08:55 Dose: 20 mg Guaifenesin (Robitussin Sf) 200 mg PO Q4H PRN PRN Reason: Cough Hydralazine HCl (Apresoline) 10 mg SLOW IVP Q4H PRN PRN Reason: SBP>160 Meropenem 2 gm/ Sodium (Chloride) 100 mls @ 200 mls/hr IVPB 0500,1300,2100 [facility] Last Admin: 03/20/18 12:23 Dose: 100 mls Metronidazole 500 mg/ Device 100 mls @ 100 mls/hr IVPB Q8HR [facility] Last Admin: 03/20/18 12:24 Dose: 100 mls Ondansetron HCl 4 mg/ Sodium (Chloride) 52 mls @ 200 mls/hr IVPB Q4H PRN PRN Reason: Nausea Last Admin: 03/20/18 04:19 Dose: 52 mls Multivitamins 10 ml/ Chromium/Copper/Manganese/Seleni/Zn 5 ml/ Amino Acids/ Electrolytes/Fat Emulsion Intravenous 2,515 mls @ 104.792 mls/hr IV 2200 [facility] Last Admin: 03/19/18 22:07 Dose: 2,515 mls Potassium Chloride/Dextrose/Sod Cl (D5 1/2 Ns W/20 Meq Kcl) 1,000 mls @ 50 mls/ hr IV .Q20H [facility] Last Admin: 03/20/18 09:00 Dose: 1,000 mls Labetalol HCl (Normodyne) 10 mg SLOW IVP Q4H PRN PRN Reason: SBP Greater Than 170 Loratadine (Claritin) 10 mg PO DAILYPRN PRN PRN Reason: Sinus Symptoms Lorazepam (Ativan) 2 mg SLOW IVP Q6H PRN PRN Reason: Anxiety/Agitation Last Admin: 03/19/18 08:11 Dose: 2 mg Morphine Sulfate (Morphine) 2 mg SLOW IVP Q4H PRN PRN Reason: Mild-Moderate Pain (1-5) Morphine Sulfate (Morphine) 4 mg SLOW IVP Q4H PRN PRN Reason: Moderate to Severe Pain (6-10) Last Admin: 03/20/18 08:56 Dose: 4 mg Nitroglycerin (Nitrostat) 0.4 mg SL Q5MIN PRN PRN Reason: Chest Pain Pantoprazole Sodium (Protonix) 40 mg IVP DAILY [facility] Last Admin: 03/20/18 08:55 Dose: 40 mg Senna (Senokot) 2 tab PO HSPRN PRN PRN Reason: Constipation Sodium Chloride (Flush - Normal Saline) 10 ml IVF Q12HR [facility] Last Admin: 03/20/18 09:00 Dose: 10 ml Sodium Chloride (Flush - Normal Saline) 10 ml IVF PRN PRN PRN Reason: Saline Flush Tramadol HCl (Ultram) 50 mg PO Q4H PRN PRN Reason: Moderate Pain (4-6)
[2018-03-20] MEDS: Lorazepam 2 MG/ML VIAL SLOW IVP PRN (22:17)
[2018-03-20] MEDS: Multivitamins, Adult 10 ML, Multitrace-5 5 ML in D15W-AA 5% with Lytes 2,000 ML, Fat Em... IV SCH (22:18)
[2018-03-21] MEDS: Ondansetron HCl/PF 4 MG in Sodium Chloride 0.9% 50 ML IVPB PRN ×3 (04:34→20:26)
[2018-03-21] MEDS: Meropenem 2 GM in Sodium Chloride 0.9% 100 ML IVPB SCH ×2 (05:28→14:18)
[2018-03-21] MEDS ORDERED: Activase 2 MG VIAL CATH SCH (05:58)
[2018-03-21] MEDS ORDERED: Sterile Water 10 ML VIAL IVP SCH (05:58)
[2018-03-21 06:24] LABS: ALT (SGPT) Less than 7 U/L (8-55); AST (SGOT) 12 U/L (5-34); Albumin 2.9 g/dL (3.5-5.0); Alkaline Phosphatase 50 U/L (40-150); Anion Gap 11 mmol/L (10-20); BUN (Urea Nitrogen) 17 mg/dL (7.0-18.7); Bilirubin, Total Less than 0.2 mg/dL (0.2-1.2); Calc. Creatinine Clearance 298 mL/min (70-130); Calcium 9.3 mg/dL (7.8-10.44); Carbon Dioxide 30 mmol/L (22-29); Chloride 101 mmol/L (98-107); Estimated GFR-MDRD 73; Globulin 3.6 g/dL (2.4-3.5); Glucose 102 mg/dL (70-105); Magnesium 1.9 mg/dL (1.6-2.6); Potassium 4.4 mmol/L (3.5-5.1); Protein, Total 6.5 g/dL (6.0-8.3); Sodium 138 mmol/L (136-145)
[2018-03-21] MEDS: metroNIDAZOLE 500 MG in Premix Bag 1 BAG IVPB SCH ×3 (06:24→22:27)
[2018-03-21 06:31] LABS: #Eosinphils 0.5 thou/uL (0.0-0.7); #Lymphocytes 2.1 thou/uL (1.20-3.40); #Monocytes 1.2 thou/uL (0.11-0.59); #Neutrophils 5.7 thou/uL (1.40-6.50); %Basophils 0.3 % (0.0-1.0); %Eosinophils 5.6 % (0.0-10.0); %Monocytes 12.3 % (0.0-10.0); %Neutrophils 59.8 % (42.0-75.0); Hemoglobin 10.2 g/dL (12.0-16.0); Mean Corpuscular HGB CONC 30.1 g/dL (32.0-36.0); Mean Corpuscular Hemoglobin 28.1 pg (27.0-31.0); Mean Corpuscular Volume 93.3 fL (78.0-98.0); Mean Platelet Volume 9.1 fL (7.4-10.4); Platelet Count 679 thou/uL (130-400); RBC Distribution Width 16.9 % (11.5-14.5); Red Blood Cell (RBC) Count 3.62 mill/uL (4.20-5.40); White Blood Cell (WBC) Count 9.5 thou/uL (4.8-10.8)
[2018-03-21 06:32] LABS: PLT Morphology Comment Appears Increased
[2018-03-21] MEDS: Enoxaparin Sodium 30 MG/0.3 ML SYRINGE SC SCH (08:57)
[2018-03-21] MEDS: Pantoprazole 40 MG VIAL IVP SCH (08:58)
[2018-03-21] MEDS: Furosemide 20 MG/2 ML VIAL SLOW IVP SCH (08:58)
[2018-03-21] MEDS: D5 1/2 NS w/20 mEq KCL 1,000 ML IV SCH ×2 (09:34→22:27)
--- NOTE | 2018-03-21 11:46 | PRG ---
DATE OF SERVICE: 03/21/2018 SUBJECTIVE: She says she is feeling fine and having no pain, no nausea. She is having bowel movemen ts. PHYSICAL EXAMINATION: VITAL SIGNS: Temperature 98.1, pulse 100, blood pressure 120/82. GENERAL: She looks good. She is in no distress. ABDOMEN: Soft, nondistended, nontender. LABORATORY DATA: Her white count is 9.5, H&H 10 and 33, platelet count 679. Electrolytes are normal . PT 16, PTT of 40. ASSESSMENT: Gastric leak stable. PLAN: A total of 2 weeks of n.p.o., then we will start clear liquids very gently and carefully advan ana to full liquids and once she is able to tolerate nutrition full liquids, we will get her off her TPN and send her back to [facility].
--- NOTE | 2018-03-21 13:35 | PDOC.PN ---
- Subjective Encounter Start Date: 03/21/18 Encounter Start Time: 13:33 Subjective: feels Better. no SOB.no significant Abd pain - Objective MAR Reviewed: Yes Vital Signs & Weight: Vital Signs (12 hours) Temp Pulse Resp BP Pulse Ox 03/21/18 12:25 97.9 F 84 20 125/89 97 03/21/18 07:20 98.1 F 100 16 120/82 96 03/21/18 03:33 98.1 F 100 16 144/85 H 94 L Weight Admit Weight 491 lb 10.08 oz Weight 491 lb 10.08 oz I&O: 03/20/18 03/21/18 03/22/18 06:59 06:59 06:59 Intake Total 1500 2592 Output Total 400 Balance 1500 2192 Result Diagrams: 03/21/18 05:40 03/21/18 05:40 Additional Labs: Accuchecks 03/21/18 03/21/18 03/20/18 12:02 04:58 17:04 POC Glucose 124 H 122 H 112 H Phys Exam - Physical Examination Constitutional: NAD HEENT: PERRLA, moist MMs, sclera anicteric, oral pharynx no lesions Neck: no nodes, no JVD, supple, full ROM Respiratory: no wheezing, no rales, no rhonchi, clear to auscultation bilateral Cardiovascular: RRR, no significant murmur, no rub Gastrointestinal: soft, non-tender, no distention, positive bowel sounds Musculoskeletal: no edema, pulses present Neurological: non-focal, normal sensation, moves all 4 limbs Psychiatric: normal affect, A&O x 3 Skin: no rash Dx/Plan (1) Abdominal abscess Code(s): [id number] - Status: Acute Comment: recent Rx for subdiaphragmatic abscess 02/26.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 reports stable for years on daily lasix (3) Chronic atrial fibrillation Code(s): I48.2 - CHRONIC ATRIAL FIBRILLATION Status: Chronic Comment: rate controlled.Eliquis on hold due to NPO status. (4) Morbid obesity with BMI of 70 and over, adult Code(s): E66.01 - MORBID (SEVERE) OBESITY DUE TO EXCESS CALORIES; Z68.45 - BODY MASS INDEX (BMI) 70 OR GREATER, ADULT Status: Chronic (5) H/O extrinsic asthma Code(s): Z87.09 - PERSONAL HISTORY OF OTHER DISEASES OF THE RESPIRATORY SYSTEM Status: Chronic (6) Pleural effusion Code(s): J90 - PLEURAL EFFUSION, NOT ELSEWHERE CLASSIFIED Status: Chronic - Plan plan discussed w/ family, continue antibiotics, PT/OT, respiratory therapy, incentive spirometry, out of bed/ambulate, DVT proph w/SCDs hemodynamically stable. follow H/H -: no resp distress. cont lasix.Mild-mod pleural effusion but stable -: cont PPI,IVF,empiric IV ABx. -: TPN X2 weeks and NPO .will follow * . Review of Systems - Review of Systems Constitutional: weakness. negative: fever, chills, sweats, malaise, other ENT: negative: Ear Pain, Ear Discharge, Nose Pain, Nose Discharge, Nose Congestion, Mouth Pain, Mouth Swelling, Throat Pain, Throat Swelling, Other Respiratory: negative: Cough, Dry, Shortness of Breath, Hemoptysis, SOB with Excertion, Pleuritic Pain, Sputum, Wheezing Cardiovascular: negative: chest pain, palpitations, orthopnea, paroxysmal nocturnal dyspnea, edema, light headedness, other Gastrointestinal: negative: Nausea, Vomiting, Abdominal Pain, Diarrhea, Constipation, Melena, Hematochezia, Other Genitourinary: negative: Dysuria, Frequency, Incontinence, Hematuria, Retention , Other Musculoskeletal: negative: Neck Pain, Shoulder Pain, Arm Pain, Back Pain, Hand Pain, Leg Pain, Foot Pain, Other Skin: negative: Rash, Lesions, Malvin, Bruising, Other Neurological: negative: Weakness, Numbness, Incoordination, Change in Speech, Confusion, Seizures, Other - Medications/Allergies Allergies/Adverse Reactions: Allergies Allergy/AdvReac Type Severity Reaction Status Date / Time ciprofloxacin [From Cipro] Allergy Verified 03/19/18 01:06 clindamycin Allergy Rash Verified 03/19/18 01:06 levofloxacin [From Levaquin] Allergy Verified 03/19/18 01:06 lorcaserin [From Belviq] Allergy Nausea Verified 03/19/18 01:06 nitrofurantoin Allergy Hives Verified 03/19/18 01:06 [From Macrobid] Penicillins Allergy Verified 03/19/18 01:06 raspberry Allergy Verified 03/19/18 01:06 sulfamethoxazole Allergy Rash Verified 03/19/18 01:06 [From Bactrim] trimethoprim [From Bactrim] Allergy Rash Verified 03/19/18 01:06 Medications: Current Medications Acetaminophen (Tylenol) 650 mg PO Q4H PRN PRN Reason: Headache/Fever or Mild Pain Acetaminophen (Tylenol) 650 mg MS Q4H PRN PRN Reason: Headache/Fever or Mild Pain Al Hydroxide/Mg Hydroxide (Maalox) 15 ml PO Q4H PRN PRN Reason: Heartburn or Indigestion Albuterol/Ipratropium (Duoneb) 3 ml NEB [id number] PRN PRN Reason: SOB &/or Wheezing Last Admin: 03/20/18 23:25 Dose: 3 ml Benzonatate (Tessalon) 100 mg PO Q4H PRN PRN Reason: Cough Bisacodyl (Dulcolax) 10 mg [place] DAILYPRN PRN PRN Reason: Constipation Bisacodyl (Dulcolax) 10 mg PO DAILYPRN PRN PRN Reason: Constipation Calcium Carbonate (Tums) 1,000 mg PO Q4H PRN PRN Reason: Heartburn or Indigestion Docusate Sodium (Colace) 100 mg PO BIDPRN PRN PRN Reason: Constipation Enoxaparin Sodium (Lovenox) 30 mg SC 0900 [facility] Last Admin: 03/21/18 08:57 Dose: 30 mg Furosemide (Lasix) 20 mg SLOW IVP DAILY [facility] Last Admin: 03/21/18 08:58 Dose: 20 mg Guaifenesin (Robitussin Sf) 200 mg PO Q4H PRN PRN Reason: Cough Hydralazine HCl (Apresoline) 10 mg SLOW IVP Q4H PRN PRN Reason: SBP>160 Meropenem 2 gm/ Sodium (Chloride) 100 mls @ 200 mls/hr IVPB 0500,1300,2100 [facility] Last Admin: 03/21/18 05:28 Dose: 100 mls Metronidazole 500 mg/ Device 100 mls @ 100 mls/hr IVPB Q8HR [facility] Last Admin: 03/21/18 06:24 Dose: 100 mls Ondansetron HCl 4 mg/ Sodium (Chloride) 52 mls @ 200 mls/hr IVPB Q4H PRN PRN Reason: Nausea Last Admin: 03/21/18 12:53 Dose: 52 mls Multivitamins 10 ml/ Chromium/Copper/Manganese/Seleni/Zn 5 ml/ Amino Acids/ Electrolytes/Fat Emulsion Intravenous 2,515 mls @ 104.792 mls/hr IV 2200 [facility] Last Admin: 03/20/18 22:18 Dose: 2,515 mls Potassium Chloride/Dextrose/Sod Cl (D5 1/2 Ns W/20 Meq Kcl) 1,000 mls @ 50 mls/ hr IV .Q20H [facility] Last Admin: 03/21/18 09:34 Dose: Not Given Labetalol HCl (Normodyne) 10 mg SLOW IVP Q4H PRN PRN Reason: SBP Greater Than 170 Loratadine (Claritin) 10 mg PO DAILYPRN PRN PRN Reason: Sinus Symptoms Lorazepam (Ativan) 2 mg SLOW IVP Q6H PRN PRN Reason: Anxiety/Agitation Last Admin: 03/20/18 22:17 Dose: 2 mg Morphine Sulfate (Morphine) 2 mg SLOW IVP Q4H PRN PRN Reason: Mild-Moderate Pain (1-5) Morphine Sulfate (Morphine) 4 mg SLOW IVP Q4H PRN PRN Reason: Moderate to Severe Pain (6-10) Last Admin: 03/20/18 08:56 Dose: 4 mg Nitroglycerin (Nitrostat) 0.4 mg SL Q5MIN PRN PRN Reason: Chest Pain Pantoprazole Sodium (Protonix) 40 mg IVP DAILY [facility] Last Admin: 03/21/18 08:58 Dose: 40 mg Senna (Senokot) 2 tab PO HSPRN PRN PRN Reason: Constipation Sodium Chloride (Flush - Normal Saline) 10 ml IVF Q12HR [facility] Last Admin: 03/21/18 09:33 Dose: Not Given Sodium Chloride (Flush - Normal Saline) 10 ml IVF PRN PRN PRN Reason: Saline Flush Tramadol HCl (Ultram) 50 mg PO Q4H PRN PRN Reason: Moderate Pain (4-6)
[2018-03-21] MEDS: Meropenem 2 GM, Admixture Fee 1 EACH in Sodium Chloride 0.9% 100 ML IVPB SCH (20:26)
[2018-03-21] MEDS: Lorazepam 2 MG/ML VIAL SLOW IVP PRN (20:31)
[2018-03-21] MEDS: Multivitamins, Adult 10 ML, Multitrace-5 5 ML in D15W-AA 5% with Lytes 2,000 ML, Fat Em... IV SCH (22:40)
--- NOTE | 2018-03-22 07:08 | PRG ---
DATE OF SERVICE: 03/22/2018 SUBJECTIVE: The patient reports she is really not having much pain. She did have some nausea last n ight. No vomiting. OBJECTIVE: VITAL SIGNS: Temperature is 98.1, pulse 93, blood pressure 122/82, 96% saturation. GENERAL: She is awake and alert. She does not appear to be in any distress. LUNGS: Lungs are clear. ABDOMEN: Obese, soft. She is mildly tender in the left upper quadrant to deep palpation. I do not feel any masses. ASSESSMENT: Gastric leak. PLAN: Continue n.p.o. antibiotics, bowel rest. We will follow CT scans as needed.
[2018-03-22] MEDS: metroNIDAZOLE 500 MG in Premix Bag 1 BAG IVPB SCH ×3 (12:16→21:49)
[2018-03-22] MEDS: Enoxaparin Sodium 30 MG/0.3 ML SYRINGE SC SCH (12:16)
[2018-03-22] MEDS: Meropenem 2 GM, Admixture Fee 1 EACH in Sodium Chloride 0.9% 100 ML IVPB SCH ×3 (12:16→20:53)
[2018-03-22] MEDS: Pantoprazole 40 MG VIAL IVP SCH (12:17)
[2018-03-22] MEDS: Furosemide 20 MG/2 ML VIAL SLOW IVP SCH (12:17)
[2018-03-22] MEDS: Ondansetron HCl/PF 4 MG in Sodium Chloride 0.9% 50 ML IVPB PRN (12:23)
--- NOTE | 2018-03-22 14:40 | PDOC.EVN ---
Event Note - Event Note Event Note: Chart reviewed.Care discussed w RN.No overnight events. VSS.No fever. Will stop IVF as pt on TPN and has H/O CHF with R pleural effusion .cont Lasix IV NPO . Prn anti hypertensives. OT/PT IM team will follow from afar.
[2018-03-22] MEDS ORDERED: Promethazine HCl 25 MG/ML VIAL SLOW IVP PRN (17:44)
[2018-03-22] MEDS ORDERED: Metoclopramide HCl 10 MG/2 ML VIAL IVP SCH (17:45)
[2018-03-22] MEDS: Scopolamine 1.5 mg/72 hour Patch TD SCH (17:54)
[2018-03-22 20:03] LABS: #Basophils 0.1 thou/uL (0.0-0.2); #Eosinphils 0.4 thou/uL (0.0-0.7); #Lymphocytes 2.3 thou/uL (1.20-3.40); #Neutrophils 4.8 thou/uL (1.40-6.50); %Basophils 0.7 % (0.0-1.0); %Eosinophils 4.3 % (0.0-10.0); %Lymphocytes 26.3 % (21.0-51.0); %Monocytes 12.1 % (0.0-10.0); %Neutrophils 56.6 % (42.0-75.0); Hemoglobin 10.7 g/dL (12.0-16.0); Mean Corpuscular HGB CONC 30.1 g/dL (32.0-36.0); Mean Corpuscular Volume 93.1 fL (78.0-98.0); Mean Platelet Volume 8.4 fL (7.4-10.4); Platelet Count 602 thou/uL (130-400); RBC Distribution Width 17.7 % (11.5-14.5); Red Blood Cell (RBC) Count 3.83 mill/uL (4.20-5.40); White Blood Cell (WBC) Count 8.6 thou/uL (4.8-10.8)
[2018-03-22 20:26] LABS: ALT (SGPT) 9 U/L (8-55); AST (SGOT) 16 U/L (5-34); Alkaline Phosphatase 51 U/L (40-150); Anion Gap 11 mmol/L (10-20); BUN (Urea Nitrogen) 18 mg/dL (7.0-18.7); Bilirubin, Total 0.2 mg/dL (0.2-1.2); Calc. Creatinine Clearance 284 mL/min (70-130); Calcium 9.6 mg/dL (7.8-10.44); Carbon Dioxide 32 mmol/L (22-29); Chloride 99 mmol/L (98-107); Estimated GFR-MDRD 69; Globulin 3.8 g/dL (2.4-3.5); Glucose 108 mg/dL (70-105); Magnesium 1.8 mg/dL (1.6-2.6); Phosphorus 3.1 mg/dL (2.3-4.7); Potassium 4.3 mmol/L (3.5-5.1); Protein, Total 6.8 g/dL (6.0-8.3); Sodium 138 mmol/L (136-145)
[2018-03-22] MEDS: Lorazepam 2 MG/ML VIAL SLOW IVP PRN (20:53)
[2018-03-22] MEDS: Metoclopramide HCl 10 MG/2 ML VIAL IVP SCH (21:50)
[2018-03-22] MEDS: Sodium Acetate 2 mEq/ml 40 MEQ, Sodium Chloride 30 MEQ, Potassium Chloride 20 MEQ, Pota... IV SCH (22:12)
[2018-03-23] MEDS: Meropenem 2 GM, Admixture Fee 1 EACH in Sodium Chloride 0.9% 100 ML IVPB SCH ×3 (04:07→21:27)
[2018-03-23] MEDS: metroNIDAZOLE 500 MG in Premix Bag 1 BAG IVPB SCH ×3 (05:12→22:38)
[2018-03-23] MEDS: Metoclopramide HCl 10 MG/2 ML VIAL IVP SCH ×3 (05:13→22:37)
[2018-03-23] MEDS ORDERED: Activase 2 MG VIAL CATH SCH (06:05)
[2018-03-23] MEDS ORDERED: Sterile Water 10 ML VIAL IVP SCH (06:05)
[2018-03-23] MEDS: Enoxaparin Sodium 30 MG/0.3 ML SYRINGE SC SCH (08:49)
[2018-03-23] MEDS: Pantoprazole 40 MG VIAL IVP SCH (08:49)
[2018-03-23] MEDS: Furosemide 20 MG/2 ML VIAL SLOW IVP SCH (08:49)
[2018-03-23 09:28] LABS: ALT (SGPT) 8 U/L (8-55); AST (SGOT) 18 U/L (5-34); Albumin 2.9 g/dL (3.5-5.0); Alkaline Phosphatase 54 U/L (40-150); Anion Gap 11 mmol/L (10-20); BUN (Urea Nitrogen) 22 mg/dL (7.0-18.7); Bilirubin, Total 0.2 mg/dL (0.2-1.2); Calc. Creatinine Clearance 278 mL/min (70-130); Calcium 9.6 mg/dL (7.8-10.44); Carbon Dioxide 33 mmol/L (22-29); Chloride 100 mmol/L (98-107); Estimated GFR-MDRD 68; Globulin 3.6 g/dL (2.4-3.5); Glucose 126 mg/dL (70-105); Potassium 4.5 mmol/L (3.5-5.1); Protein, Total 6.5 g/dL (6.0-8.3); Sodium 139 mmol/L (136-145)
[2018-03-23 09:31] LABS: Band 9 % (5-11); Eosinophils 5 % (0-10); Hypochromia SLIGHT = 6-15 cells (100X) (0-5/hpf); Lymphocytes 21 % (21-51); MDiff Complete? YES; Mean Corpuscular Hemoglobin 28.3 pg (27.0-31.0); Mean Corpuscular Volume 94.4 fL (78.0-98.0); Monocytes 10 % (0-10); Neutrophil 54 % (42-75); Platelet Count 603 thou/uL (130-400); RBC Distribution Width 17.6 % (11.5-14.5); Red Blood Cell (RBC) Count 3.88 mill/uL (4.20-5.40); White Blood Cell (WBC) Count 7.9 thou/uL (4.8-10.8)
--- NOTE | 2018-03-23 14:50 | HP ---
HISTORY OF PRESENT ILLNESS: Loly Larson is doing well. Nausea has improved with Reglan and scopo barb patch. The patient is n.p.o. now on TPN for a very small laparoscopic gastric sleeve leak. S he has no new complaints. She did get up out of bed and walked with physical therapy to the door. PHYSICAL EXAMINATION: VITAL SIGNS: 99.5 degrees, 97, 18, 120/82. LUNGS: Clear to auscultation. CARDIAC: Regular rate and rhythm without murmur or gallop. ABDOMEN: Soft and nontender. LABORATORY DATA: White count 7, hemoglobin 11. Basic metabolic profile was unremarkable. ASSESSMENT AND PLAN: 1. Laparoscopic gastric sleeve leak 2. Status post splenectomy. She is ambulating with physical therapy. Continue TPN and bowel rest. Activity as tolerated. I have increased her Lovenox to 40 mg subcu twice daily. She has scopolamin e patch on as well as Reglan IV for her nausea. Her labs have been stable. We will discontinue rout ine labs for now. I have increased her Lovenox to twice a day 40 mg. I have discontinued her oral m edications ordered by Medical.
[2018-03-23] MEDS: Ondansetron HCl/PF 4 MG in Sodium Chloride 0.9% 50 ML IVPB PRN (20:17)
[2018-03-23] MEDS: Enoxaparin Sodium 40 MG/0.4 ML SYRINGE SC SCH (21:35)
[2018-03-23] MEDS: Lorazepam 2 MG/ML VIAL SLOW IVP PRN (21:50)
[2018-03-23] MEDS: Sodium Acetate 2 mEq/ml 40 MEQ, Sodium Chloride 30 MEQ, Potassium Chloride 20 MEQ, Pota... IV SCH (23:08)
[2018-03-24] MEDS: Meropenem 2 GM, Admixture Fee 1 EACH in Sodium Chloride 0.9% 100 ML IVPB SCH ×3 (04:41→21:05)
[2018-03-24] MEDS: metroNIDAZOLE 500 MG in Premix Bag 1 BAG IVPB SCH ×3 (06:29→21:06)
[2018-03-24] MEDS: Metoclopramide HCl 10 MG/2 ML VIAL IVP SCH ×3 (06:29→21:06)
--- NOTE | 2018-03-24 07:40 | PRG ---
DATE OF SERVICE: 03/24/2018 SUBJECTIVE: Loly Larson is doing well today. She has no new complaints. OBJECTIVE: VITAL SIGNS: 97.9 degrees, 90, 122/88. LUNGS: Clear to auscultation. CARDIAC: Regular rate and rhythm without murmur, rub, or gallop. ABDOMEN: Soft, nontender. LABORATORY DATA: Hemoglobin 11 and white count 7.9 yesterday. Basic metabolic profile normal yester day. No labs today. Accu-Cheks 119/114. ASSESSMENT AND PLAN: Gastric sleeve leak. Continue n.p.o. Mobility as able.
--- NOTE | 2018-03-24 08:16 | PDOC.PN ---
- Subjective Encounter Start Date: 03/23/18 (Late entry note for 03/23/18) Encounter Start Time: 16:00 Subjective: pt seen and examined .denies any new complaints -: no nausea/vomiting.no abd pain -: walked w PT - Objective MAR Reviewed: Yes Vital Signs & Weight: Vital Signs (12 hours) Temp Pulse Resp BP Pulse Ox 03/24/18 07:54 98.2 F 95 18 121/81 97 03/24/18 05:05 97.9 F 90 18 122/88 97 03/24/18 01:33 98 F 94 19 113/75 95 03/23/18 21:57 90 110/77 03/23/18 21:50 96 Weight Admit Weight 491 lb 10.08 oz Weight 491 lb 10.08 oz I&O: 03/23/18 03/24/18 03/25/18 06:59 06:59 06:59 Intake Total 2478 1648 Output Total 1775 300 Balance 703 1348 Result Diagrams: 03/23/18 08:39 03/23/18 08:39 Additional Labs: Accuchecks 03/24/18 03/24/18 03/23/18 06:17 00:16 16:06 POC Glucose 119 H 114 H 119 H 03/23/18 03/22/18 12:03 23:39 POC Glucose 119 H 118 H Phys Exam - Physical Examination Constitutional: NAD HEENT: PERRLA, moist MMs, sclera anicteric, oral pharynx no lesions Neck: no nodes, no JVD, supple, full ROM Respiratory: no wheezing, no rales, no rhonchi, clear to auscultation bilateral Cardiovascular: RRR, no significant murmur, no rub, gallop Gastrointestinal: soft, non-tender, no distention, positive bowel sounds Musculoskeletal: no edema, pulses present Neurological: non-focal, normal sensation, moves all 4 limbs Psychiatric: normal affect, A&O x 3 Dx/Plan (1) Abdominal abscess Code(s): [id number] - Status: Acute Comment: recent Rx for subdiaphragmatic abscess 02/26.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 reports stable for years on daily lasix (3) Chronic atrial fibrillation Code(s): I48.2 - CHRONIC ATRIAL FIBRILLATION Status: Chronic Comment: rate controlled.Eliquis on hold due to NPO status. started Lovenox BID 40 mg /day from 03/23/18 by GS (4) Morbid obesity with BMI of 70 and over, adult Code(s): E66.01 - MORBID (SEVERE) OBESITY DUE TO EXCESS CALORIES; Z68.45 - BODY MASS INDEX (BMI) 70 OR GREATER, ADULT Status: Chronic Comment: s/p gastric Sleeve Sx 2017 (5) H/O extrinsic asthma Code(s): Z87.09 - PERSONAL HISTORY OF OTHER DISEASES OF THE RESPIRATORY SYSTEM Status: Chronic (6) Pleural effusion Code(s): J90 - PLEURAL EFFUSION, NOT ELSEWHERE CLASSIFIED Status: Chronic - Plan PT/OT, respiratory therapy, incentive spirometry, out of bed/ambulate, DVT proph w/SCDs cont NPO.TPN. -: hemodynamically stable. -: Try to wean off O2.R sided pleural effusion & anemia contributing to ROY -: OT,PT. -: PRN labs. IM team will follow * . Review of Systems - Review of Systems Constitutional: weakness. negative: fever, chills, sweats, malaise, other Respiratory: SOB with Excertion. negative: Cough, Dry, Shortness of Breath, Hemoptysis, Pleuritic Pain, Sputum, Wheezing Cardiovascular: negative: chest pain, palpitations, orthopnea, paroxysmal nocturnal dyspnea, edema, light headedness, other Gastrointestinal: negative: Nausea, Vomiting, Abdominal Pain, Diarrhea, Constipation, Melena, Hematochezia, Other Genitourinary: negative: Dysuria, Frequency, Incontinence, Hematuria, Retention , Other Musculoskeletal: negative: Neck Pain, Shoulder Pain, Arm Pain, Back Pain, Hand Pain, Leg Pain, Foot Pain, Other Skin: negative: Rash, Lesions, Malvin, Bruising, Other Neurological: negative: Weakness, Numbness, Incoordination, Change in Speech, Confusion, Seizures, Other - Medications/Allergies Allergies/Adverse Reactions: Allergies Allergy/AdvReac Type Severity Reaction Status Date / Time ciprofloxacin [From Cipro] Allergy Verified 03/19/18 01:06 clindamycin Allergy Rash Verified 03/19/18 01:06 levofloxacin [From Levaquin] Allergy Verified 03/19/18 01:06 lorcaserin [From Belviq] Allergy Nausea Verified 03/19/18 01:06 nitrofurantoin Allergy Hives Verified 03/19/18 01:06 [From Macrobid] Penicillins Allergy Verified 03/19/18 01:06 raspberry Allergy Verified 03/19/18 01:06 sulfamethoxazole Allergy Rash Verified 03/19/18 01:06 [From Bactrim] trimethoprim [From Bactrim] Allergy Rash Verified 03/19/18 01:06 Medications: Current Medications Acetaminophen (Tylenol) 650 mg PO Q4H PRN PRN Reason: Headache/Fever or Mild Pain Acetaminophen (Tylenol) 650 mg IN Q4H PRN PRN Reason: Headache/Fever or Mild Pain Al Hydroxide/Mg Hydroxide (Maalox) 15 ml PO Q4H PRN PRN Reason: Heartburn or Indigestion Albuterol/Ipratropium (Duoneb) 3 ml NEB [id number] PRN PRN Reason: SOB &/or Wheezing Last Admin: 03/22/18 22:34 Dose: 3 ml Benzonatate (Tessalon) 100 mg PO Q4H PRN PRN Reason: Cough Bisacodyl (Dulcolax) 10 mg IN DAILYPRN PRN PRN Reason: Constipation Bisacodyl (Dulcolax) 10 mg PO DAILYPRN PRN PRN Reason: Constipation Calcium Carbonate (Tums) 1,000 mg PO Q4H PRN PRN Reason: Heartburn or Indigestion Enoxaparin Sodium (Lovenox) 40 mg SC 0900,2100 [facility] Last Admin: 03/23/18 21:35 Dose: 40 mg Furosemide (Lasix) 20 mg SLOW IVP DAILY [facility] Last Admin: 03/23/18 08:49 Dose: 20 mg Hydralazine HCl (Apresoline) 10 mg SLOW IVP Q4H PRN PRN Reason: SBP>160 Metronidazole 500 mg/ Device 100 mls @ 100 mls/hr IVPB Q8HR [facility] Last Admin: 03/24/18 06:29 Dose: 100 mls Meropenem 2 gm/ Miscellaneous Medication 1 each/ Sodium Chloride 100 mls @ 200 mls/hr IVPB 0500,1300,2100 [facility] Last Admin: 03/24/18 04:41 Dose: 100 mls Sodium Acetate 40 meq/ Sodium Chloride 30 meq/ Potassium Chloride 20 meq/ Potassium Phosphate 30 mmol/ Calcium Chloride 10 meq/ Magnesium Sulfate 10 meq/ Multivitamins 10 ml/ Chromium/Copper/Manganese/Seleni/Zn 5 ml/ Fat Emulsion Intravenous 100 ml/Dextrose/Water/ Sterile Water/Amino Acids 2,172.3159 mls @ 90.513 mls/hr IV INF [facility] Last Admin: 03/23/18 23:08 Dose: 2,172.3159 mls Labetalol HCl (Normodyne) 10 mg SLOW IVP Q4H PRN PRN Reason: SBP Greater Than 170 Loratadine (Claritin) 10 mg PO DAILYPRN PRN PRN Reason: Sinus Symptoms Lorazepam (Ativan) 2 mg SLOW IVP Q6H PRN PRN Reason: Anxiety/Agitation Last Admin: 03/23/18 21:50 Dose: 2 mg Metoclopramide HCl (Reglan) 10 mg IVP Q8HR [facility] Last Admin: 03/24/18 06:29 Dose: 10 mg Morphine Sulfate (Morphine) 2 mg SLOW IVP Q4H PRN PRN Reason: Mild-Moderate Pain (1-5) Morphine Sulfate (Morphine) 4 mg SLOW IVP Q4H PRN PRN Reason: Moderate to Severe Pain (6-10) Last Admin: 03/20/18 08:56 Dose: 4 mg Nitroglycerin (Nitrostat) 0.4 mg SL Q5MIN PRN PRN Reason: Chest Pain Ondansetron HCl (Zofran) 4 mg IVP Q4H PRN PRN Reason: Nausea/Vomiting Pantoprazole Sodium (Protonix) 40 mg IVP DAILY [facility] Last Admin: 03/23/18 08:49 Dose: 40 mg Promethazine HCl (Phenergan) 12.5 mg SLOW IVP Q4H PRN PRN Reason: Nausea/Vomiting Scopolamine (Transderm Scop) 1.5 mg TD Q3D [facility] Last Admin: 03/22/18 17:54 Dose: 1.5 mg Senna (Senokot) 2 tab PO HSPRN PRN PRN Reason: Constipation Sodium Chloride (Flush - Normal Saline) 10 ml IVF Q12HR [facility] Last Admin: 03/23/18 22:37 Dose: 10 ml Sodium Chloride (Flush - Normal Saline) 10 ml IVF PRN PRN PRN Reason: Saline Flush
[2018-03-24] MEDS: Enoxaparin Sodium 40 MG/0.4 ML SYRINGE SC SCH ×2 (09:05→21:05)
[2018-03-24] MEDS: Pantoprazole 40 MG VIAL IVP SCH (09:06)
[2018-03-24] MEDS: Furosemide 20 MG/2 ML VIAL SLOW IVP SCH (09:06)
--- NOTE | 2018-03-24 11:12 | PDOC.PN ---
- Subjective Encounter Start Date: 03/24/18 Encounter Start Time: 11:11 Subjective: pt seen and examoined/ no new complaints -: mild nausea but no Abd pain/vomiting -: sob with exertion - Objective MAR Reviewed: Yes Vital Signs & Weight: Vital Signs (12 hours) Temp Pulse Resp BP Pulse Ox 03/24/18 07:55 97 03/24/18 07:54 98.2 F 95 18 121/81 97 03/24/18 05:05 97.9 F 90 18 122/88 97 03/24/18 01:33 98 F 94 19 113/75 95 Weight Admit Weight 491 lb 10.08 oz Weight 491 lb 10.08 oz I&O: 03/23/18 03/24/18 03/25/18 06:59 06:59 06:59 Intake Total 2478 1648 Output Total 1775 300 Balance 703 1348 Result Diagrams: 03/23/18 08:39 03/23/18 08:39 Additional Labs: Accuchecks 03/24/18 03/24/18 03/23/18 06:17 00:16 16:06 POC Glucose 119 H 114 H 119 H 03/23/18 03/22/18 12:03 23:39 POC Glucose 119 H 118 H Phys Exam - Physical Examination Constitutional: NAD HEENT: PERRLA, moist MMs, sclera anicteric, oral pharynx no lesions Neck: no nodes, no JVD, supple, full ROM Respiratory: no wheezing, no rales, no rhonchi, clear to auscultation bilateral Cardiovascular: RRR, no significant murmur Gastrointestinal: soft, non-tender, no distention, positive bowel sounds Musculoskeletal: no edema, pulses present Neurological: non-focal, normal sensation, moves all 4 limbs Psychiatric: normal affect, A&O x 3 Skin: no rash Dx/Plan (1) Abdominal abscess Code(s): [id number] - Status: Acute Comment: recent Rx for subdiaphragmatic abscess 02/26.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 reports stable for years on daily lasix (3) Chronic atrial fibrillation Code(s): I48.2 - CHRONIC ATRIAL FIBRILLATION Status: Chronic Comment: rate controlled.Eliquis on hold due to NPO status. started Lovenox BID 40 mg /day from 03/23/18 by GS (4) Morbid obesity with BMI of 70 and over, adult Code(s): E66.01 - MORBID (SEVERE) OBESITY DUE TO EXCESS CALORIES; Z68.45 - BODY MASS INDEX (BMI) 70 OR GREATER, ADULT Status: Chronic Comment: s/p gastric Sleeve Sx 2017 (5) H/O extrinsic asthma Code(s): Z87.09 - PERSONAL HISTORY OF OTHER DISEASES OF THE RESPIRATORY SYSTEM Status: Chronic (6) Pleural effusion Code(s): J90 - PLEURAL EFFUSION, NOT ELSEWHERE CLASSIFIED Status: Chronic - Plan continue antibiotics, PT/OT, incentive spirometry, out of bed/ambulate, DVT proph w/SCDs CXr today for Pl effusion f/u.pt still needing o2 PNC -: Cont empiri cABx for gastric sleeve leak w contained fluid collection -: TPN and NPO per GS for total 2 weeks. -: IM team will follow. HD stable -: Lovenox BID .Eliquis on hold * . Review of Systems - Review of Systems Constitutional: weakness. negative: fever, chills, sweats, malaise, other Respiratory: SOB with Excertion. negative: Cough, Dry, Shortness of Breath, Hemoptysis, Pleuritic Pain, Sputum, Wheezing Cardiovascular: negative: chest pain, palpitations, orthopnea, paroxysmal nocturnal dyspnea, edema, light headedness, other Gastrointestinal: Nausea. negative: Vomiting, Abdominal Pain, Diarrhea, Constipation, Melena, Hematochezia, Other Genitourinary: negative: Dysuria, Frequency, Incontinence, Hematuria, Retention , Other Musculoskeletal: negative: Neck Pain, Shoulder Pain, Arm Pain, Back Pain, Hand Pain, Leg Pain, Foot Pain, Other Skin: negative: Rash, Lesions, Malvin, Bruising, Other Neurological: negative: Weakness, Numbness, Incoordination, Change in Speech, Confusion, Seizures, Other - Medications/Allergies Allergies/Adverse Reactions: Allergies Allergy/AdvReac Type Severity Reaction Status Date / Time ciprofloxacin [From Cipro] Allergy Verified 03/19/18 01:06 clindamycin Allergy Rash Verified 03/19/18 01:06 levofloxacin [From Levaquin] Allergy Verified 03/19/18 01:06 lorcaserin [From Belviq] Allergy Nausea Verified 03/19/18 01:06 nitrofurantoin Allergy Hives Verified 03/19/18 01:06 [From Macrobid] Penicillins Allergy Verified 03/19/18 01:06 raspberry Allergy Verified 03/19/18 01:06 sulfamethoxazole Allergy Rash Verified 03/19/18 01:06 [From Bactrim] trimethoprim [From Bactrim] Allergy Rash Verified 03/19/18 01:06 Medications: Current Medications Acetaminophen (Tylenol) 650 mg PO Q4H PRN PRN Reason: Headache/Fever or Mild Pain Acetaminophen (Tylenol) 650 mg SC Q4H PRN PRN Reason: Headache/Fever or Mild Pain Al Hydroxide/Mg Hydroxide (Maalox) 15 ml PO Q4H PRN PRN Reason: Heartburn or Indigestion Albuterol/Ipratropium (Duoneb) 3 ml NEB [id number] PRN PRN Reason: SOB &/or Wheezing Last Admin: 03/22/18 22:34 Dose: 3 ml Benzonatate (Tessalon) 100 mg PO Q4H PRN PRN Reason: Cough Bisacodyl (Dulcolax) 10 mg SC DAILYPRN PRN PRN Reason: Constipation Bisacodyl (Dulcolax) 10 mg PO DAILYPRN PRN PRN Reason: Constipation Calcium Carbonate (Tums) 1,000 mg PO Q4H PRN PRN Reason: Heartburn or Indigestion Enoxaparin Sodium (Lovenox) 40 mg SC 0900,2100 [facility] Last Admin: 03/24/18 09:05 Dose: 40 mg Furosemide (Lasix) 20 mg SLOW IVP DAILY [facility] Last Admin: 03/24/18 09:06 Dose: 20 mg Hydralazine HCl (Apresoline) 10 mg SLOW IVP Q4H PRN PRN Reason: SBP>160 Metronidazole 500 mg/ Device 100 mls @ 100 mls/hr IVPB Q8HR [facility] Last Admin: 03/24/18 06:29 Dose: 100 mls Meropenem 2 gm/ Miscellaneous Medication 1 each/ Sodium Chloride 100 mls @ 200 mls/hr IVPB 0500,1300,2100 [facility] Last Admin: 03/24/18 04:41 Dose: 100 mls Sodium Acetate 40 meq/ Sodium Chloride 30 meq/ Potassium Chloride 20 meq/ Potassium Phosphate 30 mmol/ Calcium Chloride 10 meq/ Magnesium Sulfate 10 meq/ Multivitamins 10 ml/ Chromium/Copper/Manganese/Seleni/Zn 5 ml/ Fat Emulsion Intravenous 100 ml/Dextrose/Water/ Sterile Water/Amino Acids 2,172.3159 mls @ 90.513 mls/hr IV INF [facility] Last Admin: 03/23/18 23:08 Dose: 2,172.3159 mls Labetalol HCl (Normodyne) 10 mg SLOW IVP Q4H PRN PRN Reason: SBP Greater Than 170 Loratadine (Claritin) 10 mg PO DAILYPRN PRN PRN Reason: Sinus Symptoms Lorazepam (Ativan) 2 mg SLOW IVP Q6H PRN PRN Reason: Anxiety/Agitation Last Admin: 03/23/18 21:50 Dose: 2 mg Metoclopramide HCl (Reglan) 10 mg IVP Q8HR [facility] Last Admin: 03/24/18 06:29 Dose: 10 mg Morphine Sulfate (Morphine) 2 mg SLOW IVP Q4H PRN PRN Reason: Mild-Moderate Pain (1-5) Morphine Sulfate (Morphine) 4 mg SLOW IVP Q4H PRN PRN Reason: Moderate to Severe Pain (6-10) Last Admin: 03/20/18 08:56 Dose: 4 mg Nitroglycerin (Nitrostat) 0.4 mg SL Q5MIN PRN PRN Reason: Chest Pain Ondansetron HCl (Zofran) 4 mg IVP Q4H PRN PRN Reason: Nausea/Vomiting Pantoprazole Sodium (Protonix) 40 mg IVP DAILY [facility] Last Admin: 03/24/18 09:06 Dose: 40 mg Promethazine HCl (Phenergan) 12.5 mg SLOW IVP Q4H PRN PRN Reason: Nausea/Vomiting Scopolamine (Transderm Scop) 1.5 mg TD Q3D [facility] Last Admin: 03/22/18 17:54 Dose: 1.5 mg Senna (Senokot) 2 tab PO HSPRN PRN PRN Reason: Constipation Sodium Chloride (Flush - Normal Saline) 10 ml IVF Q12HR [facility] Last Admin: 03/24/18 09:06 Dose: 10 ml Sodium Chloride (Flush - Normal Saline) 10 ml IVF PRN PRN PRN Reason: Saline Flush
--- NOTE | 2018-03-24 14:05 | RAD ---
UPRIGHT CHEST 1 VIEW: Date: 03/24/18 HISTORY: 43-year-old female follow-up pleural effusion. FINDINGS: Comparison made to the prior CT social psychologist film dated 03/19/18 demonstrates again a moderate to large left -sided pleural effusion, which does not appear significantly changed given differences in position an d technique. The right lung is clear. There is borderline cardiomegaly. IMPRESSION: Overall stable appearing moderate size left pleural effusion. Mild stable cardiomegaly. No acute proc ess in the right lung. POS: [facility]
[2018-03-24] MEDS: Ondansetron HCl/PF 4 MG/2 ML Vial IVP PRN (19:52)
[2018-03-24] MEDS: Sodium Acetate 2 mEq/ml 40 MEQ, Sodium Chloride 30 MEQ, Potassium Chloride 20 MEQ, Pota... IV SCH (22:23)
[2018-03-24] MEDS: Lorazepam 2 MG/ML VIAL SLOW IVP PRN (22:24)
[2018-03-25] MEDS: Meropenem 2 GM, Admixture Fee 1 EACH in Sodium Chloride 0.9% 100 ML IVPB SCH ×3 (04:10→20:23)
[2018-03-25] MEDS: Metoclopramide HCl 10 MG/2 ML VIAL IVP SCH ×3 (05:35→21:31)
[2018-03-25] MEDS: metroNIDAZOLE 500 MG in Premix Bag 1 BAG IVPB SCH ×3 (05:35→21:31)
[2018-03-25] MEDS: Enoxaparin Sodium 40 MG/0.4 ML SYRINGE SC SCH ×2 (09:23→20:23)
[2018-03-25] MEDS: Pantoprazole 40 MG VIAL IVP SCH (09:23)
[2018-03-25] MEDS: Furosemide 20 MG/2 ML VIAL SLOW IVP SCH (09:23)
[2018-03-25] MEDS: Scopolamine 1.5 mg/72 hour Patch TD SCH (16:33)
[2018-03-25] MEDS: Ondansetron HCl/PF 4 MG/2 ML Vial IVP PRN (20:23)
--- NOTE | 2018-03-25 20:50 | PDOC.EVN ---
Event Note - Event Note Event Note: Chart reviewed. VSS Labs stable. CXR ordered yesterday shows no new pulmonary findings. stable pleural effusion. Cont current meds. IM team will follow.
[2018-03-25] MEDS: Lorazepam 2 MG/ML VIAL SLOW IVP PRN (21:31)
--- NOTE | 2018-03-25 21:42 | PRG ---
DATE OF SERVICE: 03/25/2018 SUBJECTIVE: Loly Larson is doing well today. She has no new complaints. She looks forward to tr y and liquids soon. I am covering for Dr. Guardado who returned Sunday and he will make that decisio n. She will probably need another swallow study. OBJECTIVE: VITAL SIGNS: Temperature 98.6 degrees, 87, 112/79. LUNGS: Clear to auscultation. CARDIAC: Regular rate and rhythm without murmur or gallop. ABDOMEN: Obese, soft, nontender. Surgical wounds well healed. LABORATORIES: None. Basic metabolic profile 03/23/2018 was normal. ASSESSMENT AND PLAN: Gastric sleeve leak. Continue n.p.o. status. Dr. Guardado to determine feeding r egimen and evaluation when he returns in 48 hours.
[2018-03-25] MEDS: Sodium Acetate 2 mEq/ml 40 MEQ, Sodium Chloride 30 MEQ, Potassium Chloride 20 MEQ, Pota... IV SCH (22:15)
[2018-03-26] MEDS: Meropenem 2 GM, Admixture Fee 1 EACH in Sodium Chloride 0.9% 100 ML IVPB SCH ×3 (04:08→20:27)
[2018-03-26] MEDS: Metoclopramide HCl 10 MG/2 ML VIAL IVP SCH ×3 (04:59→22:07)
[2018-03-26] MEDS: metroNIDAZOLE 500 MG in Premix Bag 1 BAG IVPB SCH ×3 (04:59→22:06)
[2018-03-26 05:40] LABS: Hemoglobin 10.1 g/dL (12.0-16.0)
[2018-03-26 06:42] LABS: ALT (SGPT) 12 U/L (8-55); AST (SGOT) 21 U/L (5-34); Albumin 2.9 g/dL (3.5-5.0); Alkaline Phosphatase 66 U/L (40-150); Anion Gap 11 mmol/L (10-20); BUN (Urea Nitrogen) 30 mg/dL (7.0-18.7); Bilirubin, Total 0.4 mg/dL (0.2-1.2); Calc. Creatinine Clearance 301 mL/min (70-130); Calcium 9.3 mg/dL (7.8-10.44); Carbon Dioxide 31 mmol/L (22-29); Chloride 99 mmol/L (98-107); Estimated GFR-MDRD 74; Globulin 3.5 g/dL (2.4-3.5); Glucose 115 mg/dL (70-105); Potassium 4.1 mmol/L (3.5-5.1); Protein, Total 6.4 g/dL (6.0-8.3); Sodium 137 mmol/L (136-145)
[2018-03-26] MEDS: Pantoprazole 40 MG VIAL IVP SCH (08:54)
[2018-03-26] MEDS: Furosemide 20 MG/2 ML VIAL SLOW IVP SCH (08:55)
[2018-03-26] MEDS: Enoxaparin Sodium 40 MG/0.4 ML SYRINGE SC SCH ×2 (08:55→20:27)
--- NOTE | 2018-03-26 11:08 | PRG ---
DATE OF SERVICE: 03/26/2018 HISTORY OF PRESENT ILLNESS: Loly Larson is doing well today. She has no complaints. She is n ot having any significant pain. She has mild right upper quadrant pain, left upper quadrant pain is improving and around her incision status post reoperation. PHYSICAL EXAMINATION: VITAL SIGNS: Temperature 98 degrees, 91, 103/71. LABORATORY: This morning her hemoglobin is 10, hematocrit 33. Basic metabolic profile was normal. LUNGS: Clear to auscultation. CARDIAC: Regular rate and rhythm without murmur or gallop. ABDOMEN: Soft, nontender. Surgical wounds well healed. The patient has ambulated with physical therapy daily. She has mobility problems due to her morbid o besity, 5 foot 5, 491 pounds, 81 BMI, and degenerative joint disease as a consequence. The patient asked me this morning if she can do a swallow study. I have communicated with Dr. Marco kirkland and plan is for her to have a 100 mL a contrast with a CT scan of the abdomen and pelvis to look for a leak and if she does not have a leak, we can start her on liquids. We will await this study.
--- NOTE | 2018-03-26 12:17 | CT ---
ABDOMEN AND PELVIS CT WITH CONTRAST: INDICATIONS: History of recent gastric sleeve procedure with enteric leak, postoperatively. COMPARISON: 03/19/2018 FINDINGS: Redemonstration of sequela from postoperative gastric leak, localizing to the left upper quadrant, wi th surrounding abnormal inflammatory fat stranding, as well as extraluminal high-density contrast and air. This does approximate and potentially communicate with the pleural space of the left chest, gi yair persistence of a moderate sized, partially visualized effusion. There is also persistence of a r ight pleural effusion and bibasilar consolidation of the imaged lungs. There is a punctate hypodensity of the posterior segment, right hepatic lobe, too small to further ch aracterize. Redemonstration of right renal hypodensities, incompletely characterized. There is incr eased density of the gallbladder, which is moderately distended, for which cholelithiasis is not excl uded, although this is limited by the extreme degree of beam hardening artifact from body wall contac t with the CT gantry. Otherwise, no significant interval detrimental change from 03/19/2018. IMPRESSION: 1. Findings of a postoperative gastric leak of the left upper quadrant are redemonstrated, without s ignificant interval change. No well formed percutaneously drainable abscess has developed. 2. Persistence of bilateral pleural effusions and bibasilar consolidation. Communication of the lef t pleural effusion with the above described inflammatory process of the left upper quadrant is not ex cluded, given its approximation and potential areas of visible, direct communication. Continued followup is warranted. Case discussed with Dr. Reagan. POS: [facility]
[2018-03-26] MEDS: Ondansetron HCl/PF 4 MG/2 ML Vial IVP PRN ×2 (13:21→20:27)
--- NOTE | 2018-03-26 14:34 | PDOC.PN ---
- Subjective Encounter Start Date: 03/26/18 Encounter Start Time: 14:33 Subjective: feels well. no abd pain.minimal nausea.no vomiting -: no ON events - Objective MAR Reviewed: Yes Vital Signs & Weight: Vital Signs (12 hours) Temp Pulse Resp BP Pulse Ox 03/26/18 08:00 97.8 F 91 16 118/79 97 03/26/18 05:02 98 F 91 19 103/71 94 L Weight Admit Weight 491 lb 10.08 oz Weight 491 lb 10.08 oz I&O: 03/25/18 03/26/18 03/27/18 06:59 06:59 06:59 Intake Total 1480 Balance 1480 Result Diagrams: 03/26/18 05:32 03/26/18 05:59 Additional Labs: Accuchecks 03/26/18 03/26/18 03/26/18 12:08 05:24 00:28 POC Glucose 112 H 95 201 H 03/25/18 15:44 POC Glucose 118 H Phys Exam - Physical Examination Constitutional: NAD HEENT: PERRLA, moist MMs, sclera anicteric, oral pharynx no lesions Neck: no nodes, no JVD, supple, full ROM Respiratory: no wheezing, no rales, no rhonchi, clear to auscultation bilateral Cardiovascular: RRR, no significant murmur, no rub Gastrointestinal: soft, non-tender, no distention, positive bowel sounds Musculoskeletal: no edema, pulses present Neurological: non-focal, normal sensation, moves all 4 limbs Psychiatric: normal affect, A&O x 3 Skin: no rash Dx/Plan (1) Abdominal abscess Code(s): WEA9676 - Status: Acute Comment: recent Rx for subdiaphragmatic abscess 02/26.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 (2) Chronic diastolic CHF (congestive heart failure), NYHA class 2 Code(s): I50.32 - CHRONIC DIASTOLIC (CONGESTIVE) HEART FAILURE Status: Chronic Comment: Per Pt. reports stable for years on daily lasix (3) Chronic atrial fibrillation Code(s): I48.2 - CHRONIC ATRIAL FIBRILLATION Status: Chronic Comment: rate controlled.Eliquis on hold due to NPO status. started Lovenox BID 40 mg /day from 03/23/18 by GS (4) Morbid obesity with BMI of 70 and over, adult Code(s): E66.01 - MORBID (SEVERE) OBESITY DUE TO EXCESS CALORIES; Z68.45 - BODY MASS INDEX (BMI) 70 OR GREATER, ADULT Status: Chronic Comment: s/p gastric Sleeve Sx 2017 (5) H/O extrinsic asthma Code(s): Z87.09 - PERSONAL HISTORY OF OTHER DISEASES OF THE RESPIRATORY SYSTEM Status: Chronic (6) Pleural effusion Code(s): J90 - PLEURAL EFFUSION, NOT ELSEWHERE CLASSIFIED Status: Chronic - Plan continue antibiotics, PT/OT, respiratory therapy, incentive spirometry, out of bed/ambulate, DVT proph w/SCDs Cont abx.NPO.TPN -: repeat CT per GS to evaluate leak.No formed abscess -: ? communication w Pl effusion.recommend Pulm consult -: Otherwise stable.H/H stable.IM team will follow -: not been able to weaned off of O2.nazialey d/t deconditioning,anemia,obesity * . Review of Systems - Review of Systems Constitutional: weakness. negative: fever, chills, sweats, malaise, other Respiratory: SOB with Excertion. negative: Cough, Dry, Shortness of Breath, Hemoptysis, Pleuritic Pain, Sputum, Wheezing Cardiovascular: negative: chest pain, palpitations, orthopnea, paroxysmal nocturnal dyspnea, edema, light headedness, other Gastrointestinal: negative: Nausea, Vomiting, Abdominal Pain, Diarrhea, Constipation, Melena, Hematochezia, Other Genitourinary: negative: Dysuria, Frequency, Incontinence, Hematuria, Retention , Other Musculoskeletal: negative: Neck Pain, Shoulder Pain, Arm Pain, Back Pain, Hand Pain, Leg Pain, Foot Pain, Other Skin: negative: Rash, Lesions, Malvin, Bruising, Other Neurological: negative: Weakness, Numbness, Incoordination, Change in Speech, Confusion, Seizures, Other - Medications/Allergies Allergies/Adverse Reactions: Allergies Allergy/AdvReac Type Severity Reaction Status Date / Time ciprofloxacin [From Cipro] Allergy Verified 03/19/18 01:06 clindamycin Allergy Rash Verified 03/19/18 01:06 levofloxacin [From Levaquin] Allergy Verified 03/19/18 01:06 lorcaserin [From Belviq] Allergy Nausea Verified 03/19/18 01:06 nitrofurantoin Allergy Hives Verified 03/19/18 01:06 [From Macrobid] Penicillins Allergy Verified 03/19/18 01:06 raspberry Allergy Verified 03/19/18 01:06 sulfamethoxazole Allergy Rash Verified 03/19/18 01:06 [From Bactrim] trimethoprim [From Bactrim] Allergy Rash Verified 03/19/18 01:06 Medications: Current Medications Acetaminophen (Tylenol) 650 mg PO Q4H PRN PRN Reason: Headache/Fever or Mild Pain Acetaminophen (Tylenol) 650 mg NC Q4H PRN PRN Reason: Headache/Fever or Mild Pain Al Hydroxide/Mg Hydroxide (Maalox) 15 ml PO Q4H PRN PRN Reason: Heartburn or Indigestion Albuterol/Ipratropium (Duoneb) 3 ml NEB [id number] PRN PRN Reason: SOB &/or Wheezing Last Admin: 03/22/18 22:34 Dose: 3 ml Benzonatate (Tessalon) 100 mg PO Q4H PRN PRN Reason: Cough Bisacodyl (Dulcolax) 10 mg NC DAILYPRN PRN PRN Reason: Constipation Bisacodyl (Dulcolax) 10 mg PO DAILYPRN PRN PRN Reason: Constipation Calcium Carbonate (Tums) 1,000 mg PO Q4H PRN PRN Reason: Heartburn or Indigestion Enoxaparin Sodium (Lovenox) 40 mg SC 0900,2100 [facility] Last Admin: 03/26/18 08:55 Dose: 40 mg Furosemide (Lasix) 20 mg SLOW IVP DAILY [facility] Last Admin: 03/26/18 08:55 Dose: 20 mg Hydralazine HCl (Apresoline) 10 mg SLOW IVP Q4H PRN PRN Reason: SBP>160 Metronidazole 500 mg/ Device 100 mls @ 100 mls/hr IVPB Q8HR [facility] Last Admin: 03/26/18 13:57 Dose: 100 mls Meropenem 2 gm/ Miscellaneous Medication 1 each/ Sodium Chloride 100 mls @ 200 mls/hr IVPB 0500,1300,2100 [facility] Last Admin: 03/26/18 13:09 Dose: 100 mls Sodium Acetate 40 meq/ Sodium Chloride 30 meq/ Potassium Chloride 20 meq/ Potassium Phosphate 30 mmol/ Calcium Chloride 10 meq/ Magnesium Sulfate 10 meq/ Multivitamins 10 ml/ Chromium/Copper/Manganese/Seleni/Zn 5 ml/ Fat Emulsion Intravenous 100 ml/Dextrose/Water/ Sterile Water/Amino Acids 2,172.3159 mls @ 90.513 mls/hr IV INF [facility] Last Admin: 03/25/18 22:15 Dose: 2,172.3159 mls Labetalol HCl (Normodyne) 10 mg SLOW IVP Q4H PRN PRN Reason: SBP Greater Than 170 Loratadine (Claritin) 10 mg PO DAILYPRN PRN PRN Reason: Sinus Symptoms Lorazepam (Ativan) 2 mg SLOW IVP Q6H PRN PRN Reason: Anxiety/Agitation Last Admin: 03/25/18 21:31 Dose: 2 mg Metoclopramide HCl (Reglan) 10 mg IVP Q8HR [facility] Last Admin: 03/26/18 13:57 Dose: 10 mg Morphine Sulfate (Morphine) 2 mg SLOW IVP Q4H PRN PRN Reason: Mild-Moderate Pain (1-5) Morphine Sulfate (Morphine) 4 mg SLOW IVP Q4H PRN PRN Reason: Moderate to Severe Pain (6-10) Last Admin: 03/20/18 08:56 Dose: 4 mg Nitroglycerin (Nitrostat) 0.4 mg SL Q5MIN PRN PRN Reason: Chest Pain Ondansetron HCl (Zofran) 4 mg IVP Q4H PRN PRN Reason: Nausea/Vomiting Last Admin: 03/26/18 13:21 Dose: 4 mg Pantoprazole Sodium (Protonix) 40 mg IVP DAILY [facility] Last Admin: 03/26/18 08:54 Dose: 40 mg Promethazine HCl (Phenergan) 12.5 mg SLOW IVP Q4H PRN PRN Reason: Nausea/Vomiting Scopolamine (Transderm Scop) 1.5 mg TD Q3D [facility] Last Admin: 03/25/18 16:33 Dose: 1.5 mg Senna (Senokot) 2 tab PO HSPRN PRN PRN Reason: Constipation Sodium Chloride (Flush - Normal Saline) 10 ml IVF Q12HR [facility] Last Admin: 03/26/18 08:55 Dose: 10 ml Sodium Chloride (Flush - Normal Saline) 10 ml IVF PRN PRN PRN Reason: Saline Flush
[2018-03-26] MEDS: Lorazepam 2 MG/ML VIAL SLOW IVP PRN ×2 (15:37→22:06)
[2018-03-26] MEDS ORDERED: ISOVUE-370 76%-LOCM 1 ML ONE (15:57)
[2018-03-26] MEDS ORDERED: Iopamidol 370 76% 50 ML VIAL FS ONE (15:57)
[2018-03-26] MEDS: Sodium Acetate 2 mEq/ml 40 MEQ, Sodium Chloride 30 MEQ, Potassium Chloride 20 MEQ, Pota... IV SCH (21:59)
[2018-03-27] MEDS: Morphine 4 MG/ML VIAL SLOW IVP PRN (03:52)
[2018-03-27] MEDS: Meropenem 2 GM, Admixture Fee 1 EACH in Sodium Chloride 0.9% 100 ML IVPB SCH ×3 (03:54→20:22)
[2018-03-27] MEDS: metroNIDAZOLE 500 MG in Premix Bag 1 BAG IVPB SCH ×3 (05:05→21:56)
[2018-03-27] MEDS: Metoclopramide HCl 10 MG/2 ML VIAL IVP SCH ×3 (05:06→21:57)
[2018-03-27 05:39] LABS: ALT (SGPT) 13 U/L (8-55); AST (SGOT) 18 U/L (5-34); Albumin 2.6 g/dL (3.5-5.0); Alkaline Phosphatase 63 U/L (40-150); Anion Gap 12 mmol/L (10-20); BUN (Urea Nitrogen) 28 mg/dL (7.0-18.7); Bilirubin, Total 0.3 mg/dL (0.2-1.2); Calc. Creatinine Clearance 352 mL/min (70-130); Calcium 8.2 mg/dL (7.8-10.44); Carbon Dioxide 28 mmol/L (22-29); Chloride 103 mmol/L (98-107); Estimated GFR-MDRD 89; Globulin 3.2 g/dL (2.4-3.5); Glucose 95 mg/dL (70-105); Potassium 3.7 mmol/L (3.5-5.1); Protein, Total 5.8 g/dL (6.0-8.3); Sodium 139 mmol/L (136-145)
[2018-03-27] MEDS: Furosemide 20 MG/2 ML VIAL SLOW IVP SCH (09:47)
[2018-03-27] MEDS: Pantoprazole 40 MG VIAL IVP SCH (09:47)
[2018-03-27] MEDS: Enoxaparin Sodium 40 MG/0.4 ML SYRINGE SC SCH ×2 (09:48→20:23)
--- NOTE | 2018-03-27 11:22 | PRG ---
DATE OF SERVICE: 03/27/2018 SUBJECTIVE: The patient actually feels pretty good. She says she does not feel any pain. She does have rare nausea. She does tolerate sips of liquids. PHYSICAL EXAMINATION: VITAL SIGNS: She is afebrile. Her pulse is 88, blood pressure 109/72. GENERAL: She looks good. ABDOMEN: Soft. I cannot elicit any tenderness. IMAGING: Her CT scan yesterday showed a persistent contained leak. No free extravasation. LABORATORY DATA: Her white count is normal. I talked to her about options. I gave her the option of sending her to [place] for Dr. Gaffney to [facility] a stent placement to block the hole to improve the length of time it will take for this to heal . Another option I gave her is to just slowly advance her liquids and see how she does to the point when she is able to tolerate enough calories by mouth so that she can be discharged. She would like to think about it. We talked about the advantages and disadvantages of stent placement and the risks of those. She is not sure what she wants to do at this point. So, we will continue with what we ayse choi doing.
[2018-03-27] MEDS: Ondansetron HCl/PF 4 MG/2 ML Vial IVP PRN (13:04)
[2018-03-27] MEDS: Sodium Acetate 2 mEq/ml 40 MEQ, Sodium Chloride 30 MEQ, Potassium Chloride 20 MEQ, Pota... IV SCH (21:56)
[2018-03-27] MEDS: Lorazepam 2 MG/ML VIAL SLOW IVP PRN (21:57)
--- NOTE | 2018-03-27 22:33 | PDOC.PN ---
- Subjective Encounter Start Date: 03/27/18 Encounter Start Time: 12:30 Patient seen and examined for med mngt. No new complaints. No overnight events - Objective MAR Reviewed: Yes Vital Signs & Weight: Vital Signs (12 hours) Temp Pulse Resp BP Pulse Ox 03/27/18 20:15 98.5 F 91 18 117/77 95 03/27/18 15:58 98.2 F 95 14 120/86 97 03/27/18 11:03 97.5 F L 84 18 114/75 96 Weight Admit Weight 491 lb 10.08 oz Weight 491 lb 10.08 oz I&O: 03/26/18 03/27/18 03/28/18 06:59 06:59 06:59 Intake Total 1480 1460 Output Total 900 Balance 1480 560 Result Diagrams: 03/26/18 05:32 03/27/18 05:18 Additional Labs: Accuchecks 03/27/18 03/27/18 03/27/18 18:02 12:03 05:51 POC Glucose 113 H 117 H 121 H 03/27/18 00:14 POC Glucose 115 H Phys Exam - Physical Examination Constitutional: NAD Respiratory: no wheezing, no rhonchi Cardiovascular: RRR, no rub Gastrointestinal: soft, non-tender, positive bowel sounds Musculoskeletal: no edema Neurological: moves all 4 limbs Dx/Plan - Plan DVT proph w/SCDs IMPRESSION: 1. Par Afib 2. Morbid Obesity 3. Chronic diastolic HF - compensated - Stage C 4. HTN / Other issues per previous notes PLAN: Cont Lovenox On TPN Cont Atbx Cont other meds as below Review of Systems - Review of Systems Respiratory: negative: Cough, Dry, Shortness of Breath, Hemoptysis, SOB with Excertion, Pleuritic Pain, Sputum, Wheezing Cardiovascular: negative: chest pain, palpitations, orthopnea, paroxysmal nocturnal dyspnea, edema, light headedness, other - Medications/Allergies Allergies/Adverse Reactions: Allergies Allergy/AdvReac Type Severity Reaction Status Date / Time ciprofloxacin [From Cipro] Allergy Verified 03/19/18 01:06 clindamycin Allergy Rash Verified 03/19/18 01:06 levofloxacin [From Levaquin] Allergy Verified 03/19/18 01:06 lorcaserin [From Belviq] Allergy Nausea Verified 03/19/18 01:06 nitrofurantoin Allergy Hives Verified 03/19/18 01:06 [From Macrobid] Penicillins Allergy Verified 03/19/18 01:06 raspberry Allergy Verified 03/19/18 01:06 sulfamethoxazole Allergy Rash Verified 03/19/18 01:06 [From Bactrim] trimethoprim [From Bactrim] Allergy Rash Verified 03/19/18 01:06 Medications: Current Medications Acetaminophen (Tylenol) 650 mg PO Q4H PRN PRN Reason: Headache/Fever or Mild Pain Acetaminophen (Tylenol) 650 mg TN Q4H PRN PRN Reason: Headache/Fever or Mild Pain Al Hydroxide/Mg Hydroxide (Maalox) 15 ml PO Q4H PRN PRN Reason: Heartburn or Indigestion Albuterol/Ipratropium (Duoneb) 3 ml NEB [id number] PRN PRN Reason: SOB &/or Wheezing Last Admin: 03/22/18 22:34 Dose: 3 ml Benzonatate (Tessalon) 100 mg PO Q4H PRN PRN Reason: Cough Bisacodyl (Dulcolax) 10 mg TN DAILYPRN PRN PRN Reason: Constipation Bisacodyl (Dulcolax) 10 mg PO DAILYPRN PRN PRN Reason: Constipation Calcium Carbonate (Tums) 1,000 mg PO Q4H PRN PRN Reason: Heartburn or Indigestion Enoxaparin Sodium (Lovenox) 40 mg SC 0900,2100 [facility] Last Admin: 03/27/18 20:23 Dose: 40 mg Furosemide (Lasix) 20 mg SLOW IVP DAILY [facility] Last Admin: 03/27/18 09:47 Dose: 20 mg Hydralazine HCl (Apresoline) 10 mg SLOW IVP Q4H PRN PRN Reason: SBP>160 Metronidazole 500 mg/ Device 100 mls @ 100 mls/hr IVPB Q8HR [facility] Last Admin: 03/27/18 21:56 Dose: 100 mls Meropenem 2 gm/ Miscellaneous Medication 1 each/ Sodium Chloride 100 mls @ 200 mls/hr IVPB 0500,1300,2100 [facility] Last Admin: 03/27/18 20:22 Dose: 100 mls Sodium Acetate 40 meq/ Sodium Chloride 30 meq/ Potassium Chloride 20 meq/ Potassium Phosphate 30 mmol/ Calcium Chloride 10 meq/ Magnesium Sulfate 10 meq/ Multivitamins 10 ml/ Chromium/Copper/Manganese/Seleni/Zn 5 ml/ Fat Emulsion Intravenous 100 ml/Dextrose/Water/ Sterile Water/Amino Acids 2,172.3159 mls @ 90.513 mls/hr IV INF [facility] Last Admin: 03/27/18 21:56 Dose: 2,172.3159 mls Labetalol HCl (Normodyne) 10 mg SLOW IVP Q4H PRN PRN Reason: SBP Greater Than 170 Loratadine (Claritin) 10 mg PO DAILYPRN PRN PRN Reason: Sinus Symptoms Lorazepam (Ativan) 2 mg SLOW IVP Q6H PRN PRN Reason: Anxiety/Agitation Last Admin: 03/27/18 21:57 Dose: 2 mg Metoclopramide HCl (Reglan) 10 mg IVP Q8HR [facility] Last Admin: 03/27/18 21:57 Dose: 10 mg Morphine Sulfate (Morphine) 2 mg SLOW IVP Q4H PRN PRN Reason: Mild-Moderate Pain (1-5) Morphine Sulfate (Morphine) 4 mg SLOW IVP Q4H PRN PRN Reason: Moderate to Severe Pain (6-10) Last Admin: 03/27/18 03:52 Dose: 4 mg Nitroglycerin (Nitrostat) 0.4 mg SL Q5MIN PRN PRN Reason: Chest Pain Ondansetron HCl (Zofran) 4 mg IVP Q4H PRN PRN Reason: Nausea/Vomiting Last Admin: 03/27/18 13:04 Dose: 4 mg Pantoprazole Sodium (Protonix) 40 mg IVP DAILY [facility] Last Admin: 03/27/18 09:47 Dose: 40 mg Promethazine HCl (Phenergan) 12.5 mg SLOW IVP Q4H PRN PRN Reason: Nausea/Vomiting Scopolamine (Transderm Scop) 1.5 mg TD Q3D [facility] Last Admin: 03/25/18 16:33 Dose: 1.5 mg Senna (Senokot) 2 tab PO HSPRN PRN PRN Reason: Constipation Sodium Chloride (Flush - Normal Saline) 10 ml IVF Q12HR [facility] Last Admin: 03/27/18 09:47 Dose: 10 ml Sodium Chloride (Flush - Normal Saline) 10 ml IVF PRN PRN PRN Reason: Saline Flush
[2018-03-28] MEDS: Meropenem 2 GM, Admixture Fee 1 EACH in Sodium Chloride 0.9% 100 ML IVPB SCH (04:18)
[2018-03-28 04:57] LABS: ALT (SGPT) 14 U/L (8-55); AST (SGOT) 19 U/L (5-34); Albumin 2.8 g/dL (3.5-5.0); Alkaline Phosphatase 71 U/L (40-150); Anion Gap 10 mmol/L (10-20); BUN (Urea Nitrogen) 30 mg/dL (7.0-18.7); Bilirubin, Total 0.4 mg/dL (0.2-1.2); Calc. Creatinine Clearance 329 mL/min (70-130); Calcium 8.6 mg/dL (7.8-10.44); Carbon Dioxide 30 mmol/L (22-29); Chloride 104 mmol/L (98-107); Estimated GFR-MDRD 82; Globulin 3.3 g/dL (2.4-3.5); Glucose 95 mg/dL (70-105); Potassium 3.8 mmol/L (3.5-5.1); Protein, Total 6.1 g/dL (6.0-8.3); Sodium 140 mmol/L (136-145)
[2018-03-28] MEDS: Metoclopramide HCl 10 MG/2 ML VIAL IVP SCH (05:15)
[2018-03-28] MEDS: metroNIDAZOLE 500 MG in Premix Bag 1 BAG IVPB SCH (05:15)
[2018-03-28 07:50] VITALS: BP 120/80; TEMP 98.7
[2018-03-28] MEDS: Enoxaparin Sodium 40 MG/0.4 ML SYRINGE SC SCH (08:21)
[2018-03-28] MEDS: Furosemide 20 MG/2 ML VIAL SLOW IVP SCH (08:22)
[2018-03-28] MEDS: Pantoprazole 40 MG VIAL IVP SCH (08:22)
[2018-03-28] MEDS: Lorazepam 2 MG/ML VIAL SLOW IVP PRN (09:42)
--- NOTE | 2018-03-28 12:13 | DIS ---
DISCHARGE DIAGNOSIS: Gastric sleeve leak. PROCEDURES DURING ADMISSION: IV antibiotics, TPN therapy, CT scan of abdomen and pelvis. HOSPITAL COURSE: The patient was admitted and given IV antibiotics. CT scan showed extravasation of contrast into a contained pocket. She did very well. She remained afebrile and not tachycardic. P ain was minimal. She was treated with IV antibiotics and bowel rest for about a week and then repeat ed and really did not show any significant change. We therefore are sending her to [facility]. Dr. Noa Coyne to assess for possible stent placement. She will follow up with us with pos tommy repeat transfer back here next week.
== END 2018-03-28 10:14 | disposition short-term general hospital (02) | DRG 394 ==
LOC: SURG A 18:10
PROVIDERS: ADMIT Surgery; ATTEND Surgery
PROC: 3E0336Z Introduction of Nutritional Substance into Peripheral Vein, Percutaneous Approach (ICD-10-PCS; principal; 2018-03-18)
DX: K95.89 Other complications of other bariatric procedure (principal); Z68.45 Body mass index [BMI] 70 or greater, adult; I50.32 Chronic diastolic (congestive) heart failure; E66.01 Morbid (severe) obesity due to excess calories; I11.0 Hypertensive heart disease with heart failure; E78.5 Hyperlipidemia, unspecified; M19.90 Unspecified osteoarthritis, unspecified site; Z88.0 Allergy status to penicillin; J44.9 Chronic obstructive pulmonary disease, unspecified; I48.0 Paroxysmal atrial fibrillation
CPT/HCPCS: 36415; 36416; 71045; 74177; 80048; 80053; 80061; 83735; 83880; 84100; 84134; 85014; 85018; 85025; 85610; 85730; 94640; A4216; A4217; C9113; G8978-GP-CM; G8979-GP-CK; J1650; J1940; J2060; J2185; J2270; J2405; J2550; J2765; J2997; J3475; J3480; J7050; J7620

== ENCOUNTER 2018-09-16 06:31 | Outpatient (CLI) | payer BC ==
[2018-09-16 06:45] LABS: #Basophils 0.1 thou/uL (0.0-0.2); #Eosinphils 0.4 thou/uL (0.0-0.7); #Neutrophils 5.1 thou/uL (1.40-6.50); %Basophils 0.8 % (0.0-1.0); %Eosinophils 4.3 % (0.0-10.0); %Lymphocytes 30.9 % (21.0-51.0); %Monocytes 10.6 % (0.0-10.0); %Neutrophils 53.3 % (42.0-75.0); Hemoglobin 11.7 g/dL (12.0-16.0); Mean Corpuscular Hemoglobin 26.4 pg (27.0-31.0); Mean Corpuscular Volume 87.8 fL (78.0-98.0); Mean Platelet Volume 9.3 fL (7.4-10.4); Platelet Count 344 thou/uL (130-400); RBC Distribution Width 18.1 % (11.5-14.5); Red Blood Cell (RBC) Count 4.44 mill/uL (4.20-5.40); White Blood Cell (WBC) Count 9.6 thou/uL (4.8-10.8)
[2018-09-16 06:59] LABS: ALT (SGPT) 13 U/L (8-55); AST (SGOT) 14 U/L (5-34); Albumin 3.5 g/dL (3.5-5.0); Alkaline Phosphatase 91 U/L (40-150); Anion Gap 12 mmol/L (10-20); BUN (Urea Nitrogen) 13 mg/dL (7.0-18.7); Bilirubin, Total 0.6 mg/dL (0.2-1.2); Calc. Creatinine Clearance 0 mL/min (70-130); Calcium 9.8 mg/dL (7.8-10.44); Carbon Dioxide 26 mmol/L (22-29); Cardiac Risk 5.1 (Less than 4.5); Chloride 106 mmol/L (98-107); Cholesterol 157 mg/dl (< 200 Desired); Estimated GFR-MDRD 53; Globulin 3.1 g/dL (2.4-3.5); Glucose 93 mg/dL (70-105); HDL Cholesterol 31 mg/dL (>60 Neg Risk); LDL Cholesterol, Calculated 100 mg/dL; Potassium 3.9 mmol/L (3.5-5.1); Protein, Total 6.6 g/dL (6.0-8.3); Sodium 140 mmol/L (136-145); Triglycerides 128 mg/dL (Less than 150)
[2018-09-16 12:25] LABS: Ferritin 19.36 ng/mL (10-291)
[2018-09-16 12:28] LABS: Vitamin D, 25 Hydroxy 35.3 ng/ml (> 30.0)
[2018-09-17 02:30] LABS: Iron 37 ug/dL (50-170); Iron Binding Capacity, Total 310 mcg/dL (265-497)
[2018-09-17 06:44] LABS: Bilirubin Negative (Negative); Blood, Urine Negative (Negative); Clarity Clear (Clear); Glucose, Urine (Dipstick) Negative (Negative); Leukocyte Negative (Negative); Nitrite Negative (Negative); Protein, Urine (Dipstick) Negative (Neg-Trace); Urobilinogen 0.2 mg/dL (0.2-1.0); pH, Urine 6.5 (5.0-9.0)
[2018-09-17 06:45] LABS: Bacteria/HPF None Seen HPF (None Seen); Hyaline Casts/LPF 0-3 HYALINE CAST LPF (0-3 Hyaline); RBC/HPF 0-3 HPF (0-3); Squamous Epithelial 0-3 HPF (0-3); WBC/HPF 0-3 HPF (0-3)
== END 2018-09-16 06:32 | disposition home or self-care (01) ==
LOC: SCSLAB 06:31
PROVIDERS: ATTEND Family Medicine
DX: Z00.00 Encounter for general adult medical examination without abnormal findings (principal); E55.9 Vitamin D deficiency, unspecified; Z98.84 Bariatric surgery status
CPT/HCPCS: 36415; 80053; 80061; 81001; 82306; 82607; 82728; 83540; 83550; 84425; 85025

== ENCOUNTER 2025-01-26 06:50 | Emergency (ER) | payer OTHER ==
[2025-01-26] MEDS ORDERED: EPINEPHrine 1 MG/10 ML Abboject SYRINGE ONE (06:55)
[2025-01-26] MEDS ORDERED: Sodium Bicarb 50 MEQ/50 ML Abboject 8.4% SYRINGE ONE (06:55)
[2025-01-26 07:17] LABS: #Basophils 0.18 10x3/uL (0.0-0.2); #Eosinophils 0.64 10x3/uL (0.0-0.7); #Monocytes 1.33 10x3/uL (0.11-0.59); #Neutrophils 4.18 10x3/uL (1.40-6.50); %Basophils 1.0 % (0.0-1.0); %Eosinophils 3.7 % (0.0-10.0); %Lymphocytes 59.6 % (21.0-51.0); %Monocytes 7.6 % (0.0-10.0); %Neutrophils 24.1 % (42.0-75.0); Hematocrit 50.3 % (36.0-47.0); Hemoglobin 15.0 g/dL (12.0-16.0); Mean Corpuscular Hemoglobin 29.6 pg (27.0-31.0); Mean Corpuscular Volume 99.2 fL (78.0-98.0); Platelet Count 361 10x3/uL (130-400); Red Blood Cell (RBC) Count 5.07 mill/uL (4.20-5.40); White Blood Cell (WBC) Count 17.39 10x3/uL (4.8-10.8)
[2025-01-26 07:35] LABS: ALT (SGPT) 182 U/L (Less than 34); AST (SGOT) 197 U/L (11-34); Albumin 3.0 g/dL (3.1-4.5); Alkaline Phosphatase 112 U/L (40-110); Anion Gap 26 mmol/L (10-20); BUN (Urea Nitrogen) 25 mg/dL (9.8-20.1); Bilirubin, Total 0.3 mg/dL (0.3-1.2); Calc. Creatinine Clearance 0 mL/min (70-130); Calcium 9.3 mg/dL (7.8-10.44); Carbon Dioxide 12 mmol/L (22-29); Chloride 105 mmol/L (98-107); Globulin 3.5 g/dL (2.4-3.5); Glucose 329 mg/dL (70-105); Potassium 5.9 mmol/L (3.5-5.1); Sodium 137 mmol/L (136-145)
== END 2025-01-26 07:08 | disposition expired ==
LOC: ERS 06:50
DX: I46.9 Cardiac arrest, cause unspecified (principal); I11.0 Hypertensive heart disease with heart failure; I50.9 Heart failure, unspecified; I48.91 Unspecified atrial fibrillation; E78.5 Hyperlipidemia, unspecified; Z87.891 Personal history of nicotine dependence; Z79.899 Other long term (current) drug therapy; Z79.01 Long term (current) use of anticoagulants
CPT/HCPCS: 80053; 84484; 85025; 85730; 92950; J0165; J0282